=== PATIENT | female | born 1955 | race Caucasian/White ===

== ENCOUNTER 2018-06-19 10:23 | Outpatient (REF) | payer MEDICAID, SELFPAY ==
[2018-06-19 19:04] LABS: HCT 41.3 % (36.0-46.0); HGB 13.9 g/dL (12.0-15.5); Mean Corp. HGB Concentration 33.7 g/dL (32.0-36.0); Mean Corpuscular Hemoglobin 35.7 pg (27.0-33.0); Mean Corpuscular Volume 106.2 fL (80-95); Mean Platelet Volume 11.2 fL (8.0-11.0); Platelet Count 204 x1000/uL (130-400); RBC 3.89 m/cumm (4.00-5.20); RBC Distribution Width 14.6 % (11.7-14.6); White Blood Cell Count 10.27 k/cumm (4.4-10.8)
[2018-06-19 19:16] LABS: Anion Gap 8.3 mmol/L (3-11); BUN 26 mg/dL (7-18); CO2 29.7 mmol/L (21.0-32.0); CREATININE 0.78 mg/dL (0.55-1.02); Chloride 102 mmol/L (98-107); Glucose 92 mg/dL (70-100); Potassium 4.1 mmol/L (3.5-5.1); Sodium 140 mmol/L (136-145)
[2018-06-19 19:29] LABS: Calcium 11.4 mg/dL (8.5-10.1)
== END 2018-06-19 10:43 ==
LOC: NCHCN 10:23
PROVIDERS: PCP Physician Assistant Medical; Visit Provider Nurse Practitioner Family
DX: E87.1 Hypo-osmolality and hyponatremia (principal); D64.9 Anemia, unspecified
CPT/HCPCS: 80048; 85027

== ENCOUNTER 2019-02-12 11:50 | Outpatient (REF) | payer MEDICAID, SELFPAY ==
[2019-02-12 19:49] LABS: HCT 41.1 % (36.0-46.0); HGB 14.1 g/dL (12.0-15.5); Mean Corp. HGB Concentration 34.3 g/dL (32.0-36.0); Mean Corpuscular Hemoglobin 34.8 pg (27.0-33.0); Mean Corpuscular Volume 101.5 fL (80-95); Mean Platelet Volume 11.3 fL (8.0-11.0); Platelet Count 233 x1000/uL (130-400); RBC 4.05 m/cumm (4.00-5.20); RBC Distribution Width 14.9 % (11.7-14.6); White Blood Cell Count 12.25 k/cumm (4.4-10.8)
[2019-02-12 20:28] LABS: ALT 114 U/L (12-78); AST 124 U/L (15-37); Albumin 4.2 g/dL (3.4-5.0); Alkaline Phosphatase 104 U/L (46-116); Anion Gap 13.9 mmol/L (3-11); BUN 14 mg/dL (7-18); Bilirubin, Total 0.4 mg/dL (0.2-1.0); CO2 24.1 mmol/L (21.0-32.0); CREATININE 0.86 mg/dL (0.55-1.02); Calcium 10.2 mg/dL (8.5-10.1); Chloride 101 mmol/L (98-107); Folate 16.5 ng/mL (8.6-20.0); Glucose 166 mg/dL (70-100); Potassium 4.4 mmol/L (3.5-5.1); Sodium 139 mmol/L (136-145); Total Protein 7.7 g/dL (6.4-8.2); Vitamin B12 560 pg/mL (193-986)
== END 2019-02-12 12:10 ==
LOC: NCHCN 11:50
PROVIDERS: PCP Physician Assistant Medical; Visit Provider Nurse Practitioner Family
DX: F10.10 Alcohol abuse, uncomplicated (principal); E87.1 Hypo-osmolality and hyponatremia; D64.9 Anemia, unspecified; I21.4 Non-ST elevation (NSTEMI) myocardial infarction
CPT/HCPCS: 80053; 85027; 82607; 82746

== ENCOUNTER 2019-05-18 18:43 | Outpatient (REF) | payer MEDICAID, SELFPAY ==
[2019-05-18 20:17] LABS: Abs Immature Grans 0.02 k/cumm (0.0-0.09); Absolute Basophil Count 0.05 k/cumm (0.0-0.2); Absolute Eosinophil Count 0.01 k/cumm (0.0-0.7); Absolute Lymphocyte Count 2.47 k/cumm (1.2-3.4); Absolute Monocyte Count 0.84 k/cumm (0.11-0.7); Absolute Neutrophil Count 4.48 k/cumm (1.2-6.7); Basophils % 0.6; Eosinophils % 0.1; HCT 35.5 % (36.0-46.0); HGB 12.2 g/dL (12.0-15.5); Immature Grans % 0.3; Lymphocytes % 31.4; Mean Corp. HGB Concentration 34.4 g/dL (32.0-36.0); Mean Corpuscular Volume 101.7 fL (80-95); Mean Platelet Volume 10.5 fL (8.0-11.0); Monocytes % 10.7; Neutrophils % 56.9; Platelet Count 217 x1000/uL (130-400); RBC 3.49 m/cumm (4.00-5.20); RBC Distribution Width 13.7 % (11.7-14.6); White Blood Cell Count 7.87 k/cumm (4.4-10.8)
== END 2019-05-18 19:03 ==
LOC: NCHCN 18:43
PROVIDERS: PCP Internal Medicine; Visit Provider Internal Medicine
DX: K70.10 Alcoholic hepatitis without ascites (principal); Z87.19 Personal history of other diseases of the digestive system; D64.9 Anemia, unspecified
CPT/HCPCS: 85025

== ENCOUNTER 2019-05-21 13:45 | Outpatient (REF) | payer MEDICAID, SELFPAY ==
[2019-05-21 19:22] LABS: HGB 10.9 g/dL (12.0-15.5); Mean Corpuscular Hemoglobin 35.3 pg (27.0-33.0); Mean Corpuscular Volume 106.8 fL (80-95); Platelet Count 157 x1000/uL (130-400); RBC 3.09 m/cumm (4.00-5.20); RBC Distribution Width 13.7 % (11.7-14.6); White Blood Cell Count 7.34 k/cumm (4.4-10.8)
== END 2019-05-21 14:05 ==
LOC: NCHCN 13:45
PROVIDERS: PCP Internal Medicine; Visit Provider Nurse Practitioner Family
DX: K70.10 Alcoholic hepatitis without ascites (principal)
CPT/HCPCS: 85027

== ENCOUNTER 2021-12-10 17:44 | Outpatient (REF) | payer OTHER, MEDICAID, SELFPAY ==
[2021-12-10 18:46] LABS: HCT 31.3 % (36.0-46.0); HGB 10.8 g/dL (11.2-15.7); MCH 34.5 pg (27.0-33.0); MCHC 34.5 % (32.0-36.0); MCV 100 fL (80-95); MPV 9.9 fL (8.0-11.0); Platelet Count 401 10^3/uL (130-400); RBC 3.13 10^6/uL (3.93-5.22); RDW 13.2 % (11.7-14.6); RDW-SD 48.5 fL; WBC 9.38 10^3/uL (4.4-10.8)
[2021-12-10 18:55] LABS: Anion Gap 9.7 mmol/L (3-11); BUN 6 mg/dL (7-18); CO2 29.3 mmol/L (21.0-32.0); CREATININE 0.6 mg/dL (0.55-1.02); Calcium 9.5 mg/dL (8.5-10.1); Chloride 98 mmol/L (98-107); Glucose 96 mg/dL (74-106); Sodium 137 mmol/L (136-145)
[2021-12-10 19:26] LABS: Potassium 2.5 mmol/L (3.5-5.1)
== END 2021-12-10 17:45 | disposition home or self-care (01) ==
LOC: NCHCN 17:44
PROVIDERS: PCP Internal Medicine; Visit Provider Physician Assistant
DX: F10.10 Alcohol abuse, uncomplicated (principal)
CPT/HCPCS: 80048; 85027

== ENCOUNTER 2023-04-21 16:59 | Outpatient (REF) | payer OTHER, MEDICAID, SELFPAY ==
[2023-04-21 19:28] LABS: Abs Immature Grans 0.02 10^3/uL (0.0-0.06); Absolute Basophil Count 0.08 10^3/uL (0.0-0.2); Absolute Eosinophil Count 0.02 10^3/uL (0.0-0.7); Absolute Lymphocyte Count 2.55 10^3/uL (1.2-3.4); Absolute Monocyte Count 0.56 10^3/uL (0.1-0.8); Absolute Neutrophil Count 4.09 10^3/uL (1.2-6.7); Basophils % 1.1; Eosinophils % 0.3; HCT 39.7 % (36.0-46.0); HGB 13.2 g/dL (11.2-15.7); Immature Grans % 0.3; Lymphocytes % 34.8; MCH 33.8 pg (27.0-33.0); MCHC 33.2 % (32.0-36.0); MCV 102 fL (80-95); MPV 10.1 fL (8.0-11.0); Monocytes % 7.7; Neutrophils % 55.8; Platelet Count 236 10^3/uL (130-400); RBC 3.91 10^6/uL (3.93-5.22); RDW 14.3 % (11.7-14.6); RDW-SD 53.3 fL; WBC 7.32 10^3/uL (4.4-10.8)
[2023-04-21 19:50] LABS: ALT 22 U/L (14-59); AST 45 U/L (15-37); Alkaline Phosphatase 222 U/L (46-116); Anion Gap 11.6 mmol/L (3-11); BUN 3 mg/dL (7-18); Bilirubin, Total 0.3 mg/dL (0.2-1.0); CO2 23.4 mmol/L (21.0-32.0); CREATININE 0.7 mg/dL (0.55-1.02); Calcium 10.1 mg/dL (8.5-10.1); Calculated LDL 55 mg/dL (<100); Chloride 102 mmol/L (98-107); Cholesterol 192 mg/dL (<200); Estimated GFR 94.15 (mL/min/1.73m2); Glucose 82 mg/dL (74-106); HDL Cholesterol 125 mg/dL (40-60); Magnesium 1.9 mg/dL (1.8-2.4); Potassium 4.1 mmol/L (3.5-5.1); Sodium 137 mmol/L (136-145); Total Protein 7.2 g/dL (6.4-8.2); Triglyceride 62 mg/dL (<150)
== END 2023-04-21 17:00 | disposition home or self-care (01) ==
LOC: NCHCN 16:59
PROVIDERS: PCP Internal Medicine; Visit Provider Physician Assistant
DX: I42.6 Alcoholic cardiomyopathy (principal); K70.10 Alcoholic hepatitis without ascites; R63.6 Underweight; F10.10 Alcohol abuse, uncomplicated; I10 Essential (primary) hypertension
CPT/HCPCS: 80053; 80061; 83735; 84443; 85025

== ENCOUNTER 2023-05-11 13:33 | Emergency (ER) | payer OTHER, MEDICAID, SELFPAY ==
[2023-05-11 13:45] VITALS: BP 102/77; PULSE 110; RESP 18; TEMP 36.4; O2SAT 99
--- NOTE | 2023-05-11 13:55 | W.ED.GENAD ---
Discharge Plan Disposition Patient Disposition: Home Discharge Details Clinical Impression: Macrocytosis without anemia Primary Care Provider: Noam Sosa ED Provider: Atif Roche Home Meds and New Rx's Prescriptions: New cephalexin 250 mg capsule 250 mg PO QID 5 Days Qty: 20 0RF Continued atorvastatin 40 MG tablet 40 mg PO DAILY Hold Instructions: per pt disulfiram 250 MG tablet 250 mg PO DAILY Hold Instructions: per pt cyproheptadine 4 MG tablet 8 mg PO HS Hold Instructions: per pt lisinopril 5 MG tablet 5 mg PO DAILY Hold Instructions: per pt multivitamin 1 EACH capsule 1 ea PO Hold Instructions: Pt Stopped/Never Started tiotropium bromide [Spiriva with HandiHaler] 18 MCG capsule, w/inhalation device 18 mcg Inhalation DAILY Hold Instructions: per pt quetiapine [Seroquel] 300 MG tablet 600 mg PO DAILY Hold Instructions: per pt thiamine HCl (vitamin B1) 100 MG tablet 100 mg PO DAILY Hold Instructions: per pt aspirin [Lucia Low Dose Aspirin] 81 MG tablet,delayed release (DR/EC) 81 mg PO DAILY Hold Instructions: per pt paroxetine HCl [Paxil] 20 MG tablet 60 mg PO DAILY Hold Instructions: per pt omeprazole 20 MG capsule,delayed release(DR/EC) 20 mg PO DAILY fluticasone propionate 16 GM spray,suspension 50 mcg NS BID Hold Instructions: per pt naproxen [Naprosyn] 500 MG tablet 500 mg PO BID Hold Instructions: per pt] Ensure Original 237 ML liquid 237 ml PO TID Hold Instructions: per pt Combivent Respimat 4 GM mist 1 puff Inhalation QID Hold Instructions: per pt hydrocodone-acetaminophen [[place]] 1 EACH tablet 1 - 2 tab PO PRN PRN Hold Instructions: per pt Discharge Instructions Additional Instructions: You were seen in the emergency department first thoughts of self-harm. You met with [facility] human services and received a safety plan. You are awaiting a care bed. If you do not feel safe at home or if you have any other concerns please return to the emergency department. As we discussed please follow-up with your primary care provider later this week to touch base about restarting medicines. As we discussed please cut down on your drinking. Please do not stop drinking entirely but rather drink 1 less drinks per day and slowly stop drinking over the course of the week. If you feel concern for your safety please return to the emergency department. Please take these antibiotics as directed and please return to the emergency department if you develop fevers or if you pass out. Discharge Data Discharge Date/Time-TO BE ENTERED AT DEPARTURE: 05/11/23 22:21 HPI General Date/Time Provider Initiated Documentation: 05/11/23 13:40. HPI Narrative: MDM This is a chronically ill appearing tachycardic but afebrile 68-year-old demented female with vague thoughts of self-harm and prior psychiatric hospitalizations for which she will require crisis evaluation following medical evaluation. Given daily ethanol use will obtain a magnesium level to assess for hypomagnesemia, ethanol level acetaminophen level and salicylate level. No chest pain to suggest ACS. Will provide 500 cc of crystalloid given tachycardia. No pain out of proportion to suggest necrotizing soft tissue infection. No focal neurological deficits to suggest CVA so I do not feel that the patient would be a tPA candidate. Patient has no nuchal rigidity nor any fevers so my suspicion is low for meningitis I do not feel that she requires a lumbar puncture. No tonic-clonic activity to suggest seizure. No dysuria nor frequency however will obtain a urinalysis to assess for UTI. Given history of fall this morning will obtain a CT head. No ophthalmoplegia so doubt Warnicke's. Per Nexus criteria, cervical CT not obtained. The patient had no c-spine midline tenderness, no evidence of intoxication, was AAOx3, had no focal neurological deficits, and no painful distracting injuries. Given fall will obtain chest x-ray. Will place patient on a CIWA protocol. Patient is not markedly tremulous at the moment so we will defer empiric chlordiazepoxide. No signs of acute withdrawal at the moment so we will defer empiric phenobarbital. Patient's niece reports that mental status is at baseline. 2:40 PM CBC showing macrocytosis without anemia. No thrombocytopenia. No leukocytosis. 3:10 PM Acetaminophen negative. Basic metabolic panel showing no anion gap. Normal creatinine. Very mild hyponatremia. No JOSE. Normal reassuring magnesium. Mildly elevated salicylates. Will order repeat level in 4 hours at 6:30 PM ethanol level elevated at 129 mg/dL. We will have patient meet with crisis team in approximately 4 hours based on clearance of approximately 30 mg/dL/h. This will be at approximately 6:30 PM also. TSH normal. reassuring negative COVID. Patient reportedly has not been taking her home medications. We will hold her quetiapine for the moment. 3:55 PM Urine drug screen unremarkable. Urinalysis showing trace blood and large leuk esterase. Nitrite negative. Microscopy showing 20-50 WBCs per high-powered field. Despite no symptoms of dysuria nor frequency will treat based on new suicidal ideation in the patient's age using cephalexin. Negative CT head. 4:30 PM Chest x-ray read as negative. 4:50 PM Patient's tachycardia improving however her blood pressures become soft at 88/57. She does only weigh 40 kg however will provide another 500 cc crystalloid fluid bolus while encouraging p.o. 5:13 PM Results from [facility] on recent ED visit earlier this year shows patient does indeed have a history of mild cognitive disorder/dementia along with alcohol abuse. 7 PM Downtrending salicylate level. We will have crisis evaluate patient as she is medically cleared. 8:40 PM Patient had a CIWA score of 6. Her heart rate was 97. Her blood pressure improved to 117/76. She tolerated p.o. [facility] is currently screening the patient. 9:50 PM I spoke with Sonia from [facility] [employer] services who assessed the patient. She reported that the patient had had difficult times during inpatient placement in the past and as result she was referred the patient to a care bed. Patient will wait from home for the care bed. We will ensure that the patient and her niece feel comfortable this plan will discharge with course of cephalexin for acute UTI. I met with the patient and her niece. 10 PM Patient felt comfortable going home. She is staying with her partner today. She has no access to handguns. She has not taken her medicines in the past 2 to 3 weeks and as result will defer restarting these at this point time. I have asked health pulling unit floorhand Mary Ann to have the patient seen later this week by the [facility] where she receives her primary care to assess how best to resume her home medications. Will defer benzodiazepines at this point time given that the patient is going home. I wrote patient for a 5-day course of cephalexin and told her to return to the emergency department if she developed fevers nausea vomiting or if she passed out. We will proceed with empiric trial of expectant outpatient management Diagnosis: Macrocytosis without anemia Dementia History of falling Acute UTI Depression suicidal ideation Alcohol abuse complication Chronic conditions affecting the care of the patient: Dementia History obtained from an outside historian: Patient's niece External record review: No [facility] EMR records [Diagnostic interpretations performed by me:] [Per my independent interpretation chest x-ray shows:] No acute cardiopulmonary process Medications: NicoDerm Social determinants of health affecting disposition: Lives alone Management discussed with: [facility] human servicesSonia Treatment/interventions considered: Hospitalization but deferred Response to therapies provided: No signs of acute withdrawal patient vital signs in the emergency department. HPI This is a 68-year-old female arrived to the emergency department with her niece in the setting of suicidal thoughts. Patient has a history of dementia. Patient [facility]. She primarily receives her care at [facility] and has been seen in the past at [facility]. She lives with a male partner. She denies visual and auditory hallucinations. Her prior suicide attempt has been by taking pills. She denies any overdoses at the moment. She has no history of intubation nor hospitalization for withdrawal from alcohol but she does drink 4-5 drinks per day. She is a daily tobacco user but declines nicotine patch. She occasionally uses marijuana. She is ambulates with a walker at baseline and fell this morning while making her bed. She is not sure whether or not she hit her head. Exam General: Chronically ill-appearing in no acute distress speaking in complete sentences. Head: Normocephalic, atraumatic. Eye:[Pupils equal, round reactive to light.] Extraocular eye movements intact. No conjunctival injection. No scleral icterus. Ear, nose, mouth, throat: Grossly normal inspection. Normal voice, handling secretions normally. No tongue fasciculations. Neck: Trachea midline. No midline cervical spinal tenderness Cardiovascular: Well-perfused distal extremities. Rapid regular rate Respiratory: Nonlabored respiration. Clear lungs bilaterally. Chest wall: No chest wall tenderness Gastrointestinal: Nondistended abdomen. Soft nontender Musculoskeletal: No edema. Moving all 4 extremities spontaneously. No tenderness bilateral upper and lower extremities on palpation Skin: Normal for age and race, grossly normal temperature and turgor. No acute rash. Neurologic: Alert to person but not to place nor time. GCS 14: E4, V4, M6. 5 out of 5 bilateral upper and lower extremity strength. Cranial nerves II through XII intact grossly. Psychiatric: Limited affect congruent with mood. Slightly disheveled. Smells of tobacco. Related Data Home Medications Medication Instructions Recorded Confirmed Lucia Low Dose Aspirin 81 mg 81 mg PO DAILY 05/03/17 05/11/23 tablet,delayed release (aspirin) Combivent Respimat 20 mcg-100 1 puff inhalation QID 05/03/17 05/11/23 mcg/actuation solution for inhalation (ipratropium-albuterol) Ensure Original (food supplemt, 237 ml PO TID 05/03/17 05/11/23 lactose-reduced) Naprosyn 500 mg tablet (naproxen) 500 mg PO BID 05/03/17 05/11/23 Paxil 20 mg tablet (paroxetine HCl) 60 mg PO DAILY 05/03/17 05/11/23 Seroquel 300 mg tablet (quetiapine) 600 mg PO DAILY 05/03/17 05/11/23 Spiriva with HandiHaler 18 mcg and 18 mcg inhalation DAILY 05/03/17 05/11/23 inhalation capsules (tiotropium bromide) atorvastatin 40 mg tablet 40 mg PO DAILY 05/03/17 05/11/23 cyproheptadine 4 mg tablet 8 mg PO HS 05/03/17 05/11/23 disulfiram 250 mg tablet 250 mg PO DAILY 05/03/17 05/11/23 fluticasone propionate 50 50 mcg NS BID 05/03/17 05/11/23 mcg/actuation nasal spray,suspension lisinopril 5 mg tablet 5 mg PO DAILY 05/03/17 05/11/23 multivitamin 1 ea PO 05/03/17 omeprazole 20 mg capsule,delayed 20 mg PO DAILY 05/03/17 05/11/23 release thiamine HCl (vitamin B1) 100 mg 100 mg PO DAILY 05/03/17 05/11/23 tablet hydrocodone 5 mg-acetaminophen 325 1 - 2 tab PO PRN PRN 05/11/17 05/11/23 mg tablet ([place]) cephalexin 250 mg capsule 250 mg PO QID 5 days #20 caps 05/11/23 Previous Rx's Medication Instructions Recorded cephalexin 250 mg capsule 250 mg PO QID 5 days #20 caps 05/11/23 Allergies Allergy/AdvReac Type Severity Reaction Status Date / Time No Known Drug Allergies Allergy Unverified 05/11/23 14:35 General Stated Complaint: PsychEval JAZMIN: 2 PFSH All Active Problems (Updated 05/11/23 @ 16:01 by Atif Roche MD) Macrocytosis without anemia (Acute) Social History Smoking/Tobacco Use Status: Current every day Smoking risk assessment performed?: Yes Alcohol Intake: current Alcohol Intake frequency: 3 or more drinks per day Alcohol type: beer Drug use: Occasionally Substance use type: marijuana Housing: apartment Do you feel safe at home: Yes Do you feel safe in your relationship?: Yes Course Vital Signs Vital signs: Vital Signs Temperature 36.4 C L 05/11/23 13:45 Pulse 110 H 05/11/23 13:45 Respiratory Rate 18 05/11/23 13:45 Blood Pressure 102/77 05/11/23 13:45 Pulse Oximetry 99 05/11/23 13:45 Temperature 36.4 C L 05/11/23 13:45 Pulse 110 H 05/11/23 13:45 Respiratory Rate 18 05/11/23 13:45 Respiratory Effort Normal 05/11/23 13:48 Blood Pressure 102/77 05/11/23 13:45 Blood Pressure Position Sitting 05/11/23 13:45 Pulse Oximetry 99 05/11/23 13:45 Oxygen Delivery Method Room Air 05/11/23 13:45 Oxygen Flow Rate 0 05/11/23 13:45 PAWSS Have you Been Recently Intoxicated or Drunk Within the Last 30 days?: Yes Have you Ever Experienced Previous Episodes of Alcohol Withdrawal?: Yes Have you ever Experienced Withdrawal Seizures?: No Have you ever Experienced Delirium Tremens(DT)s?: Yes Have you ever undergone Alcohol Rehabilitation Treatment (i.e, inpt ot outpatient treatment programs)?: Yes Have you ever Experienced Blackouts?: No Have you ever Combined Alcohol with other Downers within the last 90 days?: Unable to Obtain Have you ever Combined Alcohol with any other Substance of Abuse during the last 90 days?: Yes Evidence of Increased Autonomic Activity (i.e. HR>120, tremor, sweating, agitation, nausea)?: No Result: 6
--- OUTSIDE RECORDS SUMMARY | 2023-05-11 13:55 | XMS_ITS | Continuity of Care Document ---
Author Name Unknown Organization [facility] Address [address] [place] [address] Care Team Providers Care Experimental Mechanic Name Role Phone [facility], Noam Estrella Primary Care Physician Encounter [facility] Date(s): 12/18/22 - 12/18/[address] [id number] Encounter Diagnosis Conjunctivitis(Discharge Diagnosis) - 12/18/22 Discharge Disposition: Home or Self Care Attending Physician: Sabrina Gonzalez MD Admitting Physician: Sabrina Gonzalez MD Allergies, Adverse Reactions, Alerts No Known Medication Allergies Assessment and Plan Extracted from: Title:Clinical Document Author:Rambo Rodriguez Date:12/18/22 Diagnosis: 1. Conjunctivitis Comment: Diagnosis: Eye drainage Comment: Functional Status 12/18/22 Other exposure to Infectious Disease Non e Immunizations Given and Recorded Vaccine Date Status Refusal Reason SARS-CoV-2 (COVID-19) [id number] vaccine 11/05/20 R ecorded Medications Augmentin 500 mg-125 mg oral tablet 1 tab, Oral, every 12 hr, X 7 days, # 14 tab, 0 Refill(s), 12/25/22 21:21:00 EDT, Pharmacy: [facility], 150, cm, 12/18/22 20:41:00 EDT, Height/Length Dosing, 36, kg, 12/18/22 20:41:00 EDT, Weight Dosing Start Date: 12/18/22 Stop Date: 12/25/22 Status: Ordered cephalexin 500 mg oral capsule 500 mg = 1 cap, Oral, every 8 hr, # 21 cap, 0 Refill(s), Pharmacy: [id number], 149, cm, 02/21/22 18:53:00 EDT, Height/Length Dosing, 36.4, kg, 02/21/22 18:53:00 EDT, Weight Dosing Start Date: 02/21/22 Stop Date: 02/28/22 Status: Ordered cyproheptadine 4 mg oral tablet 4 mg = 1 tab, Oral, every evening, 0 Refill(s) Start Date: 11/27/21 Status: Ordered erythromycin 0.5% ophthalmic ointment 0.5 inch, Eye-Left, BID, X 7 days, # 3.5 g, 0 Refill(s), 12/25/22 21:21:00 EDT, Pharmacy: [facility], 150, cm, 12/18/22 20:41:00 EDT, Height/Length Dosing, 36, kg, 12/18/22 20:41:00 EDT, WeightDosing Start Date: 12/18/22 Stop Date: 12/25/22 Status: Ordered midodrine 2.5 mg oral tablet 2.5 mg = 1 tab, Oral, TID, 1 Refill(s) Start Date: 12/01/21 Status: Ordered traZODone 50 mg oral tablet 50 mg = 1 tab, Oral, every evening, PRN sleep, 0 Refill(s) Start Date: 11/27/21 Status: Ordered Problem List Condition Confirmation Course Effective Dates Status H ealth Status Informant Depression Confirmed Active History of alcoholic cardiomyopathy Confirmed Active Results Laboratory List Name Date .Manual Differential ([facility]) 12/18/22 CBC w/ Diff 12/18/22 Comprehensive Metabolic Panel (CMP) 12/18 Most recent to oldest [Reference Range]: 1 WBC [5.0-10.0 x10^3/mcL] 8.0 x10^3/mcL (12/18/22 8:47 PM) RBC [4.1-5.3 x10^6/mcL] 3.5 x10^6/mcL *LOW* (12/18/22 8:47 PM) Segs Man [40-75 %] 36 % *LOW* (12/18/22 8:47 PM) Lymph Man [20-50 %] 55 % *HI* (12/18/22 8:47 PM) [place] Man [2-15 %] 8 % (12/18/22 8:47 PM) Eos Man [1-6 %] 1 % (12/18/22 8:47 PM) BUN [7-18 mg/dL] 3 mg/dL *LOW* (12/18/22 8:47 PM) Glucose Level [74-106 mg/dL] 81 mg/dL (12/18/22 8:47 PM) Potassium Level [3.5-5.1 mmol/L] 4.0 mmo l/L (12/18/22 8:47 PM) MCV [80.0-96.0 fL] 99.7 fL *HI* (12/18/22 8:47 PM) RBC Morph Normal (12/18/22 8:47 PM) AST [15-37 unit/L] 147 unit/L *HI* (12/18/22 8:47 PM) ALT [14-59 unit/L] 75 unit/L *HI* (12/18/22 8:47 PM) MCHC [31.0-35.0 g/dL] 34.7 g/dL (12/18/22 8:47 PM) Sodium Level [136-145 mmol/L] 128 mmol/L *LOW* (12/18/22 8:47 PM) Hct [37.0-47.0 %] 35.2 % *LOW* (12/18/22 8:47 PM) Calcium Level [8.5-10.1 mg/dL] 9.4 mg/dL (12/18/22 8:47 PM) Albumin Level [3.4-5.0 g/dL] 3.3 g/dL *LOW* (12/18/22 8:47 PM) Protein Total [6.4-8.2 g/dL] 7.1 g/dL (12/18/22 8:47 PM) MCH [26.0-32.0 pg] 34.6 pg *HI* (12/18/22 8:47 PM) Bilirubin Total [0.2-1.0 mg/dL] 0.4 mg/d L (12/18/22 8:47 PM) Hgb [12.0-16.0 g/dL] 12.2 g/dL (12/18/22 8:47 PM) Alk Phos [46-146 unit/L] 193 unit/L *HI* (12/18/22 8:47 PM) Band Man [0-5 %] 0 % (12/18/22 8:47 PM) Platelets [130-450 x10^3/mcL] 162 x10^3/ mcL (12/18/22 8:47 PM) CO2 [21-32 mmol/L] 22 mmol/L (12/18/22 8:47 PM) eGFR Non-AA [>=60] 98 (12/18/22 8:47 PM) eGFR AA [>=60] 98 (12/18/22 8:47 PM) Chloride Level [98-107 mmol/L] 97 mmol/L *LOW* (12/18/22 8:47 PM) RDW-CV [11.5-14.5 %] 13.0 % (12/18/22 8:47 PM) Slide Review Man Diff (12/18/22 8:47 PM) Abs Neut Man 2.9 x10^3/mcL *NA* (12/18/22 8:47 PM) Creatinine Level [0.55-1.02 mg/dL] 0.60 mg/dL (12/18/22 8:47 PM) Baso Man [0-1 %] 0 % (12/18/22 8:47 PM) Vital Signs Most recent to oldest [Reference Range]: 1 2 3 Temperature Temporal Artery [36-38 Deg C] 36 Deg C (12/18/22 8:24 PM) Peripheral Pulse Rate [60-100 bpm] 75 bpm (12/18/22 9:14 PM) 66 bpm (12/18/22 9:00 PM) 67 bpm (12/18/22 8:45 PM) Heart Rate Monitored [60-100 bpm] 78 bpm (12/18/22 9:14 PM) 72 bpm (12/18/22 9:00 PM) 79 bpm (12/18/22 8:45 PM) Respiratory Rate [12-24 br/min] 20 br/min (12/18/22 9:14 PM) 16 br/min (12/18/22 9:00 PM) 14 br/min (12/18/22 8:45 PM) Blood Pressure [90-140/60-90 mmHg] 142/81mmHg *HI* (12/18/22 9:14 PM) 143/97mmHg *HI* (12/18/22 9:00 PM) 143/97mmHg *HI* (12/18/22 8:45 PM) Blood Pressure Location Right arm (12/18/22 9:14 PM) Right arm (12/18/22 9:00 PM) Right arm (12/18/22 8:45 PM) Weight 36.00 kg (12/18/22 8:24 PM) Weight Dosing 36.00 kg (12/18/22 8:41 PM) Height 150.000 cm (12/18/22 8:24 PM) Height/Length Dosing 150.000 cm (12/18/22 8:41 PM) Body Mass Index 16.000 kg/m2 (12/18/22 8:24 PM) Social History Social History Type Response Tobacco Current everyday tob acco user Tobacco Use:. 1 ppd per day. Sex Female Hospital Discharge Instructions Patient Education 12/18/2022 20:20:37 Bacterial Conjunctivitis, Adult Bacterial Conjunctivitis, Adult Bacterial conjunctivitis is an infection of the clear membrane that covers the white part of the eye and the inner surface of the eyelid (conjunctiva). When the blood vessels in the conjunctiva become inflamed, the eye becomes red or pink. The eye often feels irritated or itchy. Bacterial conjunctivitis spreads easily from person to person (is contagious). It also spreads easily from one eye to the other eye. What are the causes? This condition is caused by bacteria. You may get the infection if you come into close contact with: ??? A person who is infected with the bacteria. ??? Items that are contaminated with the bacteria, such as a face towel, contact lens solution, or eye makeup. What increases the risk? You are more likely to develop this condition if: ??? You are exposed to other people who have the infection. ??? You wear contact lenses. ??? You have a sinus infection. ??? You have had a recent eye injury or surgery. ??? You have a weak body defense system (immune system). ??? You have a medical condition that causes dry eyes. What are the signs or symptoms? Symptoms of this condition include: ??? Thick, yellowish discharge from the eye. This may turn into a crust on the eyelid overnight andcause your eyelids to stick together. ??? Tearing or watery eyes. ??? Itchy eyes. ??? Burning feeling in your eyes. ??? Eye redness. ??? Swollen eyelids. ??? Blurred vision. How is this diagnosed? This condition is diagnosed based on your symptoms and medical history. Your health care provider may also take a sample of discharge from your eye to find the cause of your infection. How is this treated? This condition may be treated with: ??? Antibiotic eye drops or ointment to clear the infection more quickly and prevent the spread of infection to others. ??? Antibiotic medicines taken by mouth (orally) to treat infections that do not respond to drops or ointments or that last longer than 10 days. ??? Cool, wet cloths (cool compresses) placed on the eyes. ??? Artificial tears applied 2???6 times a day. Follow these instructions at home: Medicines ??? Take or apply your antibiotic medicine as told by your health care provider. Do not stop using the antibiotic, even if your condition improves, unless directed by your health care provider. ??? Take or apply cqsk-moz-oqvpmqu and prescription medicines only as told by your health care provider. ??? Be very careful to avoid touching the edge of your eyelid with the eye-drop bottle or the ointment tube when you apply medicines to the affected eye. This will keep you from spreading the infection to your other eye or to other people. Managing discomfort ??? Gently wipe away any drainage from your eye with a warm, wet washcloth or a cotton ball. ??? Apply a clean, cool compress to your eye for 10???20 minutes, 3???4 times a day. General instructions ??? Do not wear contact lenses until the inflammation is gone and your health care provider says itis safe to wear them again. Ask your health care provider how to sterilize or replace your contact lenses before you use them again. Wear glasses until you can resume wearing contact lenses. ??? Avoid wearing eye makeup until the inflammation is gone. Throw away any old eye cosmetics that may be contaminated. ??? Change or wash your pillowcase every day. ??? Do not share towels or washcloths. This may spread the infection. ??? Wash your hands often with soap and water for at least 20 seconds and especially before touching your face or eyes. Use paper towels to dry your hands. ??? Avoid touching or rubbing your eyes. ??? Do not drive or use heavy machinery if your vision is blurred. Contact a health care provider if: ??? You have a fever. ??? Your symptoms do not get better after 10 days. Get help right away if: ??? You have a fever and your symptoms suddenly get worse. ??? You have severe pain when you move your eye. ??? You have facial pain, redness, or swelling. ??? You have a sudden loss of vision. Summary ??? Bacterial conjunctivitis is an infection of the clear membrane that covers the white part of the eye and the inner surface of the eyelid (conjunctiva). ??? Bacterial conjunctivitis spreads easily from eye to eye and from person to person (is contagious). ??? Wash your hands often with soap and water for at least 20 seconds and especially before touching your face or eyes. Use paper towels to dry your hands. ??? Take or apply your antibiotic medicine as told by your health care provider. Do not stop using the antibiotic even if your condition improves. ??? Contact a health care provider if you have a fever or if your symptoms do not get better after 10 days. Get help right away if you have a sudden loss of vision. This information is not intended to replace advice given to you by your health care provider. Make sure you discuss any questions you have with your health care provider. Document Revised: 09/30/2021 Document Reviewed: 09/30/2021 [employer] Patient Education ?? 2021 [employer]. Follow Up Care 12/18/2022 20:24:10 With:Follow up with primary care provider Address: When:1 to 2 weeks Physician Emergency department Note * Sabrina Gonzalez MD: PERFORM Event Display: ED Note Physician Authored Date: [id number] MORENITA PENNINGTON :1955 Age:67 years Sex:Female Visit Date:12/18/2022 Primary Care Physician: Ian SMITH, Noam Estrella MD Basic Information Time Seen: Sabrina Gonzalez MD / 12/18/2022 20:43 Chief Complaint Patient c/o left eye pain, burning, and altered vision. ??Feels disorientated because of her eye. ??SO states she drinks ETOH daily and is her usual self, no weaker than usual. ??States he did not see her fall at all today. Patient states she has no injuries History Of Present Illness: Patient reports that her left eye has been bothering her today??she states it has been itchy and that she has been rubbing it.?? Patient drinks a lot of alcohol, she wanted to make sure that??the nurses and myself new.?? Patient significant other states that patient has some memory issues??she had said that she had fallen but he does not know of any falls today??and he has been with her.?? They have been together for over 20 years.?? Patient has had some drainage from her eye??today and??there has been redness around??she states it is uncomfortable.?? She states her vision is slightly blurry.?? Patient reports she did not like alcohol rehab she went twice she did not like the rules she wanted to be able to smoke when she wanted to??and she was restricted and being able to smoke Review of Systems: see hpi for ros Physical Exam Vitals & Measurements T:??36?C ??(Temporal Artery)?? HR:??75??(Peripheral)?? HR:??78??(Monitored)?? RR:??20?? BP:??142/81?? SpO2:??100%?? HT:??150.000??cm?? WT:??36.00??kg?? BMI:??16.000?? Pain Score:??10?? O2 Therapy:??Room air?? General: Alert and oriented, well nourished,?No??acute distress Eye: PER,?Normal??conjunctiva??inner eyelid on the left??is??injected??perhaps slight injection??of left??conjunctiva??around left eye??there is erythema??of her upper and lower eyelid and??just medial to the eye, No scleral icterus HENT: Normocephalic?Normal?? hearing?? Respiratory:??Respiration??no distress??no increased work of breathing Heart:??Capillary refill less than 2 seconds??no??edema Chest: wall excursion wnl no abnormal movements no obvious deformities Musculoskeletal:?Normal?? range of motion and strength,?No??tenderness,?No??swelling Skin: Skin is warm, dry and pink,?No??rashes,?No??lesions Neurologic: Awake, alert and oriented her baseline??per significant other Psychiatric: Cooperative, appropriate mood and affect Medical Decision Making: For MDM please see under assessment and plan Procedure No Qualifying Data Assessment/Plan 1.??Conjunctivitis??H10.9 Early conjunctivitis with erythema of skin??with worry of cellulitis patient will be placed on Augmentin 500 mg twice a day??for 7 days and erythromycin ointment??twice a day will be instilled in the??eye. ??Eye patch is applied so that patient will hopefully??not itch the area and give it a rest.?? Patient is aware that anytime she may come back.?? Patient had reported falling however this does not seem to be??the case when discussing with significant other??patient's labs are overall??reassuring however did discuss with patient??that the abnormalities are likely due to her alcoholism.?? Journey to recovery was offered multiple times??she and significant other do not seem??to be interestedshe has been twice to rehab and did not like the rules. Ordered: Augmentin 500 mg-125 mg oral tablet, 1 tab, Oral, every 12 hr, X 7 days, # 14 tab, 0 Refill(s), 12/25/22 21:21:00 EDT, Pharmacy: [facility], 150, cm, 12/18/22 20:41:00 EDT, Height/Length Dosing, 36, kg, 12/18/22 20:41:00 EDT, Weight Dosing erythromycin 0.5% ophthalmic ointment, 0.5 inch, Eye-Left, BID, X 7 days, # 3.5 g, 0 Refill(s), 12/25/22 21:21:00 EDT, Pharmacy: [facility], 150, cm, 12/18/22 20:41:00 EDT, Height/Length Dosing, 36, kg, 12/18/22 20:41:00 EDT, Weight Dosing ?? Orders: .Manual Differential ([facility]), Blood, Routine, Collected, 12/18/22 20:47:00 EDT, Once, Lab Collect, [id number] Discharge Patient, 12/18/22 21:07:00 EDT, Home Independently, Constant Indicator Patient Education Bacterial Conjunctivitis, Adult Follow Up With When Contact Information Follow up with primary care provider Within 1 to 2 weeks Additional Instructions: Medication Reconciliation New Prescription amoxicillin-clavulanate (Augmentin 500 mg-125 mg oral tablet)1 tab Oral (given by mouth) every 12 hours for 7 Days. Refills: 0. ?? erythromycin ophthalmic (erythromycin 0.5% ophthalmic ointment)0.5 Inch Left eye 2 times a day for 7 Days. Refills: 0. ?? Unchanged cephalexin (cephalexin 500 mg oral capsule)1 Capsules Oral (given by mouth) every 8 hours for 7 Days. Refills: 0. ?? cyproheptadine (cyproheptadine 4 mg oral tablet)1 tab Oral (given by mouth) every evening. ?? midodrine (midodrine 2.5 mg oral tablet)1 tab Oral (given by mouth) 3 times a day. ?? traZODone (traZODone 50 mg oral tablet)1 tab Oral (given by mouth) every evening as needed sleep. Problem List/Past Medical History Ongoing Depression History of alcoholic cardiomyopathy Historical No qualifying data Medication Administration Given Augmentin 500 mg-125 mg oral tablet, 1 tab, Oral Augmentin 500 mg-125 mg oral tablet, 1 tab, Oral erythromycin 0.5% ophthalmic ointment, 1 eduar, Eye-Left Allergies No Known Medication Allergies Social History Alcohol Current, Beer, Several times per day Electronic Cigarette/Vaping Electronic Cigarette Use: Never. Tobacco Current everyday tobacco user Tobacco Use:. 1 ppd per day. Lab Results CBC and Differential?? LATEST RESULTS?? HISTORICAL RESULTS?? WBC?? 12/18/22 20:47?? 8.0?? 02/21/22?? 12.3 ??High?? RBC?? 12/18/22 20:47?? 3.5 ??Low?? 02/21/22?? 4.5?? Hgb?? 12/18/22 20:47?? 12.2?? 02/21/22?? 15.8?? Hct?? 12/18/22 20:47?? 35.2 ??Low?? 02/21/22?? 45.0?? MCV?? 12/18/22 20:47?? 99.7 ??High?? 02/21/22?? 100.4?? MCH?? 12/18/22 20:47?? 34.6 ??High?? 02/21/22?? 35.3 ??High?? MCHC?? 12/18/22 20:47?? 34.7?? 02/21/22?? 35.1 ??High?? RDW-CV?? 12/18/22 20:47?? 13.0?? 02/21/22?? 13.4?? Platelets?? 12/18/22 20:47?? 162?? 02/21/22?? 252?? Slide Review?? 12/18/22 20:47?? Man Diff?? 02/21/22?? Not Indicated? Routine Chemistry?? LATEST RESULTS?? HISTORICAL RESULTS?? Sodium Level?? 12/18/22 20:47?? 128 ??Low?? 02/21/22?? 134 ??Low?? Potassium Level?? 12/18/22 20:47?? 4.0?? 02/21/22?? 4.1?? Chloride Level?? 12/18/22 20:47?? 97 ??Low?? 02/21/22?? 99?? CO2?? 12/18/22 20:47?? 22?? 02/21/22?? 22?? Alk Phos?? 12/18/22 20:47?? 193 ??High?? 02/21/22?? 171 ??High?? AST?? 12/18/22 20:47?? 147 ??High?? 02/21/22?? sent to [facility]?? ALT?? 12/18/22 20:47?? 75 ??High?? 02/21/22?? 18?? BUN?? 12/18/22 20:47?? 3 ??Low?? 02/21/22?? 5 ??Low?? Glucose Level?? 12/18/22 20:47?? 81?? 02/21/22?? 106?? Creatinine Level?? 12/18/22 20:47?? 0.60?? 02/21/22?? 0.59?? eGFR AA?? 12/18/22 20:47?? 98?? 02/21/22?? 99?? eGFR Non-AA?? 12/18/22 20:47?? 98?? 02/21/22?? 99?? Calcium Level?? 12/18/22 20:47?? 9.4?? 02/21/22?? 10.1?? Protein Total?? 12/18/22 20:47?? 7.1?? 02/21/22?? 7.5?? Albumin Level?? 12/18/22 20:47?? 3.3 ??Low?? 02/21/22?? 3.6?? Bilirubin Total?? 12/18/22 20:47?? 0.4?? 02/21/22?? 0.3? Electronically Signed on 12/18/22 09:29 PM Sabrina Gonzalez MD Emergency department Discharge instructions * Sabrina Gonzalez MD: PERFORM Event Display: ED Discharge Information Authored Date: [id number] MORENITA PENNINGTON :1955 Age:67 years Sex:Female Visit Date:12/18/2022 Primary Care Physician: Noam Canseco MD Discharge Instructions We would like to thank you for allowing us to assist you with your healthcare needs. The following includes patient education materials and information regarding your injury/illness. Diagnosis from Today's Visit Conjunctivitis Discharge Vitals Temperature??(Temporal Artery) 96.8 ??F (36 ??C) Heart Rate??(Peripheral) 75 Heart Rate??(Monitored) 78 Respiratory Rate?? 20 Blood Pressure?? 142/81?? Height?? 59.06 in (150.000 cm) Weight?? 79.38 lb (36.00 kg) BMI?? 16.000 Allergies No Known Medication Allergies What to Do Next Instructions from Your Care Team If your symptoms worsen please return to the emergency department. ??Use erythromycin twice a day??to the??left eye. ??Take Augmentin??amoxicillin/clavulanic 500 mg twice a day??for 7 days. You Need to Schedule the Following Appointments Follow Up with??Follow up with primary care provider When:??Within 1 to 2 weeks You were treated today on an emergency basis; it may be steel to contact your primary care provider to notify them of your visit today. You may have been referred to your regular doctor or a specialist, please follow up as instructed. If your condition worsens or you can't get in to see the doctor, contact the Emergency Department. Medications What How Much When Why Instructions Next Dose New amoxicillin-clavulanate (Augmentin 500 mg-125 mg oral tablet) 1 tab Oral (given by mouth) Every 12 hours Conjunctivitis Duration: 7 Days Pickup at [facility] New erythromycin ophthalmic (erythromycin 0.5% ophthalmic ointment) 0.5 Inch Left eye 2 times a day Conjunctivitis Duration: 7 Days Pickup at [facility] Unchanged cephalexin (cephalexin 500 mg oral capsule) 1 Capsules Oral (given by mouth) Every 8 hours Duration: 7 Days Unchanged cyproheptadine (cyproheptadine 4 mg oral tablet) 1 tab Oral (given by mouth) Every evening Unchanged midodrine (midodrine 2.5 mg oral tablet) 1 tab Oral (given by mouth) 3 times a day Unchanged traZODone (traZODone 50 mg oral tablet) 1 tab Oral (given by mouth) Every evening as needed for sleep Pharmacy Information [facility]: [address] [place] [address] [phone] Education Materials Bacterial Conjunctivitis, Adult Bacterial conjunctivitis is an infection of the clear membrane that covers the white part of the eye and the inner surface of the eyelid (conjunctiva). When the blood vessels in the conjunctiva become inflamed, the eye becomes red or pink. The eye often feels irritated or itchy. Bacterial conjunctivitis spreads easily from person to person (is contagious). It also spreads easily from one eye to the other eye. What are the causes? This condition is caused by bacteria. You may get the infection if you come into close contact with: ? A person who is infected with the bacteria. ? Items that are contaminated with the bacteria, such as a face towel, contact lens solution, or eye makeup. What increases the risk? You are more likely to develop this condition if: ? You are exposed to other people who have the infection. ? You wear contact lenses. ? You have a sinus infection. ? You have had a recent eye injury or surgery. ? You have a weak body defense system (immune system). ? You have a medical condition that causes dry eyes. What are the signs or symptoms? Symptoms of this condition include: ? Thick, yellowish discharge from the eye. This may turn into a crust on the eyelid overnight and cause your eyelids to stick together. ? Tearing or watery eyes. ? Itchy eyes. ? Burning feeling in your eyes. ? Eye redness. ? Swollen eyelids. ? Blurred vision. How is this diagnosed? This condition is diagnosed based on your symptoms and medical history. Your health care provider may also take a sample of discharge from your eye to find the cause of your infection. How is this treated? This condition may be treated with: ? Antibiotic eye drops or ointment to clear the infection more quickly and prevent the spread of infection to others. ? Antibiotic medicines taken by mouth (orally) to treat infections that do not respond to drops or ointments or that last longer than 10 days. ? Cool, wet cloths (cool compresses) placed on the eyes. ? Artificial tears applied 2???6 times a day. Follow these instructions at home: Medicines ? Take or apply your antibiotic medicine as told by your health care provider. Do not stop using the antibiotic, even if your condition improves, unless directed by your health care provider. ? Take or apply hocg-aet-ctbwnet and prescription medicines only as told by your health care provider. ? Be very careful to avoid touching the edge of your eyelid with the eye-drop bottle or the ointment tube when you apply medicines to the affected eye. This will keep you from spreading the infection to your other eye or to other people. Managing discomfort ? Gently wipe away any drainage from your eye with a warm, wet washcloth or a cotton ball. ? Apply a clean, cool compress to your eye for 10???20 minutes, 3???4 times a day. General instructions ? Do not wear contact lenses until the inflammation is gone and your health care provider says it is safe to wear them again. Ask your health care provider how to sterilize or replace your contact lenses before you use them again. Wear glasses until you can resume wearing contact lenses. ? Avoid wearing eye makeup until the inflammation is gone. Throw away any old eye cosmetics that may be contaminated. ? Change or wash your pillowcase every day. ? Do not share towels or washcloths. This may spread the infection. ? Wash your hands often with soap and water for at least 20 seconds and especially before touching your face or eyes. Use paper towels to dry your hands. ? Avoid touching or rubbing your eyes. ? Do not drive or use heavy machinery if your vision is blurred. Contact a health care provider if: ? You have a fever. ? Your symptoms do not get better after 10 days. Get help right away if: ? You have a fever and your symptoms suddenly get worse. ? You have severe pain when you move your eye. ? You have facial pain, redness, or swelling. ? You have a sudden loss of vision. Summary ? Bacterial conjunctivitis is an infection of the clear membrane that covers the white part of the eye and the inner surface of the eyelid (conjunctiva). ? Bacterial conjunctivitis spreads easily from eye to eye and from person to person (is contagious). ? Wash your hands often with soap and water for at least 20 seconds and especially before touching your face or eyes. Use paper towels to dry your hands. ? Take or apply your antibiotic medicine as told by your health care provider. Do not stop using the antibiotic even if your condition improves. ? Contact a health care provider if you have a fever or if your symptoms do not get better after 10 days. Get help right away if you have a sudden loss of vision. This information is not intended to replace advice given to you by your health care provider. Make sure you discuss any questions you have with your health care provider. Document Revised: 09/30/2021 Document Reviewed: 09/30/2021 [employer] Patient Education ?? 2021 [employer] Tests Performed Medications and Immunizations Administered Given Augmentin 500 mg-125 mg oral tablet, 1 tab, Oral Augmentin 500 mg-125 mg oral tablet, 1 tab, Oral erythromycin 0.5% ophthalmic ointment, 1 eduar, Eye-Left Lab Test Name Test Result Date/Time WBC 8.0 x10^3/mcL 12/18/2022 20:47 EDT RBC 3.5 x10^6/mcL 12/18/2022 20:47 EDT Hgb 12.2 g/dL 12/18/2022 20:47 EDT Hct 35.2 % 12/18/2022 20:47 EDT MCV 99.7 fL 12/18/2022 20:47 EDT MCH 34.6 pg 12/18/2022 20:47 EDT MCHC 34.7 g/dL 12/18/2022 20:47 EDT RDW-CV 13.0 % 12/18/2022 20:47 EDT Platelets 162 x10^3/mcL 12/18/2022 20:47 EDT Slide Review Man Diff 12/18/2022 20:47 EDT Sodium Level 128 mmol/L 12/18/2022 20:47 EDT Potassium Level 4.0 mmol/L 12/18/2022 20:47 EDT Chloride Level 97 mmol/L 12/18/2022 20:47 EDT CO2 22 mmol/L 12/18/2022 20:47 EDT Alk Phos 193 unit/L 12/18/2022 20:47 EDT AST 147 unit/L 12/18/2022 20:47 EDT ALT 75 unit/L 12/18/2022 20:47 EDT BUN 3 mg/dL 12/18/2022 20:47 EDT Glucose Level 81 mg/dL 12/18/2022 20:47 EDT Creatinine Level 0.60 mg/dL 12/18/2022 20:47 EDT eGFR AA 98 12/18/2022 20:47 EDT eGFR Non-AA 98 12/18/2022 20:47 EDT Calcium Level 9.4 mg/dL 12/18/2022 20:47 EDT Protein Total 7.1 g/dL 12/18/2022 20:47 EDT Albumin Level 3.3 g/dL 12/18/2022 20:47 EDT Bilirubin Total 0.4 mg/dL 12/18/2022 20:47 EDT 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 Conjunctivitis Comment: Diagnosis: Eye drainage Comment: Electronically Signed on 12/18/22 09:50 PM Rambo Rodriguez Patient Care team information Care Team Personnel Name: Yany Matta [employer] Position: Physician Member Role: Nurse Practitioner Name: Noam Canseco MD Position: No Access Member Role: Informed Provider Address: Address: [id number] [place] [address] Name: Angela Lora RN Position: Nurse Member Role: ED Nurse Name: Sabrina Gonzalez MD Position: Physician Member Role: Attending Physician Address: Address: [address] [place] [address] Care Team Related Persons Name: GREG DANGELO
--- OUTSIDE RECORDS SUMMARY | 2023-05-11 13:55 | XMS_ITS | Continuity of Care Document ---
Author Name Unknown Organization 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 Compression fr acture of L1 vertebra Comment: Diagnosis: 2. Rib fractures Comment: Diagnosis: Flank pain Comment: Diagnostic Tests Pending * Urine Culture 03/20/23 Functional Status 03/20/23 Recent Travel History No recent travel Other exposure to Infectious Disease Non e Immunizations Given and Recorded Vaccine Date Status Refusal Reason SARS-CoV-2 (COVID-19) mRNA-1273 vaccine 11/05/20 R ecorded Medications No Known Medications Problem List Condition Confirmation Course Effective Dates Status H ealth Status Informant Depression Confirmed Active History of alcoholic cardiomyopathy Confirmed Active Results Laboratory List Name Date Urinalysis Microscopic 03/20/23 Urinalysis with Micro if Indicated and C ulture if Indicated 03/20/23 Automated Diff 03/20/23 CBC w/ Diff 03/20/23 Comprehensive Metabolic Panel 03/20/23 Lipase Level 03/20/23 Most recent to oldest [Reference Range]: 1 WBC [5.0-10.0 x10^3/mcL] 9.0 x10^3/mcL (03/20/23 6:40 AM) RBC [4.1-5.3 x10^6/mcL] 3.8 x10^6/mcL *LOW* (03/20/23 6:40 AM) Neutro Auto [40.0-75.0 %] 49.1 % (03/20/23 6:40 AM) Lymph Auto [20.0-50.0 %] 43.5 % (03/20/23 6:40 AM) [place] Auto [2.0-15.0 %] 5.9 % (03/20/23 6:40 AM) Basophil Auto [0.0-1.0 %] 0.8 % (03/20/23 6:40 AM) BUN [7-18 mg/dL] 4 mg/dL *LOW* (03/20/23 6:40 AM) UA Color Yellow (03/20/23 8:09 AM) UA WBC [0-3] 10-25 *ABN* (03/20/23 8:09 AM) Glucose Level [74-106 mg/dL] 111 mg/dL *HI* (03/20/23 6:40 AM) Potassium Level [3.5-5.1 mmol/L] 4.3 mmo l/L (03/20/23 6:40 AM) MCV [80.0-96.0 fL] 101.3 fL *HI* (03/20/23 6:40 AM) UA Urobilinogen Normal (03/20/23 8:09 AM) UA Bili [Negative] Negative (03/20/23 8:09 AM) UA Ketones Negative (03/20/23 8:09 AM) AST [15-37 unit/L] 63 unit/L *HI* (03/20/23 6:40 AM) ALT [14-59 unit/L] 52 unit/L (03/20/23 6:40 AM) MCHC [31.0-35.0 g/dL] 33.8 g/dL (03/20/23 6:40 AM) Sodium Level [136-145 mmol/L] 130 mmol/L *LOW* (03/20/23 6:40 AM) UA RBC [0-2] 0-2 (03/20/23 8:09 AM) UA Leuk Est 3+ *ABN* (03/20/23 8:09 AM) UA Nitrite Negative (03/20/23 8:09 AM) UA Glucose [Negative] Negative (03/20/23 8:09 AM) Hct [37.0-47.0 %] 39.0 % (03/20/23 6:40 AM) UA Bacteria Rare /HPF (03/20/23 8:09 AM) Lipase Level [16-77 unit/L] 30 unit/L 1 (03/20/23 6:40 AM) Calcium Level [8.5-10.1 mg/dL] 9.6 mg/dL (03/20/23 6:40 AM) Albumin Level [3.4-5.0 g/dL] 3.1 g/dL *LOW* (03/20/23 6:40 AM) Protein Total [6.4-8.2 g/dL] 7.7 g/dL (03/20/23 6:40 AM) UA Protein Trace *ABN* (03/20/23 8:09 AM) MCH [26.0-32.0 pg] 34.3 pg *HI* (03/20/23 6:40 AM) Neutro Absolute 4.4 x10^3/mcL *NA* (03/20/23 6:40 AM) Bilirubin Total [0.2-1.0 mg/dL] 0.8 mg/d L (03/20/23 6:40 AM) Hgb [12.0-16.0 g/dL] 13.2 g/dL (03/20/23 6:40 AM) Alk Phos [46-146 unit/L] 260 unit/L *HI* (03/20/23 6:40 AM) UA Blood Negative (03/20/23 8:09 AM) UA Mucous None Seen /HPF (03/20/23 8:09 AM) UA Spec Grav 1.025 *NA* (03/20/23 8:09 AM) Platelets [130-450 x10^3/mcL] 232 x10^3/ mcL (03/20/23 6:40 AM) CO2 [21-32 mmol/L] 25 mmol/L (03/20/23 6:40 AM) UA Squam Epithelial [None Seen] Few *ABN* (03/20/23 8:09 AM) UA pH 6.0 *NA* (03/20/23 8:09 AM) eGFR Non-AA [>=60] 91 (03/20/23 6:40 AM) eGFR AA [>=60] 91 (03/20/23 6:40 AM) UA Appear Clear (03/20/23 8:09 AM) Chloride Level [98-107 mmol/L] 97 mmol/L *LOW* (03/20/23 6:40 AM) RDW-CV [11.5-14.5 %] 14.8 % *HI* (03/20/23 6:40 AM) Imm Gran Auto [0.0-0.9 %] 0.4 % (03/20/23 6:40 AM) UA Culture Ind?. Indicated (03/20/23 8:09 AM) Creatinine Level [0.55-1.02 mg/dL] 0.72 mg/dL (03/20/23 6:40 AM) Eos, Auto [1.0-6.0 %] 0.3 % *LOW* (03/20/23 6:40 AM) 1Interpretive Data: Effective 04/22/22, [facility] has switched to a revised Lipase test.Note new ReferenceRange. Vital Signs Most recent to oldest [Reference Range]: 1 2 3 Temperature Temporal Artery [36-38 Deg C] 37.1 Deg C (03/20/23 6:22 AM) Peripheral Pulse Rate [60-100 bpm] 109 bpm *HI* (03/20/23 8:09 AM) 142 bpm *HI* (03/20/23 6:22 AM) Respiratory Rate [12-24 br/min] 20 br/min (03/20/23 8:09 AM) 28 br/min *HI* (03/20/23 6:22 AM) Blood Pressure [90-140/60-90 mmHg] 146/85mmHg *HI* (03/20/23 9:33 AM) 154/92mmHg *HI* (03/20/23 8:09 AM) 127/102mmHg (03/20/23 6:22 AM) Blood Pressure Location Right arm (03/20/23 6:22 AM) Weight Dosing 36.00 kg (03/20/23 6:29 AM) Weight Estimated 36.00 kg (03/20/23 6:22 AM) Height/Length Dosing 149.000 cm (03/20/23 6:29 AM) Height/Length Estimated 149.000 cm (03/20/23 6:22 AM) Social History Social History Type Response Tobacco Current everyday tob acco user Tobacco Use:. 1 ppd per day. Sex Female Hospital Discharge Instructions Patient Education 03/20/2023 07:24:06 Rib Fracture Rib Fracture A rib fracture is a break or crack in one of the bones of the ribs. The ribs are long, curved bonesthat wrap around your chest and attach to your spine and your breastbone. The ribs protect your heart, lungs, and other organs in the chest. A broken or cracked rib is often painful but is not usually serious. Most rib fractures heal on their own over time. However, rib fractures can be more serious if multiple ribs are broken or if broken ribs move out of place and push against other structures or organs. What are the causes? This condition is caused by: ??? Repetitive movements with high force, such as pitching a baseball or having very bad coughing spells. ??? A direct hit the chest, such as a sports injury, a car crash, or a fall. ??? Cancer that has spread to the bones, which can weaken bones and cause them to break. What are the signs or symptoms? Symptoms of this condition include: ??? Pain when you breathe in or cough. ??? Pain when someone presses on the injured area. ??? Feeling short of breath. How is this diagnosed? This condition is diagnosed with a physical exam and medical history. You may also have imaging tests, such as: ??? Chest X-ray. ??? CT scan. ??? MRI. ??? Bone scan. ??? Chest ultrasound. How is this treated? Treatment for this condition depends on the severity of the fracture. Most rib fractures usually heal on their own in 1???3 months. Healing may take longer if you have a cough or if you do activitiesthat make the injury worse. While you heal, you may be given medicines to control the pain. You will also be taught deep breathing exercises. Severe injuries may require hospitalization or surgery. Follow these instructions at home: Managing pain, stiffness, and swelling ??? If directed, put ice on the injured area. To do this: ??? Put ice in a plastic bag. ??? Place a towel between your skin and the bag. ??? Leave the ice on for 20 minutes, 2???3 times a day. ??? Remove the ice if your skin turns bright red. This is very important. If you cannot feel pain, heat, or cold, you have a greater risk of damage to the area. ??? Take qkwh-laz-ejosstk and prescription medicines only as told by your health care provider. Activity ??? Avoid doing activities or movements that cause pain. Be careful during activities and avoid bumping the injured rib. ??? Slowly increase your activity as told by your health care provider. General instructions ??? Do deep breathing exercises as told by your health care provider. This helps prevent pneumonia,which is a common complication of a broken rib. Your health care provider may instruct you to: ??? Take deep breaths several times a day. ??? Try to cough several times a day, holding a pillow against the injured area. ??? Use a device called incentive spirometer to practice deep breathing several times a day. ??? Drink enough fluid to keep your urine pale yellow. ??? Do not wear a rib belt or binder. These restrict breathing, which can lead to pneumonia. ??? Keep all follow-up visits. This is important. Contact a health care provider if: ??? You have a fever. Get help right away if: ??? You have difficulty breathing or you are short of breath. ??? You develop a cough that does not stop, or you cough up thick or bloody sputum. ??? You have nausea, vomiting, or pain in your abdomen. ??? Your pain gets worse and medicine does not help. These symptoms may represent a serious problem that is an emergency. Do not wait to see if the symptoms will go away. Get medical help right away. Call your local emergency services (911 in the [place] Do not drive yourself to the hospital. Summary ??? A rib fracture is a break or crack in one of the bones of the ribs. ??? A broken or cracked rib is often painful but is not usually serious. ??? Most rib fractures heal on their own over time. ??? Treatment for this condition depends on the severity of the fracture. ??? Avoid doing any activities or movements that cause pain. This information is not intended to replace advice given to you by your health care provider. Make sure you discuss any questions you have with your health care provider. Document Revised: 10/10/2020 Document Reviewed: 10/10/2020 [employer] Patient Education ?? 2022 [place]. 03/20/2023 07:24:03 Lumbar Spine Fracture Lumbar Spine Fracture A lumbar spine fracture is a break in one of the bones of the lower back. Lumbar spine fractures can vary from mild to severe. The most severe types are those that: ??? Cause the broken bones to move out of place (unstable). ??? Injure or press on the spinal cord. During recovery, it is normal to have pain and stiffness in the lower back for weeks. What are the causes? This condition may be caused by: ??? A fall. ??? A car accident. ??? A gunshot wound. ??? A hard, direct hit to the back. What increases the risk? You are more likely to develop this condition if: ??? You are in a situation that could result in a fall or other violent injury. ??? You have a condition that causes weakness in the bones (osteoporosis). What are the signs or symptoms? The main symptom of this condition is severe pain in the lower back. If a fracture is complex or severe, there may also be: ??? A misshapen or swollen area on the lower back. ??? Limited ability to move an area of the lower back. ??? Inability to empty the bladder (urinary retention). ??? Loss of bowel or bladder control (incontinence). ??? Loss of strength or sensation in the legs, feet, and toes. ??? Inability to move (paralysis). How is this diagnosed? This condition is diagnosed based on: ??? A physical exam. ??? Symptoms and what happened just before they developed. ??? The results of imaging tests, such as an X-ray, CT scan, or MRI. If your nerves have been damaged, you may also have other tests to find out the extent of the damage. How is this treated? Treatment for this condition depends on how severe the injury is. Most fractures can be treated with: ??? A back brace. ??? Bed rest and activity restrictions. ??? Pain medicine. ??? Physical therapy. Fractures that are complex, involve multiple bones, or make the spine unstable may require surgery.Surgery is done: ??? To remove pressure from the nerves or spinal cord. ??? To stabilize the broken pieces of bone. Follow these instructions at home: Medicines ??? Take kzco-kla-zttjfbt and prescription medicines only as told by your health care provider. ??? Do not drive or use heavy machinery while taking prescription pain medicine. ??? If you are taking prescription pain medicine, take actions to prevent or treat constipation. Your health care provider may recommend that you: ??? Drink enough fluid to keep your urine pale yellow. ??? Eat foods that are high in fiber, such as fresh fruits and vegetables, whole grains, and beans. ??? Limit foods that are high in fat and processed sugars, such as fried or sweet foods. ??? Take an bawq-gwl-xewbrzj or prescription medicine for constipation. If you have a brace: ??? Wear the back brace as told by your health care provider. Remove it only as told by your healthcare provider. ??? Keep the brace clean. ??? If the brace is not waterproof: ??? Do not let it get wet. ??? Cover it with a watertight covering when you take a bath or a shower. Activity ??? Stay in bed (on bed rest) only as directed by your health care provider. ??? Do exercises to improve motion and strength in your back (physical therapy), if your health care provider tells you to do so. ??? Return to your normal activities as directed by your health care provider. Ask your health careprovider what activities are safe for you. Managing pain, stiffness, and swelling ??? If directed, put ice on the injured area: ??? If you have a removable brace, remove it as told by your health care provider. ??? Put ice in a plastic bag. ??? Place a towel between your skin and the bag. ??? Leave the ice on for 20 minutes, 2???3 times a day. General instructions ??? Do not use any products that contain nicotine or tobacco, such as cigarettes and e-cigarettes. These can delay healing after injury. If you need help quitting, ask your health care provider. ??? Do not drink alcohol. Alcohol can interfere with your treatment. ??? Keep all follow-up visits as directed by your health care provider. This is important. ??? Failing to follow up as recommended could result in permanent injury, disability, or long-lasting (chronic) pain. Contact a health care provider if: ??? You have a fever. ??? Your pain medicine is not helping. ??? Your pain does not get better over time. ??? You cannot return to your normal activities as planned or expected. Get help right away if: ??? You have difficulty breathing. ??? Your pain is very bad and it suddenly gets worse. ??? You have numbness, tingling, or weakness in any part of your body. ??? You are unable to empty your bladder. ??? You cannot control your bladder or bowels. ??? You are unable to move any body part (paralysis) that is below the level of your injury. ??? You vomit. ??? You have pain in your abdomen. Summary ??? A lumbar spine fracture is a break in one of the bones of the lower back. ??? The main symptom of this condition is severe pain in the lower back. If a fracture is complex, there may also be numbness, tingling, or paralysis in the legs. ??? Treatment depends on how severe the injury is. Most fractures can be treated with a back brace,bed rest and activity restrictions, pain medicine, and physical therapy. ??? Fractures that are complex, involve multiple bones, or make the spine unstable may require surgery. This information is not intended to replace advice given to you by your health care provider. Make sure you discuss any questions you have with your health care provider. Document Revised: 04/19/2022 Document Reviewed: 04/19/2022 [employer] Patient Education ?? 2022 [employer] Follow Up Care 03/20/2023 06:22:46 With:Primary Care Physician Address: When:1 to 2 weeks only if needed Physician Emergency department Note * Krystal Cummings MD: PERFORM Event Display: ED Note Physician Authored Date: [id number] MORENITA PENNINGTON DOB:1955 Age:68 years Sex:Female Visit Date:03/20/2023 Primary Care Physician: Ian ESTEBAN, Noam Estrella MD Basic Information Time Seen: Fernie Guy MD / 03/20/2023 06:23 Chief Complaint Left flank pain started last night, buring with urination. 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 UA with no evidence of UTI Discussed results with patient. She does not remember falling. We did talk about her alcohol dependence. She says she drinks a ton every day, could not even quantify. She has reached out to [facility] in the past but does not wish to do so now. I have provided her with some information. She was givenan incentive spirometer and shown how to use it. f/u pcp 1-2 weeks. Return precautions discussed, all questions answered. Physical Exam Vitals & Measurements T:??37.1?C ??(Temporal Artery)?? HR:??109??(Peripheral)?? RR:??20?? BP:??146/85?? SpO2:??98%?? HT:??149.000??cm?? WT:??36.00??kg??(Estimated)?? O2 Therapy:??Room air?? Procedure No Qualifying Data Assessment/Plan 1.??Compression fracture of L1 vertebra??S32.010A Ordered: Discharge Patient, 03/20/23 10:39:00 EDT, Constant Indicator ?? 2.??Rib fractures??S22.49XA Ordered: Discharge Patient, 03/20/23 10:39:00 EDT, Constant Indicator ?? Orders: Incentive Spirometry Respiratory, Routine, BID RT, Predisposing Condition for Atelectasis Patient Education Rib Fracture Lumbar Spine Fracture Follow Up With When Contact Information Primary Care Physician Within 1 to 2 weeks, only if needed Additional Instructions: Medication Reconciliation Discontinued cyproheptadine (cyproheptadine 4 mg oral tablet)1 tab Oral (given by mouth) every evening. ?? midodrine (midodrine 2.5 mg oral tablet)1 tab Oral (given by mouth) 3 times a day. ?? traZODone (traZODone 50 mg oral tablet)1 tab Oral (given by mouth) every evening as needed sleep. Problem List/Past Medical History Ongoing Depression History of alcoholic cardiomyopathy Historical No qualifying data Medication Administration Given NS bolus, 1000 mL, IV Piggyback Toradol, 15 mg, IV Push Allergies No Known Medication Allergies Social History Alcohol Current, Beer, Several times per day Electronic Cigarette/Vaping Electronic Cigarette Use: Never. Tobacco Current everyday tobacco user Tobacco Use:. 1 ppd per day. Lab Results CBC and Differential?? LATEST RESULTS?? HISTORICAL RESULTS?? WBC?? 03/20/23 06:40?? 9.0?? 12/18/22?? 8.0?? RBC?? 03/20/23 06:40?? 3.8 ??Low?? 12/18/22?? 3.5 ??Low?? Hgb?? 03/20/23 06:40?? 13.2?? 12/18/22?? 12.2?? Hct?? 03/20/23 06:40?? 39.0?? 12/18/22?? 35.2 ??Low?? MCV?? 03/20/23 06:40?? 101.3 ??High?? 12/18/22?? 99.7 ??High?? MCH?? 03/20/23 06:40?? 34.3 ??High?? 12/18/22?? 34.6 ??High?? MCHC?? 03/20/23 06:40?? 33.8?? 12/18/22?? 34.7?? RDW-CV?? 03/20/23 06:40?? 14.8 ??High?? 12/18/22?? 13.0?? Platelets?? 03/20/23 06:40?? 232?? 12/18/22?? 162?? Neutro Auto?? 03/20/23 06:40?? 49.1?? 02/21/22?? 54.7?? Lymph Auto?? 03/20/23 06:40?? 43.5?? 02/21/22?? 38.4?? [place] Auto?? 03/20/23 06:40?? 5.9?? 02/21/22?? 5.9?? Eos, Auto?? 03/20/23 06:40?? 0.3 ??Low?? 02/21/22?? 0.1 ??Low?? Basophil Auto?? 03/20/23 06:40?? 0.8?? 02/21/22?? 0.6?? Imm Gran Auto?? 03/20/23 06:40?? 0.4?? 02/21/22?? 0.3?? Neutro Absolute?? 03/20/23 06:40?? 4.4?? 02/21/22?? 6.7? Routine Chemistry?? LATEST RESULTS?? HISTORICAL RESULTS?? Sodium Level?? 03/20/23 06:40?? 130 ??Low?? 12/18/22?? 128 ??Low?? Potassium Level?? 03/20/23 06:40?? 4.3?? 12/18/22?? 4.0?? Chloride Level?? 03/20/23 06:40?? 97 ??Low?? 12/18/22?? 97 ??Low?? CO2?? 03/20/23 06:40?? 25?? 12/18/22?? 22?? Alk Phos?? 03/20/23 06:40?? 260 ??High?? 12/18/22?? 193 ??High?? AST?? 03/20/23 06:40?? 63 ??High?? 12/18/22?? 147 ??High?? ALT?? 03/20/23 06:40?? 52?? 12/18/22?? 75 ??High?? BUN?? 03/20/23 06:40?? 4 ??Low?? 12/18/22?? 3 ??Low?? Glucose Level?? 03/20/23 06:40?? 111 ??High?? 12/18/22?? 81?? Creatinine Level?? 03/20/23 06:40?? 0.72?? 12/18/22?? 0.60?? eGFR AA?? 03/20/23 06:40?? 91?? 12/18/22?? 98?? eGFR Non-AA?? 03/20/23 06:40?? 91?? 12/18/22?? 98?? Calcium Level?? 03/20/23 06:40?? 9.6?? 12/18/22?? 9.4?? Protein Total?? 03/20/23 06:40?? 7.7?? 12/18/22?? 7.1?? Albumin Level?? 03/20/23 06:40?? 3.1 ??Low?? 12/18/22?? 3.3 ??Low?? Bilirubin Total?? 03/20/23 06:40?? 0.8?? 12/18/22?? 0.4?? Lipase Level?? 03/20/23 06:40?? 30?? 02/21/22?? 99? UA Macroscopic?? LATEST RESULTS?? HISTORICAL RESULTS?? UA Color?? 03/20/23 08:09?? Yellow?? 02/21/22?? Pale Yellow?? UA Appear?? 03/20/23 08:09?? Clear?? 02/21/22?? Clear?? UA Glucose?? 03/20/23 08:09?? Negative?? 02/21/22?? Negative?? UA Bili?? 03/20/23 08:09?? Negative?? 02/21/22?? Negative?? UA Ketones?? 03/20/23 08:09?? Negative?? 02/21/22?? Negative?? UA Spec Grav?? 03/20/23 08:09?? 1.025?? 02/21/22?? <=1.005?? UA Blood?? 03/20/23 08:09?? Negative?? 02/21/22?? Negative?? UA pH?? 03/20/23 08:09?? 6.0?? 02/21/22?? 6.0?? UA Protein?? 03/20/23 08:09?? Trace Abnormal?? 02/21/22?? Negative?? UA Urobilinogen?? 03/20/23 08:09?? Normal?? 02/21/22?? Normal?? UA Nitrite?? 03/20/23 08:09?? Negative?? 02/21/22?? Negative?? UA Leuk Est?? 03/20/23 08:09?? 3+ Abnormal?? 02/21/22?? 1+ Abnormal?? UA Culture Ind?.?? 03/20/23 08:09?? Indicated?? 02/21/22?? Indicated? UA Microscopic?? LATEST RESULTS?? HISTORICAL RESULTS?? UA WBC?? 03/20/23 08:09?? 10-25 Abnormal?? 02/21/22?? 3-5 Abnormal?? UA RBC?? 03/20/23 08:09?? 0-2?? 02/21/22?? 0-2?? UA Squam Epithelial?? 03/20/23 08:09?? Few Abnormal?? 02/21/22?? Few Abnormal?? UA Mucous?? 03/20/23 08:09?? None Seen?? 02/21/22?? None Seen?? UA Bacteria?? 03/20/23 08:09?? Rare?? 02/21/22?? Rare? Electronically Signed on 03/20/23 10:56 AM Krystal Cummings MD * Fernie Guy MD: PERFORM Event Display: ED Note Physician Authored Date: [id number] MORENITA PENNINGTON :1955 Age:68 years Sex:Female Visit Date:03/20/2023 Primary Care Physician: Ian [facility], Noam Estrella MD Basic Information Time Seen: Fernie Guy MD / 03/20/2023 06:23 Chief Complaint Left flank pain started last night, buring with urination. 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 ??Medical history is documented??as significant for depression and history of alcoholic cardiomyopathy.?? She states that symptoms began roughly around 3 AM without clear inciting factor. ??Pain has been fairly localized to left lateral abdomen??and constant since then.?? No radiation, has had no significant nausea or vomiting. ??No chest pain or trouble breathing Review of Systems: Positive for abdominal/flank pain and otherwise as noted in the HPI Physical Exam Vitals & Measurements T:??37.1?C ??(Temporal Artery)?? HR:??142??(Peripheral)?? RR:??28?? BP:??127/102?? SpO2:??99%?? HT:??149.000??cm?? WT:??36.00??kg??(Estimated)?? O2 Therapy:??Room air?? Vital signs and nursing notes reviewed ?? CONSTITUTIONAL: _Appears uncomfortable but nontoxic SKIN: _Warm, dry, and intact without rash??in areas of concern EYES: _extraocular movements are grossly intact, clear conjunctiva HENT: _Normocephalic, atraumatic, moist mucus membranes NECK: _no obvious swelling, normal range of motion PULMONARY: _normal chest rise and fall,??lungs are clear bilaterally, no respiratory distress or stridor CARDIOVASCULAR: _regular rate,??regular rhythm, distal extremities are warm and well perfused GASTROINTESTINAL: _nondistended,??positive left CVAT, no significant reproducible tenderness left lateral abdomen GENITOURINARY: _deferred NEUROLOGIC: _normal speech, moves all extremities with equal strength and coordination MUSCULOSKELETAL: _no gross deformities, atraumatic PSYCHIATRIC: _normal mood and affect ? Medical Decision Making: On arrival, patient is noted to be tachycardic in triage however this is improved to around 100 or so on my exam, she is hemodynamically stable, afebrile, no evidence of tachycardia or tachypnea.?? Differential includes but is??not limited to nephrolithiasis, urinary pathology, diverticulitis, appen dicitis, obstructive process, other. ??Plan for??labs as ordered and CT. Procedure No Qualifying Data Reexamination/Reevaluation At shift change, patient endorsed to Dr Cummings with??results pending Assessment/Plan Ordered: Urinalysis with Micro if Indicated and Culture if Indicated, Urine, Stat Collect, 03/20/23 6:40:00 EDT, Once, Nurse collect, Print Label Medication Reconciliation Discontinued cyproheptadine (cyproheptadine 4 mg oral tablet)1 tab Oral (given by mouth) every evening. ?? midodrine (midodrine 2.5 mg oral tablet)1 tab Oral (given by mouth) 3 times a day. ?? traZODone (traZODone 50 mg oral tablet)1 tab Oral (given by mouth) every evening as needed sleep. Problem List/Past Medical History Ongoing Depression History of alcoholic cardiomyopathy Historical No qualifying data Medication Administration Given NS bolus, 1000 mL, IV Piggyback Toradol, 15 mg, IV Push Allergies No Known Medication Allergies Social History Alcohol Current, Beer, Several times per day Electronic Cigarette/Vaping Electronic Cigarette Use: Never. Tobacco Current everyday tobacco user Tobacco Use:. 1 ppd per day. Lab Results CBC and Differential?? LATEST RESULTS?? HISTORICAL RESULTS?? WBC?? 03/20/23 06:40?? 9.0?? 12/18/22?? 8.0?? RBC?? 03/20/23 06:40?? 3.8 ??Low?? 12/18/22?? 3.5 ??Low?? Hgb?? 03/20/23 06:40?? 13.2?? 12/18/22?? 12.2?? Hct?? 03/20/23 06:40?? 39.0?? 12/18/22?? 35.2 ??Low?? MCV?? 03/20/23 06:40?? 101.3 ??High?? 12/18/22?? 99.7 ??High?? MCH?? 03/20/23 06:40?? 34.3 ??High?? 12/18/22?? 34.6 ??High?? MCHC?? 03/20/23 06:40?? 33.8?? 12/18/22?? 34.7?? RDW-CV?? 03/20/23 06:40?? 14.8 ??High?? 12/18/22?? 13.0?? Platelets?? 03/20/23 06:40?? 232?? 12/18/22?? 162?? Neutro Auto?? 03/20/23 06:40?? 49.1?? 02/21/22?? 54.7?? Lymph Auto?? 03/20/23 06:40?? 43.5?? 02/21/22?? 38.4?? [place] Auto?? 03/20/23 06:40?? 5.9?? 02/21/22?? 5.9?? Eos, Auto?? 03/20/23 06:40?? 0.3 ??Low?? 02/21/22?? 0.1 ??Low?? Basophil Auto?? 03/20/23 06:40?? 0.8?? 02/21/22?? 0.6?? Imm Gran Auto?? 03/20/23 06:40?? 0.4?? 02/21/22?? 0.3?? Neutro Absolute?? 03/20/23 06:40?? 4.4?? 02/21/22?? 6.7? Routine Chemistry?? LATEST RESULTS?? HISTORICAL RESULTS?? Sodium Level?? 03/20/23 06:40?? 130 ??Low?? 12/18/22?? 128 ??Low?? Potassium Level?? 03/20/23 06:40?? 4.3?? 12/18/22?? 4.0?? Chloride Level?? 03/20/23 06:40?? 97 ??Low?? 12/18/22?? 97 ??Low?? CO2?? 03/20/23 06:40?? 25?? 12/18/22?? 22?? Alk Phos?? 03/20/23 06:40?? 260 ??High?? 12/18/22?? 193 ??High?? AST?? 03/20/23 06:40?? 63 ??High?? 12/18/22?? 147 ??High?? ALT?? 03/20/23 06:40?? 52?? 12/18/22?? 75 ??High?? BUN?? 03/20/23 06:40?? 4 ??Low?? 12/18/22?? 3 ??Low?? Glucose Level?? 03/20/23 06:40?? 111 ??High?? 12/18/22?? 81?? Creatinine Level?? 03/20/23 06:40?? 0.72?? 12/18/22?? 0.60?? eGFR AA?? 03/20/23 06:40?? 91?? 12/18/22?? 98?? eGFR Non-AA?? 03/20/23 06:40?? 91?? 12/18/22?? 98?? Calcium Level?? 03/20/23 06:40?? 9.6?? 12/18/22?? 9.4?? Protein Total?? 03/20/23 06:40?? 7.7?? 12/18/22?? 7.1?? Albumin Level?? 03/20/23 06:40?? 3.1 ??Low?? 12/18/22?? 3.3 ??Low?? Bilirubin Total?? 03/20/23 06:40?? 0.8?? 12/18/22?? 0.4?? Lipase Level?? 03/20/23 06:40?? 30?? 02/21/22?? 99? Electronically Signed on 03/20/23 07:57 AM Fernie Guy MD Emergency department Discharge instructions * Krystal Cummings MD: PERFORM Event Display: ED Discharge Information Authored Date: [id number] MORENITA PENNINGTON :1955 Age:68 years Sex:Female Visit Date:03/20/2023 Primary Care Physician: Ian SMITH, Noam Estrella MD Discharge Instructions We would like to thank you for allowing us to assist you with your healthcare needs. The following includes patient education materials and information regarding your injury/illness. Diagnosis from Today's Visit Compression fracture of L1 vertebra Rib fractures Discharge Vitals Temperature??(Temporal Artery) 98.8 ??F (37.1 ??C) Heart Rate??(Peripheral) 109 Respiratory Rate?? 20 Blood Pressure?? 146/85?? Height?? 58.66 in (149.000 cm) Weight??(Estimated) 79.38 lb (36.00 kg) Allergies No Known Medication Allergies What to Do Next Instructions from Your Care Team Please take Tylenol??for pain.??Use incentive spirometer as shown by our respiratory therapist today.?? You need to use it??every hour while awake??in the next 5 days.?? Please??avoid drinking alcohol??every day.?? If you wish to have some help??with that, please reach out to [facility] at8 [phone]. Follow up with your primary care provider for reevaluation in 1-2 weeks. Return to theED for any new or worsening symptoms. You Need to Schedule the Following Appointments Follow Up with??Primary Care Physician When:??Within 1 to 2 weeks, only if needed You were treated today on an emergency [...] Emergency Department. Medications What How Much When Comments Stop Taking cyproheptadine (cyproheptadine 4 mg oral tablet) 1 tab Oral (given by mouth) Every evening Stop Taking midodrine (midodrine 2.5 mg oral tablet) 1 tab Oral (given by mouth) 3 times a day Stop Taking traZODone (traZODone 50 mg oral tablet) 1 tab Oral (given by mouth) Every evening as needed for sleep Education Materials Rib Fracture A rib fracture is a break or crack in one of the bones of the ribs. The ribs are long, curved bonesthat wrap around your chest and attach to your spine and your breastbone. The ribs protect your heart, lungs, and other organs in the chest. A broken or cracked rib is often painful but is not usually serious. Most rib fractures heal on their own over time. However, rib fractures can be more serious if multiple ribs are broken or if broken ribs move out of place and push against other structures or organs. What are the causes? This condition is caused by: ? Repetitive movements with high force, such as pitching a baseball or having very bad coughing spells. ? A direct hit the chest, such as a sports injury, a car crash, or a fall. ? Cancer that has spread to the bones, which can weaken bones and cause them to break. What are the signs or symptoms? Symptoms of this condition include: ? Pain when you breathe in or cough. ? Pain when someone presses on the injured area. ? Feeling short of breath. How is this diagnosed? This condition is diagnosed with a physical exam and medical history. You may also have imaging tests, such as: ? Chest X-ray. ? CT scan. ? MRI. ? Bone scan. ? Chest ultrasound. How is this treated? Treatment for this condition depends on the severity of the fracture. Most rib fractures usually heal on their own in 1???3 months. Healing may take longer if you have a cough or if you do activitiesthat make the injury worse. While you heal, you may be given medicines to control the pain. You will also be taught deep breathing exercises. Severe injuries may require hospitalization or surgery. Follow these instructions at home: Managing pain, stiffness, and swelling ? If directed, put ice on the injured area. To do this: ? Put ice in a plastic bag. ? Place a towel between your skin and the bag. ? Leave the ice on for 20 minutes, 2???3 times a day. ? Remove the ice if your skin turns bright red. This is very important. If you cannot feel pain, heat, or cold, you have a greater risk of damage to the area. ? Take bqek-kte-ktrunwc and prescription medicines only as told by your health care provider. Activity ? Avoid doing activities or movements that cause pain. Be careful during activities and avoid bumpingthe injured rib. ? Slowly increase your activity as told by your health care provider. General instructions ? Do deep breathing exercises as told by your health care provider. This helps prevent pneumonia, which is a common complication of a broken rib. Your health care provider may instruct you to: ? Take deep breaths several times a day. ? Try to cough several times a day, holding a pillow against the injured area. ? Use a device called incentive spirometer to practice deep breathing several times a day. ? Drink enough fluid to keep your urine pale yellow. ? Do not wear a rib belt or binder. These restrict breathing, which can lead to pneumonia. ? Keep all follow-up visits. This is important. Contact a health care provider if: ? You have a fever. Get help right away if: ? You have difficulty breathing or you are short of breath. ? You develop a cough that does not stop, or you cough up thick or bloody sputum. ? You have nausea, vomiting, or pain in your abdomen. ? Your pain gets worse and medicine does not help. These symptoms may represent a serious problem that is an emergency. Do not wait to see if the symptoms will go away. Get medical help right away. Call your local emergency services (911 in the [place] Do not drive yourself to the hospital. Summary ? A rib fracture is a break or crack in one of the bones of the ribs. ? A broken or cracked rib is often painful but is not usually serious. ? Most rib fractures heal on their own over time. ? Treatment for this condition depends on the severity of the fracture. ? Avoid doing any activities or movements that cause pain. This information is not intended to replace advice given to you by your health care provider. Make sure you discuss any questions you have with your health care provider. Document Revised: 10/10/2020 Document Reviewed: 10/10/2020 Elsevier Patient Education ?? 2022 [employer] Lumbar Spine Fracture A lumbar spine fracture is a break in one of the bones of the lower back. Lumbar spine fractures can vary from mild to severe. The most severe types are those that: ? Cause the broken bones to move out of place (unstable). ? Injure or press on the spinal cord. During recovery, it is normal to have pain and stiffness in the lower back for weeks. What are the causes? This condition may be caused by: ? A fall. ? A car accident. ? A gunshot wound. ? A hard, direct hit to the back. What increases the risk? You are more likely to develop this condition if: ? You are in a situation that could result in a fall or other violent injury. ? You have a condition that causes weakness in the bones (osteoporosis). What are the signs or symptoms? The main symptom of this condition is severe pain in the lower back. If a fracture is complex or severe, there may also be: ? A misshapen or swollen area on the lower back. ? Limited ability to move an area of the lower back. ? Inability to empty the bladder (urinary retention). ? Loss of bowel or bladder control (incontinence). ? Loss of strength or sensation in the legs, feet, and toes. ? Inability to move (paralysis). How is this diagnosed? This condition is diagnosed based on: ? A physical exam. ? Symptoms and what happened just before they developed. ? The results of imaging tests, such as an X-ray, CT scan, or MRI. If your nerves have been damaged, you may also have other tests to find out the extent of the damage. How is this treated? Treatment for this condition depends on how severe the injury is. Most fractures can be treated with: ? A back brace. ? Bed rest and activity restrictions. ? Pain medicine. ? Physical therapy. Fractures that are complex, involve multiple bones, or make the spine unstable may require surgery.Surgery is done: ? To remove pressure from the nerves or spinal cord. ? To stabilize the broken pieces of bone. Follow these instructions at home: Medicines ? Take ydbi-cnj-mqqvhgo and prescription medicines only as told by your health care provider. ? Do not drive or use heavy machinery while taking prescription pain medicine. ? If you are taking prescription pain medicine, take actions to prevent or treat constipation. Your health care provider may recommend that you: ? Drink enough fluid to keep your urine pale yellow. ? Eat foods that are high in fiber, such as fresh fruits and vegetables, whole grains, and beans. ? Limit foods that are high in fat and processed sugars, such as fried or sweet foods. ? Take an bzoj-gsf-qrigcmj or prescription medicine for constipation. If you have a brace: ? Wear the back brace as told by your health care provider. Remove it only as told by your health care provider. ? Keep the brace clean. ? If the brace is not waterproof: ? Do not let it get wet. ? Cover it with a watertight covering when you take a bath or a shower. Activity ? Stay in bed (on bed rest) only as directed by your health care provider. ? Do exercises to improve motion and strength in your back (physical therapy), if your health care provider tells you to do so. ? Return to your normal activities as directed by your health care provider. Ask your health care provider what activities are safe for you. Managing pain, stiffness, and swelling ? If directed, put ice on the injured area: ? If you have a removable brace, remove it as told by your health care provider. ? Put ice in a plastic bag. ? Place a towel between your skin and the bag. ? Leave the ice on for 20 minutes, 2???3 times a day. General instructions ? Do not use any products that contain nicotine or tobacco, such as cigarettes and e-cigarettes. These can delay healing after injury. If you need help quitting, ask your health care provider. ? Do not drink alcohol. Alcohol can interfere with your treatment. ? Keep all follow-up visits as directed by your health care provider. This is important. ? Failing to follow up as recommended could result in permanent injury, disability, or long-lasting (chronic) pain. Contact a health care provider if: ? You have a fever. ? Your pain medicine is not helping. ? Your pain does not get better over time. ? You cannot return to your normal activities as planned or expected. Get help right away if: ? You have difficulty breathing. ? Your pain is very bad and it suddenly gets worse. ? You have numbness, tingling, or weakness in any part of your body. ? You are unable to empty your bladder. ? You cannot control your bladder or bowels. ? You are unable to move any body part (paralysis) that is below the level of your injury. ? You vomit. ? You have pain in your abdomen. Summary ? A lumbar spine fracture is a break in one of the bones of the lower back. ? The main symptom of this condition is severe pain in the lower back. If a fracture is complex, there may also be numbness, tingling, or paralysis in the legs. ? Treatment depends on how severe the injury is. Most fractures can be treated with a back brace, bedrest and activity restrictions, pain medicine, and physical therapy. ? Fractures that are complex, involve multiple bones, or make the spine unstable may require surgery. This information is not intended to replace advice given to you by your health care provider. Make sure you discuss any questions you have with your health care provider. Document Revised: 04/19/2022 Document Reviewed: 04/19/2022 [employer] Patient Education ?? 2022 [employer] Tests Performed Medications and Immunizations Administered Given NS bolus, 1000 mL, IV Piggyback Toradol, 15 mg, IV Push Lab Test Name Test Result Date/Time WBC 9.0 x10^3/mcL 03/20/2023 06:40 EDT RBC 3.8 x10^6/mcL 03/20/2023 06:40 EDT Hgb 13.2 g/dL 03/20/2023 06:40 EDT Hct 39.0 % 03/20/2023 06:40 EDT MCV 101.3 fL 03/20/2023 06:40 EDT MCH 34.3 pg 03/20/2023 06:40 EDT MCHC 33.8 g/dL 03/20/2023 06:40 EDT RDW-CV 14.8 % 03/20/2023 06:40 EDT Platelets 232 x10^3/mcL 03/20/2023 06:40 EDT Neutro Auto 49.1 % 03/20/2023 06:40 EDT Lymph Auto 43.5 % 03/20/2023 06:40 EDT [place] Auto 5.9 % 03/20/2023 06:40 EDT Eos, Auto 0.3 % 03/20/2023 06:40 EDT Basophil Auto 0.8 % 03/20/2023 06:40 EDT Imm Gran Auto 0.4 % 03/20/2023 06:40 EDT Neutro Absolute 4.4 x10^3/mcL 03/20/2023 06:40 EDT Sodium Level 130 mmol/L 03/20/2023 06:40 EDT Potassium Level 4.3 mmol/L 03/20/2023 06:40 EDT Chloride Level 97 mmol/L 03/20/2023 06:40 EDT CO2 25 mmol/L 03/20/2023 06:40 EDT Alk Phos 260 unit/L 03/20/2023 06:40 EDT AST 63 unit/L 03/20/2023 06:40 EDT ALT 52 unit/L 03/20/2023 06:40 EDT BUN 4 mg/dL 03/20/2023 06:40 EDT Glucose Level 111 mg/dL 03/20/2023 06:40 EDT Creatinine Level 0.72 mg/dL 03/20/2023 06:40 EDT eGFR AA 91 03/20/2023 06:40 EDT eGFR Non-AA 91 03/20/2023 06:40 EDT Calcium Level 9.6 mg/dL 03/20/2023 06:40 EDT Protein Total 7.7 g/dL 03/20/2023 06:40 EDT Albumin Level 3.1 g/dL 03/20/2023 06:40 EDT Bilirubin Total 0.8 mg/dL 03/20/2023 06:40 EDT Lipase Level 30 unit/L 03/20/2023 06:40 EDT UA Color YELLOW. 03/20/2023 08:09 EDT UA Appear CLEAR. 03/20/2023 08:09 EDT UA Glucose NEGATIVE 03/20/2023 08:09 EDT UA Bili NEGATIVE 03/20/2023 08:09 EDT UA Ketones NEGATIVE 03/20/2023 08:09 EDT UA Spec Grav 1.025 03/20/2023 08:09 EDT UA Blood NEGATIVE 03/20/2023 08:09 EDT UA pH 6.0 03/20/2023 08:09 EDT UA Protein TRACE. 03/20/2023 08:09 EDT UA Urobilinogen 0.2 Uro 03/20/2023 08:09 EDT UA Nitrite NEGATIVE 03/20/2023 08:09 EDT UA Leuk Est 3+ 03/20/2023 08:09 EDT UA Culture Ind?. Indicated 03/20/2023 08:09 EDT UA WBC 10-25 03/20/2023 08:09 EDT UA RBC 0-2 03/20/2023 08:09 EDT UA Squam Epithelial Few 03/20/2023 08:09 EDT UA Mucous None Seen 03/20/2023 08:09 EDT UA Bacteria Rare 03/20/2023 08:09 EDT Patient/Financial Institution Branch Manager Signature Patient Name:MORENITA PENNINGTON Michelle I have received this information and my questions have been answered. Patient/Financial Institution Branch Manager Name: Patient/Financial Institution Branch Manager Signature: Relationship to Patient: Witness Name/Signature: Date: Electronically Signed on: 03/20/2023 10:39 EDTSigned by:[facility] Discharge summary * Grace Mccormack: PERFORM Event Display: Discharge Note Authored Date: * Grace Mccormack: PERFORM Event Display: Discharge Note Authored Date: Diagnosis: 1. Compression fracture of L1 vertebra Comment: Diagnosis: 2. Rib fractures Comment: Diagnosis: Flank pain Comment: Electronically Signed on 03/20/23 12:46 PM Grace Mccormack Patient Care team information Care Team Personnel Name: Yany Matta NP Position: Physician Member Role: Nurse Practitioner Name: Noam Canseco MD Position: No Access Member Role: Informed Provider Address: Address: [address] [id number] Name: Nuris Leon Position: Nurse Member Role: ED Nurse Name: Fernie Guy MD Position: Physician Member Role: Attending Physician Address: Address: [address] [place] [address] [place] [address] [place] Care Team Related Persons Name: GREG DANGELO
--- OUTSIDE RECORDS SUMMARY | 2023-05-11 13:55 | XMS_ITS | Continuity of Care Document ---
Author Name Unknown Organization [facility] Address [address] [place] [address] Care Team Providers Care Cookie Breaker Name Role Phone [facility] Encounter [facility] Date(s): 03/21/23 - 03/21/[address] [address] Encounter Diagnosis Abdominal pain(Discharge Diagnosis) - 03/21/23 Alcohol use(Discharge Diagnosis) - 03/21/23 Arteriosclerosis(Discharge Diagnosis) - 03/21/23 Discharge Disposition: Home or Self Care Attending Physician: Fernie Guy MD Admitting Physician: Fernie Guy MD Allergies, Adverse Reactions, Alerts No Known Medication Allergies Functional Status 03/21/23 Recent Travel History No recent travel Other exposure to Infectious Disease Non e Immunizations Given and Recorded Vaccine Date Status Refusal Reason SARS-CoV-2 (COVID-19) mRNA-1273 vaccine 11/05/20 R ecorded Problem List Condition Confirmation Course Effective Dates Status H ealth Status Informant Depression Confirmed Active History of alcoholic cardiomyopathy Confirmed Active Results Laboratory List Name Date Lactic Acid 03/21/23 CBC w/ Diff 03/21/23 Comprehensive Metabolic Panel 03/21/23 Lipase Level 03/21/23 Troponin-I 03/21/23 Automated Diff 03/21/23 SARS-CoV-2 (COVID-19) RNA (ID Now) Most recent to oldest [Reference Range]: 1 WBC [5.0-10.0 x10^3/mcL] 7.8 x10^3/mcL (03/21/23 9:58 AM) RBC [4.1-5.3 x10^6/mcL] 3.3 x10^6/mcL *LOW* (03/21/23 9:58 AM) Neutro Auto [40.0-75.0 %] 65.2 % (03/21/23 9:58 AM) Lymph Auto [20.0-50.0 %] 27.2 % (03/21/23 9:58 AM) Hanson Auto [2.0-15.0 %] 6.0 % (03/21/23 9:58 AM) Basophil Auto [0.0-1.0 %] 0.9 % (03/21/23 9:58 AM) BUN [7-18 mg/dL] 3 mg/dL *LOW* (03/21/23 9:58 AM) Glucose Level [74-106 mg/dL] 100 mg/dL (03/21/23 9:58 AM) Potassium Level [3.5-5.1 mmol/L] 4.0 mmo l/L (03/21/23 9:58 AM) MCV [80.0-96.0 fL] 100.6 fL *HI* (03/21/23 9:58 AM) AST [15-37 unit/L] 54 unit/L *HI* (03/21/23 9:58 AM) ALT [14-59 unit/L] 49 unit/L (03/21/23 9:58 AM) MCHC [31.0-35.0 g/dL] 34.6 g/dL (03/21/23 9:58 AM) Troponin-I [0.0-51.4 pg/mL] 40.2 pg/mL (03/21/23 9:58 AM) Sodium Level [136-145 mmol/L] 131 mmol/L *LOW* (03/21/23 9:58 AM) Hct [37.0-47.0 %] 33.5 % *LOW* (03/21/23 9:58 AM) Lipase Level [16-77 unit/L] 23 unit/L 1 (03/21/23 9:58 AM) Calcium Level [8.5-10.1 mg/dL] 9.5 mg/dL (03/21/23 9:58 AM) Albumin Level [3.4-5.0 g/dL] 3.1 g/dL *LOW* (03/21/23 9:58 AM) Protein Total [6.4-8.2 g/dL] 7.3 g/dL (03/21/23 9:58 AM) MCH [26.0-32.0 pg] 34.8 pg *HI* (03/21/23 9:58 AM) Neutro Absolute 5.1 x10^3/mcL *NA* (03/21/23 9:58 AM) Bilirubin Total [0.2-1.0 mg/dL] 0.6 mg/d L (03/21/23 9:58 AM) Hgb [12.0-16.0 g/dL] 11.6 g/dL *LOW* (03/21/23 9:58 AM) Alk Phos [46-146 unit/L] 235 unit/L *HI* (03/21/23 9:58 AM) Platelets [130-450 x10^3/mcL] 193 x10^3/ mcL (03/21/23 9:58 AM) CO2 [21-32 mmol/L] 23 mmol/L (03/21/23 9:58 AM) Lactic Acid Lvl [0.7-2.0 mmol/L] 2.2 mmo l/L 2 *CRIT* (03/21/23 10:52 AM) eGFR Non-AA [>=60] 95 (03/21/23 9:58 AM) eGFR AA [>=60] 95 (03/21/23 9:58 AM) Chloride Level [98-107 mmol/L] 96 mmol/L *LOW* (03/21/23 9:58 AM) RDW-CV [11.5-14.5 %] 14.5 % (03/21/23 9:58 AM) Imm Gran Auto [0.0-0.9 %] 0.4 % (03/21/23 9:58 AM) Creatinine Level [0.55-1.02 mg/dL] 0.66 mg/dL (03/21/23 9:58 AM) SARS-CoV-2 (COVID-19) RNA (ID Now) [Not Detected] Not Detected (03/21/23 9:53 AM) Eos, Auto [1.0-6.0 %] 0.3 % *LOW* (03/21/23 9:58 AM) 1Interpretive Data: Effective 04/22/22, [facility] has switched to a revised Lipase test.Note new ReferenceRange. 2Result Comment: Called to and verbally verified by LIBRA Grande at _03/21/2023 11:10:23 EDT. Vital Signs Most recent to oldest [Reference Range]: 1 2 3 Temperature Temporal Artery [36-38 Deg C] 36.5 Deg C (03/21/23 9:37 AM) Peripheral Pulse Rate [60-100 bpm] 109 bpm *HI* (03/21/23 1:15 PM) 97 bpm (03/21/23 12:55 PM) 105 bpm *HI* (03/21/23 12:39 PM) Heart Rate Monitored [60-100 bpm] 94 bpm (03/21/23 12:55 PM) 109 bpm *HI* (03/21/23 12:39 PM) 137 bpm *HI* (03/21/23 12:32 PM) Respiratory Rate [12-24 br/min] 21 br/min (03/21/23 1:15 PM) 21 br/min (03/21/23 12:55 PM) 24 br/min (03/21/23 12:39 PM) Blood Pressure [90-140/60-90 mmHg] 117/83mmHg (03/21/23 1:15 PM) 124/77mmHg (03/21/23 12:55 PM) 101/72mmHg (03/21/23 11:37 AM) Weight Dosing 33.70 kg (03/21/23 9:53 AM) Weight Estimated 33.70 kg (03/21/23 9:37 AM) Height/Length Dosing 150.000 cm (03/21/23 9:53 AM) Height/Length Estimated 150.000 cm (03/21/23 9:37 AM) Social History Social History Type Response Tobacco Current everyday tob acco user Tobacco Use:. 1 ppd per day. Sex Female Hospital Discharge Instructions Patient Education 03/21/2023 12:03:30 Atherosclerosis Atherosclerosis Atherosclerosis is when plaque builds up in the arteries. This causes narrowing and hardening of the arteries. Arteries are blood vessels that carry blood from the heart to all parts of the body. This blood contains oxygen. Plaque occurs due to inflammation or from a buildup of fat, cholesterol, calcium, waste products of cells, and a clotting material in the blood (fibrin). Plaque decreases the amount of blood that can flow through the artery. Atherosclerosis can affect any artery in your body, including: ??? Heart arteries. Damage to these arteries may lead to coronary artery disease, which can cause aheart attack. ??? Brain arteries. Damage to these arteries may cause a stroke. ??? Leg, arm, and pelvis arteries. Peripheral artery disease (PAD) may result from damage to these arteries. ??? Kidney arteries. Kidney (renal) failure may result from damage to kidney arteries. Treatment may slow the disease and prevent further damage to your heart, brain, peripheral arteries, and kidneys. What are the causes? This condition develops slowly over many years. The inner layers of your arteries become damaged and allow the gradual buildup of plaque. The exact cause of atherosclerosis is not fully understood. Symptoms of atherosclerosis do not occur until an artery becomes narrow or blocked. What increases the risk? The following factors may make you more likely to develop this condition: ??? Being middle-aged or older. ??? Certain medical conditions, including: ??? High blood pressure. ??? High cholesterol. ??? High blood fats (triglycerides). ??? Diabetes. ??? Sleep apnea. ??? Obesity. ??? Certain lab levels, including: ??? Elevated C-reactive protein (CRP). This is a sign of increased inflammation in your body. ??? Elevated homocysteine levels. This is an amino acid that is associated with heart and blood vessel disease. ??? Using tobacco or nicotine products. ??? A family history of atherosclerosis. ??? Not exercising enough (sedentary lifestyle). ??? Being stressed. ??? Drinking too much alcohol or using drugs, such as cocaine or methamphetamine. What are the signs or symptoms? Symptoms of atherosclerosis do not occur until the plaque severely narrows or blocks the artery, which decreases blood flow. Sometimes, atherosclerosis does not cause symptoms. Symptoms of this condition include: ??? Coronary artery disease. This may cause chest pain and shortness of breath. ??? Decreased blood supply to your brain, which may cause a stroke. Signs of a stroke may include sudden: ??? Weakness or numbness in your face, arm, or leg, especially on one side of your body. ??? Trouble walking or difficulty moving your arms or legs. ??? Loss of balance or coordination. ??? Confusion. ??? Slurred speech. ??? Trouble speaking, or trouble understanding speech, or both (aphasia). ??? Vision changes in one or both eyes. This may be double vision, blurred vision, or loss of vision. ??? Severe headache with no known cause. The headache is often described as the worst headache everexperienced. ??? PAD, which may cause pain, numbness, or nonhealing wounds, often in your legs and hips. ??? Renal failure. This may cause tiredness, problems with urination, swelling, and itchy skin. How is this diagnosed? This condition is diagnosed based on your medical history and a physical exam. During the exam, your health care provider will: ??? Check your pulse in different places. ??? Listen for a whooshing sound over your arteries (bruit). You may also have tests, such as: ??? Blood tests to check your levels of cholesterol, triglycerides, blood sugar, and CRP. ??? Ankle-brachial index to compare blood pressure in your arms to blood pressure in your ankles tosee how your blood is flowing. ??? Heart (cardiac) tests. ??? Electrocardiogram (ECG) to check for heart damage. ??? Stress test to see how your heart reacts to exercise. ??? Ultrasound tests. ??? Ultrasound of your peripheral arteries to check blood flow. ??? Echocardiogram to get images of your heart's chambers and valves. ??? X-ray tests. ??? Chest X-ray to see if you have an enlarged heart, which is a sign of heart failure. ??? CT scan to check for damage to your heart, brain, or arteries. ??? Angiogram. This is a test where dye is injected and X-rays are used to see the blood flow in the arteries. How is this treated? This condition is treated with lifestyle changes as the first step. These may include: ??? Changing your diet. ??? Losing weight. ??? Reducing stress. ??? Exercising and being physically active more regularly. ??? Quitting smoking. You may also need medicine to: ??? Lower triglycerides and cholesterol. ??? Control blood pressure. ??? Prevent blood clots. ??? Lower inflammation in your body. ??? Control your blood sugar. Sometimes, surgery is needed to: ??? Remove plaque from an artery (endarterectomy). ??? Open or widen a narrowed heart artery or peripheral artery (angioplasty). ??? Create a new path for your blood with one of these procedures: ??? Heart (coronary) artery bypass graft surgery. ??? Peripheral artery bypass graft surgery. ??? Place a small mesh tube (stent) in an artery to open or widen a narrowed artery. Follow these instructions at home: Eating and drinking ??? Eat a heart-healthy diet. Talk with your health care provider or a dietitian if you need help. A heart-healthy diet involves: ??? Limiting unhealthy fats and increasing healthy fats. Some examples of healthy fats are avocadosand olive oil. ??? Eating plant-based foods, such as fruits, vegetables, nuts, whole grains, and legumes (such as peas and lentils). ??? If you drink alcohol: ??? Limit how much you have to: ??? 0???1 drink a day for women who are not . ??? 0???2 drinks a day for men. ??? Know how much alcohol is in a drink. In the [place] one drink equals one 12 oz bottle of beer (355 mL), one 5 oz glass of wine (148 mL), or one 1?? oz glass of hard liquor (44 mL). Lifestyle ??? Maintain a healthy weight. Lose weight if your health care provider says that you need to do that. ??? Follow an exercise program as told by your health care provider. ??? Do not use any products that contain nicotine or tobacco. These products include cigarettes, chewing tobacco, and vaping devices, such as e-cigarettes. If you need help quitting, ask your health care provider. ??? Do not use drugs. General instructions ??? Take [id number] and prescription medicines only as told by your health care provider. ??? Manage other health conditions as told. ??? Keep all follow-up visits. This is important. Contact a health care provider if you have: ??? An irregular heartbeat. ??? Unexplained tiredness (fatigue). ??? Trouble urinating, or you are producing less urine or foamy urine. ??? Swelling of your hands or feet, or itchy skin. ??? Unexplained pain or numbness in your legs or hips. ??? A wound that is slow to heal or is not healing. Get help right away if: ??? You have any symptoms of a heart attack. These may be: ??? Chest pain. This includes squeezing chest pain that may feel like indigestion (angina). ??? Shortness of breath. ??? Pain in your neck, jaw, arms, back, or stomach. ??? Cold sweat. ??? Nausea. ??? Light-headedness. ??? Sudden pain, numbness, or coldness in a limb. ??? You have any symptoms of a stroke. BE FAST is an easy way to remember the main warning signs of a stroke: ??? B - Balance. Signs are dizziness, sudden trouble walking, or loss of balance. ??? E - Eyes. Signs are trouble seeing or a sudden change in vision. ??? F - Face. Signs are sudden weakness or numbness of the face, or the face or eyelid drooping on one side. ??? A - Arms. Signs are weakness or numbness in an arm. This happens suddenly and usually on one side of the body. ??? S - Speech. Signs are sudden trouble speaking, slurred speech, or trouble understanding what people say. ??? T - Time. Time to call emergency services. Write down what time symptoms started. ??? You have other signs of a stroke, such as: ??? A sudden, severe headache with no known cause. ??? Nausea or vomiting. ??? Seizure. These symptoms may represent a serious problem that is an emergency. Do not wait to see if the symptoms will go away. Get medical help right away. Call your local emergency services (911 in the [place] Do not drive yourself to the hospital. Summary ??? Atherosclerosis is when plaque builds up in the arteries and causes narrowing and hardening of the arteries. ??? Plaque occurs due to inflammation or from a buildup of fat, cholesterol, calcium, cellular waste products, and fibrin. ??? This condition may not cause any symptoms. Symptoms of atherosclerosis do not occur until the plaque severely narrows or blocks the artery. ??? Treatment starts with lifestyle changes and may include medicines. In some cases, surgery is needed. ??? Get help right away if you have any symptoms of a heart attack or stroke. This information is not intended to replace advice given to you by your health care provider. Make sure you discuss any questions you have with your health care provider. Document Revised: 09/23/2021 Document Reviewed: 09/23/2021 [employer] Patient Education ?? 2022 [employer]. 03/21/2023 12:03:28 Abdominal Pain, Adult Abdominal Pain, Adult Pain in the abdomen (abdominal pain) can be caused by many things. Often, abdominal pain is not serious and it gets better with no treatment or by being treated at home. However, sometimes abdominal pain is serious. Your health care provider will ask questions about your medical history and do a physical exam to try to determine the cause of your abdominal pain. Follow these instructions at home: Medicines ??? Take ghrn-lwd-oymicdt and prescription medicines only as told by your health care provider. ??? Do not take a laxative unless told by your health care provider. General instructions ??? Watch your condition for any changes. ??? Drink enough fluid to keep your urine pale yellow. ??? Keep all follow-up visits as told by your health care provider. This is important. Contact a health care provider if: ??? Your abdominal pain changes or gets worse. ??? You are not hungry or you lose weight without trying. ??? You are constipated or have diarrhea for more than 2???3 days. ??? You have pain when you urinate or have a bowel movement. ??? Your abdominal pain wakes you up at night. ??? Your pain gets worse with meals, after eating, or with certain foods. ??? You are vomiting and cannot keep anything down. ??? You have a fever. ??? You have blood in your urine. Get help right away if: ??? Your pain does not go away as soon as your health care provider told you to expect. ??? You cannot stop vomiting. ??? Your pain is only in areas of the abdomen, such as the right side or the left lower portion of the abdomen. Pain on the right side could be caused by appendicitis. ??? You have bloody or black stools, or stools that look like tar. ??? You have severe pain, cramping, or bloating in your abdomen. ??? You have signs of dehydration, such as: ??? Dark urine, very little urine, or no urine. ??? Cracked lips. ??? Dry mouth. ??? Sunken eyes. ??? Sleepiness. ??? Weakness. ??? You have trouble breathing or chest pain. Summary ??? Often, abdominal pain is not serious and it gets better with no treatment or by being treated at home. However, sometimes abdominal pain is serious. ??? Watch your condition for any changes. ??? Take qpuy-whb-pfiufmy and prescription medicines only as told by your health care provider. ??? Contact a health care provider if your abdominal pain changes or gets worse. ??? Get help right away if you have severe pain, cramping, or bloating in your abdomen. This information is not intended to replace advice given to you by your health care provider. Make sure you discuss any questions you have with your health care provider. Document Revised: 08/08/2020 Document Reviewed: 10/29/2019 [employer] Patient Education ?? 2022 [employer]. Follow Up Care 03/21/2023 09:37:09 With:Noam Canseco MD Address: [address] [phone] When:1 month Physician Emergency department Note * Chino Couch MD: PERFORM Event Display: ED Note Physician Authored Date: [id number] MORENITA PENNINGTON :1955 Age:68 years Sex:Female Visit Date:03/21/2023 Primary Care Physician: Noam Canseco MD Basic Information Time Seen: Chino Couch MD / 03/21/2023 10:08 Chief Complaint Pt c/o abd pain Lt Lower quad started today. +ETOH 2 beers prior to arrival, Also states dizziness and weakness History Of Present Illness: 68-year-old female past medical history atherosclerosis, alcohol use,??mild cognitive disorder/dementia??presents with abdominal pain. ??Patient was in the ER yesterday for the same symptoms comes back in for the same left-sided abdominal pain. ??Patient??unable to provide any further characterization of the pain??on history. ?? is with the patient and he is unable to fully really describewhat happened.?? History is quite limited from the patient. Review of Systems: Abdominal pain Physical Exam Vitals & Measurements T:??36.5?C ??(Temporal Artery)?? HR:??97??(Peripheral)?? HR:??94??(Monitored)?? RR:??21?? BP:??124/77?? SpO2:??94%?? HT:??150.000??cm?? WT:??33.70??kg??(Estimated)?? Pain Score:??0?? O2 Therapy:??Room air?? General: Alert and oriented, well nourished,?No??acute distress Eye: PERRL, EOMI,?Normal?conjunctiva HENT: Normocephalic Lungs: Clear to auscultation and percussion,?Non-labored?? respiration Heart:?Normal? rate,?Regular??rhythm Abdomen: Reproducible left-sided abdominal pain soft nonperitoneal Psychiatric: Cooperative, appropriate mood and affect Medical Decision Makin-year-old female??presents with left-sided abdominal pain. ??Seen in the ER here yesterday had a CT renal that did not show obvious evidence of a kidney stone??at that time. ??She returns today with persistent pain. ??She is not able to provide any??details of her history other than that she has abdominal pain. ?? states possible dementia history, he does not provide any other details tothe history either. ??36.5, 120/78, 111, 18, 98%. ??Patient??states that she drank a couple beers this morning.?? She does drink every day.?? She has reproducible left-sided abdominal pain on exam soft nonperitoneal.?? No leukocytosis. ??Labs are comparable to yesterday. ??Lactic??2.2. ??Troponin is negative.?? EKG 89 sinus normal axis and intervals no ST segment elevations or depressions.?COVID is negative. ??CT abdomen pelvis was repeated today with contrast, did show some stenosis of the abdominal vasculature with severe atherosclerotic change, I spoke with the radiologist on the phone,discussed??if there was any??benefit of obtaining a CT abdomen??angio, at this time the vasculatureis able to be visualized??and there is no obvious??arterial acute occlusion??or dissection noted.??Patient on reexamination is asymptomatic she has no abdominal pain. ??She has a soft nonperitoneal abdomen without any reproducible abdominal pain at this time??after IV Tylenol and fluids. ??Unclear??exactly??why she had was having the pain earlier, there may be??some component of vasculature claudication given the severe stenosis of these??vessels noted on CT, however at this time there is no indication for any acute surgical??management of this.?? Thought about starting the patient on aspirin, however she??does drink daily and is a high fall risk at home??thus this was??not started. ??Discharged stable condition with return precautions to the ED and primary care follow-up. ??She declinedjourney to recovery here in the ER.?? Cyst was noted on??the left side however she does not have any lower abdominal pain it is all left upper quadrant. Procedure No Qualifying Data Assessment/Plan 1.??Abdominal pain??R10.9 Ordered: Discharge Patient, 03/21/23 13:03:00 EDT, Home Independently, Constant Indicator ?? 2.??Alcohol use??Z78.9 Ordered: Discharge Patient, 03/21/23 13:03:00 EDT, Home Independently, Constant Indicator ?? 3.??Arteriosclerosis??I70.90 Ordered: Discharge Patient, 03/21/23 13:03:00 EDT, Home Independently, Constant Indicator ?? Patient Education Atherosclerosis Abdominal Pain, Adult Follow Up With When Contact Information [facility], Noam Estrella MD Within [address] [phone] [phone] Additional Instructions: Problem List/Past Medical History Ongoing Depression History of alcoholic cardiomyopathy Historical No qualifying data Medication Administration Given NS bolus, 1000 mL, IV Piggyback Tylenol, 1000 mg, IV Piggyback Allergies No Known Medication Allergies Social History Alcohol Current, Beer, Several times per day Electronic Cigarette/Vaping Electronic Cigarette Use: Never. Tobacco Current everyday tobacco user Tobacco Use:. 1 ppd per day. Lab Results CBC and Differential?? LATEST RESULTS?? HISTORICAL RESULTS?? WBC?? 03/21/23 09:58?? 7.8?? 03/20/23?? 9.0?? RBC?? 03/21/23 09:58?? 3.3 ??Low?? 03/20/23?? 3.8 ??Low?? Hgb?? 03/21/23 09:58?? 11.6 ??Low?? 03/20/23?? 13.2?? Hct?? 03/21/23 09:58?? 33.5 ??Low?? 03/20/23?? 39.0?? MCV?? 03/21/23 09:58?? 100.6 ??High?? 03/20/23?? 101.3 ??High?? MCH?? 03/21/23 09:58?? 34.8 ??High?? 03/20/23?? 34.3 ??High?? MCHC?? 03/21/23 09:58?? 34.6?? 03/20/23?? 33.8?? RDW-CV?? 03/21/23 09:58?? 14.5?? 03/20/23?? 14.8 ??High?? Platelets?? 03/21/23 09:58?? 193?? 03/20/23?? 232?? Neutro Auto?? 03/21/23 09:58?? 65.2?? 03/20/23?? 49.1?? Lymph Auto?? 03/21/23 09:58?? 27.2?? 03/20/23?? 43.5?? Hanson Auto?? 03/21/23 09:58?? 6.0?? 03/20/23?? 5.9?? Eos, Auto?? 03/21/23 09:58?? 0.3 ??Low?? 03/20/23?? 0.3 ??Low?? Basophil Auto?? 03/21/23 09:58?? 0.9?? 03/20/23?? 0.8?? Imm Gran Auto?? 03/21/23 09:58?? 0.4?? 03/20/23?? 0.4?? Neutro Absolute?? 03/21/23 09:58?? 5.1?? 03/20/23?? 4.4? Routine Chemistry?? LATEST RESULTS?? HISTORICAL RESULTS?? Sodium Level?? 03/21/23 09:58?? 131 ??Low?? 03/20/23?? 130 ??Low?? Potassium Level?? 03/21/23 09:58?? 4.0?? 03/20/23?? 4.3?? Chloride Level?? 03/21/23 09:58?? 96 ??Low?? 03/20/23?? 97 ??Low?? CO2?? 03/21/23 09:58?? 23?? 03/20/23?? 25?? Alk Phos?? 03/21/23 09:58?? 235 ??High?? 03/20/23?? 260 ??High?? AST?? 03/21/23 09:58?? 54 ??High?? 03/20/23?? 63 ??High?? ALT?? 03/21/23 09:58?? 49?? 03/20/23?? 52?? BUN?? 03/21/23 09:58?? 3 ??Low?? 03/20/23?? 4 ??Low?? Glucose Level?? 03/21/23 09:58?? 100?? 03/20/23?? 111 ??High?? Creatinine Level?? 03/21/23 09:58?? 0.66?? 03/20/23?? 0.72?? eGFR AA?? 03/21/23 09:58?? 95?? 03/20/23?? 91?? eGFR Non-AA?? 03/21/23 09:58?? 95?? 03/20/23?? 91?? Calcium Level?? 03/21/23 09:58?? 9.5?? 03/20/23?? 9.6?? Protein Total?? 03/21/23 09:58?? 7.3?? 03/20/23?? 7.7?? Albumin Level?? 03/21/23 09:58?? 3.1 ??Low?? 03/20/23?? 3.1 ??Low?? Bilirubin Total?? 03/21/23 09:58?? 0.6?? 03/20/23?? 0.8?? Lactic Acid Lvl?? 03/21/23 10:52?? 2.2 ??Critical?? 11/26/21?? 0.8?? Lipase Level?? 03/21/23 09:58?? 23?? 03/20/23?? 30? Cardiac Isoenzymes?? LATEST RESULTS?? HISTORICAL RESULTS?? Troponin-I?? 03/21/23 09:58?? 40.2?? 02/21/22?? 8.5? Infectious Disease?? LATEST RESULTS?? SARS-CoV-2 (COVID-19) RNA (ID Now)?? 03/21/23 09:53?? Not Detected? Electronically Signed on 03/21/23 01:03 PM Chino Couch MD Emergency department Discharge instructions * Chino Couch MD: PERFORM Event Display: ED Discharge Information Authored Date: [id number] MORENITA PENNINGTON :1955 Age:68 years Sex:Female Visit Date:03/21/2023 Primary Care Physician: Noam Canseco MD Discharge Instructions We would like to thank you for allowing us to assist you with your healthcare needs. The following includes patient education materials and information regarding your injury/illness. Diagnosis from Today's Visit Abdominal pain Alcohol use Arteriosclerosis Discharge Vitals Temperature??(Temporal Artery) 97.7 ??F (36.5 ??C) Heart Rate??(Peripheral) 97 Heart Rate??(Monitored) 94 Respiratory Rate?? 21 Blood Pressure?? 124/77?? Height?? 59.06 in (150.000 cm) Weight??(Estimated) 74.31 lb (33.70 kg) Allergies No Known Medication Allergies What to Do Next You Need to Schedule the Following Appointments Follow Up with??[facility], Noam Estrella MD When:??Within 1 month Where: [address] [phone] [phone] You were treated today on an emergency basis; it may be steel to contact your primary care provider to notify them of your visit today. You may have been referred to your regular doctor or a specialist, please follow up as instructed. If your condition worsens or you can't get in to see the doctor, contact the Emergency Department. Education Materials Atherosclerosis Atherosclerosis is when plaque builds up in the arteries. This causes narrowing and hardening of the arteries. Arteries are blood vessels that carry blood from the heart to all parts of the body. This blood contains oxygen. Plaque occurs due to inflammation or from a buildup of fat, cholesterol, calcium, waste products of cells, and a clotting material in the blood (fibrin). Plaque decreases the amount of blood that can flow through the artery. Atherosclerosis can affect any artery in your body, including: ? Heart arteries. Damage to these arteries may lead to coronary artery disease, which can cause a heart attack. ? Brain arteries. Damage to these arteries may cause a stroke. ? Leg, arm, and pelvis arteries. Peripheral artery disease (PAD) may result from damage to these arteries. ? Kidney arteries. Kidney (renal) failure may result from damage to kidney arteries. Treatment may slow the disease and prevent further damage to your heart, brain, peripheral arteries, and kidneys. What are the causes? This condition develops slowly over many years. The inner layers of your arteries become damaged and allow the gradual buildup of plaque. The exact cause of atherosclerosis is not fully understood. Symptoms of atherosclerosis do not occur until an artery becomes narrow or blocked. What increases the risk? The following factors may make you more likely to develop this condition: ? Being middle-aged or older. ? Certain medical conditions, including: ? High blood pressure. ? High cholesterol. ? High blood fats (triglycerides). ? Diabetes. ? Sleep apnea. ? Obesity. ? Certain lab levels, including: ? Elevated C-reactive protein (CRP). This is a sign of increased inflammation in your body. ? Elevated homocysteine levels. This is an amino acid that is associated with heart and blood vessel disease. ? Using tobacco or nicotine products. ? A family history of atherosclerosis. ? Not exercising enough (sedentary lifestyle). ? Being stressed. ? Drinking too much alcohol or using drugs, such as cocaine or methamphetamine. What are the signs or symptoms? Symptoms of atherosclerosis do not occur until the plaque severely narrows or blocks the artery, which decreases blood flow. Sometimes, atherosclerosis does not cause symptoms. Symptoms of this condition include: ? Coronary artery disease. This may cause chest pain and shortness of breath. ? Decreased blood supply to your brain, which may cause a stroke. Signs of a stroke may include sudden: ? Weakness or numbness in your face, arm, or leg, especially on one side of your body. ? Trouble walking or difficulty moving your arms or legs. ? Loss of balance or coordination. ? Confusion. ? Slurred speech. ? Trouble speaking, or trouble understanding speech, or both (aphasia). ? Vision changes in one or both eyes. This may be double vision, blurred vision, or loss of vision. ? Severe headache with no known cause. The headache is often described as the worst headache ever experienced. ? PAD, which may cause pain, numbness, or nonhealing wounds, often in your legs and hips. ? Renal failure. This may cause tiredness, problems with urination, swelling, and itchy skin. How is this diagnosed? This condition is diagnosed based on your medical history and a physical exam. During the exam, your health care provider will: ? Check your pulse in different places. ? Listen for a whooshing sound over your arteries (bruit). You may also have tests, such as: ? Blood tests to check your levels of cholesterol, triglycerides, blood sugar, and CRP. ? Ankle-brachial index to compare blood pressure in your arms to blood pressure in your ankles to seehow your blood is flowing. ? Heart (cardiac) tests. ? Electrocardiogram (ECG) to check for heart damage. ? Stress test to see how your heart reacts to exercise. ? Ultrasound tests. ? Ultrasound of your peripheral arteries to check blood flow. ? Echocardiogram to get images of your heart's chambers and valves. ? X-ray tests. ? Chest X-ray to see if you have an enlarged heart, which is a sign of heart failure. ? CT scan to check for damage to your heart, brain, or arteries. ? Angiogram. This is a test where dye is injected and X-rays are used to see the blood flow in the arteries. How is this treated? This condition is treated with lifestyle changes as the first step. These may include: ? Changing your diet. ? Losing weight. ? Reducing stress. ? Exercising and being physically active more regularly. ? Quitting smoking. You may also need medicine to: ? Lower triglycerides and cholesterol. ? Control blood pressure. ? Prevent blood clots. ? Lower inflammation in your body. ? Control your blood sugar. Sometimes, surgery is needed to: ? Remove plaque from an artery (endarterectomy). ? Open or widen a narrowed heart artery or peripheral artery (angioplasty). ? Create a new path for your blood with one of these procedures: ? Heart (coronary) artery bypass graft surgery. ? Peripheral artery bypass graft surgery. ? Place a small mesh tube (stent) in an artery to open or widen a narrowed artery. Follow these instructions at home: Eating and drinking ? Eat a heart-healthy diet. Talk with your health care provider or a dietitian if you need help. A heart-healthy diet involves: ? Limiting unhealthy fats and increasing healthy fats. Some examples of healthy fats are avocados andolive oil. ? Eating plant-based foods, such as fruits, vegetables, nuts, whole grains, and legumes (such as peasand lentils). ? If you drink alcohol: ? Limit how much you have to: ? 0???1 drink a day for women who are not . ? 0???2 drinks a day for men. ? Know how much alcohol is in a drink. In the [place] one drink equals one 12 oz bottle of beer (355 mL), one 5 oz glass of wine (148 mL), or one 1?? oz glass of hard liquor (44 mL). Lifestyle ? Maintain a healthy weight. Lose weight if your health care provider says that you need to do that. ? Follow an exercise program as told by your health care provider. ? Do not use any products that contain nicotine or tobacco. These products include cigarettes, chewing tobacco, and vaping devices, such as e-cigarettes. If you need help quitting, ask your health careprovider. ? Do not use drugs. General instructions ? Take wsjr-[id number]-[id number] and prescription medicines only as told by your health care provider. ? Manage other health conditions as told. ? Keep all follow-up visits. This is important. Contact a health care provider if you have: ? An irregular heartbeat. ? Unexplained tiredness (fatigue). ? Trouble urinating, or you are producing less urine or foamy urine. ? Swelling of your hands or feet, or itchy skin. ? Unexplained pain or numbness in your legs or hips. ? A wound that is slow to heal or is not healing. Get help right away if: ? You have any symptoms of a heart attack. These may be: ? Chest pain. This includes squeezing chest pain that may feel like indigestion (angina). ? Shortness of breath. ? Pain in your neck, jaw, arms, back, or stomach. ? Cold sweat. ? Nausea. ? Light-headedness. ? Sudden pain, numbness, or coldness in a limb. ? You have any symptoms of a stroke. BE FAST is an easy way to remember the main warning signs of astroke: ? B - Balance. Signs are dizziness, sudden trouble walking, or loss of balance. ? E - Eyes. Signs are trouble seeing or a sudden change in vision. ? F - Face. Signs are sudden weakness or numbness of the face, or the face or eyelid drooping on one side. ? A - Arms. Signs are weakness or numbness in an arm. This happens suddenly and usually on one side of the body. ? S - Speech. Signs are sudden trouble speaking, slurred speech, or trouble understanding what peoplesay. ? T - Time. Time to call emergency services. Write down what time symptoms started. ? You have other signs of a stroke, such as: ? A sudden, severe headache with no known cause. ? Nausea or vomiting. ? Seizure. These symptoms may represent a serious problem that is an emergency. Do not wait to see if the symptoms will go away. Get medical help right away. Call your local emergency services (911 in the [place] Do not drive yourself to the hospital. Summary ? Atherosclerosis is when plaque builds up in the arteries and causes narrowing and hardening of the arteries. ? Plaque occurs due to inflammation or from a buildup of fat, cholesterol, calcium, cellular waste products, and fibrin. ? This condition may not cause any symptoms. Symptoms of atherosclerosis do not occur until the plaque severely narrows or blocks the artery. ? Treatment starts with lifestyle changes and may include medicines. In some cases, surgery is needed. ? Get help right away if you have any symptoms of a heart attack or stroke. This information is not intended to replace advice given to you by your health care provider. Make sure you discuss any questions you have with your health care provider. Document Revised: 09/23/2021 Document Reviewed: 09/23/2021 [employer] Patient Education ?? 2022 [employer] Abdominal Pain, Adult Pain in the abdomen (abdominal pain) can be caused by many things. Often, abdominal pain is not serious and it gets better with no treatment or by being treated at home. However, sometimes abdominal pain is serious. Your health care provider will ask questions about your medical history and do a physical exam to try to determine the cause of your abdominal pain. Follow these instructions at home: Medicines ? Take [id number] and prescription medicines only as told by your health care provider. ? Do not take a laxative unless told by your health care provider. General instructions ? Watch your condition for any changes. ? Drink enough fluid to keep your urine pale yellow. ? Keep all follow-up visits as told by your health care provider. This is important. Contact a health care provider if: ? Your abdominal pain changes or gets worse. ? You are not hungry or you lose weight without trying. ? You are constipated or have diarrhea for more than 2???3 days. ? You have pain when you urinate or have a bowel movement. ? Your abdominal pain wakes you up at night. ? Your pain gets worse with meals, after eating, or with certain foods. ? You are vomiting and cannot keep anything down. ? You have a fever. ? You have blood in your urine. Get help right away if: ? Your pain does not go away as soon as your health care provider told you to expect. ? You cannot stop vomiting. ? Your pain is only in areas of the abdomen, such as the right side or the left lower portion of the abdomen. Pain on the right side could be caused by appendicitis. ? You have bloody or black stools, or stools that look like tar. ? You have severe pain, cramping, or bloating in your abdomen. ? You have signs of dehydration, such as: ? Dark urine, very little urine, or no urine. ? Cracked lips. ? Dry mouth. ? Sunken eyes. ? Sleepiness. ? Weakness. ? You have trouble breathing or chest pain. Summary ? Often, abdominal pain is not serious and it gets better with no treatment or by being treated at home. However, sometimes abdominal pain is serious. ? Watch your condition for any changes. ? Take zlci-tzo-uhdwdbb and prescription medicines only as told by your health care provider. ? Contact a health care provider if your abdominal pain changes or gets worse. ? Get help right away if you have severe pain, cramping, or bloating in your abdomen. This information is not intended to replace advice given to you by your health care provider. Make sure you discuss any questions you have with your health care provider. Document Revised: 08/08/2020 Document Reviewed: 10/29/2019 [employer] Patient Education ?? 2022 [employer] Tests Performed Medications and Immunizations Administered Given NS bolus, 1000 mL, IV Piggyback Tylenol, 1000 mg, IV Piggyback Lab Test Name Test Result Date/Time WBC 7.8 x10^3/mcL 03/21/2023 09:58 EDT RBC 3.3 x10^6/mcL 03/21/2023 09:58 EDT Hgb 11.6 g/dL 03/21/2023 09:58 EDT Hct 33.5 % 03/21/2023 09:58 EDT MCV 100.6 fL 03/21/2023 09:58 EDT MCH 34.8 pg 03/21/2023 09:58 EDT MCHC 34.6 g/dL 03/21/2023 09:58 EDT RDW-CV 14.5 % 03/21/2023 09:58 EDT Platelets 193 x10^3/mcL 03/21/2023 09:58 EDT Neutro Auto 65.2 % 03/21/2023 09:58 EDT Lymph Auto 27.2 % 03/21/2023 09:58 EDT Hanson Auto 6.0 % 03/21/2023 09:58 EDT Eos, Auto 0.3 % 03/21/2023 09:58 EDT Basophil Auto 0.9 % 03/21/2023 09:58 EDT Imm Gran Auto 0.4 % 03/21/2023 09:58 EDT Neutro Absolute 5.1 x10^3/mcL 03/21/2023 09:58 EDT Sodium Level 131 mmol/L 03/21/2023 09:58 EDT Potassium Level 4.0 mmol/L 03/21/2023 09:58 EDT Chloride Level 96 mmol/L 03/21/2023 09:58 EDT CO2 23 mmol/L 03/21/2023 09:58 EDT Alk Phos 235 unit/L 03/21/2023 09:58 EDT AST 54 unit/L 03/21/2023 09:58 EDT ALT 49 unit/L 03/21/2023 09:58 EDT BUN 3 mg/dL 03/21/2023 09:58 EDT Glucose Level 100 mg/dL 03/21/2023 09:58 EDT Creatinine Level 0.66 mg/dL 03/21/2023 09:58 EDT eGFR AA 95 03/21/2023 09:58 EDT eGFR Non-AA 95 03/21/2023 09:58 EDT Calcium Level 9.5 mg/dL 03/21/2023 09:58 EDT Protein Total 7.3 g/dL 03/21/2023 09:58 EDT Albumin Level 3.1 g/dL 03/21/2023 09:58 EDT Bilirubin Total 0.6 mg/dL 03/21/2023 09:58 EDT Lactic Acid Lvl 2.2 mmol/L 03/21/2023 10:52 EDT Lipase Level 23 unit/L 03/21/2023 09:58 EDT Troponin-I 40.2 pg/mL 03/21/2023 09:58 EDT SARS-CoV-2 (COVID-19) RNA (ID Now) Not Detected 03/21/2023 09:53 EDT Patient/Geophysical Observer Signature Patient Name:MORENITA PENNINGTON I have received this information and my questions have been answered. Patient/Geophysical Observer Name: Patient/Geophysical Observer Signature: Relationship to Patient: Witness Name/Signature: Date: Electronically Signed on: 03/21/2023 13:03 EDTSigned by:REPLACED BY [facility] Emergency department Note * Tila Domingo J: PERFORM Event Display: ED Notes Authored Date: [id number] Patient Care team information Care Team Personnel Name: Yany Matta NP Position: Physician Member Role: Nurse Practitioner Name: Noam Canseco MD Position: No Access Member Role: Informed Provider Address: Address: [address] [address]- Name: Chino Couch MD Position: Physician Member Role: ED Physician Address: Address: [facility] [address] [place] [address]- Name: Marilee Brantley Position: Nurse Member Role: ED Nurse Care Team Related Persons Name: GREG DANGELO
--- NOTE | 2023-05-11 14:00 | DI.RAD_ITS ---
Exam(s) XR CHEST 2V PA LATERAL EXAM: XR CHEST 2V PA LATERAL CLINICAL HISTORY: History of fall. TECHNIQUE: 2D digital imaging was performed. COMPARISON: No exams were available for comparison FINDINGS: 2 views: Heart size is normal. The mediastinum is not widened. Hyperinflation noted but no confluent infiltrates nor pleural effusions. No pulmonary edema. No pne umothorax. No fractures. IMPRESSION: No acute pulmonary findings.Bilateral hyperinflation noted. DATA REPOSITORY: RADIATION DOSE DELIVERED:
--- NOTE | 2023-05-11 14:00 | DI.CT_ITS ---
Exam(s) CT HEAD WO EXAM: CT HEAD WO CLINICAL HISTORY: History of fall dementia. TECHNIQUE: Imaging Protocol: Axial computed tomography images with coronal and sagittal reformatted images were created and reviewed COMPARISON: No exams were available for comparison FINDINGS: Ventricles and Extra axial spaces: Normal in size and morphology for the patient's age. Hemorrhage: None. Cerebral parenchyma: Areas of decreased attenuation in the white matter consistent with small vessel ischemic disease. No acute midline shift or mass effect. Midline shift: None. Brainstem/Cerebellum: Normal. Calvarium: Normal. Visualized Paranasal sinuses/Mastoids: Clear. Soft Tissues: Unremarkable. IMPRESSION: 1. No acute intracranial process. 2. Findings were discussed with the emergency department at 4 p.m. on 05/11/2023. RADIATION DOSE DELIVERED: Total DLP DATA REPOSITORY: All CT scans at this facility are submitted to the National Radiology Data Registry (NRDR) Dose Index Registry (DIR) with the [employer] (A[employer]). RADIATION OPTIMIZATION: All CT scans at this facility use at least one of these dose optimization te chniques: automated exposure control; mA and/or kV adjustment per patient size (includes targeted exa ms where dose is matched to clinical indication); or iterative reconstruction.
[2023-05-11 14:34] LABS: Source Nasal/Nares
[2023-05-11 14:35] LABS: Abs Immature Grans 0.02 10^3/uL (0.0-0.06); Absolute Basophil Count 0.09 10^3/uL (0.0-0.2); Absolute Eosinophil Count 0.03 10^3/uL (0.0-0.7); Absolute Monocyte Count 0.41 10^3/uL (0.1-0.8); Basophils % 1.3; Eosinophils % 0.4; HCT 40.7 % (36.0-46.0); HGB 13.8 g/dL (11.2-15.7); Immature Grans % 0.3; Lymphocytes % 53.1; MCHC 33.9 % (32.0-36.0); MCV 100 fL (80-95); MPV 9.3 fL (8.0-11.0); Monocytes % 5.7; Neutrophils % 39.2; Platelet Count 181 10^3/uL (130-400); RBC 4.06 10^6/uL (3.93-5.22); RDW-SD 48.4 fL; WBC 7.15 10^3/uL (4.4-10.8)
[2023-05-11] MEDS: Normal Saline 500 ML IV ×2 (14:47→17:18)
--- NOTE | 2023-05-11 14:48 | NUR.NOTE ---
Nursing Note:pt appeared to have a fainting spell. RN assured that pt was safe, notified MD and did a finger stick. Pt niece states that this happens frequently at her home. Pt was offered sandwich and hang clover.
[2023-05-11 15:01] LABS: Anion Gap 7.6 mmol/L (3-11); BUN 3 mg/dL (7-18); CO2 25.4 mmol/L (21.0-32.0); CREATININE 0.7 mg/dL (0.55-1.02); Calcium 9.9 mg/dL (8.5-10.1); Chloride 100 mmol/L (98-107); ETHANOL BLOOD 129.1 mg/dL (<10); Estimated GFR 94.15 (mL/min/1.73m2); Glucose 87 mg/dL (74-106); Magnesium 1.9 mg/dL (1.8-2.4); Potassium 4.4 mmol/L (3.5-5.1); Salicylate 5.4 mg/dL (<2.8); Sodium 133 mmol/L (136-145); TSH (W/Ref FT4) 2.49 uIU/mL (0.36-3.74)
[2023-05-11 15:04] LABS: Acetaminophen < 2 ug/mL (10-30)
[2023-05-11 15:06] LABS: COVID-19 PCR Negative (Negative)
[2023-05-11 15:19] LABS: Bilirubin Negative (Negative); Blood Trace-intact (Negative); Clarity Sl Cloudy (Clear); Glucose Negative (Negative); Ketones Negative (Negative); Leukocyte Esterase Large (Negative); Nitrite Negative (Negative); Urobilinogen 0.2 mg/dL (Up to 0.2)
[2023-05-11 15:27] LABS: Bacteria Moderate HPF (Negative); C & S Indicated? No/Sq. Contamination; Casts Negative LPF (Negative); Crystals Negative HPF (Negative); Epithelial Cells Many HPF (Negative); Mucus Negative (Negative); RBC 0-2 HPF (0-2); WBC 20-50 HPF (0-5)
[2023-05-11 15:32] LABS: *AMPHETAMINES SCREEN URINE Negative (Negative); *BARBITURATES SCREEN URINE Negative (Negative); *BENZODIAZEPINES SCREEN URINE Negative (Negative); Cannabinoids THC Negative (Negative); Cocaine Screen,Urine Negative (Negative); METHADONE URINE SCREEN Negative (Negative); OPIATES URINE SCREEN Negative (Negative); Tricyclic Antidepressants Negative (Negative)
[2023-05-11 16:42] VITALS: BP 88/57; PULSE 100; RESP 18; O2SAT 99
[2023-05-11] MEDS: Cephalexin 250 MG CAP PO (17:08)
[2023-05-11] MEDS: Nicotine 14 MG/24 HR PATCH TD (17:22)
[2023-05-11 19:18] VITALS: BP 117/76; PULSE 97; RESP 16; TEMP 37.2; O2SAT 100
--- NOTE | 2023-05-11 22:08 | NUR.NOTE ---
Pt is being D/C Nursing Note:
--- NOTE | 2023-05-11 22:12 | NUR.NOTE ---
Referral to Care Management to referr to patient pcp at [facility], Dr Noam Sosa for med adjustment aby.Nursing Note:
== END 2023-05-11 22:21 | disposition home or self-care (01) ==
PROVIDERS: Emergency Provider Emergency Medicine; PCP Internal Medicine
DX: D75.89 Other specified diseases of blood and blood-forming organs (principal)
CPT/HCPCS: 80048; 80307; 82962; 87635; 96360; 96361; 99284; 70450; 71046; 80320; 80329; 81003; 81015; 83735; 84443; 85025

== ENCOUNTER 2023-05-17 18:21 | Outpatient (REF) | payer OTHER, MEDICAID, SELFPAY | END 2023-05-17 18:22 | disposition home or self-care (01) | LOC: NCHCN 18:21 | PROVIDERS: PCP Internal Medicine; Visit Provider Physician Assistant | DX: N39.0 Urinary tract infection, site not specified (principal) | CPT/HCPCS: 87077; 87086; 87186 ==

== ENCOUNTER → 2023-08-17 01:06 | Outpatient (CLI) | payer OTHER, MEDICAID, SELFPAY ==
--- NOTE | 2023-08-17 10:13 | DI.RAD_ITS ---
Exam(s) XR WRIST RT COMPLETE EXAM: XR WRIST RT COMPLETE CLINICAL HISTORY: ? overuse fx,rt wrist pain,m25.531. TECHNIQUE: 2D digital imaging was performed of the right wrist. Three views were obtained. PA, lat eral and oblique views were obtained. COMPARISON: No exams were available for comparison FINDINGS: BONES: No acute fracture is present. No bony destructive lesion is seen. There is a well corticated o sseous density at the tip of the ulnar styloid process likely reflecting an old nonunited fracture. JOINTS: The carpal bones are normally aligned. There is mild narrowing of the radiocarpal joint. The joint spaces are otherwise well maintained. SOFT TISSUE: There is chondrocalcinosis involving the TFCC. IMPRESSION: Right wrist arthrosis. DATA REPOSITORY: RADIATION DOSE DELIVERED:
== END ==
PROVIDERS: PCP Internal Medicine; Visit Provider Nurse Practitioner Adult Health
DX: M19.031 Primary osteoarthritis, right wrist (principal)
CPT/HCPCS: 73110

== ENCOUNTER 2023-09-15 12:11 | Outpatient (REF) | payer OTHER, MEDICAID, SELFPAY ==
[2023-09-15 12:49] LABS: Abs Immature Grans 0.03 10^3/uL (0.0-0.06); Absolute Basophil Count 0.08 10^3/uL (0.0-0.2); Absolute Eosinophil Count 0.21 10^3/uL (0.0-0.7); Absolute Lymphocyte Count 3.71 10^3/uL (1.2-3.4); Absolute Monocyte Count 0.64 10^3/uL (0.1-0.8); Absolute Neutrophil Count 3.19 10^3/uL (1.2-6.7); Eosinophils % 2.7; HCT 36.8 % (36.0-46.0); HGB 11.7 g/dL (11.2-15.7); Immature Grans % 0.4; Lymphocytes % 47.2; MCH 31.5 pg (27.0-33.0); MCHC 31.8 % (32.0-36.0); MCV 99 fL (80-95); MPV 10.3 fL (8.0-11.0); Monocytes % 8.1; Neutrophils % 40.6; Platelet Count 341 10^3/uL (130-400); RBC 3.71 10^6/uL (3.93-5.22); RDW 13.7 % (11.7-14.6); RDW-SD 50.3 fL; WBC 7.86 10^3/uL (4.4-10.8)
[2023-09-15 12:57] LABS: ALT 23 U/L (14-59); AST 20 U/L (15-37); Albumin 3.6 g/dL (3.4-5.0); Alkaline Phosphatase 243 U/L (46-116); Anion Gap 9.6 mmol/L (3-11); BUN 22 mg/dL (7-18); Bilirubin, Total 0.2 mg/dL (0.2-1.0); CO2 25.4 mmol/L (21.0-32.0); CREATININE 0.8 mg/dL (0.55-1.02); Chloride 108 mmol/L (98-107); Estimated GFR 80.21 (mL/min/1.73m2); Glucose 89 mg/dL (74-106); Potassium 5.3 mmol/L (3.5-5.1); Sodium 143 mmol/L (136-145); Total Protein 6.9 g/dL (6.4-8.2)
[2023-09-15 13:16] LABS: Bilirubin Negative (Negative); Blood Negative (Negative); Clarity Clear (Clear); Glucose Negative (Negative); Ketones Negative (Negative); Leukocyte Esterase Moderate (Negative); Nitrite Negative (Negative); Urobilinogen 0.2 mg/dL (Up to 0.2)
[2023-09-15 13:48] LABS: Bacteria Few HPF (Negative); C & S Indicated? C&S Done As Ordered; Casts Negative LPF (Negative); Crystals Negative HPF (Negative); Epithelial Cells Rare HPF (Negative); Mucus Negative (Negative); RBC 0-2 HPF (0-2)
== END 2023-09-15 12:12 | disposition home or self-care (01) ==
LOC: LBN 12:11
PROVIDERS: PCP Internal Medicine; Visit Provider Family Medicine
DX: Z13.1 Encounter for screening for diabetes mellitus (principal)
CPT/HCPCS: 80053; 87077; 81003; 81015; 85025; 87086

== ENCOUNTER 2023-11-10 03:41 | Outpatient (REF) | payer OTHER, MEDICAID, SELFPAY ==
[2023-11-10 04:26] LABS: ALT 16 U/L (14-59); AST 13 U/L (15-37); Albumin 3.8 g/dL (3.4-5.0); Alkaline Phosphatase 223 U/L (46-116); Anion Gap 8.8 mmol/L (3-11); BUN 10 mg/dL (7-18); Bilirubin, Total 0.2 mg/dL (0.2-1.0); CO2 25.2 mmol/L (21.0-32.0); CREATININE 0.8 mg/dL (0.55-1.02); Calcium 10.8 mg/dL (8.5-10.1); Chloride 97 mmol/L (98-107); Estimated GFR 80.21 (mL/min/1.73m2); Glucose 92 mg/dL (74-106); Potassium 4.8 mmol/L (3.5-5.1); Sodium 131 mmol/L (136-145)
== END 2023-11-10 03:42 | disposition home or self-care (01) ==
LOC: LBO 03:41
PROVIDERS: PCP Internal Medicine; Visit Provider Family Medicine
DX: D45 Polycythemia vera (principal)
CPT/HCPCS: 80053

== ENCOUNTER 2024-01-31 17:42 | Outpatient (REF) | payer OTHER, MEDICAID, SELFPAY ==
[2024-01-31 18:37] LABS: Abs Immature Grans 0.03 10^3/uL (0.0-0.06); Absolute Basophil Count 0.09 10^3/uL (0.0-0.2); Absolute Eosinophil Count 0.23 10^3/uL (0.0-0.7); Absolute Lymphocyte Count 5.03 10^3/uL (1.2-3.4); Absolute Monocyte Count 0.67 10^3/uL (0.1-0.8); Absolute Neutrophil Count 3.86 10^3/uL (1.2-6.7); Basophils % 0.9 %; Eosinophils % 2.3 %; HCT 35.8 % (36.0-46.0); HGB 11.6 g/dL (11.2-15.7); Immature Grans % 0.3 %; Lymphocytes % 50.8 %; MCH 30.5 pg (27.0-33.0); MCHC 32.4 % (32.0-36.0); MCV 94 fL (80-95); Monocytes % 6.8 %; Neutrophils % 38.9 %; Platelet Count 327 10^3/uL (130-400); RDW 13.2 % (11.7-14.6); RDW-SD 45.6 fL; WBC 9.91 10^3/uL (4.4-10.8)
[2024-01-31 19:22] LABS: ALT 20 U/L (14-59); AST 17 U/L (15-37); Albumin 3.9 g/dL (3.4-5.0); Alkaline Phosphatase 157 U/L (46-116); Anion Gap 11.1 mmol/L (3-11); BUN 14 mg/dL (7-18); Bilirubin, Total 0.17 mg/dL (0.2-1.0); CO2 22.9 mmol/L (21.0-32.0); CREATININE 0.8 mg/dL (0.55-1.02); Calcium 10.7 mg/dL (8.5-10.1); Chloride 101 mmol/L (98-107); Estimated GFR 80.21 (mL/min/1.73m2); Glucose 89 mg/dL (74-106); Potassium 4.7 mmol/L (3.5-5.1); Sodium 135 mmol/L (136-145); TSH 2.07 uIU/Ml (0.36-3.74); Total Protein 7.1 g/dL (6.4-8.2)
[2024-01-31 19:51] LABS: Diff Comment Agrees w/ Instrument; RBC Morphology Normal
== END 2024-01-31 17:43 | disposition home or self-care (01) ==
LOC: LBN 17:42
PROVIDERS: PCP Internal Medicine; Visit Provider Family Medicine
DX: R68.89 Other general symptoms and signs (principal)
CPT/HCPCS: 80053; 84443; 85025

== ENCOUNTER 2024-02-09 22:17 | Emergency (ER) | payer OTHER, MEDICAID, SELFPAY ==
[2024-02-09] VITALS (16 sets, daily range): BP systolic 109–170; BP diastolic 63–82; PULSE 78–97; RESP 16–27; TEMP 36.2; O2SAT 90–96
--- NOTE | 2024-02-09 22:21 | NUR.NOTE ---
Nursing Note: Got report from [facility], Miryam SMYTH. Reported pt began having brown emesis x5-6 occurrences at 1800 today, no coffee grounds noted. Pt received PO Zofran at 1999 without relief. C/o RUQ pain. Normal BM today.
--- NOTE | 2024-02-09 22:28 | ED.GENADUL_ITS ---
Discharge Plan Disposition Patient Disposition: Shelter Facility(SNF) Condition: Good Discharge Details Clinical Impression: Vomiting, Abdominal pain, Acute UTI Primary Care Provider: Noam Sosa ED Provider: Rosemary Reynolds Home Meds and New Rx's Prescriptions: New metoclopramide HCl 5 mg tablet 5 mg PO .q8h prin Qty: 10 0RF cefpodoxime 200 mg tablet 200 mg PO BID Qty: 19 0RF Rx Instructions: must administer with a meal/food cefpodoxime 200 mg tablet 200 mg PO BID Qty: 19 0RF Rx Instructions: must administer with a meal/food metoclopramide HCl 5 mg tablet 5 mg PO .q8hr prn Qty: 10 0RF Rx Instructions: administer 30 minutes before meals Continued atorvastatin 40 MG tablet 40 mg PO DAILY lisinopril 5 MG tablet 5 mg PO DAILY multivitamin 1 EACH capsule 1 ea PO tiotropium bromide [Spiriva with HandiHaler] 18 MCG capsule, w/inhalation device 18 mcg Inhalation DAILY thiamine HCl (vitamin B1) 100 MG tablet 100 mg PO DAILY naproxen [Naprosyn] 500 MG tablet 500 mg PO BID hydrocodone-acetaminophen [Imperial] 1 EACH tablet 1 - 2 tab PO PRN PRN acetaminophen 325 mg capsule 650 mg PO TID cholecalciferol (vitamin D3) 125 mcg (5,000 unit) capsule 5,000 unit PO ONCE docusate sodium 100 mg capsule 100 mg PO DAILY bisacodyl [Dulcolax (bisacodyl)] 10 mg suppository 10 mg NV DAILY PRN escitalopram oxalate 10 mg tablet 10 mg PO DAILY famotidine 40 mg tablet 40 mg PO DAILY Enema 19-7 gram/118 mL enema 118 ml NV DAILY PRN Incruse Ellipta 62.5 mcg/actuation blister with device 1 inh inhalation DAILY lidocaine 5 % adhesive patch,medicated 1 patch topical DAILY Rx Instructions: leave on most painful area for up to 12 hrs metoprolol succinate 25 mg tablet extended release 24 hr 12.5 mg PO DAILY magnesium hydroxide [Milk of Magnesia] 400 mg/5 mL suspension 30 ml PO DAILY PRN polyethylene glycol 3350 [Miralax] 17 gram/dose powder 17 g PO DAILY mirtazapine 15 mg tablet 15 mg PO HS nicotine (polacrilex) 2 mg lozenge 2 mg mucous membrane ONCE albuterol 90 mcg/actuation aerosol inhalation Discharge Instructions Instructions: Abdominal Pain, Adult ED Additional Instructions: Tylenol and ibuprofen or naproxen over the counter for pain; follow the directions on the bottle. Metoclopramide 5mg up to every 8 hours as needed for nausea and vomiting. Cefpodoxime twice a day for the next 10 days for possible UTI Follow up with primary care doctor in 24-72 hours for symptoms; also discuss blood pressure and incidental small liver lesion seen on CT scan Return to the emergency department for new or worsening symptoms including new/different/worse abdominal pain, inability to keep down fluids, fever, or if you have any other concerns. Referrals: Noam Sosa [Primary Care Provider] - Discharge Data Discharge Date/Time-TO BE ENTERED AT DEPARTURE: 02/10/24 03:05 HPI General Mode of arrival: EMS . Date/Time Provider Initiated Documentation: 02/09/24 22:21 . Limitations to Documentation: no limitations . Information obtained by: patient and EMS . HPI Narrative: 68yo F with hx asthma, COPD, GERD, [place], presenting via [facility] for vomiting and abdominal pain. [place] well this morning. Around 7pm began vomiting, non-bloody non-bilious emesis. Zofran at 8pm without improvement. Has not been able to keep anything down. Several hours after she began vomiting she developed severe diffuse abdominal pain. Worst in the epigastrium. No diarrhea, melena, or bloody stool. Last BM today, normal. No fevers or chills. She is otherwise in her usual state of health with no chest pain, shortness of breath, headache, numbness. weakness, dysuria, hematuria, or other concerns. Related Data Home Medications ?Medication ?Instructions ?Recorded ?Confirmed Naprosyn 500 mg tablet (naproxen) 500 mg PO BID 05/03/17 05/11/23 Spiriva with HandiHaler 18 mcg and 18 mcg inhalation DAILY 05/03/17 02/09/24 inhalation capsules (tiotropium bromide) atorvastatin 40 mg tablet 40 mg PO DAILY 05/03/17 02/09/24 lisinopril 5 mg tablet 5 mg PO DAILY 05/03/17 05/11/23 multivitamin 1 ea PO 05/03/17 thiamine HCl (vitamin B1) 100 mg 100 mg PO DAILY 05/03/17 02/09/24 tablet hydrocodone 5 mg-acetaminophen 325 1 - 2 tab PO PRN PRN 05/11/17 05/11/23 mg tablet (Imperial) acetaminophen 325 mg capsule 650 mg PO TID 02/09/24 02/09/24 albuterol 90 mcg/actuation aerosol mcg inhalation 02/09/24 inhaler bisacodyl 10 mg rectal suppository 10 mg NV DAILY PRN 02/09/24 02/09/24 (Dulcolax (bisacodyl)) cholecalciferol (vitamin D3) 125 5,000 unit PO ONCE 02/09/24 02/09/24 mcg (5,000 unit) capsule docusate sodium 100 mg capsule 100 mg PO DAILY 02/09/24 02/09/24 escitalopram oxalate 10 mg tablet 10 mg PO DAILY 02/09/24 02/09/24 famotidine 40 mg tablet 40 mg PO DAILY 02/09/24 02/09/24 lidocaine 5 % topical patch 1 patch topical DAILY 02/09/24 02/09/24 magnesium hydroxide 400 mg/5 mL 30 ml PO DAILY PRN 02/09/24 02/09/24 oral suspension (Milk of [email or web address]) metoprolol succinate 25 mg 12.5 mg PO DAILY 02/09/24 02/09/24 tablet,extended release 24 hr mirtazapine 15 mg tablet 15 mg PO HS 02/09/24 02/09/24 nicotine (polacrilex) 2 mg buccal 2 mg mucous membrane ONCE 02/09/24 02/09/24 lozenge polyethylene glycol 3350 17 17 g PO DAILY 02/09/24 02/09/24 gram/dose oral powder (Miralax) sodium phosphates 19 gram-7 118 ml NV DAILY PRN 02/09/24 02/09/24 gram/118 mL enema (Enema) umeclidinium 62.5 mcg/actuation 1 inh inhalation DAILY 02/09/24 02/09/24 blister powder for inhalation (Incruse Ellipta) cefpodoxime 200 mg tablet 200 mg PO BID #19 tabs 02/10/24 cefpodoxime 200 mg tablet 200 mg PO BID #19 tabs 02/10/24 metoclopramide HCl 5 mg tablet 5 mg PO .q8h prin #10 tabs 02/10/24 metoclopramide HCl 5 mg tablet 5 mg PO .q8hr prn #10 tabs 02/10/24 Previous Rx's ?Medication ?Instructions ?Recorded cefpodoxime 200 mg tablet 200 mg PO BID #19 tabs 02/10/24 cefpodoxime 200 mg tablet 200 mg PO BID #19 tabs 02/10/24 metoclopramide HCl 5 mg tablet 5 mg PO .q8h prin #10 tabs 02/10/24 metoclopramide HCl 5 mg tablet 5 mg PO .q8hr prn #10 tabs 02/10/24 Allergies Allergy/AdvReac Type Severity Reaction Status Date / Time No Known Drug Allergies Allergy Unverified 05/11/23 14:35 General Stated Complaint: Abd Prob JAZMIN: 3 Review of Systems Narrative: see HPI Exam Narrative Exam Narrative: General: Alert, well appearing, well nourished, in no acute distress. Head: Normocephalic, atraumatic Neck: Trachea midline, ?Neck supple. ENT: ?Slightly dry MM.? No oropharygeal lesions or exudate. Cardiac: ?RRR, no murmurs appreciated Resp: No respiratory distress. CTAB. Abd: ?Soft, non-distended, diffusely TTP moreso in the epigastrium with no rebound or guarding. Negative forrest's. : ?+ suprapubic tenderness. No CVA tenderness. Extremities: ?No deformities.? No peripheral edema. Neurologic: Alert, oriented to person and place. ? Moves all extremities freely against gravity Course Vital Signs Vital signs: Vital Signs Temperature 36.2 C L 02/09/24 22:17 Pulse 83 02/09/24 22:17 Respiratory Rate 18 02/09/24 22:17 Blood Pressure 170/82 H 02/09/24 22:17 Pulse Oximetry 96 02/09/24 22:17 Temperature 36.2 C L 02/09/24 22:17 Temperature Source Temporal Artery Scan 02/09/24 22:17 Pulse 83 02/09/24 22:17 Pulse 86 02/09/24 22:20 Respiratory Rate 20 02/09/24 22:20 Respiratory Effort Normal, Non-Labored 02/09/24 22:20 Blood Pressure 170/82 H 02/09/24 22:17 Blood Pressure Position Supine 02/09/24 22:17 Pulse Oximetry 96 02/09/24 22:20 Oxygen Delivery Method Room Air 02/09/24 22:17 Oxygen Flow Rate 0 02/09/24 22:17 Pain Level 6 02/09/24 22:17 Medical Decision Making 68yo F with hx asthma, COPD, GERD, [place], presenting via EMS from [facility] for vomiting and abdominal pain; vomiting onset around 7pm, abdominal pain several hours later. Not keeping down fluids. Pain is diffuse, worst in the epigastrium. No focal RUQ pain or lower abdominal/pelvic pain. Hypertensive on arrival, vital signs otherwise reassuring. Diffusely TTP worst in the epigastrium, no focal RUQ tenderness and negative forrest's. Does appear dry. Not overtly septic. No hx of CHF. Will give 1L IVFBF, try reglan for nausea, tylenol & toradol for pain. -Labs reviewed as below, CBC reassuring with no leukocytosis or anemia, CMP with no actionable abnormalities (does have elevated ALP 188, at baseline on [facility] record review), lipase normal, lactate 2.6 (nonspecific), troponin negative. UA equivocal for infection; no nitrate, some leuk esterace, 10-20 WBC. Will treat for possible UTI with 10 day course of cefpodoxime. -EKG NSR, appropriate intervals, no ST segment or T wave abnormalities to suggest occlusive [place]. -CTA abd pelvis independently reviewed, no obstruction or free fluid on my view, agree with radiology read below with no indication of mesenteric ischemia. Just after contrast administered in CT pt became mildly agitated, stating she needed to run away, states 'help me, help me'. Suspect response due to sensation of contrast dye. No wheezing or respiratory distress, no urticaria, no suggestion of allergic reaction. Given 1mg of ativan with good effect. -Repeat lactate after 2L IVFf normalized at 0.7. Delta troponin negative. On reassessment she remains non-toxic appearing. Vital signs reassuring (some borderline soft BPs while asleep after ativan given, resolved with waking). Tolerated PO fluids. Reports pain is much better, abdomen nontender on my exam. Suspect most likely gastroenteritis; not concerned for acute cholecystitis, pyelonephritits, cholangitis, etc. UTI also possible based on UA. Discharged home on cefpo, reglan; advised to followup closely with PCP. Discharge instructions and return precautions reviewed with patient and sent to facility. All questions were answered and she is in full agreement with the plan. Imaging Data Radiologic Study: Imaging: CT Scan Radiologist's impression: IMPRESSION: 1. No acute intra-abdominal process. 2. 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 Labs: Laboratory Tests Range/Units 02/09/24 22:18 WBC (4.4-10.8) 10^3/uL 9.94 RBC (3.93-5.22) 10^6/uL 3.94 Hgb (11.2-15.7) g/dL 12.2 Hct (36.0-46.0) % 36.6 MCV (80-95) fL 93 MCH (27.0-33.0) pg 31.0 MCHC (32.0-36.0) % 33.3 RDW (11.7-14.6) % 12.9 Plt Count (130-400) 10^3/uL 340 MPV (8.0-11.0) fL 9.2 Immature Gran % % 0.4 Neutrophils % % 49.5 Lymphocytes % % 42.1 Monocytes % % 5.6 Eosinophils % % 1.7 Basophils % % 0.7 Nucleated RBC % (0.0-0.3) % 0.0 Absolute Neutrophils (1.2-6.7) 10^3/uL 4.92 Absolute Lymphocytes (1.2-3.4) 10^3/uL 4.18 H Absolute Monocytes (0.1-0.8) 10^3/uL 0.56 Absolute Eosinophils (0.0-0.7) 10^3/uL 0.17 Absolute Basophils (0.0-0.2) 10^3/uL 0.07 VBG Lactate (0.6-1.4) mmol/L 2.6 H* Sodium (136-145) mmol/L 135 L Potassium (3.5-5.1) mmol/L 4.0 Chloride (98-107) mmol/L 99 Carbon Dioxide (21.0-32.0) mmol/L 24.0 Anion Gap (3-11) mmol/L 12.0 H BUN (7-18) mg/dL 17 Creatinine (0.55-1.02) mg/dL 1.1 H Est GFR (CKD-EPI 2020) (mL/min/1.73m2) 54.73 Glucose (74-106) mg/dL 147 H Calcium (8.5-10.1) mg/dL 10.6 H Magnesium (1.8-2.4) mg/dL 1.7 L Total Bilirubin (0.2-1.0) mg/dL 0.19 L AST (15-37) U/L 18 ALT (14-59) U/L 18 Alkaline Phosphatase (46-116) U/L 188 H Troponin I (< or =60) ng/L < 50 Total Protein (6.4-8.2) g/dL 7.6 Albumin (3.4-5.0) g/dL 4.1 Lipase (16-77) U/L 67 Quality:SDOH Health Related Social Needs: No Data to Display PFSH All Active Problems (Updated 02/10/24 @ 02:43 by Rosemary Reynolds MD) Acute UTI (Acute) Abdominal pain (Acute) Vomiting (Acute) Social History Smoking/Tobacco Use Status: Current every day Smoking risk assessment performed?: Yes Alcohol Intake: current Alcohol Intake frequency: 3 or more drinks per day Alcohol type: beer Drug use: Occasionally Substance use type: marijuana Housing: apartment Do you feel safe at home: Yes Do you feel safe in your relationship?: Yes
[2024-02-09 22:34] LABS: Abs Immature Grans 0.04 10^3/uL (0.0-0.06); Absolute Basophil Count 0.07 10^3/uL (0.0-0.2); Absolute Eosinophil Count 0.17 10^3/uL (0.0-0.7); Absolute Lymphocyte Count 4.18 10^3/uL (1.2-3.4); Absolute Monocyte Count 0.56 10^3/uL (0.1-0.8); Absolute Neutrophil Count 4.92 10^3/uL (1.2-6.7); Basophils % 0.7 %; Eosinophils % 1.7 %; HCT 36.6 % (36.0-46.0); HGB 12.2 g/dL (11.2-15.7); Immature Grans % 0.4 %; Lactate 2.6 mmol/L (0.6-1.4); Lymphocytes % 42.1 %; MCHC 33.3 % (32.0-36.0); MCV 93 fL (80-95); MPV 9.2 fL (8.0-11.0); Monocytes % 5.6 %; Neutrophils % 49.5 %; Platelet Count 340 10^3/uL (130-400); RBC 3.94 10^6/uL (3.93-5.22); RDW 12.9 % (11.7-14.6); RDW-SD 44.1 fL; WBC 9.94 10^3/uL (4.4-10.8)
--- NOTE | 2024-02-09 22:39 | NUR.NOTE ---
Nursing Note: Pt to DI and will start meds and fluids when she returns
--- NOTE | 2024-02-09 22:45 | RT.EKG_ITS ---
APPROVED REPORT Exam: Resting ECG Reason for Exam: vomiting Patient Location: E HR:84 bpm ECG Measurements Heart Rate 84 AXIS TX 165 P 81 QRSd 87 QRS 73 QT 375 T 62 QTc 444 Conclusion Sinus rhythm... V-rate 60- [address] segment or T wave abnormalities to suggest occlusive [place]
[2024-02-09 22:49] LABS: ALT 18 U/L (14-59); AST 18 U/L (15-37); Albumin 4.1 g/dL (3.4-5.0); Alkaline Phosphatase 188 U/L (46-116); BUN 17 mg/dL (7-18); Bilirubin, Total 0.19 mg/dL (0.2-1.0); CREATININE 1.1 mg/dL (0.55-1.02); Calcium 10.6 mg/dL (8.5-10.1); Chloride 99 mmol/L (98-107); Estimated GFR 54.73 (mL/min/1.73m2); Glucose 147 mg/dL (74-106); Lipase 67 U/L (16-77); Magnesium 1.7 mg/dL (1.8-2.4); Sodium 135 mmol/L (136-145); Total Protein 7.6 g/dL (6.4-8.2)
[2024-02-09 23:04] LABS: Troponin I < 50 ng/L (< or =60)
[2024-02-09] MEDS: Metoclopramide 10 MG/2 ML VIAL IVP (23:10)
[2024-02-09] MEDS: Normal Saline 50 ML 100 ML (23:10)
[2024-02-09] MEDS: Normal Saline - Diluent 50 ML VIAL IJ (23:10)
[2024-02-09] MEDS: Normal Saline 1,000 ML 1000 ML IV ×2 (23:10→23:23)
[2024-02-09] MEDS: LORazepam 2 MG/ML VIAL (23:10)
[2024-02-09] MEDS: Omnipaque 350 MG/ML 100 ML BTL 60 ML IJ (23:11)
--- NOTE | 2024-02-09 23:12 | DI.CT_ITS ---
Exam(s) CT ABDOMEN PELVIS CTA EXAM: CT ABDOMEN PELVIS CTA CLINICAL HISTORY: diffuse abd pain, vomiting. TECHNIQUE: Imaging Protocol: Axial computed tomography images with coronal and sagittal reformatted images were created and reviewed CONTRAST MATERIAL: Intravenous: Omnipaque 350 Contrast volume:100 ml Oral: None COMPARISON: No exams were available for comparison FINDINGS: ABDOMEN: VISUALIZED LUNG BASES: No significant findings. AORTA: The abdominal aorta is moderately atherosclerotic and peripherally calcified but without aneurysmal d ilatation. There is heavily calcified plaque at the aortic bifurcation with stenosis at this level a nd there is heavily calcified plaque throughout the iliac arteries bilaterally but no aneurysms. Ther e is no stenosis in the celiac artery. Some plaque is noted at the origin and distal to the origin i n the superior mesenteric artery. There is a moderate stenosis in the proximal 1 cm of the superior mesenteric artery. There is some eccentric plaque more distal to this. No evidence of intraluminal embolus.The inferior mesenteric artery is thin. There are no large meandering collateral mesenteric vessels evident. There are no ischemic appearing bowel loops. No ascites. No free air. No evidenc e of bowel obstruction. Right renal artery appears patent without significant stenosis. Left renal artery exhibits some plaq ue at its origin. Both kidneys exhibit normal size. LIVER: Small benign-appearing hypodensity measuring 5 mm in the superior aspect of the right hepatic lobe which is probably a cyst or hemangioma. GALLBLADDER/BILIARY: No obvious gallbladder pathology. CBD is not dilated. PANCREAS: No evidence of pancreatic mass nor dilatation of the pancreatic duct. SPLEEN: Spleen is not enlarged. There are no intrasplenic lesions. ADRENALS: There are no significant adrenal masses. KIDNEYS: No cysts evident. No calculi nor hydronephrosis. No solid renal masses. ABDOMINAL AORTA: The abdominal aorta is not enlarged. LYMPH NODES: There is no retroperitoneal nor para-aortic adenopathy. No obvious mesenteric masses. ABDOMINAL WALL: No evidence of significant anterior abdominal wall hernia. GI: There is no evidence of bowel obstruction, free air, nor abscess. PELVIS: LYMPH NODES: There is no intrapelvic nor inguinal adenopathy. GI: No evidence of appendicitis.No evidence of sigmoid diverticulitis. URINARY BLADDER: No calculi nor masses evident REPRODUCTIVE: Uterus unremarkable. There is a cyst in the left adnexa measuring 4 by 2.5 cm, most pr obably ovarian. Appears simple. No findings in the right adnexa. No free fluid in the pelvis. OSSEOUS: Multilevel chronic degenerative disc disease. Most advanced disc space narrowing is at L2-3 and L4-5 levels. There also multilevel Schmorl's node invagination and a mild compression fracture at superior endplate of L1 with Schmorl's node invagination also evident at this level. No listhesi s. No significant osseous lesions IMPRESSION: 1. Moderate stenosis at the origin and more distally in the superior mesenteric artery. Celiac arter y patent. Inferior mesenteric artery is thin but patent. 2. There are no prominent meandering collateral vessels in the mesentery and there are no ischemic ap pearing bowel loops. No ascites. 3. There is a 4 x 2.5 cm left ovarian cyst. No surrounding fluid in the adnexa nor in the cul-de-sac . RADIATION DOSE DELIVERED: Total DLP DATA REPOSITORY: All CT scans at this facility are submitted to the National Radiology Data Registry (NRDR) Dose Index Registry (DIR) with the [employer] (ACR). RADIATION OPTIMIZATION: All CT scans at this facility use at least one of these dose optimization te chniques: automated exposure control; mA and/or kV adjustment per patient size (includes targeted exa ms where dose is matched to clinical indication); or iterative reconstruction.
[2024-02-09] MEDS: ACETAMINOPHEN 1,000 MG/100 ML BTL 400 MG IVPB (23:25)
[2024-02-09] MEDS: Ketorolac 15 MG/ML VIAL IVP (23:25)
[2024-02-10] VITALS (33 sets, daily range): BP systolic 94–161; BP diastolic 42–78; PULSE 70–109; RESP 13–28; O2SAT 92–96
--- NOTE | 2024-02-10 00:14 | DI.VRAD_ITS ---
PROCEDURE INFORMATION: Exam: CTA Abdomen and Pelvis With Contrast Exam date and time: 02/09/2024 10:41 PM Age: 68 years old Clinical indication: Other: Diffuse abd pain, vomiting TECHNIQUE: Imaging protocol: Computed tomographic angiography of the abdomen and pelvis with contrast. Exam focused on the arteries. 3D rendering (Not supervised by radiologist): MIP and/or 3D reconstructed images were created by the technologist. Contrast material: OMNIPAQUE 350; Contrast volume: 60 ml; Contrast route: INTRAVENOUS (IV); COMPARISON: CR XR CHEST 2V PA LATERAL 05/11/2023 3:32 PM FINDINGS: Lungs: Calcified granulomas in the left lower lobe. Bilateral lower lobe atelectatic changes. Diaphragm: Small hiatal hernia. Aorta: Calcified atheromas of the aorta. Celiac trunk and mesenteric arteries: Calcified atheromas at the origin of the superior mesenteric artery with moderate stenosis. Renal arteries: Calcified atheromas at the origin of the left renal artery with mild stenosis. Right iliac arteries: Calcified atheromas of right common iliac arteries with moderate stenosis. Calcified atheromas of the right external iliac arteries and common femoral arteries with moderate stenosis. Left iliac arteries: Calcified atheromas of left common iliac arteries with moderate stenosis. Calcified atheromas of the left external iliac arteries and common femoral arteries with moderate stenosis. Veins: Pelvic phleboliths. Liver: Hypodense lesion in segment 8 of the liver, measuring 6 mm, too small to characterize. Gallbladder and biliary ducts: Unremarkable. No calcified stones. No ductal dilation. Pancreas: Unremarkable. No mass. No ductal dilation. Spleen: Unremarkable. No splenomegaly. Adrenal glands: Unremarkable. No mass. Kidneys and ureters: Unremarkable. No solid mass. No hydronephrosis. Stomach and bowel: Unremarkable. No obstruction. No mucosal thickening. Appendix: No evidence of appendicitis. Intraperitoneal space: Unremarkable. No free air. No significant fluid collection. Lymph nodes: Unremarkable. No enlarged lymph nodes. Urinary bladder: Unremarkable. No mass. Reproductive: Unremarkable as visualized. Bones/joints: Mild curvature of the lumbar spine convex to the left chronic mild compression deformity of the L1 vertebral body. Mild retrolisthesis of L2 over L3 and L3 over L4. Multilevel moderate degenerative of the lumbar spine with posterior osteophyte disc complexes causing mild bony canal stenosis. Severe degenerative disease of the hip joints. Chondrocalcinosis of the symphysis pubis. Soft tissues: Unremarkable. IMPRESSION: 1. No acute intra-abdominal process. 2. 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 Dictated and Authenticated by: Apolinar Covarrubias MD. Ordering:KEELY Riley MD
[2024-02-10 01:21] LABS: Lactate 0.7 mmol/L (0.6-1.4)
[2024-02-10 01:38] LABS: Bilirubin Negative (Negative); Blood Negative (Negative); Clarity Clear (Clear); Glucose Negative (Negative); Ketones Negative (Negative); Leukocyte Esterase Small (Negative); Nitrite Negative (Negative); Urobilinogen 0.2 mg/dL (Up to 0.2); pH 6.5 (5-8)
[2024-02-10 01:40] LABS: Bacteria Rare HPF (Negative); C & S Indicated? Yes; Casts Negative LPF (Negative); Crystals Negative HPF (Negative); Epithelial Cells Rare HPF (Negative); Mucus Negative (Negative); RBC Negative HPF (0-2)
[2024-02-10 01:41] LABS: Troponin I < 50 ng/L (< or =60)
[2024-02-10] MEDS: Cefpodoxime 200 MG TAB PO (02:41)
== END 2024-02-10 03:05 | disposition skilled nursing facility (03) ==
PROVIDERS: Emergency Provider Student in an Organized Health Care Education/Training Program; PCP Internal Medicine
DX: R11.2 Nausea with vomiting, unspecified (principal); R10.12 Left upper quadrant pain; N39.0 Urinary tract infection, site not specified; K21.9 Gastro-esophageal reflux disease without esophagitis; J44.9 Chronic obstructive pulmonary disease, unspecified; I25.2 Old myocardial infarction; F17.200 Nicotine dependence, unspecified, uncomplicated
CPT/HCPCS: 36415; 80053; 83690; 87077; 93005; 96361; 96365; 96375; 99285; 74174; 81003; 81015; 83605; 83735; 84484; 85025; 87086; 93010; 99284; J0131; J1885; J2060; J2765; J3490

== ENCOUNTER 2024-02-12 08:55 | Emergency (ER) | payer OTHER, MEDICAID, SELFPAY ==
[2024-02-12] VITALS (44 sets, daily range): BP systolic 100–136; BP diastolic 50–82; PULSE 82–147; RESP 3–29; TEMP 37.1–38.3; O2SAT 90–100
--- NOTE | 2024-02-12 08:30 | RT.EKG_ITS ---
APPROVED REPORT Exam: Resting ECG Reason for Exam: SOB Patient Location: E HR:116 bpm ECG Measurements Heart Rate 116 AXIS MD 131 P 86 QRSd 83 QRS 85 QT 295 T 74 QTc 411 Conclusion Sinus tachycardia 116 no stemi
[2024-02-12 09:33] LABS: Abs Immature Grans 0.04 10^3/uL (0.0-0.06); Absolute Basophil Count 0.08 10^3/uL (0.0-0.2); Absolute Eosinophil Count 0.03 10^3/uL (0.0-0.7); Absolute Lymphocyte Count 3.07 10^3/uL (1.2-3.4); Absolute Monocyte Count 0.91 10^3/uL (0.1-0.8); Basophils % 0.7 %; Eosinophils % 0.3 %; HCT 35.1 % (36.0-46.0); HGB 11.8 g/dL (11.2-15.7); Immature Grans % 0.3 %; Lymphocytes % 26.4 %; MCH 31.1 pg (27.0-33.0); MCHC 33.6 % (32.0-36.0); MCV 93 fL (80-95); MPV 9.4 fL (8.0-11.0); Monocytes % 7.8 %; Neutrophils % 64.5 %; Platelet Count 302 10^3/uL (130-400); RBC 3.79 10^6/uL (3.93-5.22); RDW 13.2 % (11.7-14.6); RDW-SD 45.1 fL; WBC 11.63 10^3/uL (4.4-10.8)
[2024-02-12] MEDS: methylPREDNISolone SUCC 125 MG VIAL 80 MG IVP (09:36)
[2024-02-12] MEDS: Normal Saline 1,000 ML 1000 ML IV ×2 (09:36→11:23)
[2024-02-12] MEDS: Prochlorperazine 10 MG/2 ML VIAL 5 MG IVP (09:38)
[2024-02-12] MEDS: Albuterol/Ipratropium 3 ML UPD VIAL UPD (09:38)
[2024-02-12 09:48] LABS: ALT 18 U/L (14-59); AST 17 U/L (15-37); Albumin 3.8 g/dL (3.4-5.0); Alkaline Phosphatase 145 U/L (46-116); Anion Gap 10.6 mmol/L (3-11); BUN 7 mg/dL (7-18); Bilirubin, Total 0.31 mg/dL (0.2-1.0); CO2 23.4 mmol/L (21.0-32.0); CREATININE 0.9 mg/dL (0.55-1.02); Calcium 10.5 mg/dL (8.5-10.1); Chloride 99 mmol/L (98-107); Estimated GFR 69.64 (mL/min/1.73m2); Glucose 103 mg/dL (74-106); Magnesium 1.5 mg/dL (1.8-2.4); Potassium 4.3 mmol/L (3.5-5.1); Sodium 133 mmol/L (136-145); Total Protein 7.4 g/dL (6.4-8.2)
[2024-02-12 10:08] LABS: Procalcitonin < 0.1 ng/mL
[2024-02-12 10:11] LABS: Bilirubin Negative (Negative); Blood Negative (Negative); Clarity Clear (Clear); Glucose Negative (Negative); Ketones Negative (Negative); Leukocyte Esterase Moderate (Negative); Nitrite Negative (Negative); Specific Gravity 1.015 (1.005-1.025); Urobilinogen 0.2 mg/dL (Up to 0.2)
[2024-02-12 10:15] LABS: Influenza A PCR Negative (Negative); Influenza B PCR Negative (Negative); RSV PCR Negative (Negative)
--- NOTE | 2024-02-12 10:16 | DI.RAD_ITS ---
Exam(s) XR CHEST 2V PA LATERAL EXAM: XR CHEST 2V PA LATERAL CLINICAL HISTORY: fever, shortness of breath. TECHNIQUE: 2D digital imaging was performed. COMPARISON: CR XR CHEST 2V PA LATERAL from 05/11/2023 FINDINGS: 2 views: Heart size is normal. The mediastinum is not widened. Left lung is clear. Subtle suggestion of a 4 millimeter noncalcified nodular density in the right up per lobe region projected over the posterior aspect of the right 5th rib, not previously evident. Po ssibly significant. No other right lung findings. No pleural effusions. No pulmonary edema. IMPRESSION: No confluent infiltrates nor pleural effusions but there is a suggestion of a subtle 4 millimeter nod ular density in the right lung upper lobe. Appropriate imaging follow-up recommended. DATA REPOSITORY: RADIATION DOSE DELIVERED:
[2024-02-12 10:22] LABS: Source Nasopharynx
[2024-02-12 10:23] LABS: Bacteria Negative HPF (Negative); C & S Indicated? No/Sq. Contamination; Casts Negative LPF (Negative); Crystals Negative HPF (Negative); Epithelial Cells Many HPF (Negative); Mucus Negative (Negative); Other Cells Few Transitional (Negative); RBC 0-2 HPF (0-2)
[2024-02-12 10:23] LABS: COVID-19 PCR Positive (Negative)
--- NOTE | 2024-02-12 11:22 | DI.VRAD_ITS ---
PROCEDURE INFORMATION: Exam: XR Chest Exam date and time: 02/12/2024 10:13 AM Age: 68 years old Clinical indication: Other: Fever, shortness of breath TECHNIQUE: Imaging protocol: Radiologic exam of the chest. Views: 2 views. COMPARISON: CR XR CHEST 2V PA LATERAL 05/11/2023 3:32 PM FINDINGS: Lungs: Hyperexpanded lung ortiz consistent with COPD . No focal consolidation Pleural spaces: Unremarkable. No pleural effusion. No pneumothorax. Heart/Mediastinum: Unremarkable. No cardiomegaly. Bones/joints: Internal fixation device in the proximal left humerus IMPRESSION: No focal consolidation. Dictated and Authenticated by: Medardo Simpson MD. Ordering:JOMAR Bernal MD
[2024-02-12] MEDS: MAGNESIUM SULFATE 1 GM/100 ML BAG IVINF (11:24)
--- NOTE | 2024-02-12 12:09 | W.ED.GENAD ---
Discharge Plan Disposition Patient Disposition: Home Condition: Serious Discharge Details Clinical Impression: COVID-19 Primary Care Provider: Noam Sosa ED Provider: Dolores Ratliff Home Meds and New Rx's Prescriptions: New prednisone 20 mg tablet 40 mg PO DAILY Qty: 8 0RF Continued atorvastatin 40 MG tablet 40 mg PO DAILY lisinopril 5 MG tablet 5 mg PO DAILY tiotropium bromide [Spiriva with HandiHaler] 18 MCG capsule, w/inhalation device 18 mcg Inhalation DAILY thiamine HCl (vitamin B1) 100 MG tablet 100 mg PO DAILY naproxen [Naprosyn] 500 MG tablet 500 mg PO BID hydrocodone-acetaminophen [Emmons] 1 EACH tablet 1 - 2 tab PO PRN PRN acetaminophen 325 mg capsule 650 mg PO TID cholecalciferol (vitamin D3) 125 mcg (5,000 unit) capsule 5,000 unit PO ONCE docusate sodium 100 mg capsule 100 mg PO DAILY bisacodyl [Dulcolax (bisacodyl)] 10 mg suppository 10 mg WA DAILY PRN escitalopram oxalate 10 mg tablet 10 mg PO DAILY famotidine 40 mg tablet 40 mg PO DAILY Enema 19-7 gram/118 mL enema 118 ml WA DAILY PRN Incruse Ellipta 62.5 mcg/actuation blister with device 1 inh inhalation DAILY lidocaine 5 % adhesive patch,medicated 1 patch topical DAILY Rx Instructions: leave on most painful area for up to 12 hrs metoprolol succinate 25 mg tablet extended release 24 hr 12.5 mg PO DAILY magnesium hydroxide [Milk of Magnesia] 400 mg/5 mL suspension 30 ml PO DAILY PRN polyethylene glycol 3350 [Miralax] 17 gram/dose powder 17 g PO DAILY mirtazapine 15 mg tablet 15 mg PO HS nicotine (polacrilex) 2 mg lozenge 2 mg mucous membrane ONCE albuterol 90 mcg/actuation aerosol 90 mcg inhalation Q6H PRN PRN metoclopramide HCl 5 mg tablet 5 mg PO .q8h prin Qty: 10 0RF cefpodoxime 200 mg tablet 200 mg PO BID Qty: 19 0RF Rx Instructions: must administer with a meal/food cefpodoxime 200 mg tablet 200 mg PO BID Qty: 19 0RF Rx Instructions: must administer with a meal/food Discontinued metoclopramide HCl 5 mg tablet 5 mg PO .q8hr prn Qty: 10 0RF Rx Instructions: administer 30 minutes before meals Discharge Instructions Instructions: COVID-19 ED Additional Instructions: prednisone daily starting tomorrow 40 mg use inhalers exactly as prescribed tylenol 650 mg every 6 hours be sure pt is consuming at least 48 oz of fluids, she was very dehydrated take compazine as needed for nausea and vomiting the headache is secondary to fever, please check and control fever with medications please refer to covid measures for your facility return with persistent hypoxia or should any new concerns arise recheck magnesium level this week Referrals: Noam Sosa [Primary Care Provider] - Discharge Data Discharge Date/Time-TO BE ENTERED AT DEPARTURE: 02/12/24 13:35 HPI General Date/Time Provider Initiated Documentation: 02/12/24 08:58. HPI Narrative: 68-year-old female presents from [facility]hab past medical history consistent with hypertension, alcoholism, COPD with report of headache, chills and some intermittent nausea. History of headaches per patient. Diagnosed with UTI 2 days ago. States she has been taking antibiotics as prescribed. Denies stiff neck unsure regarding fever. States numerous sick contacts with COVID at the facility where she resides. Related Data Home Medications ?Medication ?Instructions ?Recorded ?Confirmed Naprosyn 500 mg tablet (naproxen) 500 mg PO BID 05/03/17 02/12/24 Spiriva with HandiHaler 18 mcg and 18 mcg inhalation DAILY 05/03/17 02/12/24 inhalation capsules (tiotropium bromide) atorvastatin 40 mg tablet 40 mg PO DAILY 05/03/17 02/12/24 lisinopril 5 mg tablet 5 mg PO DAILY 05/03/17 02/12/24 thiamine HCl (vitamin B1) 100 mg 100 mg PO DAILY 05/03/17 02/12/24 tablet hydrocodone 5 mg-acetaminophen 325 1 - 2 tab PO PRN PRN 05/11/17 02/12/24 mg tablet (Emmons) acetaminophen 325 mg capsule 650 mg PO TID 02/09/24 02/12/24 albuterol 90 mcg/actuation aerosol 90 mcg inhalation Q6H PRN PRN 02/09/24 02/12/24 inhaler bisacodyl 10 mg rectal suppository 10 mg WA DAILY PRN 02/09/24 02/12/24 (Dulcolax (bisacodyl)) cholecalciferol (vitamin D3) 125 5,000 unit PO ONCE 02/09/24 02/12/24 mcg (5,000 unit) capsule docusate sodium 100 mg capsule 100 mg PO DAILY 02/09/24 02/12/24 escitalopram oxalate 10 mg tablet 10 mg PO DAILY 02/09/24 02/12/24 famotidine 40 mg tablet 40 mg PO DAILY 02/09/24 02/12/24 lidocaine 5 % topical patch 1 patch topical DAILY 02/09/24 02/12/24 magnesium hydroxide 400 mg/5 mL 30 ml PO DAILY PRN 02/09/24 02/12/24 oral suspension (Milk of Magnesia) metoprolol succinate 25 mg 12.5 mg PO DAILY 02/09/24 02/12/24 tablet,extended release 24 hr mirtazapine 15 mg tablet 15 mg PO HS 02/09/24 02/12/24 nicotine (polacrilex) 2 mg buccal 2 mg mucous membrane ONCE 02/09/24 02/12/24 lozenge polyethylene glycol 3350 17 17 g PO DAILY 02/09/24 02/12/24 gram/dose oral powder (Miralax) sodium phosphates 19 gram-7 118 ml WA DAILY PRN 02/09/24 02/12/24 gram/118 mL enema (Enema) umeclidinium 62.5 mcg/actuation 1 inh inhalation DAILY 02/09/24 02/12/24 blister powder for inhalation (Incruse Ellipta) cefpodoxime 200 mg tablet 200 mg PO BID #19 tabs 02/10/24 02/12/24 cefpodoxime 200 mg tablet 200 mg PO BID #19 tabs 02/10/24 02/12/24 metoclopramide HCl 5 mg tablet 5 mg PO .q8h prin #10 tabs 02/10/24 02/12/24 prednisone 20 mg tablet 40 mg (2 x 20 mg) PO DAILY #8 tabs 02/12/24 Previous Rx's ?Medication ?Instructions ?Recorded cefpodoxime 200 mg tablet 200 mg PO BID #19 tabs 02/10/24 cefpodoxime 200 mg tablet 200 mg PO BID #19 tabs 02/10/24 metoclopramide HCl 5 mg tablet 5 mg PO .q8h prin #10 tabs 02/10/24 prednisone 20 mg tablet 40 mg (2 x 20 mg) PO DAILY #8 tabs 02/12/24 Allergies Allergy/AdvReac Type Severity Reaction Status Date / Time No Known Drug Allergies Allergy Unverified 05/11/23 14:35 General Stated Complaint: Headache JAZMIN: 3 Exam Narrative Exam Narrative: Alert and oriented 68-year-old female, chronically ill in appearance, moist Dukas membranes, no meningismus, pupils equal round reactive to light and accommodation, sinus tachycardia, crackles at bases of lungs, mildly diminished, no abdominal tenderness and oriented x 4, no peripheral edema, neurovascularly intact Course Vital Signs Vital signs: Vital Signs Temperature 37.1 C 02/12/24 08:47 Pulse 105 H 02/12/24 08:47 Respiratory Rate 16 02/12/24 08:47 Blood Pressure 110/77 02/12/24 08:47 Pulse Oximetry 96 02/12/24 08:47 Temperature 37.6 C H 02/12/24 11:20 Temperature Source Temporal Artery Scan 02/12/24 09:02 Pulse 118 H 02/12/24 11:15 Pulse 122 H 02/12/24 11:20 Respiratory Rate 25 H 02/12/24 11:20 Respiratory Effort Short of Breath 02/12/24 09:02 Respiratory Depth Normal 02/12/24 09:02 Respiratory Pattern Normal 02/12/24 09:02 Blood Pressure 109/57 L 02/12/24 11:15 Blood Pressure Mean 74 02/12/24 11:15 Blood Pressure Position Supine 02/12/24 09:02 Pulse Oximetry 91 L 02/12/24 11:20 Oxygen Delivery Method Room Air 02/12/24 09:38 Oxygen Flow Rate 0 02/12/24 09:38 Pain Level 8 02/12/24 10:33 Comment headache and lower abd pain/cramping, hx of recent UTI infection with abx 02/12/24 09:02 Comment sleeping 02/12/24 11:20 Lab/Test Results Lab/Test Results: 02/12/24 09:55 Blood Blood Culture - Pending 02/12/24 09:20 Blood Blood Culture - Pending Laboratory Tests Range/Units 02/12/24 02/12/24 02/12/24 09:15 09:20 10:05 WBC (4.4-10.8) 10^3/uL 11.63 H RBC (3.93-5.22) 10^6/uL 3.79 L Hgb (11.2-15.7) g/dL 11.8 Hct (36.0-46.0) % 35.1 L MCV (80-95) fL 93 MCH (27.0-33.0) pg 31.1 MCHC (32.0-36.0) % 33.6 RDW (11.7-14.6) % 13.2 Plt Count (130-400) 10^3/uL 302 MPV (8.0-11.0) fL 9.4 Immature Gran % % 0.3 Neutrophils % % 64.5 Lymphocytes % % 26.4 Monocytes % % 7.8 Eosinophils % % 0.3 Basophils % % 0.7 Nucleated RBC % (0.0-0.3) % 0.0 Absolute Neutrophils (1.2-6.7) 10^3/uL 7.50 H Absolute Lymphocytes (1.2-3.4) 10^3/uL 3.07 Absolute Monocytes (0.1-0.8) 10^3/uL 0.91 H Absolute Eosinophils (0.0-0.7) 10^3/uL 0.03 Absolute Basophils (0.0-0.2) 10^3/uL 0.08 VBG Lactate (0.6-1.4) mmol/L 1.0 Sodium (136-145) mmol/L 133 L Potassium (3.5-5.1) mmol/L 4.3 Chloride (98-107) mmol/L 99 Carbon Dioxide (21.0-32.0) mmol/L 23.4 Anion Gap (3-11) mmol/L 10.6 BUN (7-18) mg/dL 7 Creatinine (0.55-1.02) mg/dL 0.9 Est GFR (CKD-EPI 2020) (mL/min/1.73m2) 69.64 Glucose (74-106) mg/dL 103 Calcium (8.5-10.1) mg/dL 10.5 H Magnesium (1.8-2.4) mg/dL 1.5 L Total Bilirubin (0.2-1.0) mg/dL 0.31 AST (15-37) U/L 17 ALT (14-59) U/L 18 Alkaline Phosphatase (46-116) U/L 145 H Total Protein (6.4-8.2) g/dL 7.4 Albumin (3.4-5.0) g/dL 3.8 Procalcitonin ng/mL < 0.1 Urine Color (Yellow) Yellow Urine Clarity (Clear) Clear Urine pH (5-8) 7.0 Ur Specific [place] (1.005-1.025) 1.015 Urine Protein (Neg-Trace) mg/dL Negative Urine Ketones (Negative) mg/dL Negative Urine Blood (Negative) Negative Urine Nitrite (Negative) Negative Urine Bilirubin (Negative) Negative Urine Urobilinogen (Up to 0.2) mg/dL 0.2 Ur Leukocyte Esterase (Negative) Moderate H Urine RBC (0-2) HPF 0-2 Urine WBC (0-5) HPF 10-20 H Ur Epithelial Cells (Negative) HPF Many Urine Crystals (Negative) HPF Negative Urine Bacteria (Negative) HPF Negative Urine Casts (Negative) LPF Negative Urine Mucus (Negative) Negative Urine Other (Negative) Few Transitional Ur Culture Indicated? No/Sq. Contamination Urine Glucose (Negative) mg/dL Negative COVID-19 Source Nasopharynx SARS-CoV-2 (PCR) (Negative) Positive A Influenza Type A (PCR) (Negative) Negative Influenza Type B (PCR) (Negative) Negative RSV (PCR) (Negative) Negative Medical Decision Making 68-year-old female presenting with fever and chills tachycardia. Is currently taking medication for UTI, cefpodoxime. Was evaluated 2 days ago in this emergency department. Feeling worse which is why she presents. COVID-positive on assessment today. ++ Patient notably tachycardic, will give IV fluids. Hypomagnesemia 1.4, will give IV magnesium 1 g. No leukocytosis lactate negative procalcitonin negative, labs otherwise unremarkable. Will administer Tylenol and Compazine for nausea and headache. Patient does have COPD and initially was slightly wheezy but she is not hypoxic here. She is given a neb treatment, steroids and antibiotics to treat COPD exacerbation which she had some wheezing initially. She was encouraged to hydrate herself, on reassessment tachycardia has improved from 140s to 90s and patient is eating and drinking and significantly improved. She does reside at skilled rehab and I think she stable for discharge home at this time. She is not a candidate for Paxlovid as she has had 5 days of symptoms. Return precautions reviewed and patient expressed understanding. Quality:SDOH Health Related Social Needs: No Data to Display PFSH All Active Problems (Updated 02/12/24 @ 13:30 by VAISHNAVI Chan) COVID-19 (Acute) Acute UTI (Acute) Abdominal pain (Acute) Vomiting (Acute) Social History Smoking/Tobacco Use Status: Current every day Smoking risk assessment performed?: Yes Alcohol Intake: current Alcohol Intake frequency: 3 or more drinks per day Alcohol type: beer Drug use: Occasionally Substance use type: marijuana Housing: apartment Do you feel safe at home: Yes Do you feel safe in your relationship?: Yes Additional Social history: H+R
[2024-02-12] MEDS: Prochlorperazine 10 MG/2 ML VIAL 2.5 MG IVP (13:47)
[2024-02-12] MEDS: Acetaminophen 325 MG TAB 650 MG PO (13:48)
== END 2024-02-12 13:35 | disposition home or self-care (01) ==
PROVIDERS: Emergency Provider Physician Assistant; PCP Internal Medicine
DX: U07.1 COVID-19 (principal); R00.0 Tachycardia, unspecified; I10 Essential (primary) hypertension; J44.9 Chronic obstructive pulmonary disease, unspecified; F17.200 Nicotine dependence, unspecified, uncomplicated
CPT/HCPCS: 36415; 80053; 84145; 87040; 87637; 93005; 94640; 96361; 96365; 96366; 96367; 99285; 71046; 81003; 81015; 83605; 83735; 85025; 93010; J0131; J0780; J2919; J3475; J7620

== ENCOUNTER 2024-02-21 17:17 | Outpatient (REF) | payer OTHER, MEDICAID, SELFPAY ==
[2024-02-21 20:05] LABS: Anion Gap 10.3 mmol/L (3-11); BUN 18 mg/dL (7-18); CO2 22.7 mmol/L (21.0-32.0); Calcium 9.7 mg/dL (8.5-10.1); Chloride 95 mmol/L (98-107); Estimated GFR 61.36 (mL/min/1.73m2); Glucose 166 mg/dL (74-106); Potassium 4.9 mmol/L (3.5-5.1); Sodium 128 mmol/L (136-145); Vitamin D 25 Total 11.5 ng/mL (30-100)
== END 2024-02-21 17:18 | disposition home or self-care (01) ==
LOC: LBN 17:17
PROVIDERS: PCP Internal Medicine; Visit Provider Family Medicine
DX: R68.89 Other general symptoms and signs (principal)
CPT/HCPCS: 80048; 82306

== ENCOUNTER 2024-02-28 18:25 | Outpatient (REF) | payer OTHER, MEDICAID, SELFPAY ==
[2024-02-28 19:05] LABS: Anion Gap 11.4 mmol/L (3-11); BUN 16 mg/dL (7-18); CO2 22.6 mmol/L (21.0-32.0); CREATININE 0.9 mg/dL (0.55-1.02); Calcium 10.2 mg/dL (8.5-10.1); Chloride 97 mmol/L (98-107); Estimated GFR 69.64 (mL/min/1.73m2); Glucose 103 mg/dL (74-106); Potassium 4.8 mmol/L (3.5-5.1); Sodium 131 mmol/L (136-145)
[2024-03-01 15:49] LABS: Parathyroid Hormone,Intact 161 pg/mL (19-88)
== END 2024-02-28 18:26 | disposition home or self-care (01) ==
LOC: LBN 18:25
PROVIDERS: PCP Internal Medicine; Visit Provider Family Medicine
DX: R68.89 Other general symptoms and signs (principal)
CPT/HCPCS: 80048; 83970

== ENCOUNTER 2024-04-03 14:41 | Outpatient (REF) | payer OTHER, MEDICAID, SELFPAY ==
[2024-04-03 15:27] LABS: Anion Gap 6.2 mmol/L (3-11); BUN 11 mg/dL (7-18); CO2 24.8 mmol/L (21.0-32.0); CREATININE 0.9 mg/dL (0.55-1.02); Chloride 101 mmol/L (98-107); Glucose 112 mg/dL (74-106); Magnesium 1.7 mg/dL (1.8-2.4); PHOSPHORUS 4.2 mg/dL (2.6-4.7); Potassium 4.8 mmol/L (3.5-5.1); Sodium 132 mmol/L (136-145)
== END 2024-04-03 14:42 | disposition home or self-care (01) ==
LOC: LBN 14:41
PROVIDERS: PCP Internal Medicine; Visit Provider Family Medicine
DX: R68.89 Other general symptoms and signs (principal)
CPT/HCPCS: 80048; 83735; 84100

== ENCOUNTER 2024-04-05 04:07 | Outpatient (REF) | payer OTHER, MEDICAID, SELFPAY ==
[2024-04-05 04:38] LABS: PROTEIN 8.2 mg/dL (0.0-11.9)
[2024-04-05 04:43] LABS: Total Volume 3000 ml
== END 2024-04-05 04:08 | disposition home or self-care (01) ==
LOC: LBN 04:07
PROVIDERS: PCP Internal Medicine; Visit Provider Family Medicine
DX: R82.994 Hypercalciuria (principal); Z87.442 Personal history of urinary calculi
CPT/HCPCS: 81050; 84155

== ENCOUNTER 2024-04-26 14:58 | Outpatient (REF) | payer OTHER, MEDICAID, SELFPAY ==
[2024-04-26 16:18] LABS: Anion Gap 10.9 mmol/L (3-11); BUN 9 mg/dL (7-18); CO2 21.1 mmol/L (21.0-32.0); Calcium 11.3 mg/dL (8.5-10.1); Chloride 100 mmol/L (98-107); Estimated GFR 60.98 (mL/min/1.73m2); Glucose 84 mg/dL (74-106); Potassium 5.2 mmol/L (3.5-5.1); Sodium 132 mmol/L (136-145); Vitamin D 25 Total 13.7 ng/mL (30-100)
[2024-04-26 22:56] LABS: Parathyroid Hormone,Intact 209 pg/mL (19-88)
== END 2024-04-26 14:59 | disposition home or self-care (01) ==
LOC: LBN 14:58
PROVIDERS: PCP Internal Medicine; Visit Provider Family Medicine
DX: E87.1 Hypo-osmolality and hyponatremia (principal)
CPT/HCPCS: 80048; 82306; 83970

== ENCOUNTER 2024-05-24 15:27 | Observation (INO) | payer OTHER, MEDICAID, SELFPAY ==
[2024-05-24] VITALS (50 sets, daily range): BP systolic 100–215; BP diastolic 57–110; PULSE 69–120; RESP 11–26; TEMP 36.6–37; O2SAT 90–99
--- NOTE | 2024-05-24 15:15 | DI.CT_ITS ---
Exam(s) CT BRAIN NECK CTA EXAM: CT BRAIN NECK CTA CLINICAL HISTORY: asphasia, facial droop. TECHNIQUE: Imaging Protocol: Axial CT angiography was performed with multi-slice acquisition and mu lti-planar and MIP reconstructions. CONTRAST MATERIAL: Intravenous: Omnipaque 350 Contrast volume:70 ml COMPARISON: No exams were available for comparison FINDINGS: CT Head W/O and W contrast: Ventricles and Extra axial spaces: Normal in size and morphology for the patient's age. Hemorrhage: None. Cerebral parenchyma: No evidence of acute infarct or mass. Patchy areas low attenuation in the white matter consistent with sequela of microvascular disease. Midline shift: None. Brainstem/Cerebellum: No acute findings.. Calvarium: Normal. Visualized Paranasal sinuses/Mastoids: Clear. Soft Tissues: Unremarkable. Enhancement: Normal. CTA Brain W: Internal Carotid Arteries: Petrous: Normal. Cavernous: Mural calcification but no significant stenosis. Cerebral: Normal. Middle Cerebral Arteries: Right: No aneurysm, occlusion or significant stenosis. Left: No aneurysm, occlusion or significant stenosis. Anterior Cerebral Arteries: Right: No aneurysm, occlusion or significant stenosis. Left: No aneurysm, occlusion or significant stenosis. Posterior cerebral Arteries: Right: No aneurysm, occlusion or significant stenosis. Left: No aneurysm, occlusion or significant stenosis. Vertebral Arteries: Right: No aneurysm, occlusion or significant stenosis. Left: No aneurysm, occlusion or significant stenosis. Basilar Artery: No aneurysm, occlusion or significant stenosis. CTA Neck W: Exam limited by mild motion and streak artifact at the level of the aortic arch. Aortic arch: Calcified but normal in diameter. Left subclavian: Heavy calcification causing severe stenosis at the origin. There is motion artifact at this level. Calcification causing moderate stenosis of the proximal left subclavian artery. Right subclavian: Mild stenosis secondary to calcification proximally. Common Carotid: Right: Calcification at the origin causing mild stenosis. No dissection, occlusion or significant st enosis. Calcification Left: No dissection, occlusion or significant stenosis. External Carotid: Right: Calcification proximally. No dissection, occlusion or significant stenosis. Left: No dissection, occlusion or significant stenosis. Internal Carotid: Right: Calcific plaque proximally . No dissection, occlusion or significant stenosis. Left: Calcification proximally as well as distally. No dissection, occlusion or significant stenosis . Vertebral Artery: Right: Tortuous. No dissection, occlusion or significant stenosis. Left: Tortuous. No dissection, occlusion or significant stenosis. Lung Apices: Emphysematous changes. Bones: Severe degenerative changes in the cervical spine. Soft Tissues: Normal. IMPRESSION: 1. CTA brain: No evidence of vascular occlusion or significant stenosis. No evidence of aneurysm. 2. Head CT: No acute abnormality. Mild white matter changes of microvascular disease. 3. CTA neck: Mild calcific plaque but no significant internal carotid artery stenosis or dissection. The vertebral arteries appear normal except for tortuosity. Severe stenosis at the origin of the le ft subclavian artery secondary to heavy calcific plaque. RADIATION DOSE DELIVERED: Total DLP DATA REPOSITORY: All CT scans at this facility are submitted to the National Radiology Data Registry (NRDR) Dose Index Registry (DIR) with the [employer] ([employer]). RADIATION OPTIMIZATION: All CT scans at this facility use at least one of these dose optimization te chniques: automated exposure control; mA and/or kV adjustment per patient size (includes targeted exa ms where dose is matched to clinical indication); or iterative reconstruction.
--- NOTE | 2024-05-24 15:15 | RT.EKG_ITS ---
APPROVED REPORT Exam: Resting ECG Reason for Exam: Stroke Patient Location: E HR:89 bpm ECG Measurements Heart Rate 89 AXIS NH 156 P 66 QRSd 87 QRS 63 QT 369 T 57 QTc 449 Conclusion Sinus rhythm...normal P axis, V-rate 60- 99 Probable left atrial enlargement...P >50mS, <-0.10mV V1
[2024-05-24 15:38] LABS: Abs Immature Grans 0.04 10^3/uL (0.0-0.06); Absolute Lymphocyte Count 4.98 10^3/uL (1.2-3.4); Absolute Neutrophil Count 4.02 10^3/uL (1.2-6.7); HGB 12.2 g/dL (11.2-15.7); Immature Grans % 0.4 %; Lymphocytes % 50.6 %; MCH 31.3 pg (27.0-33.0); MCHC 33.9 % (32.0-36.0); MCV 92 fL (80-95); Monocytes % 6.1 %; Neutrophils % 40.9 %; Platelet Count 360 10^3/uL (130-400); RDW 12.4 % (11.7-14.6); RDW-SD 42.2 fL; WBC 9.84 10^3/uL (4.4-10.8)
[2024-05-24 15:57] LABS: INR 0.9 (0.9-1.1); PTT Activated 28.1 sec (23.6-32.8); Prothrombin Time 9.4 sec (9.1-11.1)
[2024-05-24 16:04] LABS: ALT 15 U/L (14-59); AST 18 U/L (15-37); Albumin 4.3 g/dL (3.4-5.0); Alkaline Phosphatase 144 U/L (46-116); Anion Gap 10.1 mmol/L (3-11); BUN 11 mg/dL (7-18); Bilirubin, Total 0.33 mg/dL (0.2-1.0); CO2 21.9 mmol/L (21.0-32.0); CREATININE 0.9 mg/dL (0.55-1.02); Calcium 10.6 mg/dL (8.5-10.1); Chloride 94 mmol/L (98-107); Estimated GFR 73.64 (mL/min/1.73m2); Glucose 95 mg/dL (74-106); Magnesium 1.5 mg/dL (1.8-2.4); Potassium 4.3 mmol/L (3.5-5.1); Sodium 126 mmol/L (136-145); Total Protein 7.8 g/dL (6.4-8.2); Troponin I 5 ng/L (<or=51)
[2024-05-24 16:51] LABS: Bilirubin Negative (Negative); Blood Negative (Negative); Clarity Clear (Clear); Glucose Negative (Negative); Ketones Negative (Negative); Leukocyte Esterase Moderate (Negative); Nitrite Negative (Negative); Urobilinogen 0.2 mg/dL (Up to 0.2)
[2024-05-24 17:03] LABS: Bacteria Negative HPF (Negative); C & S Indicated? No; Crystals Negative HPF (Negative); Epithelial Cells Few HPF (Negative); Mucus Negative (Negative); RBC 0-2 HPF (0-2)
[2024-05-24 17:41] LABS: Troponin I 7 ng/L (<or=51)
[2024-05-24 19:44] LABS: Troponin I 11 ng/L (<or=51)
[2024-05-24] MEDS: Metoprolol 25 MG TAB (20:05)
[2024-05-24] MEDS: Aspirin 81 MG CHEW 324 MG CH (20:05)
--- NOTE | 2024-05-24 20:09 | HPE_ITS ---
Date of service: 05/24/24 Time of Service: 20:10 Assessment and Plan Assessment and plan (1) TIA (transient ischemic attack): Start date: 05/24/24 Status: Acute Assessment and plan: This is a 69-year-old lady who [facility] chronically debilitated who presents with acute onset of neurological changes including aphasia, left facial droop and left hand weakness. CT of the head and neck were negative and patient did not have indication for tPA with improvement of symptoms as she was being evaluated in the ED. Teleneurology did not recommend thrombolytics but did advise full dose aspirin with daily aspirin to be continued. After arriving on the floor the patient did have some slight nausea and dropped her blood pressure with tachycardia. She responded to IV fluid bolus and repeat CT of the head did not reveal any acute bleed. Final reading is pending. Patient is back to baseline neurologically and will continue on aspirin with observation with further evaluation including MRI of the brain as well as echocardiogram with bubble study. Will continue cardiac monitoring with troponin that was normal but to be repeated in the morning and EKG to be updated. She is not having chest pain. He does have a left subclavian still by CTA of the head and neck and has no previous history of CAD. She does have COPD with her smoking history. She also has hyperlipidemia with her atorvastatin to be maximized to 80 mg. She was to have metoprolol for hypertension which was present in the ED but this will be held with low blood pressure presently. Because of her hypotensive episode, we will continue gentle IV hydration as long as blood pressure systolics do not go above 160. She does have hyponatremia which may be improved with gentle IV hydration. Her other problems including acute UTI with no symptoms and hypomagnesemia which has been repleted. Because of her TIA, we will continue permissive hypertension with nifedipine infusion for hypertension in the ED where her systolic blood pressure was above 200 and was started metoprolol being weaned off nifedipine. Metoprolol will be held if her blood pressure systolic is below 140. If her blood pressure remains labile, metoprolol should be discontinued until stable with low-dose lisinopril continuing. Patient is expected to be returned to the rehab facility at discharge. She is a full code. (2) HTN (hypertension): Status: Chronic Assessment and plan: Patient is on lisinopril and low-dose metoprolol daily as an outpatient with hypertensive episode upon presentation to the ED and then had episode of hypotension with tachycardia once arriving to [facility] floor which responded to 500 cc bolus of normal saline. She was having nausea at the time but was not bradycardic as stated. This may have been a vagal effect with headache at the time. EKG and troponin will be repeated. Presently she is asymptomatic with metoprolol ordered every 6 hours but be held for systolic blood pressure below 140. We will have permissive hypertension with her TIA until further evaluation with MRI and echocardiogram. Qualifiers: Hypertension type: primary hypertension Qualified Code(s): I10 - Essential (primary) hypertension (3) Hypomagnesemia: Start date: 05/24/24 Status: Acute Assessment and plan: Replete with IV and follow-up lab in the morning. (4) UTI (urinary tract infection): Start date: 05/24/24 Status: Acute Assessment and plan: Patient did have pyuria and urine culture was performed with Rocephin 1 g IV every 24 hours be given until urine culture resulted. She is not having symptoms with this UTI. Qualifiers: Hematuria presence: without hematuria Urinary tract infection type: a cute cystitis Qualified Code(s): N30.00 - Acute cystitis without hematuria (5) Hyponatremia: Start date: 05/24/24 Status: Acute Assessment and plan: Patient is previous alcohol user but usually does not have persistent hyponatremia though this has occurred in the late summer. Monitor as patient had gentle IV hydration for hypotension. (6) Hyperlipidemia: Status: Chronic Assessment and plan: With TIA, maximize atorvastatin 80 mg daily. Qualifiers: Hyperlipidemia type: other hyperlipidemia Qualified Code(s): E78.49 - Other hyperlipidemia (7) COPD (chronic obstructive pulmonary disease): Status: Chronic Assessment and plan: Continue outpatient medical therapy. Qualifiers: COPD type: chronic bronchitis Chronic bronchitis type: simple Q ualified Code(s): J41.0 - Simple chronic bronchitis (8) Depression: Status: Chronic Assessment and plan: Continue outpatient medical therapy. Qualifiers: Depression Type: persistent depressive disorder Qualified Code(s): F 34.1 - Dysthymic disorder History of Present Illness History of Present Illness Chief Complaint: Acute onset difficulty speaking with weakness and left facial droop. Narrative: This is a 69-year-old female patient who resides at a local rehab facility who presented with an acute onset of weakness with left facial droop and aphasia. She was normal around the ED on the day of presentation. She presented to the ED within 1 hour of the onset of her symptoms. CT of the head and neck did not reveal any acute process but the patient was improving with her facial droop and left-sided weakness with weaker and grasp improving. Neurology was consulted and initially was considering thrombolytics but with her improved symptoms with improved speech and questionable of her findings were effort dependent, she was loaded with aspirin and thrombolytics were not given. He was not close to her baseline in the ED answering questions clearly moving all of her extremities without facial droop. She was hypertensive in the ED and was on nifedipine drip for short period and then weaned off his initiating metoprolol 25 mg orally. She was to continue on metoprolol 25 mg every 6 hours holding if systolic blood pressure below 140 with permissive hypertension as part of the treatment plan with her TIA. The only finding on the CTA of the head and neck was a stenotic left subclavian. With the patient was transferred to the floor she had a period of hypotension with systolic blood pressure dropping below 80 while she was off the nifedipine drip and had only 1 dose of metoprolol as above. Her blood pressure was being checked for her every 6 hours dosing of metoprolol. She was tachycardic with a heart rate over 100 at the time and she did have a headache 7-8 out of 10 which was over the front of her forehead and not focal. She also had recurrent left facial droop and left hand weakness according to the nurse with the patient appearing drowsy and not speaking well. I ordered 500 cc of normal saline bolus and she improved with her blood pressure systolic above 100 and her neurological symptoms resolved by the time I arrived to reexamine the patient within 20 minutes. With the patient having minimal headache and resolved neurological symptoms as well as having no chest pain or shortness of breath or diaphoresis with the episode, she was sent to the radiology department for repeat CT of the head. Preliminary read on the CT of the head was that there is no acute bleed. Patient will continue on gentle IV hydration watching blood pressure closely and EKG and troponin will be repeated in the morning. Her initial troponins were negative. The patient did have hypomagnesia and did receive repletion in the ED and on the floor. She will continue cardiac monitoring. Per neurology recommendations the patient will have MRI of the brain and echocardiogram with bubble study in the morning and remain on aspirin daily after loading dose. She will also be evaluated by PT and ST. She is a full code. Review of Systems Narrative: 13 point review of systems otherwise unrevealing or stable. PFSH All Active Problems (Updated 05/25/24 @ 03:43 by Jose Angel Peter) Hyperlipidemia (Chronic) UTI (urinary tract infection) (Acute) Depression (Chronic) Hyponatremia (Acute) Hypomagnesemia (Acute) COPD (chronic obstructive pulmonary disease) (Chronic) HTN (hypertension) (Chronic) TIA (transient ischemic attack) (Acute) COVID-19 (Acute) Social History Smoking/Tobacco Use Status: Former Tobacco Use Smoking risk assessment performed?: Yes Alcohol Intake: former Drug use: Never Substance use type: marijuana Housing: penitentiary Do you feel safe at home: Yes Do you feel safe in your relationship?: Yes Additional Social history: H+R Meds Allergies and Home Medications Allergies Allergy/AdvReac Type Severity Reaction Status Date / Time No Known Drug Allergies Allergy Unverified 05/24/24 16:41 Home Medications ?Medication ?Instructions ?Recorded ?Confirmed ?Type Naprosyn 500 mg tablet (naproxen) 500 mg PO BID 05/03/17 02/12/24 History Spiriva with HandiHaler 18 mcg and 18 mcg inhalation DAILY 05/03/17 02/12/24 History inhalation capsules (tiotropium bromide) atorvastatin 40 mg tablet 40 mg PO DAILY 05/03/17 02/12/24 History lisinopril 5 mg tablet 5 mg PO DAILY 05/03/17 02/12/24 History thiamine HCl (vitamin B1) 100 mg 100 mg PO DAILY 05/03/17 02/12/24 History tablet hydrocodone 5 mg-acetaminophen 325 1 - 2 tab PO PRN PRN 05/11/17 02/12/24 History mg tablet ([place]) acetaminophen 325 mg capsule 650 mg PO TID 02/09/24 02/12/24 History albuterol 90 mcg/actuation aerosol 90 mcg inhalation Q6H PRN PRN 02/09/24 02/12/24 History inhaler bisacodyl 10 mg rectal suppository 10 mg PA DAILY PRN 02/09/24 02/12/24 History (Dulcolax (bisacodyl)) cholecalciferol (vitamin D3) 125 5,000 unit PO ONCE 02/09/24 02/12/24 History mcg (5,000 unit) capsule docusate sodium 100 mg capsule 100 mg PO DAILY 02/09/24 02/12/24 History escitalopram oxalate 10 mg tablet 10 mg PO DAILY 02/09/24 02/12/24 History famotidine 40 mg tablet 40 mg PO DAILY 02/09/24 02/12/24 History lidocaine 5 % topical patch 1 patch topical DAILY 02/09/24 02/12/24 History magnesium hydroxide 400 mg/5 mL 30 ml PO DAILY PRN 02/09/24 02/12/24 History oral suspension (Milk of Magnesia) metoprolol succinate 25 mg 12.5 mg PO DAILY 02/09/24 02/12/24 History tablet,extended release 24 hr mirtazapine 15 mg tablet 15 mg PO HS 02/09/24 02/12/24 History nicotine (polacrilex) 2 mg buccal 2 mg mucous membrane ONCE 02/09/24 02/12/24 History lozenge polyethylene glycol 3350 17 17 g PO DAILY 02/09/24 02/12/24 History gram/dose oral powder (Miralax) sodium phosphates 19 gram-7 118 ml PA DAILY PRN 02/09/24 02/12/24 History gram/118 mL enema (Enema) umeclidinium 62.5 mcg/actuation 1 inh inhalation DAILY 02/09/24 02/12/24 History blister powder for inhalation (Incruse Ellipta) cefpodoxime 200 mg tablet 200 mg PO BID #19 tabs 02/10/24 02/12/24 Rx cefpodoxime 200 mg tablet 200 mg PO BID #19 tabs 02/10/24 02/12/24 Rx metoclopramide HCl 5 mg tablet 5 mg PO .q8h prin #10 tabs 02/10/24 02/12/24 Rx prednisone 20 mg tablet 40 mg (2 x 20 mg) PO DAILY #8 tabs 02/12/24 Rx acetaminophen 325 mg tablet (Pain 650 mg PO TID PRN 05/24/24 05/24/24 History Relief (acetaminophen)) albuterol sulfate 90 mcg/actuation 1 inh inhalation Q6H 05/24/24 05/24/24 History aerosol inhaler atorvastatin 10 mg tablet 10 mg PO QHS 05/24/24 05/24/24 History cholecalciferol (vitamin D3) 1,250 50,000 unit PO QWEEK 05/24/24 05/24/24 History mcg (50,000 unit) capsule (Decara) escitalopram oxalate 10 mg tablet 10 mg PO DAILY 05/24/24 05/24/24 History famotidine 20 mg tablet (Acid 20 mg PO QHS 05/24/24 05/24/24 History Controller) lidocaine 5 % topical patch 1 patch topical DAILY 05/24/24 05/24/24 History (Lidoderm) metoprolol succinate 25 mg 25 mg PO DAILY 05/24/24 05/24/24 History tablet,extended release 24 hr (Toprol XL) mirtazapine 15 mg tablet 15 mg PO QHS 05/24/24 05/24/24 History umeclidinium 62.5 mcg/actuation 1 inh inhalation DAILY 05/24/24 05/24/24 History blister powder for inhalation (Incruse Ellipta) Exam Narrative Exam Narrative: General: Patient appears older than stated age, lying in bed with her legs curled up but being able to extend her legs upon command. He is alert and oriented at least to person and place. She is in no acute distress and speaks softly but answers questions appropriately. HEENT: Normocephalic, eyes with pupils equal and reactive to light symmetrically, extraocular movement intact and sclera anicteric. Oropharynx with moist mucosa. Neck: Supple without JVD or auscultated bruit. Back: Kyphotic without CVA tenderness. Lungs: Fair aeration clear to auscultation percussion with no focalizing rales or rhonchi. No expiratory wheeze. Vesicular breath sounds diffusely. Breast: Exam deferred. Heart: Regular rate and rhythm with no murmur or gallop appreciated. Abdomen: Scaphoid contour, soft and nontender to palpation with no palpable hepatosplenomegaly. No guarding or rebound. Bowel sounds positive all quadrants. Genitalia/rectal: Exam deferred. Patient does have [place] catheter draining clear urine. Extremities: Without clubbing, cyanosis or pitting edema. Muscle wasting over extremities the patient appearing generally deconditioned. Fair cap refill. Skin: Normal color, warm and dry. Neuro: Cranial nerves II through XII appear to be grossly intact. At the time of my exam there was no focal neurological deficit but equal hand grasp and symmetrical smile with tongue protruded in the midline. Question Babinski on the right which is not reproducible. DTRs are physiologic and symmetrical. No tremor. (Neurological exam by nurse with hypotensive episode did reveal drooping of the left face and decreased ability to talk as well as possible decreased grasp on the left). Psych: Normal affect and mood. No abnormal thought processes with the patient is awake and lucid. Remote memory grossly intact with recent memory having some deficits but the patient is minimal conversation. Results Imaging Imaging Studies: EXAM: CT BRAIN NECK CTA CLINICAL HISTORY: asphasia, facial droop. TECHNIQUE: Imaging Protocol: Axial CT angiography was performed with multi- slice acquisition and multi-planar and MIP reconstructions. CONTRAST MATERIAL: Intravenous: Omnipaque 350 Contrast volume:70 ml COMPARISON: No exams were available for comparison FINDINGS: CT Head W/O and W contrast: Ventricles and Extra axial spaces: Normal in size and morphology for the patient's age. Hemorrhage: None. Cerebral parenchyma: No evidence of acute infarct or mass. Patchy areas low attenuation in the white matter consistent with sequela of microvascular disease. Midline shift: None. Brainstem/Cerebellum: No acute findings.. Calvarium: Normal. Visualized Paranasal sinuses/Mastoids: Clear. Soft Tissues: Unremarkable. Enhancement: Normal. CTA Brain W: Internal Carotid Arteries: Petrous: Normal. Cavernous: Mural calcification but no significant stenosis. Cerebral: Normal. Middle Cerebral Arteries: Right: No aneurysm, occlusion or significant stenosis. Left: No aneurysm, occlusion or significant stenosis. Anterior Cerebral Arteries: Right: No aneurysm, occlusion or significant stenosis. Left: No aneurysm, occlusion or significant stenosis. Posterior cerebral Arteries: Right: No aneurysm, occlusion or significant stenosis. Left: No aneurysm, occlusion or significant stenosis. Vertebral Arteries: Right: No aneurysm, occlusion or significant stenosis. Left: No aneurysm, occlusion or significant stenosis. Basilar Artery: No aneurysm, occlusion or significant stenosis. CTA Neck W: Exam limited by mild motion and streak artifact at the level of the aortic arch. Aortic arch: Calcified but normal in diameter. Left subclavian: Heavy calcification causing severe stenosis at the origin. There is motion artifact at this level. Calcification causing moderate stenosis of the proximal left subclavian artery. Right subclavian: Mild stenosis secondary to calcification proximally. Common Carotid: Right: Calcification at the origin causing mild stenosis. No dissection, occlusion or significant stenosis. Calcification Left: No dissection, occlusion or significant stenosis. External Carotid: Right: Calcification proximally. No dissection, occlusion or significant stenosis. Left: No dissection, occlusion or significant stenosis. Internal Carotid: Right: Calcific plaque proximally . No dissection, occlusion or significant stenosis. Left: Calcification proximally as well as distally. No dissection, occlusion or significant stenosis. Vertebral Artery: Right: Tortuous. No dissection, occlusion or significant stenosis. Left: Tortuous. No dissection, occlusion or significant stenosis. Lung Apices: Emphysematous changes. Bones: Severe degenerative changes in the cervical spine. Soft Tissues: Normal. IMPRESSION: 1. CTA brain: No evidence of vascular occlusion or significant stenosis. No evidence of aneurysm. 2. Head CT: No acute abnormality. Mild white matter changes of microvascular disease. 3. CTA neck: Mild calcific plaque but no significant internal carotid artery stenosis or dissection. The vertebral arteries appear normal except for tortuosity. Severe stenosis at the origin of the left subclavian artery secondary to heavy calcific plaque. Labs 05/24/24 15:29 05/24/24 15:29 Labs: Laboratory Results - last 24 hr 05/24/24 05/24/24 05/24/24 15:29 16:35 17:19 WBC 9.84 RBC 3.90 L Hgb 12.2 Hct 36.0 MCV 92 MCH 31.3 MCHC 33.9 RDW 12.4 Plt Count 360 MPV 9.0 Immature Gran % 0.4 Neutrophils % 40.9 Lymphocytes % 50.6 Monocytes % 6.1 Eosinophils % 1.0 Basophils % 1.0 Nucleated RBC % 0.0 Absolute Neutrophils 4.02 Absolute Lymphocytes 4.98 H Absolute Monocytes 0.60 Absolute Eosinophils 0.10 Absolute Basophils 0.10 PT 9.4 INR 0.9 APTT 28.1 Sodium 126 L Potassium 4.3 Chloride 94 L Carbon Dioxide 21.9 Anion Gap 10.1 BUN 11 Creatinine 0.9 Est GFR (CKD-EPI 2020) 73.64 Glucose 95 Calcium 10.6 H Magnesium 1.5 L Total Bilirubin 0.33 AST 18 ALT 15 Alkaline Phosphatase 144 H Troponin I 5 7 Total Protein 7.8 Albumin 4.3 Urine Color Yellow Urine Clarity Clear Urine pH 7.0 Ur Specific [place] 1.010 Urine Protein Negative Urine Ketones Negative Urine Blood Negative Urine Nitrite Negative Urine Bilirubin Negative Urine Urobilinogen 0.2 Ur Leukocyte Esterase Moderate H Urine RBC 0-2 Urine WBC 10-20 H Ur Epithelial Cells Few Urine Crystals Negative Urine Bacteria Negative Urine Mucus Negative Ur Culture Indicated? No Urine Glucose Negative 05/24/24 19:15 WBC RBC Hgb Hct MCV MCH MCHC RDW Plt Count MPV Immature Gran % Neutrophils % Lymphocytes % Monocytes % Eosinophils % Basophils % Nucleated RBC % Absolute Neutrophils Absolute Lymphocytes Absolute Monocytes Absolute Eosinophils Absolute Basophils PT INR APTT Sodium Potassium Chloride Carbon Dioxide Anion Gap BUN Creatinine Est GFR (CKD-EPI 2020) Glucose Calcium Magnesium Total Bilirubin AST ALT Alkaline Phosphatase Troponin I 11 Total Protein Albumin Urine Color Urine Clarity Urine pH Ur Specific [place] Urine Protein Urine Ketones Urine Blood Urine Nitrite Urine Bilirubin Urine Urobilinogen Ur Leukocyte Esterase Urine RBC Urine WBC Ur Epithelial Cells Urine Crystals Urine Bacteria Urine Mucus Ur Culture Indicated? Urine Glucose Last Vital Signs Temp 37.0 C 05/24/24 19:44 Pulse 76 05/24/24 19:44 Resp 20 05/24/24 19:49 BP 176/96 H 05/24/24 19:44 Pulse Ox 96 05/24/24 19:44 Time Spent Time spent with Patient: >75 minutes Time was spent: preparing to see the patient(eg.review tests), obtaining and/or reviewing separately otained hiistory, ordering medications,tests, procedures, referring, communicating with other health managed care liaison, indepentently interpreting results, care coordination and other (Response to acute change in status.)
[2024-05-24 20:35] LABS: Source Nasal/Nares
[2024-05-24 21:07] LABS: COVID-19 PCR Negative (Negative)
--- NOTE | 2024-05-24 21:32 | W.PC.ACHO ---
Registration Status: Primary Language: Preferred Language: ED Information & Data Chief Complaint CVA/TIA 05/24/24 19:49 Chief Complaint CVA/TIA 05/24/24 19:44 Triage Note PT has acute onset L sided 05/24/24 19:44 weakness while eating dinner . Denies any recent head trauma, falls or other injury. Last Known Normal 1455 LKN 1455 Most Recent Vital Signs Temperature 37.0 C 05/24/24 19:44 Pulse 107 H 05/24/24 20:00 Pulse 76 05/24/24 21:20 Respiratory Rate 21 05/24/24 21:20 Respiratory Effort Normal 05/24/24 19:49 Respiratory Depth Normal 05/24/24 19:49 Respiratory Pattern Normal 05/24/24 19:49 Blood Pressure 153/74 H 05/24/24 20:00 Blood Pressure Mean 122 05/24/24 16:46 Blood Pressure Position Sitting 05/24/24 19:44 Pulse Oximetry 90 L 05/24/24 21:20 Oxygen Delivery Method Room Air 05/24/24 20:00 Oxygen Flow Rate 0 05/24/24 20:00 Allergies No Known Drug Allergies Allergy (Unverified 05/24/24 16:41) IV IV Catheter Type [Right Saline Lock Antecubital] IV Catheter Gauge [Right 20 Antecubital] Diagnostics 05/24/24 05/24/24 05/24/24 Range/Units 20:31 19:15 17:19 WBC (4.4-10.8) 10^3/uL RBC (3.93-5.22) 10^6/uL Hgb (11.2-15.7) g/dL Hct (36.0-46.0) % MCV (80-95) fL MCH (27.0-33.0) pg MCHC (32.0-36.0) % RDW (11.7-14.6) % Plt Count (130-400) 10^3/uL MPV (8.0-11.0) fL Immature Gran % % Neutrophils % % Lymphocytes % % Monocytes % % Eosinophils % % Basophils % % Nucleated RBC % (0.0-0.3) % Absolute Neutrophils (1.2-6.7) 10^3/uL Absolute Lymphocytes (1.2-3.4) 10^3/uL Absolute Monocytes (0.1-0.8) 10^3/uL Absolute Eosinophils (0.0-0.7) 10^3/uL Absolute Basophils (0.0-0.2) 10^3/uL PT (9.1-11.1) sec INR (0.9-1.1) APTT (23.6-32.8) sec Sodium (136-145) mmol/L Potassium (3.5-5.1) mmol/L Chloride (98-107) mmol/L Carbon Dioxide (21.0-32.0) mmol/L Anion Gap (3-11) mmol/L BUN (7-18) mg/dL Creatinine (0.55-1.02) mg/dL Est GFR (CKD-EPI 2020) (mL/min/1.73m2) Glucose (74-106) mg/dL Calcium (8.5-10.1) mg/dL Magnesium (1.8-2.4) mg/dL Total Bilirubin (0.2-1.0) mg/dL AST (15-37) U/L ALT (14-59) U/L Alkaline Phosphatase (46-116) U/L Troponin I 11 7 (<or=51) ng/L Total Protein (6.4-8.2) g/dL Albumin (3.4-5.0) g/dL Urine Color (Yellow) Urine Clarity (Clear) Urine pH (5-8) Ur Specific Whitwell (1.005-1.025) Urine Protein (Neg-Trace) mg/dL Urine Ketones (Negative) mg/dL Urine Blood (Negative) Urine Nitrite (Negative) Urine Bilirubin (Negative) Urine Urobilinogen (Up to 0.2) mg/dL Ur Leukocyte Esterase (Negative) Urine RBC (0-2) HPF Urine WBC (0-5) HPF Ur Epithelial Cells (Negative) HPF Urine Crystals (Negative) HPF Urine Bacteria (Negative) HPF Urine Mucus (Negative) Ur Culture Indicated? Urine Glucose (Negative) mg/dL COVID-19 Source Nasal/Nares SARS-CoV-2 (PCR) Negative (Negative) 05/24/24 05/24/24 Range/Units 16:35 15:29 WBC 9.84 (4.4-10.8) 10^3/uL RBC 3.90 L (3.93-5.22) 10^6/uL Hgb 12.2 (11.2-15.7) g/dL Hct 36.0 (36.0-46.0) % MCV 92 (80-95) fL MCH 31.3 (27.0-33.0) pg MCHC 33.9 (32.0-36.0) % RDW 12.4 (11.7-14.6) % Plt Count 360 (130-400) 10^3/uL MPV 9.0 (8.0-11.0) fL Immature Gran % 0.4 % Neutrophils % 40.9 % Lymphocytes % 50.6 % Monocytes % 6.1 % Eosinophils % 1.0 % Basophils % 1.0 % Nucleated RBC % 0.0 (0.0-0.3) % Absolute Neutrophils 4.02 (1.2-6.7) 10^3/uL Absolute Lymphocytes 4.98 H (1.2-3.4) 10^3/uL Absolute Monocytes 0.60 (0.1-0.8) 10^3/uL Absolute Eosinophils 0.10 (0.0-0.7) 10^3/uL Absolute Basophils 0.10 (0.0-0.2) 10^3/uL PT 9.4 (9.1-11.1) sec INR 0.9 (0.9-1.1) APTT 28.1 (23.6-32.8) sec Sodium 126 L (136-145) mmol/L Potassium 4.3 (3.5-5.1) mmol/L Chloride 94 L (98-107) mmol/L Carbon Dioxide 21.9 (21.0-32.0) mmol/L Anion Gap 10.1 (3-11) mmol/L BUN 11 (7-18) mg/dL Creatinine 0.9 (0.55-1.02) mg/dL Est GFR (CKD-EPI 2020) 73.64 (mL/min/1.73m2) Glucose 95 (74-106) mg/dL Calcium 10.6 H (8.5-10.1) mg/dL Magnesium 1.5 L (1.8-2.4) mg/dL Total Bilirubin 0.33 (0.2-1.0) mg/dL AST 18 (15-37) U/L ALT 15 (14-59) U/L Alkaline Phosphatase 144 H (46-116) U/L Troponin I 5 (<or=51) ng/L Total Protein 7.8 (6.4-8.2) g/dL Albumin 4.3 (3.4-5.0) g/dL Urine Color Yellow (Yellow) Urine Clarity Clear (Clear) Urine pH 7.0 (5-8) Ur Specific Whitwell 1.010 (1.005-1.025) Urine Protein Negative (Neg-Trace) mg/dL Urine Ketones Negative (Negative) mg/dL Urine Blood Negative (Negative) Urine Nitrite Negative (Negative) Urine Bilirubin Negative (Negative) Urine Urobilinogen 0.2 (Up to 0.2) mg/dL Ur Leukocyte Esterase Moderate H (Negative) Urine RBC 0-2 (0-2) HPF Urine WBC 10-20 H (0-5) HPF Ur Epithelial Cells Few (Negative) HPF Urine Crystals Negative (Negative) HPF Urine Bacteria Negative (Negative) HPF Urine Mucus Negative (Negative) Ur Culture Indicated? No Urine Glucose Negative (Negative) mg/dL COVID-19 Source SARS-CoV-2 (PCR) (Negative) 05/24/24 21:24 Urine Culture - Pending Urine - Cath Oreilly Indwelling Intake and Output - 24 Hour Total 05/24/24 15:27 thru 05/24/24 19:44 Output Total 1900 Balance -1900 Weight 74 kg Output: Urine 1900 Falls Risk Assessment History of Falls Previous History 05/24/24 19:49 Contributing Factors Confusion,Impairments 05/24/24 19:49 Ambulatory Aids Uses ambulatory device 05/24/24 19:49 Gait Evaluation W/no contributing factors 05/24/24 19:49 Cognition Cognitive impairment 05/24/24 19:49 Fall Total Score 61 05/24/24 19:49 Level of Risk High Risk 05/24/24 19:49 Problems (Last Reviewed 05/24/24 @ 20:11 by Jose Angel Peter) UTI (urinary tract infection) (Acute) Depression (Chronic) Hyponatremia (Acute) Hypomagnesemia (Acute) COPD (chronic obstructive pulmonary disease) (Chronic) HTN (hypertension) (Chronic) TIA (transient ischemic attack) (Acute) v v v v v v v v v Sending and/or Receiving Nurses: Please use comment section below to note any information pertinent to the patient hand-off not included above. Information / Comments: Pt was admitted to ED for left sided weakness, facial droop and aphasia. BP was initially in 200's systolic. Left sided symptoms have reduced, O2 sats 90-92 on RA. Nicardipine drip was held because BP has decreased to 150's systolic. pt has oreilly in. Ceftriaxone not initiated in ED, will need to be initiated on med-surg. Pt has 20g Right AC. pt is A+Ox3, denies recent fall prior to symptoms. Report received from: Lisa Gupta
[2024-05-24] MEDS: cefTRIAXone 1 GM/50 ML BAG IVPB (22:30)
[2024-05-24] MEDS: MAGNESIUM SULFATE 2 GM/50 ML BAG IV_INF (23:38)
[2024-05-24] MEDS: Mirtazapine 15 MG TAB PO (23:39)
[2024-05-24] MEDS: Heparin 5,000 UNITS/ML VIAL 5000 UNITS SC (23:39)
[2024-05-24] MEDS: Normal Saline Flush 10 ML SYR IVP (23:43)
[2024-05-24] MEDS: Acetaminophen 325 MG TAB PO (23:50)
[2024-05-25] VITALS (25 sets, daily range): BP systolic 66–168; BP diastolic 42–100; PULSE 72–100; RESP 13–32; TEMP 36.6–37.4; O2SAT 90–97
[2024-05-25] MEDS: Normal Saline 500 ML 1000 ML IV (01:50)
--- NOTE | 2024-05-25 02:00 | DI.CT_ITS ---
Exam(s) CT HEAD WO EXAM: CT HEAD WO CLINICAL HISTORY: facial droop left, low B/P. TECHNIQUE: Imaging Protocol: Axial computed tomography images with coronal and sagittal reformatted images were created and reviewed COMPARISON: CT CT BRAIN NECK CTA from 05/24/2024 FINDINGS: There are no skull fractures. There is no fluid in the visualized paranasal sinuses. There is no evidence of intracranial hemorrhage, mass effect, or shift of midline structures. There are no extra-axial fluid collections. The ventricles are not enlarged or shifted and there is no blo od within the ventricular system nor within the basal cisterns. Small benign calcification noted in the right insula. Mild bilateral periventricular hypodensity con sistent small vessel disease. No acute infarct evident. IMPRESSION: As above but no acute intracranial findings on this noninfused CT scan of the brain. RADIATION DOSE DELIVERED: 796.54mGy.cm Total DLP DATA REPOSITORY: All CT scans at this facility are submitted to the National Radiology Data Registry (NRDR) Dose Index Registry (DIR) with the [employer] (ACR). RADIATION OPTIMIZATION: All CT scans at this facility use at least one of these dose optimization te chniques: automated exposure control; mA and/or kV adjustment per patient size (includes targeted exa ms where dose is matched to clinical indication); or iterative reconstruction.
--- NOTE | 2024-05-25 03:08 | DI.VRAD_ITS ---
PROCEDURE INFORMATION: Exam: CT Head Without Contrast Exam date and time: 05/25/2024 2:46 AM Age: 69 years old Clinical indication: Other: Facial droop left, low b/p TECHNIQUE: Imaging protocol: Computed tomography of the head without contrast. COMPARISON: CT HEAD WO 05/11/2023 3:28 PM FINDINGS: Brain: Calcified granulomas in the right insula and medial aspect of the left parietal. Age related diffuse parenchymal volume loss. There are bilateral periventricular white matter and centrum semiovale hypodensities, consistent with chronic ischemic small vessel disease. No recent infarct, intracranial bleed or mass effect. Cerebral ventricles: Ex vacuo dilatation of the ventricles. Pituitary gland and sella: Partially empty sella Paranasal sinuses: Visualized sinuses are unremarkable. No fluid levels. Mastoid air cells: Visualized mastoid air cells are well aerated. Bones: Unremarkable. No acute fracture. Soft tissues: Unremarkable. IMPRESSION: No large territorial infarct or intracranial bleed. Dictated and Authenticated by: Apolinar Covarrubias MD. Ordering:BULMARO Walter MD
--- NOTE | 2024-05-25 03:36 | NUR.NOTE ---
At 0145 this financial writer went in to pt room to administer metoprolol and albuterol inhaler. checked pt vitals prior to admission of medication and BP was reading low with SBP in the 60's via automatic cuff. rechecked BP with manual cuff and BP was 66/42. Called Dr. Peter with update of unstable vitals, increase in s/s of TIA/stroke. pt presented with DURÁN, left sided weakness, return of left sided facial droop, difficulty articulating with her tongue, delayed response of pupils, right worse than left, and nausea. provider ordered STAT bolus of 500cc NS and CT of head. with infusion of NS BP improved and s/s resolved. CT negative for acute changes.
[2024-05-25] MEDS: Albuterol HFA 8 GM 60 PUFF INH IH ×2 (03:47→05:39)
[2024-05-25] MEDS: Acetaminophen 325 MG TAB PO ×2 (03:47→20:02)
[2024-05-25] MEDS: Normal Saline 1,000 ML 100 ML IV (05:56)
[2024-05-25 06:21] LABS: HCT 33.8 % (36.0-46.0); HGB 11.3 g/dL (11.2-15.7); MCHC 33.4 % (32.0-36.0); MCV 93 fL (80-95); MPV 9.3 fL (8.0-11.0); Platelet Count 365 10^3/uL (130-400); RBC 3.64 10^6/uL (3.93-5.22); RDW 12.5 % (11.7-14.6); RDW-SD 42.7 fL
[2024-05-25 06:29] LABS: Prothrombin Time 9.6 sec (9.1-11.1)
[2024-05-25 06:40] LABS: Troponin I 7 ng/L (<or=51)
[2024-05-25 06:45] LABS: ALT 14 U/L (14-59); AST 15 U/L (15-37); Albumin 3.8 g/dL (3.4-5.0); Alkaline Phosphatase 130 U/L (46-116); Anion Gap 9.6 mmol/L (3-11); BUN 11 mg/dL (7-18); Bilirubin, Total 0.26 mg/dL (0.2-1.0); CO2 22.4 mmol/L (21.0-32.0); Calcium 10.5 mg/dL (8.5-10.1); Chloride 100 mmol/L (98-107); Estimated GFR 60.98 (mL/min/1.73m2); Glucose 113 mg/dL (74-106); Magnesium 2.6 mg/dL (1.8-2.4); Potassium 4.6 mmol/L (3.5-5.1); Sodium 132 mmol/L (136-145); TSH (W/Ref FT4) 2.27 uIU/mL (0.36-3.74); Total Protein 6.9 g/dL (6.4-8.2)
--- NOTE | 2024-05-25 08:00 | DI.US_ITS ---
APPROVED REPORT EXAM: Comprehensive 2D, Doppler, and color-flow Echocardiogram Patient Location: In-Patient Room/Bed: 225 Budget Analyst: Vanna Pace RDCS (AE) Indications: TIA Echo Enhancing Agent Indication: Rule out Shunt Agent(s) / Amount(s) Used: Agitated Saline 30.0 cc Comments: Contrast study was performed with 3 IV injections of 10ccs of agitated normal saline, at re st, with cough and post valsalva maneuver. Negative contrast study for shunt flow. Other Information Study Quality: Adequate Conclusion Normal left ventricular wall thickness and chamber size. Ejection fraction biplane is 57%. Visually EF appears 65%. Wall motion is normal Normal right ventricular size and function Both atria are normal in size No intracardiac shunting is identified with injection of agitated saline There are no structural or hemodynamically significant valvular abnormalities Estimated right ventricular systolic pressure is 28 mmHg Wall motion Left Ventricle The left ventricle is normal size. The left ventricular systolic function is normal. The left ventric ular ejection fraction is within the normal range. There is normal left ventricular wall thickness. T here is normal LV segmental wall motion. There is no ventricular septal defect visualized. LVEF is 57 %. Right Ventricle The right ventricle is normal size. The right ventricular systolic function is normal. Atria The left atrium size is normal. The right atrium size is normal. The interatrial septum is intact wit h no evidence for an atrial septal defect. Saline bubble contrast intravenous injection does not demo nstrate PFO. Aortic Valve The aortic valve is normal in structure. Aortic valve is trileaflet. There is no aortic valvular sten osis. No aortic regurgitation is present. Mitral Valve The mitral valve is normal in structure. No evidence of mitral valve stenosis. Trace mitral regurgita tion. Tricuspid Valve The tricuspid valve is normal in structure. There is no tricuspid valve stenosis. Trace tricuspid reg urgitation. The RVSP is 28.3_ mmHg. Pulmonic Valve The pulmonary valve is normal in structure. There is no pulmonic valvular stenosis. There is no pulmo vivian valvular regurgitation. Great Vessels The aortic root is normal in size. The ascending aorta is normal in size. Aortic arch is not well vis ualized. IVC is normal in size and collapses >50% with inspiration. Pericardium There is no pericardial effusion. 2D Dimensions IVSD d PLAX 0.81 cm F: 0.6-1.0 Ao Root d 2.55 cm F: 2.7 - 3.3 LVPW d PLAX 0.80 cm F: 0.6 - 1.0 Ao Asc Diam d 2.77 cm F: 2.3 - 3.1 LVID d PLAX 3.80 cm F: 3.8 - 5.2 LVDs 2.61 cm F: 2.2 - 3.5 LV EF Teichholz 59.7 % FS 31.17 % LV EDV (Teich) 61.8 mL LV ESV (Teich) 24.9 mL M-Mode TAPSE 2.07 cm (M/F) >1.7 Auto EF LV EDV A4C 69.3 mL LV EDV A2C 70.8 mL LV EDV BP 69.2 mL LV ESV A4C 29.8 mL LV ESV A2C 30.3 mL LV ESV BP 30.3 mL LVEF(%) A4C 57.0 % LVEF(%) A2C 57.2 % LVEF(%) BP 56.1 % LV SV A4C 39.5 ml LV SV A2C 40.5 ml LV SV BP 38.8 ml LV CO A4C 3.2 L/min LV CO A2C 3.2 L/min LV CO BP 3.2 L/min HR A4C 79.82 BPM HR A2C 78.09 BPM LV EDV Index (BP) LA Volume LA Length A4C 3.7 cm LA Length A2C 4.3 cm LA Area A4C s 11.27 cm2 LA Area A2C s 11.54 cm2 LA Vol A4C A-L 29.32 mL LA Vol A2C A-L 26.31 mL LA Vol Biplane A-L 30.0 mL LA Vol/BSA A4C A-L LA Vol/BSA A2C A-L LA Vol/BSA BP A-L 22.1 mL/m2 LA Vol A4C MOD 26.3 mL LA Vol A2C MOD 24.6 mL LA Vol BP MOD 27.4 mL RA Volume RA Area A4C 8.9 cm2 RA ESV A4C (A-L) 17.3mL RA Vol/BSA A4C A-L RA Length A4C 3.9 cm RA ESV A4C (MOD) 15.8mL LV Diastology MV E' medial 0.075 (>0.07 m/s) MV E Vmax 0.91 (0.4-1.3 m/s) MV E/E' MED 12.00 (<14) MV A Vmax 0.95 (0.4-1.3 m/s) E/A Ratio 1.0 Aortic Valve AoV Vmax 1.15 m/s LVOT Vmax 0.86 m/s AoV Peak Grad 5.3 mmHg LVOT Peak Grad 3.0 mmHg AoV Area (Vmax) 2.05 cm2 LVOT VTI 0.170 m AoV VTI 0.256 m LVOT Mean Grad 1.3 mmHg AoV Mean Geronimo. 0.81 m/s LVOT SV 46.64 mL AoV Mean Grad 2.9 mmHg LVOT Diam s 1.85 cm AoV Area (VTI) 1.82 cm2 AV Regurg Peak Gr. 5.31 mmHg Velocity Ratio 0.75 Mitral Valve MV DT 187 (160-240 msec) MV Vmax TIPS 1.00 m/s MV Mean Grad 2.1 (<2mmHg) MV VTI 0.261 m Pulmonary Valve PV Vmax 0.88 (0.5-1.5 m/s) RVOT Vmax 0.82 m/s PV Peak Grad 3.1 mmHg RVOT Peak Gr. 2.7 mmHg PV Mean Geronimo 0.67 m/s RVOT VTI 0.158 m PV Mean Grad 2.0 mmHg RVOT Mean Gr. 1.7 mmHg Tricuspid Valve RA Pressure 3.00 mmHg TR Vmax 2.51 m/s TV S' 0.18 m/s TR Peak Grad 25.2 mmHg RVSP (TR) 28.3 mmHg
--- NOTE | 2024-05-25 08:00 | DI.MRI_ITS ---
Exam(s) MR BRAIN WO EXAM: MR BRAIN WO CLINICAL HISTORY: TIA TECHNIQUE: Multiplanar multisequence MRI of the brain was performed. COMPARISON: CT scan earlier same date reviewed. FINDINGS: CEREBRAL PARENCHYMA: There is no evidence of intracranial hemorrhage, mass effect, or shift of midline structures. There are no extra-axial fluid collections. Ventricles are not enlarged or shifted. There is no significant focal signal abnormality in the cerebellar hemispheres. However, there is ab undant signal abnormality both sides of the cindy, not associated with hemorrhage, surrounding edema n or restricted diffusion on DWI. There are no significant focal signal abnormalities evident in the thalami but there are multiple foc i of FLAIR bright signal abnormality in the periventricular white matter, probably consistent with ch ronic small-vessel white matter disease. No associated hemorrhage nor restricted diffusion. SWI: No intra-axial microhemorrhages evident. PITUITARY GLAND: No mass nor parasellar abnormality. No obvious abnormality in the cavernous sinuses. FLOW VOIDS: The expected flow void are noted. No evidence of obvious aneurysm nor obvious vascular ma lformation. PARANASAL SINUSES: The visualized paranasal sinuses appear unremarkable. No obvious finding ORBITS: No obvious findings. IMPRESSION: Chronic small-vessel white matter ischemic changes in bilateral periventricular white matter as well as throughout the cindy. There is no evidence of restricted diffusion to suggest acute ischemic event . No evidence of intracranial hemorrhage. DATA REPOSITORY:
[2024-05-25] MEDS: Thiamine 100 MG TAB PO (08:21)
[2024-05-25] MEDS: Famotidine 20 MG TAB PO (08:21)
[2024-05-25] MEDS: Escitalopram 10 MG TAB PO (08:22)
[2024-05-25] MEDS: Lisinopril 5 MG TAB PO (08:22)
[2024-05-25] MEDS: Aspirin 81 MG CHEW PO (08:22)
[2024-05-25] MEDS: Lidocaine 5% Patch 1 PATCH TP ×2 (08:22→15:11)
[2024-05-25] MEDS: Docusate Sodium 100 MG CAP PO ×2 (08:22→19:59)
[2024-05-25] MEDS: Normal Saline Flush 10 ML SYR IVP ×3 (08:22→20:00)
[2024-05-25] MEDS: Umeclidinium 7 CAP INHALER 1 CAP IH (08:44)
[2024-05-25] MEDS: Polyethylene Glycol 3350 17 GM PACKET PO ×2 (12:53→19:59)
--- NOTE | 2024-05-25 13:43 | CHAPLAIN ---
Karla was curled up in bed when I visited. She said she was planning on napping. I explained my role and offered support. When I asked if her family or friends are in touch with her, she said she came from a retirement so she doesn't know if her family was notified.
--- NOTE | 2024-05-25 14:20 | PT.INNT ---
PT Notes Visit Reasons: TIA, HTN, COPD PT came in for PT initial evaluation with referral from Dr. Jose Angel Peter on 05/24/2024. Patient was alert and oriented at the start and was answering questions. She complained of a headache which she stated started half an hour ago. She was able to slowly sit up but after a minute or two suddenly had an unresponsive episode. Nurses Lilly and Le were outside the patient's door and were immediately called in to help. A rapid response was called to provide urgent needed intervention. Will follow up with patient late today or tomorrow morning, as ordered. .
[2024-05-25] MEDS: Normal Saline 1,000 ML 1000 ML IV (14:31)
--- NOTE | 2024-05-25 15:30 | PDOC.CMIN ---
Date of service: 05/25/24 Time of Service: 15:30 Care Management Initial Assmt Initial Assessment Reason for Hospitalization: TIA, HTN, COPD Functional Status/Living Situation Patient Presentation: Karla was lying in bed when CM met with her. She stated that she moved into [facility] earlier this year, and is happy there. She has a partner, Jose, who lives in [place], and visits her frequently. She also has a sister in [place]. CM reviewed her plan of care; per report, she had a work up today including an echo, MRI, PT and speech evaluations. During her PT evaluation, she had an unresponsive episode, and a rapid response was called. Per MD, she is not medically cleared today, therefore she will likely remain over the weekend, and return to [facility] on Tuesday, if medically cleared. CM will continue to follow. Town of Residence: [facility] Resides with: Other (SNF) Significant Other/Family: Local Caregiver/Guardian: Karla resides at [facility], where she receives support Natural Supports: Male vice president sales and marketing, Jose Employment Status: Unemployed Instrumental Activities of Daily Living (ADLs): Requires support Medications Medication Management: No Issues/Barriers identified Advance Directives Advance Directives: Do you have an Advance Directive: N 12/18/15 09:07 AD On File at [facility]: N 05/24/24 16:24 Date Asked 05/24/24 05/24/24 16:24 AD Date Reviewed COLST On File at [facility] COLST Date Scanned Code Status Resuscitation Status Full Code Insurance Coverage/Financial Issues Insurance: [facility] Care Team Visit Care Team Role Provider Type Noam Sosa Primary Care Provider NON-[facility] STAFF PHYSICIAN Samantha Price, SASH FINISHER Other Providers SPEECH LANGUAGE PATHOLOGIST Phil Mcmahon, SASH FINISHER Other Providers SPEECH LANGUAGE PATHOLOGIST Krystyna Pritchard Other Providers SPEECH LANGUAGE PATHOLOGIST Raeann Buchanan, SASH FINISHER Other Providers SPEECH LANGUAGE PATHOLOGIST Chio Dumont, SASH FINISHER Other Providers SPEECH LANGUAGE PATHOLOGIST Fransisca Good Other Providers OTHER Yanick Alvarez MD Emergency Provider [facility] STAFF PHYSICIAN Jose Angel Peter Admit Provider NON-[facility] STAFF PHYSICIAN Attending Provider Discharge Potential Discharge Needs: PT Evaluation and Other (coordinated return to [facility]) Anticipated Barriers to Discharge: None Identified Patient/Family Education Needs: Review discharge instructions, discuss Ask Me Three Transportation: Facility Transport Plan: Anticipate Karla will return to [facility] once medically cleared. She will likely transport via facility w/c van vs RCT. She will follow up with her PCP and discharge plan of care. CM will continue to follow. PFSH All Active Problems (Updated 05/25/24 @ 03:43 by Jose Angel Peter) Hyperlipidemia (Chronic) UTI (urinary tract infection) (Acute) Depression (Chronic) Hyponatremia (Acute) Hypomagnesemia (Acute) COPD (chronic obstructive pulmonary disease) (Chronic) HTN (hypertension) (Chronic) TIA (transient ischemic attack) (Acute) COVID-19 (Acute) Social History Smoking/Tobacco Use Status: Former Tobacco Use Smoking risk assessment performed?: Yes Alcohol Intake: former Drug use: Never Substance use type: marijuana Housing: shelter Do you feel safe at home: Yes Do you feel safe in your relationship?: Yes Additional Social history: H+R SDOH(Care Management) Screening Will the Patient Participate in the Screening?: Yes Do you worry about having a steady place to live?: no In the past 12 months, have you had to go without electric, gas, oil or water in your home?: no Have you or anyone in your house had to go without enough food to eat?: no Has lack of transportation kept you from medical appointments or from doing things needed for daily living?: no Has anyone in your support network made you feel unsafe for any reason?: no Social Determinants of Health Comments(SDOH Details): pt lives in terminal press operator care facility
--- NOTE | 2024-05-25 16:30 | SP_ITS ---
Date of service: 05/25/24 Time of Service: 16:30 Subjective Clinical (Bedside) Swallow Evaluation & Cognitive-Communication Screen Speech Language Pathology - Inpatient Referred by: Dr. Rome MD Start time: 1430 End time: 1700 Total patient contact: 30 min Referral Type: Routine Consult Precautions: Standard, Fall, Full Code Reason for Referral/HPI: Patient is a 69 y/o F with a history of COPD, HLD, HTN, depressions, resides at [facility], who was brought to the ER for acute onset aphasia, L facial droop and L hand weakness. CT and MRI were unremarkable for any acute CVA. She was also found with asymptomatic UTI, hypomagnesium and hyponatremia. Hospital course has been complicated by labile blood pressure and earlier this date she had a rapid response called due to an episode of low blood pressure. Per nursing, at the time of evaluation, patient is tired but has reportedly returned to baseline with neurologic symptoms. HOT TAR ROOFER HELPER IMPRESSIONS & RECOMMENDATIONS: Exam somewhat limited due to time constraints and interruptions from other priority care providers. Patient presents with largely normal verbal expression and comprehension, is oriented and with good recall, and appears at low risk for aspiration/complications on swallow screen. While she is edentulous without dentures, she prefers to remain on a regular diet and to order her preferred foods, which is reasonable given her level of insight and she tends to order/choose foods she knows are easier to eat. No further HOT TAR ROOFER HELPER services are i ndicated at this time. Please re-consult if there is another decline in function. FURTHER INPATIENT HOT TAR ROOFER HELPER SERVICES: No further HOT TAR ROOFER HELPER services indicated DISCHARGE RECOMMENDATIONS: No further HOT TAR ROOFER HELPER services indicated/Please re-refer as needed Diet modification is not indicated. Diet Recommendations: ? SOLIDS: 7-Regular Solids LIQUIDS: 0-Thin Liquids MEDICATIONS: As tolerated RISK MANAGEMENT: Level of Assistance/Supervision: Independent Positioning and environment: PO intake only when awake/alert? As upright as tolerated, use HOB controls/bed tilt to achieve upright positioning Oral hygiene BID/2x per day Using friction with toothbrush on all oral structures as tolerated Education/Results Provided to: Nursing Patient SUBJECTIVE: Patient received: alert/awake. Agreeable to evaluation. Care management was present initially completing initial visit and RN's present at session end to take vitals, etc. Pain Reported 3-4 (Neck) Baseline Swallow Function: Patient denies swallowing difficulty prior to admission and eats a regular diet at baseline. Patient endorses inability to talk on admit but feels she has returned to baseline at this time. She eats a regular diet at home, and although she is edentulous she knows her limits and orders foods that she knows she will not have difficulty chewing. She denies repeat of frequent pneumonias. She denies ever needing heimlich maneuver. 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 Speech: WFL without evidence of dysarthria. Normal edentulous speech. Conversation: Sentences are grammatical and fluent without significant pausing or delays. Responses are relevant and pragmatics are normal. Patient provides adequate detail with open-ended responses without going off topic. No word- finding errors or overt difficulties are noted. Naming: +8/ Y/N questions: +3/4 (answered Y for Do you eat a banana before you peel it? Complex multi-step instructions: +5/5 Oral Mechanism Examination: Dentition: Edentulous without dentures Oral mucosa: WFL ? Cranial Nerve Assessment: CN V ? Trigeminal Facial Sensation WNL Jaw Strength/ROM WNL ?WNL CN VII- Facial WNL labial ROM, strength, coordination. WNL lingual sensation WNL CN IX ? Glossopharyngeal WNL palatal elevation with phonation. No evidence of nasal emissions WNL CN X ? Vagus WNL Vocal quality and volume. Strong/sharp volitional cough WNL CX XII ? Hypoglossal WNL lingual ROM, strength, coordination WNL PO Intake: Trials Assessed: IDDSI 0 Thin Liquids Oral Phase Findings: WFL Pharyngeal Phase Findings: WFL ? [place] Swallow Protocol Results: PASS Complete/uninterrupted without s/sx aspiration PLAN: No further HOT TAR ROOFER HELPER services indicated at this time. Please re-refer as needed.
--- NOTE | 2024-05-25 16:45 | RT.EKG_ITS ---
APPROVED REPORT Exam: Resting ECG Reason for Exam: chest pain Patient Location: I HR:87 bpm ECG Measurements Heart Rate 87 AXIS AK 161 P 63 QRSd 83 QRS 58 QT 354 T 42 QTc 426 Conclusion Sinus rhythm...normal P axis, V-rate 50- 99 Probable left atrial enlargement...P >50mS, <-0.10mV V1 Low voltage, extremity leads...all extremity leads <0.5mV I have reviewed and I agree with the emergency room physician's ECG interpretation.
[2024-05-25] MEDS: MORPHine 2 MG/ML SYR 1 MG IVP (17:10)
[2024-05-25 17:43] LABS: Troponin I 16 ng/L (<or=51)
[2024-05-25] MEDS: Mirtazapine 15 MG TAB PO (19:59)
[2024-05-25] MEDS: Atorvastatin 40 MG TAB 80 MG PO (19:59)
[2024-05-25] MEDS: LIDOCAINE Patch Removal 1 EACH TP (20:18)
[2024-05-25] MEDS: cefTRIAXone 1 GM/50 ML BAG IVPB (22:54)
[2024-05-26] VITALS (26 sets, daily range): BP systolic 87–180; BP diastolic 46–96; PULSE 64–168; RESP 12–18; TEMP 36–37.1; O2SAT 91–97
--- NOTE | 2024-05-26 | DI.CT_ITS ---
Exam(s) CT HEAD WO EXAM: CT HEAD WO CLINICAL HISTORY: left sided weakness. TECHNIQUE: Imaging Protocol: Axial computed tomography images with coronal and sagittal reformatted images were created and reviewed COMPARISON: CT CT HEAD WO from 05/25/2024 FINDINGS: There are no skull fractures. There is no fluid in the visualized paranasal sinuses. There is no evidence of intracranial hemorrhage, mass effect, or shift of midline structures. There are no extra-axial fluid collections. The ventricles are not enlarged or shifted and there is no blo od within the ventricular system nor within the basal cisterns. There is some bilateral periventricular hypodensity consistent with chronic small vessel disease. Th is is most prominent in the right frontal parietal region but is unchanged from CT scan of 05/25/2024 .. IMPRESSION: As above. No acute intracranial findings and no significant change compared to CT scan of 1 day prio r. RADIATION DOSE DELIVERED: 818.76mGy.cm Total DLP DATA REPOSITORY: All CT scans at this facility are submitted to the National Radiology Data Registry (NRDR) Dose Index Registry (DIR) with the [employer] (A[employer]). RADIATION OPTIMIZATION: All CT scans at this facility use at least one of these dose optimization te chniques: automated exposure control; mA and/or kV adjustment per patient size (includes targeted exa ms where dose is matched to clinical indication); or iterative reconstruction.
--- NOTE | 2024-05-26 01:14 | NUR.NOTE ---
Nursing Note: It was noted at 0045 that current 24HR urine collection was not on ice. consulted with laboratory personnel and clarified directions for collection for this specific test. Urine container needs to have boric acid added to container prior to any collection and kept on ice. It was also noted that because patient has a oreilly in place, the urine needs to be collected every hour to prevent contamination and the urine becoming too warm for a long period of time. obtained new specimen container from lab, boric acid added, and collection restarted. There is no additional boric acid for another container, please be cautious when accessing this container. once full please return to lab DAVEY
[2024-05-26 06:32] LABS: HCT 30.9 % (36.0-46.0); HGB 10.9 g/dL (11.2-15.7); MCH 33.4 pg (27.0-33.0); MCHC 35.3 % (32.0-36.0); MCV 95 fL (80-95); MPV 9.4 fL (8.0-11.0); Platelet Count 343 10^3/uL (130-400); RBC 3.26 10^6/uL (3.93-5.22); RDW 13.2 % (11.7-14.6); RDW-SD 45.8 fL; WBC 7.06 10^3/uL (4.4-10.8)
[2024-05-26 07:21] LABS: ALT 15 U/L (14-59); AST 11 U/L (15-37); Albumin 3.1 g/dL (3.4-5.0); Alkaline Phosphatase 119 U/L (46-116); Anion Gap 8.6 mmol/L (3-11); BUN 16 mg/dL (7-18); CO2 22.4 mmol/L (21.0-32.0); CREATININE 0.8 mg/dL (0.55-1.02); Calcium 9.7 mg/dL (8.5-10.1); Chloride 105 mmol/L (98-107); Estimated GFR 79.71 (mL/min/1.73m2); Glucose 93 mg/dL (74-106); Magnesium 1.7 mg/dL (1.8-2.4); Potassium 4.6 mmol/L (3.5-5.1); Sodium 136 mmol/L (136-145)
[2024-05-26] MEDS: Aspirin 81 MG CHEW PO (08:23)
[2024-05-26] MEDS: Docusate Sodium 100 MG CAP PO ×2 (08:23→22:09)
[2024-05-26] MEDS: Thiamine 100 MG TAB PO (08:24)
[2024-05-26] MEDS: Escitalopram 10 MG TAB PO (08:24)
[2024-05-26] MEDS: Famotidine 20 MG TAB PO (08:24)
[2024-05-26] MEDS: Polyethylene Glycol 3350 17 GM PACKET PO ×2 (08:25→22:09)
[2024-05-26] MEDS: Umeclidinium 7 CAP INHALER 1 CAP IH (08:31)
[2024-05-26] MEDS: Normal Saline Flush 10 ML SYR IVP ×3 (08:37→22:10)
[2024-05-26] MEDS: Lidocaine 5% Patch 1 PATCH TP (08:37)
--- NOTE | 2024-05-26 10:27 | IN_ITS ---
PT Notes Visit Reasons: TIA, HTN, COPD Physical Therapy Inpatient Initial Evaluation Date: 05/26/2024 Referring Doctor: Jose Angel Peter MD PT Orders: PT CONSULT: D/C Non-PT Dependent Precautions: Fall. Standard. Activity as tolerated. Patient Profile/Admitting Diagnosis: She is a 69-year-old female who presented to the ED on 05/24/2024 due to difficulty speaking, generalized weakness, and facial droop. Patient is admitted for management of symptoms of TIA, hypertension, hypomagnesemia, urinary tract infection, hyponatremia, hyperlipidemia, COPD, and depression. IMPRESSION from Brain MRI on 05/25/2024: Chronic small-vessel white matter ischemic changes in bilateral periventricular white matter as well as throughout the cindy. There is no evidence of restricted diffusion to suggest acute ischemic event. No evidence of intracranial hemorrhage. PMHX: All Active Problems (Updated 05/25/24 @ 03:43 by Jose Angel Peter) Hyperlipidemia (Chronic) UTI (urinary tract infection) (Acute) Depression (Chronic) Hyponatremia (Acute) Hypomagnesemia (Acute) COPD (chronic obstructive pulmonary disease) (Chronic) HTN (hypertension) (Chronic) TIA (transient ischemic attack) (Acute) COVID-19 (Acute) Social History/Home Situation: Patient stated that she lives at the [facility] and that she used a walker there. Equipment Owned/DME: FWW at the SNF Subjective: I still have the headache from yesterday. Reported being dizzy right before she had the fainting episode. Complained of her L leg going into spasm when she was asked to bring both arms up. Objective: General Observation: Seated on bedside recliner with CEO AND FOUNDER Damaris just finishing off with morning care for patient. Mental Status: Alert and oriented only to self. Thinks it is the year 1999 and that [facility] at [facility]. Aware that he has 2 sons in [place] and 1 in [place]. Pain: Minimal pain in l LE Vital Signs: Closely monitored by nursing staff. BP before this morning's epsiode was 133/70s mmHg and post episode as measured by Nurse Olivia 165/80s mmHg. SaO2 WNL. ROM: Right Upper Extremity: Shoulder Flexion allows up to about 90 degrees only with pain at end of range. Shoulder abduction allows up to about 90 degrees only with pain at end of range. Elbow flexion WFL. Wrist flexion WFL. Functional opening and closing of hand WFL. Left Upper Extremity: Shoulder Flexion allows up to about 90 degrees only with pain at end of range. Shoulder abduction allows up to about 90 degrees only with pain at end of range. Elbow flexion WFL. Wrist flexion WFL. Functional opening and closing of hand WFL. Right Lower Extremity: Hip flexion WFL. Hip abduction WFL. Knee flexion WFL. Ankle dorsiflexion WFL. Ankle plantarflexion WFL. Left Lower Extremity: Hip flexion WFL. Hip abduction WFL. Knee flexion WFL. Ankle dorsiflexion WFL. Ankle plantarflexion WFL. Strength: Right Upper Extremity: Shoulder flexors 3-/5. Shoulder abductors 3-/5. Elbow flexors 4-/5. Elbow extensors 4-/5. Channel Layer weak but functional. Left Upper Extremity: Shoulder flexors 3-/5. Shoulder abductors 3-/5. Elbow flexors 4-/5. Elbow extensors 4-/5. Channel Layer weak but functional. Right Lower Extremity: Hip flexors 4-/5. Hip abductors 4-/5. Knee flexors 4-/5. Knee extensors 4-/5. Ankle dorsiflexors 4-/5. Ankle plantarflexors 4-/5. Left Lower Extremity: Hip flexors 3+/5. Hip abductors 3+/5. Knee flexors 3+/5. Knee extensors 3+/5. Ankle dorsiflexors 3+/5. Ankle plantarflexors 4-/5. Bed Mobility/Transfers: Moderate cueing provided for use of B hands as needed for support, movement sequence, AD management, and posture to reduce fall risk and minimize pain rep ort Sit to stand minimal assist using FWW Stand to sit maximal assist as patient had a fainting episode and was slowly assisted back to chair Gait: Unable to test due to fainting episode. Patient was able to transfer with CEO AND FOUNDER Sarika from bedside to chair with assist of another CEO AND FOUNDER before PT came in. Balance: Static Sitting: Fair Dynamic Sitting: Fair Static Standing: Poor Dynamic Standing: Unable Special Tests: Mobility Limitations Standardized Measure [facility] AM-PAC 6 clicks Basic Mobility Inpatient Short Form: Raw Score: 13 CMS Score: 65% deficit Informed Consent/Education: Patient was instructed in purpose of PT consult and plan of care. Agreeable to proceed with established PT POC to achieve personal goals. Assessment: B UE strength symmetric. L LE weaker than the R which patient said has been going on for quite a while now. She also complained of spasms in the L LE early on in the session. Patient now with 2 episodes of fainting without loss of consciousness while with PT- -one yesterday afternoon during an attempt at evaluation, the second one late this this morning. Blood pressure were increased after each episodes as t aken by nursing staff during both events. Further mobility assessment was deferred yesterday and today. Will reassess patient again tomorrow during SHEET METAL FABRICATOR Mikayla's treatment. Advised nursing to provided 2 assist at all times for transfers. Nurse Abiola retook the blood pressures and found patient to be with orthostatic hypotension. Patient presents with clinical signs and symptoms consistent with current/admitting diagnoses that have resulted to mobility limitations, gait instability, generalized weakness, and overall ADL decline as demonstrated by the following impairment level findings: 1. Decreased strength to B UE/LE major muscle groups 2. Impaired sitting/standing balance 3. Impaired activity tolerance 4. Limitation of joint range of motion in b shoulders (chronic) 5. Fainting spells Impairments are contributing to the following functional limitations: 1. Decline in bed mobility skills 2. Decline in transfer skills 3. Difficulty with ambulation without assistive device and physical assistance 4. Increased completion time for mobility ADL performance 5. Increased risk for falls 6. Difficulty with managing steps alone safely Patient is assessed as a 52606 moderate complexity based on the following: History: 69-year-old female with past medical history as indicated above Examination: Demonstrable impairment in strength, balance, and mobility level with underlying impairments and functional limitations as exhibited above as well as deficit score of 65% utilizing the [facility] Mobility Inpatient Short Form Presentation: Evolving Decision Makin moderate complexity Goals: Goals X1 week 1. Supine-Sit independent 2. Sit-Supine independent 3. Sit-Stand independent 4. Stand-Sit independent with FWW 5. Bed-Chair independent with FWW 6. Chair-Bed independent with FWW 7. Independent gait on level surface with use of FWW for at least 150 feet without report of pain nor dyspnea 8. Good static and dynamic standing balance/tolerance Plan of Care/Treatment Plan: 1-2x/day, 7 days/week x 1 week. Plan of care has been reviewed with the SHEET METAL FABRICATOR providing the service under Physical Therapy direction. Initiate Physical Therapy intervention for pain management as needed, strengthening, bed mobility, transfers, gait, stairs, balance training, and use of assistive device. DISCHARGE RECOMMENDATIONS: [] Home with no services [] [] Home with services [specify] [] Home with outpatient PT [] [] SNF for continued rehabilitation [] [] Bucket Operator Care [] [] SNF versus LTC based on ability to participate and progress [] [X] Return to SNF with subacute rehab for continued mobility progression and fall reduction strategies TREATMENT CODE/TIME: 22293 x 20 minutes for 1 unit, 17034 x 24 minutes for 2 units (10:27-11:11). Thank you for the opportunity to participate in the care of this patient. Bindu Bran PT, DPT, CLT [facility] [place], [place]
--- NOTE | 2024-05-26 10:55 | W.PM.PROGNOT ---
Date of Service Date of service: 05/25/24 Time of Service: 17:00 Assessment and Plan Assessment and plan (1) Hypertensive emergency: Status: Acute Assessment and plan: - Patient initially presented with signs and symptoms concerning for CVA with an initial NIH score of 18 in the emergency department -However, this was associated with significantly elevated blood pressures above 200 systolic, and neurologic symptoms rapidly improved after the initiation of nicardipine drip and improvement in patient's blood pressures -This is further confirmed that this was not a TIA or stroke as echocardiogram and MRI were both negative -However, patient has had low blood pressures and during the day today actually required IV fluids and had vasovagal episode -Blood pressures responded with IV fluid resuscitation -Holding home antihypertensives at this time and will reinitiate as needed (2) Hypomagnesemia: Start date: 05/24/24 Status: Acute Assessment and plan: - Resolved (3) UTI (urinary tract infection): Start date: 05/24/24 Status: Acute Assessment and plan: Patient did have pyuria and urine culture was performed with Rocephin 1 g IV every 24 hours be given until urine culture resulted. She is not having symptoms with this UTI. Qualifiers: Urinary tract infection type: acute cystitis Hematuria presence: without hematuria Qualified Code(s): N30.00 - Acute cystitis without hematuria (4) Hyponatremia: Start date: 05/24/24 Status: Acute Assessment and plan: Patient is previous alcohol user but usually does not have persistent hyponatremia though this has occurred in the late summer. Monitor as patient had gentle IV hydration for hypotension. (5) Hyperlipidemia: Status: Chronic Assessment and plan: With TIA, maximize atorvastatin 80 mg daily. Qualifiers: Hyperlipidemia type: other hyperlipidemia Qualified Code(s): E78.49 - Other hyperlipidemia (6) COPD (chronic obstructive pulmonary disease): Status: Chronic Assessment and plan: Continue outpatient medical therapy. Qualifiers: COPD type: chronic bronchitis Chronic bronchitis type: simple Qualified Code(s): J41.0 - Simple chronic bronchitis (7) Depression: Status: Chronic Assessment and plan: Continue outpatient medical therapy. Qualifiers: Depression Type: persistent depressive disorder Qualified Code(s): F34.1 - Dysthymic disorder Subjective Subjective Interval history since last seen: Patient states that she is fatigued and complaining of some right-sided neck pain but otherwise has no other complaints concerns at this time. Exam Narrative Exam Narrative: Well-appearing older female sitting up in the chair no acute distress, ANO x 4, heart regular rhythm, lungs clear auscultation bilaterally, abdomen soft, nontender, nondistended Objective Last Vital Signs Temp 97.9 F 05/26/24 07:13 Pulse 72 05/26/24 07:13 Resp 16 05/26/24 07:13 BP 117/57 L 05/26/24 07:13 Pulse Ox 94 05/26/24 07:13 Laboratory Results - last 24 hr 05/25/24 05/26/24 17:18 06:00 WBC 7.06 RBC 3.26 L Hgb 10.9 L Hct 30.9 L MCV 95 MCH 33.4 H MCHC 35.3 RDW 13.2 Plt Count 343 MPV 9.4 Sodium 136 Potassium 4.6 Chloride 105 Carbon Dioxide 22.4 Anion Gap 8.6 BUN 16 Creatinine 0.8 Est GFR (CKD-EPI 2020) 79.71 Glucose 93 Calcium 9.7 Magnesium 1.7 L Total Bilirubin 0.20 AST 11 L ALT 15 Alkaline Phosphatase 119 H Troponin I 16 Total Protein 6.0 L Albumin 3.1 L Time Spent with Patient Time Spent with Patient: >50 minutes Time was spent: preparing to see the patient(eg.review tests), obtaining and/or reviewing separately otained hiistory, ordering medications,tests, procedures, referring, communicating with other health career development coordinator/teacher, indepentently interpreting results, counseling the patient and care coordination
[2024-05-26] MEDS: Acetaminophen 325 MG TAB PO (11:08)
--- NOTE | 2024-05-26 11:27 | PGE_ITS ---
Date of Service Date of service: 05/26/24 Time of Service: 11: Assessment and Plan Assessment and plan (1) Hypertensive emergency: Status: Acute Assessment and plan: - Patient initially presented with signs and symptoms concerning for CVA with an initial NIH score of 18 in the emergency department -However, this was associated with significantly elevated blood pressures above 200 systolic, and neurologic symptoms rapidly improved after the initiation of nicardipine drip and improvement in patient's blood pressures -This is further confirmed that this was not a TIA or stroke as echocardiogram and MRI were both negative -However, patient has had low blood pressures and during the day 04/24 actually required IV fluids and had vasovagal episode -Blood pressures responded with IV fluid resuscitation -patient had simialar episode AM 05/26 when getting up with PT; will check orthostatics and give additional fluids if needed -Holding home antihypertensives at this time and will reinitiate as needed (2) Hypomagnesemia: Start date: 05/24/24 Status: Acute Assessment and plan: - Resolved (3) UTI (urinary tract infection): Start date: 05/24/24 Status: Acute Assessment and plan: Patient did have pyuria and urine culture was performed with Rocephin 1 g IV every 24 hours be given until urine culture resulted. She is not having symptoms with this UTI. Qualifiers: Urinary tract infection type: acute cystitis Hematuria presence: without hematuria Qualified Code(s): N30.00 - Acute cystitis without hematuria (4) Hyponatremia: Start date: 05/24/24 Status: Acute Assessment and plan: Patient is previous alcohol user but usually does not have persistent hyponatremia though this has occurred in the late summer. Monitor as patient had gentle IV hydration for hypotension. (5) Hyperlipidemia: Status: Chronic Assessment and plan: With TIA, maximize atorvastatin 80 mg daily. Qualifiers: Hyperlipidemia type: other hyperlipidemia Qualified Code(s): E78.49 - Other hyperlipidemia (6) COPD (chronic obstructive pulmonary disease): Status: Chronic Assessment and plan: Continue outpatient medical therapy. Qualifiers: COPD type: chronic bronchitis Chronic bronchitis type: simple Qualified Code(s): J41.0 - Simple chronic bronchitis (7) Depression: Status: Chronic Assessment and plan: Continue outpatient medical therapy. Qualifiers: Depression Type: persistent depressive disorder Qualified Code(s): F34.1 - Dysthymic disorder Subjective Subjective Interval history since last seen: Patient states that she is feeling much better and has no complaints or concerns at this time. Exam Narrative Exam Narrative: Well-appearing older female sitting up in the chair no acute distress, ANO x 4, heart regular rhythm, lungs clear auscultation bilaterally, abdomen soft, nontender, nondistended Objective Last Vital Signs Temp 96.8 F L 05/26/24 11:11 Pulse 88 05/26/24 11:11 Resp 18 05/26/24 11:11 BP 135/69 05/26/24 11:11 Pulse Ox 96 05/26/24 11:11 Laboratory Results - last 24 hr 05/25/24 05/26/24 17:18 06:00 WBC 7.06 RBC 3.26 L Hgb 10.9 L Hct 30.9 L MCV 95 MCH 33.4 H MCHC 35.3 RDW 13.2 Plt Count 343 MPV 9.4 Sodium 136 Potassium 4.6 Chloride 105 Carbon Dioxide 22.4 Anion Gap 8.6 BUN 16 Creatinine 0.8 Est GFR (CKD-EPI 2020) 79.71 Glucose 93 Calcium 9.7 Magnesium 1.7 L Total Bilirubin 0.20 AST 11 L ALT 15 Alkaline Phosphatase 119 H Troponin I 16 Total Protein 6.0 L Albumin 3.1 L Time Spent with Patient Time Spent with Patient: >50 minutes Time was spent: preparing to see the patient(eg.review tests), obtaining and/or reviewing separately otained hiistory, ordering medications,tests, procedures, referring, communicating with other health direct support professional caregiver, indepentently interpreting results, counseling the patient and care coordination
--- NOTE | 2024-05-26 11:27 | PHA.REVIEW2 ---
Pharmacy Admission Review Admission Clinical Review Admission Pharmacy Review: Hypertensive emergency (Acute) UTI (urinary tract infection) (Acute) Hyponatremia (Acute) Hypomagnesemia (Acute) TIA (transient ischemic attack) (Acute) No Known Drug Allergies Allergy (Unverified 05/24/24 16:41) Resuscitation Status Full Code Height 4 ft 11 in Weight 46.1 kg Pharmacy Admission Review Renal Dosing Renal Dosing: BUN 16 mg/dL (7-18) 05/26/24 06:00 Creatinine 0.8 mg/dL (0.55-1.02) 05/26/24 06:00 Medications needing adjustments: Reviewed (CrCl 38.59 mL/min) List of meds needing interventions: Current medications are okay Anticoagulation Anticoagulation: Hgb 10.9 g/dL (11.2-15.7) L 05/26/24 06:00 Hct 30.9 % (36.0-46.0) L 05/26/24 06:00 Plt Count 343 10^3/uL (130-400) 05/26/24 06:00 INR 1.0 (0.9-1.1) 05/25/24 06:00 Creatinine 0.8 mg/dL (0.55-1.02) 05/26/24 06:00 DVT Prophylaxis: Reviewed (SCDs, Hgb decreased from 11.3) Relevant Labs Relevant Labs: Sodium 136 mmol/L (136-145) 05/26/24 06:00 Potassium 4.6 mmol/L (3.5-5.1) 05/26/24 06:00 Chloride 105 mmol/L (98-107) 05/26/24 06:00 Magnesium 1.7 mg/dL (1.8-2.4) L 05/26/24 06:00 Electrolytes, C-Reactive P, ESR: Reviewed (Mg 1.7) Cardiac Review Cardiac Review: Troponin I 16 ng/L (<or=51) 05/25/24 17:18 Blood Pressure 135/69 1111 Blood Pressure 117/57 0713 Blood Pressure 102/56 0400 Blood Pressure 96/52 0338 Blood Pressure 92/46 0329 Blood Pressure 88/58 0314 Blood Pressure 87/50 0303 BP, HR, EF%: Reviewed (HR WNL) QTc Review QTc: Reviewed (449 from 05/24/24) IV to PO Switch IV Medications: Intervened (ceftriaxone, ondansetron - asked provider if this could be switched to PO and provider was okay with that) Home Meds Home Med List reviewed: Reviewed Relevent Home Meds Not ordered & why?: bisacodyl (PRN), vitamin D3 (weekly), hydrocodone (PRN), lisinopril (on hold), loperamide (PRN), melatonin (PRN), metoclopramide (PRN), metoprolol (on hold), naproxen (PRN), prednisone, fleet enema (PRN) and Spiriva Current Meds Current Medication Order Review: Reviewed Pharmacy Antibiotic Review Relevant Labs: WBC 7.06 10^3/uL (4.4-10.8) 05/26/24 06:00 Temperature 36.0 C Temperature 36.6 C Temperature 36.6 C Pharmacy Antibiotic Activity: C/S review and Reviewed, no change Comments: Patient is on ceftriaxone, day 2, for possible UTI. Urine culture showing no growth at 24 hours.
--- NOTE | 2024-05-26 21:08 | DI.VRAD_ITS ---
PROCEDURE INFORMATION: Exam: CT Head Without Contrast Exam date and time: 05/26/2024 8:07 PM Age: 69 years old Clinical indication: Other: Lt side weakness TECHNIQUE: Imaging protocol: Computed tomography of the head without contrast. COMPARISON: MR BRAIN WO 05/25/2024 12:06 PM FINDINGS: Brain: No intracranial hemorrhage. There is global parenchymal volume loss. Periventricular white matter hypoattenuation is nonspecific but most likely due to small vessel disease. No evidence of acute territorial infarct or cerebral edema. No mass effect or midline shift. Cerebral ventricles: Prominent ventricles likely secondary to volume loss. Paranasal sinuses: Visualized sinuses are unremarkable. No fluid levels. Mastoid air cells: Visualized mastoid air cells are well aerated. Bones: Unremarkable. No acute fracture. Soft tissues: Unremarkable. IMPRESSION: No acute intracranial findings. Dictated and Authenticated by: Racquel Agee MD. Ordering:THOMAS Chacko MD
--- NOTE | 2024-05-26 21:44 | NUR.NOTE ---
from critical change event at 1940 pt was seen by [facility] gabrielle. his recommendations were to give plavix 300mg now, then starting tomorrow give dual antiplatelet therapy with 75mg plavix and already scheduled aspirin for 3 weeks, then stop plavix. he would like tighter control on her BP, keeping the systolic at 140-160 or lower.
[2024-05-26] MEDS: cefTRIAXone 1 GM/50 ML BAG IVPB (22:07)
[2024-05-26] MEDS: Mirtazapine 15 MG TAB PO (22:09)
[2024-05-26] MEDS: Clopidogrel 300 MG TAB PO (22:09)
[2024-05-26] MEDS: Atorvastatin 40 MG TAB 80 MG PO (22:09)
--- NOTE | 2024-05-26 22:30 | RT.EKG_ITS ---
APPROVED REPORT Exam: Resting ECG Reason for Exam: chest pain with radiation to shoulder Patient Location: I HR:81 bpm ECG Measurements Heart Rate 81 AXIS DE 157 P 81 QRSd 83 QRS 68 QT 348 T 54 QTc 404 Conclusion Sinus rhythm...normal P axis, V-rate 50- 99 I have reviewed and I agree with the emergency room physician's ECG interpretation.
[2024-05-26 23:27] LABS: Troponin I 9 ng/L (<or=51)
[2024-05-27] VITALS (119 sets, daily range): BP systolic 105–174; BP diastolic 52–93; PULSE 59–136; RESP 15–31; TEMP 36.2–37.6; O2SAT 87–98
--- NOTE | 2024-05-27 | DI.CT_ITS ---
Exam(s) CT HEAD WO EXAM: CT HEAD WO CLINICAL HISTORY: new DURÁN after staring plavix. TECHNIQUE: Imaging Protocol: Axial computed tomography images with coronal and sagittal reformatted images were created and reviewed COMPARISON: CT CT HEAD WO from 05/26/2024 FINDINGS: There are no skull fractures. There is no fluid in the visualized paranasal sinuses. There is no evidence of intracranial hemorrhage, mass effect, or shift of midline structures. There are no extra-axial fluid collections. The ventricles are not enlarged or shifted and there is no blo od within the ventricular system nor within the basal cisterns. Some periventricular hypodensity consistent with chronic small vessel disease again noted and is agai n noted be most prominent in the right frontoparietal region, unchanged. IMPRESSION: No acute intracranial findings on this noninfused CT scan of the brain. No significant change compar ed to CT scan from yesterday. See MRI report of 05/25/2024 which revealed chronic small-vessel white matter ischemic changes in the periventricular region as well as throughout the cindy. RADIATION DOSE DELIVERED: 893.21mGy.cm Total DLP DATA REPOSITORY: All CT scans at this facility are submitted to the National Radiology Data Registry (NRDR) Dose Index Registry (DIR) with the [employer] ([employer]). RADIATION OPTIMIZATION: All CT scans at this facility use at least one of these dose optimization te chniques: automated exposure control; mA and/or kV adjustment per patient size (includes targeted exa ms where dose is matched to clinical indication); or iterative reconstruction.
[2024-05-27] MEDS: LIDOCAINE Patch Removal 1 EACH TP ×2 (00:23→20:18)
[2024-05-27] MEDS: LORazepam 2 MG/ML VIAL 1 MG IVP (00:35)
[2024-05-27 06:12] LABS: HCT 34.8 % (36.0-46.0); HGB 11.4 g/dL (11.2-15.7); MCH 31.2 pg (27.0-33.0); MCHC 32.8 % (32.0-36.0); MCV 95 fL (80-95); MPV 9.3 fL (8.0-11.0); Platelet Count 344 10^3/uL (130-400); RBC 3.65 10^6/uL (3.93-5.22); RDW 13.1 % (11.7-14.6); RDW-SD 46.2 fL; WBC 7.23 10^3/uL (4.4-10.8)
[2024-05-27 06:23] LABS: ALT 14 U/L (14-59); AST 11 U/L (15-37); Albumin 3.4 g/dL (3.4-5.0); Alkaline Phosphatase 132 U/L (46-116); Anion Gap 8.2 mmol/L (3-11); BUN 13 mg/dL (7-18); Bilirubin, Total 0.16 mg/dL (0.2-1.0); CO2 24.8 mmol/L (21.0-32.0); CREATININE 0.8 mg/dL (0.55-1.02); Calcium 10.2 mg/dL (8.5-10.1); Chloride 106 mmol/L (98-107); Estimated GFR 79.71 (mL/min/1.73m2); Glucose 105 mg/dL (74-106); Magnesium 1.6 mg/dL (1.8-2.4); Potassium 4.3 mmol/L (3.5-5.1); Sodium 139 mmol/L (136-145); Total Protein 6.6 g/dL (6.4-8.2)
[2024-05-27] MEDS: Docusate Sodium 100 MG CAP PO ×2 (07:58→19:28)
[2024-05-27] MEDS: Famotidine 20 MG TAB PO (07:59)
[2024-05-27] MEDS: Aspirin E.C. 81 MG TABEC PO (07:59)
[2024-05-27] MEDS: Thiamine 100 MG TAB PO (07:59)
[2024-05-27] MEDS: Normal Saline Flush 10 ML SYR IVP ×2 (07:59→20:26)
[2024-05-27] MEDS: Losartan 25 MG TAB PO (07:59)
[2024-05-27] MEDS: Clopidogrel 75 MG TAB PO (07:59)
[2024-05-27] MEDS: Lidocaine 5% Patch 1 PATCH TP (07:59)
[2024-05-27] MEDS: Polyethylene Glycol 3350 17 GM PACKET PO (07:59)
[2024-05-27] MEDS: Escitalopram 10 MG TAB PO (07:59)
[2024-05-27] MEDS: Umeclidinium 7 CAP INHALER 1 CAP IH (08:26)
--- NOTE | 2024-05-27 09:00 | RT.EKG_ITS ---
APPROVED REPORT Exam: Resting ECG Reason for Exam: chest pain Patient Location: I HR:100 bpm ECG Measurements Heart Rate 100 AXIS DE 154 P 74 QRSd 86 QRS 77 QT 327 T 58 QTc 422 Conclusion Sinus tachycardia...rate> 99 Borderline low voltage, extremity leads...all extremity leads <0.6mV I have reviewed and I agree with the emergency room physician's ECG interpretation.
--- NOTE | 2024-05-27 09:41 | W.PM.PROGNOT ---
Date of Service Date of service: 05/27/24 Time of Service: 09:42 Assessment and Plan Assessment and plan (1) TIA (transient ischemic attack): Status: Acute Assessment and plan: Another episode of acute neurologic deficits this morning. Initially this was felt to be hypertensive emergency, but episodes in the past 2 days not a/w spikes in BP. Because this was associated with DURÁN (new?) since starting clopidogrel, will repeat CT w/o to make sure no hemorrhage As long as the CT is negative, continue ASA/clopidogrel and statin to treat TIA With recurrent episodes a/w residual sedation, seizures in DDX, consider EEG in when available. Transfer to ICU given fluctuating neurologic status. (2) Hypertensive emergency: Status: Acute Assessment and plan: -Patient initially presented with signs and symptoms concerning for CVA with an initial NIH score of 18 in the emergency department -However, this was associated with significantly elevated blood pressures above 200 systolic, and neurologic symptoms rapidly improved after the initiation of nicardipine drip and improvement in patient's blood pressures -MRI negative 05/25, not c/w CVA -However, patient has had low blood pressures and during the day 04/24 actually required IV fluids and had vasovagal episode, responded with IV fluid resuscitation -patient had simialar episode AM 05/26 when getting up with PT; -Continue monitoring vitals, holding home antihypertensives at this time and will reinitiate as needed (3) Hypomagnesemia: Start date: 05/24/24 Status: Acute Assessment and plan: - Resolved (4) UTI (urinary tract infection): Start date: 05/24/24 Status: Acute Assessment and plan: Patient did have pyuria and urine culture was performed with Rocephin 1 g IV every 24 hours was given. She is not having symptoms and negative culture so no further treatment indicated. Qualifiers: Urinary tract infection type: acute cystitis Hematuria presence: without hematuria Qualified Code(s): N30.00 - Acute cystitis without hematuria (5) Hyponatremia: Start date: 05/24/24 Status: Acute Assessment and plan: Patient is previous alcohol user but usually does not have persistent hyponatremia though this has occurred in the late summer in the past. Has resolved, she may have been hypovolemic. (6) Hyperlipidemia: Status: Chronic Assessment and plan: With TIA, maximized atorvastatin 80 mg daily. Qualifiers: Hyperlipidemia type: other hyperlipidemia Qualified Code(s): E78.49 - Other hyperlipidemia (7) COPD (chronic obstructive pulmonary disease): Status: Chronic Assessment and plan: Continue outpatient medical therapy. Qualifiers: COPD type: chronic bronchitis Chronic bronchitis type: simple Qualified Code(s): J41.0 - Simple chronic bronchitis (8) Depression: Status: Chronic Assessment and plan: Continue outpatient medical therapy. Qualifiers: Depression Type: persistent depressive disorder Qualified Code(s): F34.1 - Dysthymic disorder (9) DVT prophylaxis: Status: Acute Assessment and plan: She has been less mobile in the past few days, start prophylactic LMWH if CT negative. Subjective Subjective Patient reports: denies shortness of breath or fever Interval history since last seen: Events: Called to room, patient complained of headache and chest pain, numbness in left hand. Corresponded to SVT on telemetry. Chest pain lasted for a few minutes, then resolved. BP was normal during this episode. She states she feels a little loopy. DURÁN is across frontal region. She tells me she has had this since she got here, but told RN this morning it was new. Still feels a little numb left hand, but can move it. No N/V. Per RN she is more sleepy, was up and alert and took her medication and eating prior to this episode. Exam Narrative Exam Narrative: Lying in bed, sleepy but arousable. Oriented to self, hospital, but not town. Responds slowly to questions. NC/AT, neck supple with 2+ carotid pulses sally. Heart regular rhythm, no murmur/gallop. Lungs clear auscultation bilaterally, nl effort. abdomen soft, nondistended, mild epigastric tenderness. Ext non tender, no edema. Neuro: CN 2-12 intact. Strength symmetric sally UE/LE. DTRs 1+ sally ankles/knees, no clonus. Sensation intact in 4 ext to light touch. Speech is slowed. No tremor. Objective Last Vital Signs Temp 36.5 C 05/27/24 08:50 Pulse 102 H 05/27/24 08:50 Resp 18 05/27/24 07:47 BP 149/86 H 05/27/24 08:50 Pulse Ox 96 05/27/24 08:50 Laboratory Results - last 24 hr 05/26/24 05/27/24 23:00 05:46 WBC 7.23 RBC 3.65 L Hgb 11.4 Hct 34.8 L MCV 95 MCH 31.2 MCHC 32.8 D RDW 13.1 Plt Count 344 MPV 9.3 Sodium 139 Potassium 4.3 Chloride 106 Carbon Dioxide 24.8 Anion Gap 8.2 BUN 13 Creatinine 0.8 Est GFR (CKD-EPI 2020) 79.71 Glucose 105 Calcium 10.2 H Magnesium 1.6 L Total Bilirubin 0.16 L AST 11 L ALT 14 Alkaline Phosphatase 132 H Troponin I 9 Total Protein 6.6 Albumin 3.4 Time Spent with Patient Time Spent with Patient: >50 minutes Time was spent: preparing to see the patient(eg.review tests), obtaining and/or reviewing separately otained hiistory, ordering medications,tests, procedures, referring, communicating with other health career development facilitator, indepentently interpreting results, counseling the patient and care coordination
[2024-05-27 09:47] LABS: Troponin I 8 ng/L (<or=51)
--- NOTE | 2024-05-27 10:15 | DI.VRAD_ITS ---
PROCEDURE INFORMATION: Exam: CT Head Without Contrast Exam date and time: 05/27/2024 9:19 AM Age: 69 years old Clinical indication: Other: New DURÁN after staring plavix TECHNIQUE: Imaging protocol: Computed tomography of the head without contrast. COMPARISON: CT HEAD WO 05/26/2024 8:07 PM FINDINGS: Brain: Hypodensities bilaterally, nonspecific, but compatible with changes of small vessel disease. No new intracranial mass, midline shift, acute intracranial hemorrhage, nor abnormal extra-axial fluid collection seen. Donovan-white matter differentiation appears maintained. Cerebral ventricles: Prominence of ventricles, sulci similar to prior study. Paranasal sinuses: Slight partial opacification right side of sphenoid sinus. Otherwise, visualized portions paranasal sinuses included appear clear bilaterally. Mastoid air cells: Visualized portions of mastoid air cells, middle ear cavities included appear clear bilaterally. Bones: No displaced, depressed skull fracture seen. Soft tissues: Unremarkable. Vasculature: Arterial calcification. IMPRESSION: No acute intracranial abnormality seen. Dictated and Authenticated by: Jose Angel Ruth MD. Ordering:SMITA Srivastava MD
--- NOTE | 2024-05-27 10:27 | NUR.NOTE ---
Access chart to reconcile EKG orders for ED with EKG's in [facility]. Nursing Note:
--- NOTE | 2024-05-27 10:32 | NUR.NOTE ---
Addendum entered by Tess Dobson RN 05/27/24 10:51: 0850: Dr. Morrow also ordered a STAT EKG on the patient at this time along with CT order. Was done by respiratory therapy. Original Note: Nursing Note: 05/27/2024 0720: This RN, night RN Mikayla, and RN Krystyna rounded on patient for morning rounds. Patient was lethargic but oriented with no complaints. 0746: This RN went into patient's room for morning assessment and vitals. Vitals were BP 129/68, HR 78, SpO2 98% on RA, 18 RR, and a temperature of 36.2 degrees Celsius. Patient alert and oriented with baseline left-sided clinical interviewer weakness and some bilateral arm pain. Pinpoint pupils and numbness and tingling in extremities that patient reported as her normal baseline. No complaints of chest pain, dizziness, or headache. 0803: director financial services brought in food for patient. This RN assisted patient to a seated position in bed to eat. RN kept patient in bed for safety because of history of losing consciousness while standing, dangling, and ambulating. Patient swallowed all medications appropriately and carried on conversation with this RN for a long period of time with no issues. 0826: This RN was summoned to assess patient. ICU called medical surgical floor to notify of patient heart rate in the 150s. On arrival, patient stated she thought she choked and was now very lethargic and hard to arouse. 0830: Krystyna RN, Charge Nurse Martha SMYTH, and LEGAL ASSOCIATE Colette present for episode. Patient complaining of LUE numbness and headache above her eyes. Patient complaining of chest pain. Patient tachycardic with a heart rate between 112 and 120. BP 131/84 with a MAP of 88, SpO2 95% on RA, and temperature 36.6 degrees Celsius. 0836: Dr. Morrow present in patient room with the same RNs present. Provider did neuro assessment and patient reported some trouble breathing and staying awake. Talk of repeat head CT. 0850: Dr. Morrow orders are as follows: Transfer to ICU following repeat CT. Possible EEG and MRI on Tuesday. Patient repeat vitals BP 149/86 with a MAP of 105, HR 102, SpO2 96% on RA, and temperature 36.5 degrees Celsius.
--- NOTE | 2024-05-27 10:48 | NUR.NOTE ---
Nursing Note: This RN gave report on this patient around 0900 to LIBRA Alvarenga in ICU. Patient was put on portable heart monitor and tranferrred to CT by this RN and LIBRA Alvarenga on stratcher with no issues. Patient transferred back to ICU bed in room 220. No other complaints or issues.
[2024-05-27] MEDS: MAGNESIUM SULFATE 2 GM/50 ML BAG IV_INF (15:37)
[2024-05-27] MEDS: Normal Saline 250 ML 500 ML IV (17:58)
[2024-05-27] MEDS: Mylanta Suspension 30 ML CUP PO (19:27)
[2024-05-27] MEDS: Acetaminophen 325 MG TAB PO (19:27)
[2024-05-27] MEDS: Mirtazapine 15 MG TAB PO (19:28)
[2024-05-27] MEDS: Atorvastatin 40 MG TAB 80 MG PO (19:28)
[2024-05-28] VITALS (51 sets, daily range): BP systolic 100–162; BP diastolic 58–90; PULSE 70–112; RESP 11–27; TEMP 36.7–37; O2SAT 89–97
[2024-05-28 06:43] LABS: Magnesium 2.1 mg/dL (1.8-2.4)
--- NOTE | 2024-05-28 07:00 | DI.MRI_ITS ---
Exam(s) MR BRAIN WO/W EXAM: MR BRAIN WO/W CLINICAL HISTORY: recurrent episodes left sided weakness TECHNIQUE: Multiplanar multisequence MRI of the brain was performed. CONTRAST MATERIAL: IV Contrast: 9 mL of Dotarem contrast administered. COMPARISON: MR MR BRAIN WO from 05/25/[address] HEAD WO from 05/27/2024 FINDINGS: VENTRICLES AND EXTRA AXIAL SPACES: Normal in size and morphology for the patient's age. HEMORRHAGE: None. CEREBRAL PARENCHYMA: No focus of restricted diffusion to suggest acute infarct. No space-occupying le jong identified. There are multiple areas of hyperintense signal seen in the white matter on the FLAI R and T2 weighted images most suggestive of chronic microvascular ischemic disease. MIDLINE SHIFT: None. BRAINSTEM/CEREBELLUM: Normal. CALVARIUM: Normal. ENHANCEMENT: No suspicious enhancement identified. VISUALIZED PARANASAL SINUSES/MASTOIDS: Clear. PO[place]: Normal flow void. PITUITARY GLAND: Unremarkable. OTHER FINDINGS: IMPRESSION: 1. Findings consistent with age-appropriate chronic microvascular ischemic disease. 2. No evidence of an acute infarct, intracranial mass or enhancing lesion. DATA REPOSITORY:
[2024-05-28] MEDS: Polyethylene Glycol 3350 17 GM PACKET PO (08:16)
[2024-05-28] MEDS: Lidocaine 5% Patch 1 PATCH TP (08:19)
[2024-05-28] MEDS: Losartan 25 MG TAB PO (08:20)
[2024-05-28] MEDS: Clopidogrel 75 MG TAB PO (08:20)
[2024-05-28] MEDS: Famotidine 20 MG TAB PO (08:20)
[2024-05-28] MEDS: Escitalopram 10 MG TAB PO (08:20)
[2024-05-28] MEDS: Aspirin E.C. 81 MG TABEC PO (08:20)
[2024-05-28] MEDS: Docusate Sodium 100 MG CAP PO (08:20)
[2024-05-28] MEDS: Thiamine 100 MG TAB PO (08:20)
--- NOTE | 2024-05-28 08:45 | W.PM.PROGNOT ---
Date of Service Date of service: 05/28/24 Time of Service: 08:45 Assessment and Plan Assessment and plan (1) TIA (transient ischemic attack): Status: Acute Assessment and plan: Recurrent episodes of acute left sided neurologic deficits Initially this was felt to be hypertensive emergency, but episodes in the past 3 days not a/w spikes in BP. Has had 3 CTs, will not repeat after this episode Per neurology recommendations, MRI w/wo today, initial MRI w/o did not show acute infarct With recurrent episodes a/w residual sedation, seizures in DDX, EEG today when available Continue DAPT, high intensity statin Continue to monitor in ICU given fluctuating neurologic status. (2) Hypertensive emergency: Status: Acute Assessment and plan: -Patient initially presented with signs and symptoms concerning for CVA with an initial NIH score of 18 in the emergency department, but in setting of SBP >200. -neurologic symptoms rapidly improved after the initiation of nicardipine drip and improvement in patient's blood pressures, MRI negative, so felt this was hypertensive emergency. -Since then, patient has had low blood pressures and during the day 04/24 actually required IV fluids and had vasovagal episode, responded with IV fluid resuscitation -patient had similar episode AM 05/26 when getting up with PT, recieved another bolus of saline 05/27 -Started on low dose oral losartan, but with BP soft and ongoing symptoms I am stopping this. With ongoing symptoms goal SBP mildly elevated per neurology (3) Hyponatremia: Start date: 05/24/24 Status: Acute Assessment and plan: Patient is previous alcohol user but usually does not have persistent hyponatremia though this has occurred in the late summer in the past. Has resolved, she may have been hypovolemic on presentation (4) Hyperlipidemia: Status: Chronic Assessment and plan: With TIA, maximized atorvastatin 80 mg daily. Qualifiers: Hyperlipidemia type: other hyperlipidemia Qualified Code(s): E78.49 - Other hyperlipidemia (5) COPD (chronic obstructive pulmonary disease): Status: Chronic Assessment and plan: Continue outpatient medical therapy. Qualifiers: COPD type: chronic bronchitis Chronic bronchitis type: simple Qualified Code(s): J41.0 - Simple chronic bronchitis (6) DVT prophylaxis: Status: Acute Assessment and plan: She has been less mobile in the past few days, start prophylactic LMWH. Subjective Subjective Patient reports: denies diarrhea, nausea, vomiting or fever Interval history since last seen: 24 hr: transferred to ICU after episode on floor of headache, tachycardia with breif chest pain, left sided weakness, somnolence. Repeat CT after that event negative, EKG reassuring Another episode in afternoon and again this morning with DURÁN, left sided weakness, and somnolence, no tachycardia or chest pain. Had heartburn in evening improved with mylanta O2 sat 87% while sleeping, given 1 liter, off this morning. I saw her before this morning's episode, at that point she felt general fatigue despite sleeping well all night. no left sided numbness/weakness. No chest pain or dyspnea or cough. Episodes of spells do seem to happen after eating. Not dizzy when sitting up with exam. Exam Narrative Exam Narrative: Lying in bed, initially sleepy but becomes alert. Responds appropriately to questions. Heart regular rhythm, no murmur/gallop. Lungs clear auscultation bilaterally, nl effort. abdomen soft, nondistended, no tenderness. Ext warm, non tender, no edema. Neuro: CN 2-12 intact. Strength symmetric sally UE/LE. Sensation intact in 4 ext to light touch. Speech is normal. No tremor. Objective Last Vital Signs Temp 36.8 C 05/28/24 07:30 Pulse 105 H 05/28/24 07:56 Resp 22 05/28/24 07:56 BP 101/74 05/28/24 07:56 Pulse Ox 97 05/28/24 07:56 Laboratory Results - last 24 hr 05/27/24 05/28/24 09:10 05:34 Magnesium 2.1 Troponin I 8 Time Spent with Patient Time Spent with Patient: >50 minutes Time was spent: preparing to see the patient(eg.review tests), obtaining and/or reviewing separately otained hiistory, ordering medications,tests, procedures, referring, communicating with other health patient centered care specialist, indepentently interpreting results, counseling the patient and care coordination
[2024-05-28] MEDS: Mylanta Suspension 30 ML CUP PO (09:10)
--- NOTE | 2024-05-28 09:11 | PDOC.CMPRO ---
Date of service: 05/28/24 Time of Service: 11:07 Care Management Progress Note Progress Note Text Progress Note Text: Karla was sitting up in bed eating her lunch when CM met with her. She stated that she has had a couple more episodes this weekend, and that she is having weakness on her left side. Per report, she will have an MRI and an EEG today; MD may re consult Neuro for recommendations going forward. CM discussed her discharge plan, which will be for her to return to [facility], for which she expressed understanding. CM will continue to follow. Discharge Potential Discharge Needs: Consult Consult Services Needed: Other (Neuro), Imaging/labs, PT Evaluation, PCP F/U Appt and Other (EEG) Anticipated Barriers to Discharge: None Identified Patient/Family Education Needs: Review discharge instructions, discuss Ask Me Three Transportation: Facility Transport Plan: Anticipate Karla will return to [facility] once medically cleared. She will likely transport via facility wheelchair van, coordinated by CM. She will follow up with facility providers and her discharge plan of care. CM will continue to follow. SDOH(Care Management) Screening Will the Patient Participate in the Screening?: Yes Do you worry about having a steady place to live?: no In the past 12 months, have you had to go without electric, gas, oil or water in your home?: no Have you or anyone in your house had to go without enough food to eat?: no Has lack of transportation kept you from medical appointments or from doing things needed for daily living?: no Has anyone in your support network made you feel unsafe for any reason?: no Social Determinants of Health Comments(SDOH Details): pt lives in shelter care facility
[2024-05-28] MEDS: Enoxaparin 40 MG/0.4 ML SYR SC (09:36)
[2024-05-28] MEDS: Acetaminophen 325 MG TAB PO (09:37)
[2024-05-28] MEDS: Normal Saline Flush 10 ML SYR IVP ×2 (09:46→21:09)
[2024-05-28] MEDS: Gadoterate meglumine 20 ML VIAL 9 ML IVP (12:13)
--- NOTE | 2024-05-28 12:17 | NUR.NOTE ---
Reconciling EKG orders with EKG's in [facility]. There is no EKG associated with this order. Order cancelled. Nursing Note:
--- NOTE | 2024-05-28 13:45 | IN_ITS ---
PT Notes Visit Reasons: TIA, HTN, COPD Physical Therapy Inpatient Initial Evaluation Date: 05/28/2024 Referring Doctor: Atif Morrow MD PT Orders: PT CONSULT: Fall Safety Assessment. Eval for Assistive Device. TIA, intermittent left weakness Precautions: Fall. Standard. Activity as tolerated. Patient Profile/Admitting Diagnosis: Karla is a 69-year-old female who presented to the ED on 05/24/2024 due to difficulty speaking, generalized weakness, and facial droop. Patient is admitted for management of symptoms of TIA, hypertension, hypomagnesemia, urinary tract infection, hyponatremia, hyperlipidemia, COPD, and depression. Patient needed to be sent to the ICU on 05/26/2024 for close monitoring of fluctuating neurologic symptoms and variable level of alertness/responsiveness IMPRESSION from Brain MRI on 05/25/2024: Chronic small-vessel white matter ischemic changes in bilateral periventricular white matter as well as throughout the cindy. There is no evidence of restricted diffusion to suggest acute ischemic event. No evidence of intracranial hemorrhage. IMPRESSION from Brain MRI on 05/28/2024: 1. Findings consistent with age-appropriate chronic microvascular ischemic disease. 2. No evidence of an acute infarct, intracranial mass or enhancing lesion. PMHX: All Active Problems (Updated 05/25/24 @ 03:43 by Jose Angel Peter) Hyperlipidemia (Chronic) UTI (urinary tract infection) (Acute) Depression (Chronic) Hyponatremia (Acute) Hypomagnesemia (Acute) COPD (chronic obstructive pulmonary disease) (Chronic) HTN (hypertension) (Chronic) TIA (transient ischemic attack) (Acute) COVID-19 (Acute) Social History/Home Situation: Patient stated that she lives at the [facility] and that she used a walker there. Equipment Owned/DME: FWW at the SNF Subjective: Patient reported continued headache as well as numbness and weakness on the L upper extremity and the L lower extremity. Not dizzy at rest. Objective: General Observation: Resting in bed. HOB 45 degrees elevated. Mental Status: Alert and oriented only to self. Pain: Headache Vital Signs: Closely monitored by nursing staff ROM: Right Upper Extremity: Shoulder Flexion allows up to about 90 degrees only with pain at end of range. Shoulder abduction allows up to about 90 degrees only with pain at end of range. Elbow flexion WFL. Wrist flexion WFL. Functional opening and closing of hand WFL. Left Upper Extremity: Shoulder Flexion allows up to about 60 degrees only with pain at end of range. Shoulder abduction allows up to about 40 degrees only with pain at end of range. Elbow flexion WFL. Wrist flexion WFL. Functional opening and closing of hand weak. Right Lower Extremity: Hip flexion WFL. Hip abduction WFL. Knee flexion WFL. Ankle dorsiflexion WFL. Ankle plantarflexion WFL. Left Lower Extremity: Hip flexion lacks the last 25% of AROM. Hip abduction WFL. Knee flexion 30 degrees to 80 degrees. Knee extension -30 degrees. Ankle dorsiflexion to neutral only. Ankle plantarflexion WFL. Strength: Right Upper Extremity: Shoulder flexors 3-/5. Shoulder abductors 3-/5. Elbow flexors 4-/5. Elbow extensors 4-/5. Clay Temperer weak but functional. Left Upper Extremity: Shoulder flexors 2-/5. Shoulder abductors 2-/5. Elbow flexors 4-/5. Elbow extensors 4-/5. Clay Temperer weaker but functional. Right Lower Extremity: Hip flexors 4-/5. Hip abductors 4-/5. Knee flexors 4-/5. Knee extensors 4-/5. Ankle dorsiflexors 4-/5. Ankle plantarflexors 4-/5. Left Lower Extremity: Hip flexors 3-/5. Hip abductors 3-/5. Knee flexors 3-/5. Knee extensors 3-/5. Ankle dorsiflexors 3-/5. Ankle plantarflexors 4-/5. Bed Mobility/Transfers: Deferred due to odered EEG testing. Gait: Deferred due to odered EEG testing. Balance: Deferred due to odered EEG testing. Special Tests: Mobility Limitations Standardized Measure [facility] 6 clicks Basic Mobility Inpatient Short Form: Raw Score: 13 CMS Score: 65% deficit Informed Consent/Education: Patient was instructed in purpose of PT consult and plan of care. Agreeable to proceed with established PT POC to achieve personal goals. Assessment: Patient remains at risk for falls due to recurrent change in mentation and general muscular tone with exertion and mobility performance. L UE and L LE weaker than the R. Patient now with 2 episodes of fainting without loss of consciousness while with PT- -one on 05/26/2024 and the other one on05/27/2024. Another same incident happened with ICU nurse morning of . Further mobility assessment was deferred per recommendation of hospitalist until patient's diagnosis is definitive. Advised nursing to provided 2 assist at all times for transfers. Patient presents with clinical signs and symptoms consistent with current/admitting diagnoses that have resulted to mobility limitations, gait instability, generalized weakness, and overall ADL decline as demonstrated by the following impairment level findings: 1. Decreased strength to B UE/LE major muscle groups 2. Impaired sitting/standing balance 3. Impaired activity tolerance 4. Limitation of joint range of motion in b shoulders (chronic) 5. Fainting spells Impairments are contributing to the following functional limitations: 1. Decline in bed mobility skills 2. Decline in transfer skills 3. Difficulty with ambulation without assistive device and physical assistance 4. Increased completion time for mobility ADL performance 5. Increased risk for falls 6. Difficulty with managing steps alone safely Patient is assessed as a 52156 moderate complexity based on the following: History: 69-year-old female with past medical history as indicated above Examination: Demonstrable impairment in strength, balance, and mobility level with underlying impairments and functional limitations as exhibited above as well as deficit score of 65% utilizing the [facility] Mobility Inpatient Short Form Presentation: Evolving Decision Makin moderate complexity Goals: Goals X1 week 1. Supine-Sit independent 2. Sit-Supine independent 3. Sit-Stand independent 4. Stand-Sit independent with FWW 5. Bed-Chair independent with FWW 6. Chair-Bed independent with FWW 7. Independent gait on level surface with use of FWW for at least 150 feet without report of pain nor dyspnea 8. Good static and dynamic standing balance/tolerance Plan of Care/Treatment Plan: 1-2x/day, 7 days/week x 1 week. Plan of care has been reviewed with the [facility] providing the service under Physical Therapy direction. Initiate Physical Therapy intervention for pain management as needed, strengthening, bed mobility, transfers, gait, stairs, balance training, and use of assistive device. DISCHARGE RECOMMENDATIONS: [] Home with no services [] [] Home with services [specify] [] Home with outpatient PT [] [] SNF for continued rehabilitation [] [] [facility] [] [] SNF versus LTC based on ability to participate and progress [] [X] Return to SNF with subacute rehab for continued mobility progression and fall reduction strategies TREATMENT CODE/TIME: 54343 x 25 minutes for 1 unit (11:02-11:27). Thank you for the opportunity to participate in the care of this patient. Bindu Bran PT, DPT, CLT [facility] [place], [place]
[2024-05-28 17:45] LABS: Parathyroid Hormone,Intact 114.1 pg/mL (19.0-88.0)
--- NOTE | 2024-05-28 18:43 | PDOC.EEG_ITS ---
Neurology EEG EEG: [facility] Department of Neurology INPATIENT EEG REPORT Date of Recordin05/28/24 Interpreting Physician: Dr. Faviola Cruz Reason for study: Karla West is currently admitted with recurrent episodes of left-sided neurological deficits. Current Medications: Current Medications Acetaminophen (Acetaminophen 325 Mg Tab) 325 - 650 mg PO Q4H PRN PRN Last Admin: 05/28/24 09:37 Dose: 650 mg Al Hydrox/Mg Hydrox/Simethicone (Mylanta Suspension 30 Ml Cup) 30 ml PO Q2H PRN PRN Last Admin: 05/28/24 09:10 Dose: 30 ml Albuterol Sulfate (Albuterol Hfa 8 Gm 60 Puff Inh) 0 puff IH Q6H PRN PRN Aspirin (Aspirin E.C. 81 Mg Tabec) 81 mg PO DAILY [facility] Last Admin: 05/28/24 08:20 Dose: 81 mg Atorvastatin Calcium (Atorvastatin 40 Mg Tab) 80 mg PO QPM [facility] Last Admin: 05/27/24 19:28 Dose: 80 mg Clopidogrel Bisulfate (Clopidogrel 75 Mg Tab) 75 mg PO DAILY [facility] Last Admin: 05/28/24 08:20 Dose: 75 mg Device (Inhaler, Assist Device) 1 each MC DIRECTED [facility] Docusate Sodium (Docusate Sodium 100 Mg Cap) 100 mg PO BID [facility] Last Admin: 05/28/24 08:20 Dose: 100 mg Enoxaparin Sodium (Enoxaparin 40 Mg/0.4 Ml Syr) 40 mg SC Q24H [facility] Last Admin: 05/28/24 09:36 Dose: 40 mg Escitalopram Oxalate (Escitalopram 10 Mg Tab) 10 mg PO DAILY [facility] Last Admin: 05/28/24 08:20 Dose: 10 mg Famotidine (Famotidine 20 Mg Tab) 20 mg PO DAILY [facility] Last Admin: 05/28/24 08:20 Dose: 20 mg Gadoterate Meglumine (Gadoterate Meglumine 20 Ml Vial) 9 ml IVP DIRECTED [facility] Stop: 06/27/24 23:59 Last Admin: 05/28/24 12:13 Dose: 9 ml IV Miscellaneous Supplies (Iv Access) 1 each IV DIRECTED [facility] Lidocaine (Lidocaine 5% Patch) 1 patch TP DAILY [facility] Last Admin: 05/28/24 08:19 Dose: 1 patch Magnesium Hydroxide (Milk Of Magnesia 30 Ml Cup) 30 ml PO DAILY PRN PRN Mirtazapine (Mirtazapine 15 Mg Tab) 15 mg PO HS [facility] Last Admin: 05/27/24 19:28 Dose: 15 mg Miscellaneous (Lidocaine Patch Removal) 1 each TP HS [facility] Last Admin: 05/27/24 20:18 Dose: 1 each Ondansetron HCl (Ondansetron O.D.T. 4 Mg Tabef) 4 mg PO Q8H PRN PRN Pt's Own Cholecalciferol ( Vitamin D3) 1,250 Mcg (50,000 Unit) Cap 1 each PO Tu@0830 DREW Polyethylene Glycol (Polyethylene Glycol 3350 17 Gm Packet) 17 gm PO BID DREW Last Admin: 05/28/24 08:16 Dose: 17 gm Sodium Chloride (Normal Saline Flush 10 Ml Syr) 0 ml IVP PRN PRN Last Admin: 05/26/24 22:10 Dose: 10 ml Sodium Chloride (Normal Saline Flush 10 Ml Syr) 0 ml IVP BID [facility] Last Admin: 05/28/24 09:46 Dose: 40 ml Sodium Chloride (Normal Saline 10 Ml Vial) 0 ml IJ DIRECTED PRN Thiamine HCl (Thiamine 100 Mg Tab) 100 mg PO DAILY [facility] Last Admin: 05/28/24 08:20 Dose: 100 mg Umeclidinium [place] (Umeclidinium 7 Cap Inhaler) 1 cap IH DAILY [facility] Last Admin: 05/28/24 16:15 Dose: Not Given METHODS: A 21 channel digitized electroencephalogram was performed in the [facility] Med/Surg Floor or ICU. The 10/20 international system of electrode placement was used and bipolar and referential electrode montages were recorded. In addition to EEG the patient was monitored for EKG and lateral/vertical eye movements. Activation procedures of photic stimulation and hyperventilation were performed if applicable. Video was used during activation procedures and during events where applicable. The duration of the recording was 30 minutes. DESCRIPTION OF EEG: The patient was noted to be awake, drowsy, and asleep during the recording. During maximal wakefulness a 7-Hz posterior background rhythm was present which was well-modulated, symmetrical, reactive to eye opening, and of moderate voltage. With eye opening the background activity changed to a low voltage mixture of alpha, beta, and occasional theta range frequencies. Faster freq uencies were present in the bilateral anterior head regions. There was a normal anterior-posterior voltage gradient. During drowsiness, there was attenuation of the posterior dominant background rhythm and vertex waves. Stage II sleep was present with symmetrical sleep spindles, K-complexes, and vertex waves. There was continuous, non-rhythmic, generalized, moderate amplitude theta slowing throughout. Activating Procedures: Photic stimulation was performed which produced a symmetrical posterior driving response at various flash frequencies. Hyperventilation was not performed. EKG: EKG revealed normal sinus rhythm. INTERPRETATION: This EEG is abnormal due to mild generalized slowing and slowing of the PDR. PRIOR EEG: none CLINICAL CORRELATION: The background slowing is suggestive of a mild diffuse cerebral encephalopathy of broad differential including toxic-metabolic etiology. No focal regions of cerebral dysfunction or epileptiform activity was present. Clinical correlation is advised. Faviola Cruz MD Date of service: 05/28/24
[2024-05-28] MEDS: Atorvastatin 40 MG TAB 80 MG PO (21:09)
[2024-05-28] MEDS: Mirtazapine 15 MG TAB PO (21:09)
[2024-05-29] VITALS (30 sets, daily range): BP systolic 86–150; BP diastolic 49–82; PULSE 68–118; RESP 12–32; TEMP 37; O2SAT 88–100
--- NOTE | 2024-05-29 | DI.US_ITS ---
Exam(s) US CAROTID EXAM: US CAROTID CLINICAL HISTORY: recurrent left arm weakness with dizziness. TECHNIQUE: Ultrasound carotids performed using grayscale, color-flow, and spectral Doppler imaging. COMPARISON: No exams were available for comparison FINDINGS: RIGHT CAROTID ARTERY: Plaque: Marked calcific plaque is seen in the carotid bulb and at the bifurcation with plaque seen in both the proximal ECA and ICA. Velocity elevation: None. LEFT CAROTID ARTERY: Plaque: Moderate calcific plaque is seen in the mid and distal common carotid artery with calcific pl aque seen in the carotid bulb and the proximal ICA. Velocity elevation: None. VERTEBRAL ARTERIES: The vertebral arteries are antegrade. Measurements: R Bulb: 81.5cm/s PS / 21.7cm/s ED R CCA: 75.3cm/s PS / 20.7cm/s ED R ECA: 79.4cm/s PS / 16.2cm/s ED R ICA Prox: 94cm/s PS / 25.4cm/s ED R ICA Mid: 70.4cm/s PS / 20cm/s ED R ICA Distal: 75.2cm/s PS /23.5cm/s ED R Vert: 160.9cm/s PS / 36.2cm/s ED R SVR: 1.2 R DVR: 1.2 L Bulb: 105.7cm/s PS / 22.8cm/s ED L CCA: 102.2cm/s PS / 27.1cm/s ED L ECA: 199.4cm/s PS / 25.3cm/s ED L ICA Prox: 87cm/s PS / 17cm/s ED L ICA Mid: 90.4cm/s PS / 28.2cm/s ED L ICA Distal: 93.4cm/s PS / 28.2cm/s ED L Vert: 84.8cm/s PS / 17.1cm/s ED L SVR: 1 L DVR: 0.8 IMPRESSION: 1. No evidence for hemodynamically significant internal carotid artery stenosis. 2. Moderate to severe calcific plaque bilateral is seen as described above. 3. Elevated velocity seen in the left ECA suggesting at least 50 percent stenosis. Criteria for Carotid Stenosis: Normal: ICA PSV <125 cm/s no plaque or intimal thickening is visible. <50% stenosis: ICA PSV <125 cm/s and plaque or intimal thickening is visible. 50-69% stenosis: ICA PSV is 125-250 cm/s and plaque is visible. >70% stenosis to near occlusion: ICA PSV >250 cm/s with visible plaque and luminal narrowing. DATA REPOSITORY:
[2024-05-29] MEDS: Acetaminophen 325 MG TAB PO (03:22)
[2024-05-29] MEDS: Umeclidinium 7 CAP INHALER 1 CAP IH (08:18)
[2024-05-29] MEDS: Thiamine 100 MG TAB PO (08:39)
[2024-05-29] MEDS: Lidocaine 5% Patch 1 PATCH TP (08:39)
[2024-05-29] MEDS: Aspirin E.C. 81 MG TABEC PO (08:39)
[2024-05-29] MEDS: Escitalopram 10 MG TAB PO (08:39)
[2024-05-29] MEDS: Famotidine 20 MG TAB PO (08:39)
[2024-05-29] MEDS: Clopidogrel 75 MG TAB PO (08:39)
[2024-05-29] MEDS: Enoxaparin 40 MG/0.4 ML SYR SC (08:39)
[2024-05-29] MEDS: Normal Saline Flush 10 ML SYR IVP (08:40)
--- NOTE | 2024-05-29 11:05 | CMPROGNOTE_ITS ---
Date of service: 05/29/24 Time of Service: 11:06 Care Management Progress Note Progress Note Text Progress Note Text: Karla was sitting up in bed when CM met with her. She was waiting for her tele neurology appointment to start. She stated that she is doing ok, and expressed understanding of her discharge plan, although per MD, she is not medically cleared for discharge. The hospitalist is waiting for input from neurology to determine the next steps in her care which, per report, will likely be transfer to [facility] vs return to [facility] with outpatient follow up. CM reached out to admissions at [facility] regarding her potential return to their facility tom[facility] w, if she becomes medically cleared. CM will continue to follow. Discharge Potential Discharge Needs: PCP F/U Appt Anticipated Barriers to Discharge: None Identified Patient/Family Education Needs: Review discharge instructions, discuss Ask Me Three Transportation: Facility Transport Plan: Anticipate Karla will return to [facility] once medically cleared vs transfer to [facility]. She will likely transport via facility wheelchair van, coordinated by CM. She will follow up with facility providers and her discharge plan of care. CM will continue to follow. SDOH(Care Management) Screening Will the Patient Participate in the Screening?: Yes Do you worry about having a steady place to live?: no In the past 12 months, have you had to go without electric, gas, oil or water in your home?: no Have you or anyone in your house had to go without enough food to eat?: no Has lack of transportation kept you from medical appointments or from doing things needed for daily living?: no Has anyone in your support network made you feel unsafe for any reason?: no Social Determinants of Health Comments(SDOH Details): pt lives in [facility] facility
--- NOTE | 2024-05-29 17:44 | DSE_ITS ---
Date of service: 05/29/24 Time of Service: 17:44 DS: Diagnosis Discharge Diagnosis (1) TIA (transient ischemic attack): Status: Acute (2) Hypertensive emergency: Status: Acute (3) Hyponatremia: Status: Acute (4) Hyperlipidemia: Status: Chronic (5) COPD (chronic obstructive pulmonary disease): Status: Chronic (6) DVT prophylaxis: Status: Acute Discharge Plan Disposition Patient Disposition: Transfer-Acute Inpatient Care Specific Acute Inpt Facility: [facility] Condition: Fair Discharge Details Reason For Visit: TIA, HTN, COPD Admit Date/Time: 05/27/24 09:01 Admit Provider: Jose Angel Peter Attending Provider: Atif Morrow [facility] Hospital Course: 69 yo M with history of COPD, alcohol use disorder in remission, and chronic physical debilitation residing in [facility] since left humerus fracture treated at [facility] in September 2023 who was sent from the longterm on 05/24/24 with report of acute onset aphasia, left facial droop, and left hand weakness. She was initially hypertensive with SBP >200, and symptoms resolved with treatment of HTN with nicardipine drip, so the initial assessment by teleneurology was hypertensive encephalopathy and tPA not indicated. Aspirin recommended. MRI brain without contrast did not show acute stroke. CTA of head and neck was normal with exception of severe stenosis of left subclavian artery. The patient continued to have episodes of intermittent acute mental status depression associated with general weakness, dizziness, and left sided arm and hand numbness and weakness. Facial droop or left weakness were not observed. She did not loose conciousness during these episodes. They were not associated with highly elevated blood pressure. These episodes seemed to be triggered by activity such as eating or workign with physical therapy. She needed assistance to avoid falling when working with PT and episodes occurred. Some of the episodes were associated with chest pain and headache but no EKG changes. CTs were repeated twice to assess for hemorrahge and were negative both times. Orthostatic hypotension was noted at least once associate with an episode. After an episode on her second day of admission that was not associated with hypertension, teleneurology was reconsulted and the patient was loaded on clopidogrel. Repeat MRI with/without recommended and this was done 05/28 and again was normal. EEG on 05/28 showed diffuse slowing but no clear seizures. She continued to have at least 2-3 episodes per day, possible more that were not noted. Further history revealed she had had similar spells since late teen years though less frequent. She was a heavy drinker and her friends attributed her spells to blacking out from drinking. She resides in a longterm and denies recent alcohol use. On 05/29 her differential blood pressures were documented given the concern that her symptoms may be attributed to subclavian steal. Her blood pressure was 115/73 on right and 86/64 on left. During the blood pressure inflation on the left she had an episode in front of the provider. She stared blankly, was slow to respond, and then stated she was dizzy like she could pass out, though she was awake during the episode and had no abnormal movement. Her left hand was weak, but cranial nerves were intact and LE strength was symmetric. Vascular surgery consulted, but they were not sure the symptoms could be attributed to the subclavian stenosis. Vascular ultrasound of neck on 05/29 showed anterograde flow in vertebral arteries, moderate plaque in the carotids bilaterally with >50% stenosis. Teleneurology was reconsulted and agreed that it was not clear. They recommended continuous EEG as the next step. Case was reviewed with Dr. Marin from neurology who accepted the patient as a transfer. Home Meds and New Rx's Prescriptions: No Action atorvastatin 40 MG tablet 40 mg PO DAILY lisinopril 5 MG tablet 5 mg PO DAILY tiotropium bromide [Spiriva with HandiHaler] 18 MCG capsule, w/inhalation device 18 mcg Inhalation DAILY thiamine HCl (vitamin B1) 100 MG tablet 100 mg PO DAILY naproxen [Naprosyn] 500 MG tablet 500 mg PO BID hydrocodone-acetaminophen [[place]] 1 EACH tablet 1 - 2 tab PO PRN PRN prednisone 20 mg tablet 40 mg PO DAILY Qty: 8 0RF acetaminophen [Pain Relief (acetaminophen)] 325 mg tablet 650 mg PO TID PRN atorvastatin 10 mg tablet 10 mg PO QHS cholecalciferol (vitamin D3) [Decara] 1,250 mcg (50,000 unit) capsule 50,000 unit PO QWEEK Patient Comments: takes every Tuesday famotidine [Acid Controller] 20 mg tablet 20 mg PO QHS metoprolol succinate [Toprol XL] 25 mg tablet extended release 24 hr 25 mg PO DAILY albuterol sulfate 90 mcg/actuation HFA aerosol inhaler 1 inh inhalation Q6H loperamide 2 mg 2 mg PO .Q24 PRN melatonin 3 mg 3 mg PO .Q24 HS PRN (Reason: Do not give after 2 am) magnesium hydroxide 400 mg 400 mg PO QHS PRN (Reason: Constipation give at bedtime if no BM in 3 days) proventil hfa 108 mcg 1 puff inhalation Q6H metoclopramide HCl 5 mg tablet 5 mg PO Q8H PRN (Reason: for nausea 30 minutes prior to meals) docusate sodium 100 mg capsule 100 mg PO DAILY bisacodyl [Dulcolax (bisacodyl)] 10 mg suppository 10 mg WA DAILY PRN Patient Comments: for constipation if no result from MOM and/or by next shift escitalopram oxalate 10 mg tablet 10 mg PO DAILY Enema 19-7 gram/118 mL enema 118 ml WA DAILY PRN Patient Comments: for constipation if no result from Dulcolax within 2 hours. If no results from fleet enema, call MD/advanced practice provider ([facility]) for further orders Incruse Ellipta 62.5 mcg/actuation blister with device 1 inh inhalation DAILY lidocaine 5 % adhesive patch,medicated 1 patch topical DAILY Rx Instructions: leave on most painful area for up to 12 hrs metoprolol succinate 25 mg tablet extended release 24 hr 12.5 mg PO DAILY Patient Comments: Hold for SBP 110 or less polyethylene glycol 3350 [Miralax] 17 gram/dose powder 17 g PO DAILY mirtazapine 15 mg tablet 15 mg PO HS Discharge Instructions Activity:: Activity as Tolerated Equipment/Supplies:: No Equipment Needed Diet:: As Tolerated DS: Summary Time Spent with Patient providing and/or coordinating discharge services: Greater than 30 minutes Status at Discharge Functional status at discharge: bed bound Overall status at discharge: patient is not back to baseline Mental Status: mental status grossly normal Speech and Movement: speech and movement normal Mood: congruent mood Affect: normal affect Quality:SDOH Health Related Social Needs: No Data to Display Exam Narrative Exam Narrative: Lying in bed, alert and oriented (see discharge summary about acute episode). Responds appropriately to questions. Heart regular rhythm, no murmur/gallop. Lungs clear auscultation bilaterally, nl effort. abdomen soft, nondistended, no tenderness. Ext warm, non tender, no edema. Neuro: CN 2-12 intact. Strength symmetric sally UE/LE after episode, 4/5 left hand during episode. Sensation intact in 4 ext to light touch. Speech is normal. No tremor. Psych Mental Status: mental status grossly normal Speech and Movement: speech and movement normal Mood: congruent mood Affect: normal affect DS: Data Vitals/I&O Vitals and I&O: Vital Signs Temperature 37.0 C 05/29/24 08:21 Temperature Source Tympanic 05/29/24 03:25 Pulse 85 05/29/24 08:23 Pulse Rhythm Regular 05/24/24 21:44 Pulse 83 05/29/24 08:23 Respiratory Rate 13 05/29/24 08:23 Respiratory Effort Normal, Non-Labored 05/27/24 10:00 Respiratory Depth Normal 05/27/24 10:00 Respiratory Pattern Normal 05/27/24 10:00 Blood Pressure 86/64 L 05/29/24 08:23 Blood Pressure Mean 71 05/29/24 08:23 Blood Pressure Position Supine 05/27/24 10:00 Pulse Oximetry 100 05/29/24 08:23 Oxygen Delivery Method Room Air 05/29/24 08:20 Oxygen Flow Rate 0 05/29/24 08:20 Pain Level 5 05/29/24 03:25 Comment done at 0325 05/29/24 06:25 Comment Left Arm Automatic 05/28/24 11:05 Intake & Output 05/28/24 05/29/24 05/29/24 23:59 11:59 23:59 Intake Total 1130 / 1890 720 / 720 Output Total 1100 / 2270 1025 / 1025 Balance 30 / -380 -305 / -305 Weight 46.8 kg Intake: IV Oral 1120 / 1880 720 / 720 Output: Urine 1100 / 2270 1025 / 1025 Other: Urine Color Yellow Yellow Urine Appearance Clear Clear Stool Size Small Stool Characteristics Soft Formed Liquid Brown Data Completed and Pending Labs on day of discharge: Labs from last 24 hours 05/28/24 05:34 PTH Intact 114.1 H PFSH All Active Problems (Updated 05/29/24 @ 17:43 by Atif Morrow) DVT prophylaxis (Acute) Hypertensive emergency (Acute) Hyperlipidemia (Chronic) UTI (urinary tract infection) (Acute) Depression (Chronic) Hyponatremia (Acute) Hypomagnesemia (Acute) COPD (chronic obstructive pulmonary disease) (Chronic) HTN (hypertension) (Chronic) TIA (transient ischemic attack) (Acute) COVID-19 (Acute) Social History Smoking/Tobacco Use Status: Former Tobacco Use Smoking risk assessment performed?: Yes Alcohol Intake: former Drug use: Never Substance use type: marijuana Housing: longterm Do you feel safe at home: Yes Do you feel safe in your relationship?: Yes Additional Social history: H+R Time Spent with Patient Time Spent with Patient: 70-84 minutes4 Time was spent: preparing to see the patient(eg.review tests), obtaining and/or reviewing separately otained hiistory, ordering medications,tests, procedures, referring, communicating with other health healthcare associate, indepentently interpreting results, counseling the patient, care coordination and other (phone consults with [facility], facilitating transfer)
[2024-05-30 18:35] LABS: Metanephrines, U 151 mcg/24 h; Normetanephrine, U 240 mcg/24 h; Total Metanephrines, U 391 mcg/24 h; Urine Volume 3425 mL
--- NOTE | 2024-06-13 14:56 | NUR.NOTE ---
Access chart to review medications ordered. Initially patient was put on the tracker with another account number. Due to incorrrect registration information; patient then registered with the correct information. There is documentation on the first account. The two charts were to be merged. Wrong account number is [id number]. Correct account number is [id number]. Nursing Note:
== END 2024-05-29 18:55 | disposition short-term general hospital (02) | DRG 69 ==
LOC: ER 16:48 → MS 22:55 → ICU 05-27 12:40 → MS 06-14 10:34 → ICU 06-14 10:35
PROVIDERS: Family Medicine; Admitting Provider Family Medicine; Emergency Provider Emergency Medicine; PCP Internal Medicine; Visit Provider Family Medicine
DX: G45.8 Other transient cerebral ischemic attacks and related syndromes (principal); E87.1 Hypo-osmolality and hyponatremia; I67.4 Hypertensive encephalopathy; R47.01 Aphasia; G81.94 Hemiplegia, unspecified affecting left nondominant side; F34.1 Dysthymic disorder; I16.1 Hypertensive emergency; N30.00 Acute cystitis without hematuria; I10 Essential (primary) hypertension; E83.42 Hypomagnesemia; E78.49 Other hyperlipidemia; R53.81 Other malaise; R29.810 Facial weakness; J41.0 Simple chronic bronchitis; I70.8 Atherosclerosis of other arteries; R29.718 NIHSS score 18; R51.9 Headache, unspecified
CPT/HCPCS: 00123; 36415; 70496; 70498; 70553; 80053; 85027; 87635; 92610; 93005; 93306; 94640; 95819; 96361; 96365; 96366; 96367; 96372; 96375; 97162; 97163; 97530; 99291; J1650; 70450; 70551; 81003; 81015; 81050; 83735; 83835; 83970; 84443; 84484; 85025; 85610; 85730; 87086; 92523; 93010; 93880; 94664; 94760; 99223; 99233; 99239; J0696; J1644; J2060; J2270; J2405; J3475; J3490

== ENCOUNTER → 2024-05-28 07:30 | Outpatient (BNVA) | payer OTHER, MEDICAID, SELFPAY | PROVIDERS: PCP Internal Medicine; Referring Provider Internal Medicine; Visit Provider Psychiatry & Neurology Neurology ==

== ENCOUNTER 2024-06-04 15:47 | Outpatient (REF) | payer OTHER, MEDICAID, SELFPAY ==
[2024-06-04 12:25] LABS: Anion Gap 7.6 mmol/L (3-11); BUN 13 mg/dL (7-18); CO2 25.4 mmol/L (21.0-32.0); CREATININE 0.9 mg/dL (0.55-1.02); Calcium 10.8 mg/dL (8.5-10.1); Chloride 99 mmol/L (98-107); Glucose 111 mg/dL (74-106); Potassium 5.3 mmol/L (3.5-5.1); Sodium 132 mmol/L (136-145); Vitamin D 25 Total 31.1 ng/mL (30-100)
== END 2024-06-04 15:48 | disposition home or self-care (01) ==
LOC: LBN 15:47
PROVIDERS: PCP Internal Medicine; Visit Provider Family Medicine
DX: E78.5 Hyperlipidemia, unspecified (principal)
CPT/HCPCS: 80048; 82306; 84443

== ENCOUNTER 2024-06-18 18:37 | Outpatient (REF) | payer OTHER, MEDICAID, SELFPAY ==
[2024-06-18 18:00] LABS: Anion Gap 7.2 mmol/L (3-11); BUN 12 mg/dL (7-18); CO2 23.8 mmol/L (21.0-32.0); CREATININE 0.9 mg/dL (0.55-1.02); Calcium 9.9 mg/dL (8.5-10.1); Chloride 100 mmol/L (98-107); Glucose 93 mg/dL (74-106); Potassium 5.3 mmol/L (3.5-5.1); Sodium 131 mmol/L (136-145); TSH 1.37 uIU/mL (0.36-3.74); Vitamin D 25 Total 30.6 ng/mL (30-100)
[2024-06-19 18:37] LABS: Parathyroid Hormone,Intact 154.7 pg/mL (19.0-88.0)
== END 2024-06-18 18:38 | disposition home or self-care (01) ==
LOC: LBN 18:37
PROVIDERS: Visit Provider Family Medicine
DX: M62.81 Muscle weakness (generalized) (principal)
CPT/HCPCS: 80048; 82306; 83970; 84443

== ENCOUNTER 2024-06-21 10:08 | Inpatient (IN) | payer OTHER, MEDICAID, SELFPAY ==
[2024-06-21] VITALS (47 sets, daily range): BP systolic 91–180; BP diastolic 53–88; PULSE 65–103; RESP 11–33; TEMP 36.6–37; O2SAT 92–100
--- NOTE | 2024-06-21 10:15 | RT.EKG_ITS ---
APPROVED REPORT Exam: Resting ECG Reason for Exam: [facility] Patient Location: E HR:74 bpm ECG Measurements Heart Rate [address] 147 P 80 QRSd 81 QRS 88 QT 367 T 89 QTc 406 Conclusion Sinus rhythm...normal P axis, V-rate 60- 99
--- NOTE | 2024-06-21 10:19 | W.ED.GENAD ---
Discharge Plan Disposition Patient Disposition: Admit to [facility] Condition: Serious Discharge Details Clinical Impression: Syncope and collapse, Acute UTI, Anemia Admit Date/Time: 06/21/24 13:05 Admit Provider: Noam Motley Attending Provider: Noam Motley Primary Care Provider: Unknown,Unknown ED Provider: Yung Peraza Discharge Data Discharge Date/Time-TO BE ENTERED AT DEPARTURE: 06/21/24 14:15 HPI General Mode of arrival: ambulatory. Date/Time Provider Initiated Documentation: 06/21/24 10:08. Limitations to Documentation: no limitations. Information obtained by: patient. HPI Narrative: 69-year-old female with multiple medical problems including history of COPD, hypertension, TIA, hypertensive emergency, transferred from [facility] with concern for seizure. Patient apparently had an unresponsive episode that was sudden onset and lasted approximately 7 minutes where she had twitching of her body. She was helped to the ground by staff and did not sustain traumatic injury. Patient was noted to regain consciousness with some confusion. She has no pain at this time. History and review of systems limited secondary to confusion. Related Data Home Medications ?Medication ?Instructions ?Recorded ?Confirmed atorvastatin 40 mg tablet 40 mg PO QPM 05/03/17 06/21/24 bisacodyl 10 mg rectal suppository 10 mg NH DAILY PRN 02/09/24 06/21/24 (Dulcolax (bisacodyl)) docusate sodium 100 mg capsule 100 mg PO DAILY 02/09/24 06/21/24 escitalopram oxalate 10 mg tablet 10 mg PO DAILY 02/09/24 06/21/24 lidocaine 5 % topical patch 1 patch topical DAILY 02/09/24 06/21/24 metoprolol succinate 25 mg 12.5 mg PO DAILY 02/09/24 06/21/24 tablet,extended release 24 hr mirtazapine 15 mg tablet 15 mg PO HS 02/09/24 06/21/24 polyethylene glycol 3350 17 17 g PO DAILY 02/09/24 06/21/24 gram/dose oral powder (Miralax) sodium phosphates 19 gram-7 118 ml NH DAILY PRN 02/09/24 06/21/24 gram/118 mL enema (Enema) umeclidinium 62.5 mcg/actuation 1 inh inhalation DAILY 02/09/24 06/21/24 blister powder for inhalation (Incruse Ellipta) acetaminophen 325 mg tablet (Pain 650 mg PO TID PRN 05/24/24 06/21/24 Relief (acetaminophen)) albuterol sulfate 90 mcg/actuation 1 inh inhalation Q6H 05/24/24 06/21/24 aerosol inhaler cholecalciferol (vitamin D3) 1,250 50,000 unit PO QWEEK 05/24/24 06/21/24 mcg (50,000 unit) capsule (Decara) famotidine 20 mg tablet (Acid 20 mg PO QHS 05/24/24 06/21/24 Controller) loperamide 4 mg PO .Q24 PRN 05/25/24 06/21/24 melatonin 3 mg PO .Q24 HS PRN Do not give 05/25/24 06/21/24 after 2 am proventil hfa 1 puff inhalation Q8H 90 base- for 05/25/24 06/21/24 SOB, COPD. Notify provider of adverse aspirin 81 mg tablet,delayed 81 mg PO DAILY 06/21/24 06/21/24 release (Enteric Coated Aspirin) clopidogrel 75 mg tablet 75 mg PO DAILY 06/21/24 06/21/24 Allergies Allergy/AdvReac Type Severity Reaction Status Date / Time No Known Drug Allergies Allergy Unknown Verified 06/21/24 10:42 General JAZMIN: 2 Review of Systems Unobtainable due to mental status Cardiovascular Cardiovascular: Denies chest pain and Denies dyspnea Respiratory Respiratory: Denies dyspnea Gastrointestinal Gastrointestinal: Denies abdominal pain Exam Const General: cooperative and no acute distress [facility] Head: normocephalic and atraumatic Mouth: moist mucous membranes Eyes Conjunctivae: normal conjunctivae Sclera: normal sclerae EOM: EOM intact bilaterally Neck Neck: trachea midline Resp Auscultation: clear to auscultation bilaterally, no rales, no rhonchi and no wheezes Cardio Jugular venous pressure: no JVD Rate: regular rate and not tachycardic Rhythm: regular rhythm GI Palpation: soft, not firm, no guarding, no masses, not rigid and nontender Skin General skin exam: no rashes or lesions noted Neuro General: patient alert, patient awake, oriented Patient Orientation: Person, Place and Confused (2011) and tone normal Extrem General: no edema Medical Decision Making 1027 --69-year-old female with history of prior alcohol use disorder, currently sober, hypertension, COPD, hypertensive emergency, recently hospitalized with concern for potential seizure, here after unresponsive episode with twitching movements. Patient is now responsive and confused. Patient has generalized weakness with 2 out of 5 strength bilateral lower extremities. She is hemodynamically stable. Saturating well in no respiratory distress. She does have mild abdominal tenderness. Patient was recently admitted here for acute onset left-sided weakness and inability to speak, stroke workup was completed and there was no CVA noted on MRI. During hospitalization she continued to have spells of left arm weakness and staring ahead with no response. She was transferred to [facility] for further diagnostic workup and treatment. CV EEG was notable for lack of epileptiform discharges, seizures and clinical events. Echocardiogram was unremarkable with 65% EF. There was concern for possible syncopal events and patient was discharged with a Zio patch back to SNF. Given recent negative extensive neurologic workup, seizure is lower on differential. I am concerned about cardiogenic etiology. EKG was reviewed and interpreted by me: Please report, sinus rhythm 74 bpm, normal axis, no STEMI. Nondiagnostic. Patient was placed on rn clinical research. Diagnostic labs pending. -- Nursing attempted to ambulate patient to commode at bedside and patient was too weak to stand. Patient has near syncope with attempted ambulation. Labs reviewed: Patient does have anemia hemoglobin 10.9. Mild hypomagnesemia at 1.7. Urinalysis is concerning for trace leukocyte esterase and 10-20 WBCs. Consider urinary tract infection. I will initiate treatment with antibiotic. Culture pending. 1235 --I spoke with Dr. Motley, on-call hospitalist, discussed ED presentation course, plan to hospitalize for continued observation on cardiac monitoring, PT evaluation, treatment of urinary tract infection. Medical Records Medical records narrative: MRI 05/28/2024:1. Findings consistent with age-appropriate chronic microvascular ischemic disease. 2. No evidence of an acute infarct, intracranial mass or enhancing lesion. [facility] [place] [place] record noting EEG on 1126 08/14/2026: Interpretation, the 6-hour and 25-minute recording of continuous video EEG was notable for the presence of mild generalized slowing and wakefulness, but otherwise normal during the awake, drowsy and asleep states. There were no epileptiform discharges, seizures or clinical events. The overall pattern of the EEG suggest a mild global cerebral dysfunction of nonspecific etiology. Lab Data Lab results reviewed: Yes I reviewed the patient's lab results. Labs: 06/21/24 10:49 Urine - Reflex from Ua Urine Culture - Pending Laboratory Tests Range/Units 06/21/24 06/21/24 10:49 11:49 WBC (4.4-10.8) 10^3/uL 7.40 RBC (3.93-5.22) 10^6/uL 3.26 L Hgb (11.2-15.7) g/dL 10.9 L Hct (36.0-46.0) % 30.7 L MCV (80-95) fL 94 MCH (27.0-33.0) pg 33.4 H MCHC (32.0-36.0) % 35.5 RDW (11.7-14.6) % 13.1 Plt Count (130-400) 10^3/uL 376 MPV (8.0-11.0) fL 9.1 Immature Gran % % 0.5 Neutrophils % % 41.4 Lymphocytes % % 45.0 Monocytes % % 9.3 Eosinophils % % 3.0 Basophils % % 0.8 Nucleated RBC % (0.0-0.3) % 0.0 Absolute Neutrophils (1.2-6.7) 10^3/uL 3.06 Absolute Lymphocytes (1.2-3.4) 10^3/uL 3.33 Absolute Monocytes (0.1-0.8) 10^3/uL 0.69 Absolute Eosinophils (0.0-0.7) 10^3/uL 0.22 Absolute Basophils (0.0-0.2) 10^3/uL 0.06 Sodium (136-145) mmol/L 133 L Potassium (3.5-5.1) mmol/L 4.7 Chloride (98-107) mmol/L 101 Carbon Dioxide (21.0-32.0) mmol/L 24.7 Anion Gap (3-11) mmol/L 7.3 BUN (7-18) mg/dL 11 Creatinine (0.55-1.02) mg/dL 0.9 Est GFR (CKD-EPI 2020) (mL/min/1.73m2) 69.20 Glucose (74-106) mg/dL 96 Calcium (8.5-10.1) mg/dL 9.9 Magnesium (1.8-2.4) mg/dL 1.7 L Total Bilirubin (0.2-1.0) mg/dL 0.19 L AST (15-37) U/L 13 L ALT (14-59) U/L 15 Alkaline Phosphatase (46-116) U/L 167 H Troponin I (<or=51) ng/L 6 4 Total Protein (6.4-8.2) g/dL 6.9 Albumin (3.4-5.0) g/dL 3.7 Lipase (<78) U/L 52 Urine Color (Yellow) Yellow Urine Clarity (Clear) Clear Urine pH (5-8) 6.5 Ur Specific [place] (1.005-1.025) 1.015 Urine Protein (Neg-Trace) mg/dL Negative Urine Ketones (Negative) mg/dL Negative Urine Blood (Negative) Negative Urine Nitrite (Negative) Negative Urine Bilirubin (Negative) Negative Urine Urobilinogen (Up to 0.2) mg/dL 0.2 Ur Leukocyte Esterase (Negative) Trace H Urine RBC (0-2) HPF 0-2 Urine WBC (0-5) HPF 10-20 H Ur Epithelial Cells (Negative) HPF Few Urine Crystals (Negative) HPF Negative Urine Bacteria (Negative) HPF Rare Urine Casts (Negative) LPF Negative Urine Mucus (Negative) Negative Ur Culture Indicated? Yes Urine Glucose (Negative) mg/dL Negative Urine Opiates Screen (Negative) Negative Urine Methadone Screen (Negative) Negative Ur Barbiturates Screen (Negative) Negative Ur Tricyclics Screen (Negative) Negative Ur Amphetamines Screen (Negative) Negative U Benzodiazepines Scrn (Negative) Negative Urine Cocaine Screen (Negative) Negative Ur THC Screen (Negative) Negative Ethyl Alcohol (<10) mg/dL < 3.0 Quality:SDOH Health Related Social Needs: No Data to Display PFSH All Active Problems (Updated 06/21/24 @ 19:00 by Suki Billingsley APRN) Right-sided lacunar infarction (Acute) Seizures (Acute) Discharge planning issues (Acute) On deep vein thrombosis (DVT) prophylaxis (Acute) Anemia (Chronic) Acute UTI (Acute) Syncope and collapse (Acute) Hyperlipidemia (Chronic) Depression (Chronic) COPD (chronic obstructive pulmonary disease) (Chronic) HTN (hypertension) (Chronic) TIA (transient ischemic attack) (Acute) COVID-19 (Acute) Social History Smoking/Tobacco Use Status: Former Tobacco Use Smoking risk assessment performed?: Yes Alcohol Intake: former Drug use: Never Substance use type: marijuana Housing: senior care Do you feel safe at home: Yes Do you feel safe in your relationship?: Yes Additional Social history: H+R
[2024-06-21 11:03] LABS: HCT 30.7 % (36.0-46.0); HGB 10.9 g/dL (11.2-15.7); MCH 33.4 pg (27.0-33.0); MCHC 35.5 % (32.0-36.0); MCV 94 fL (80-95); MPV 9.1 fL (8.0-11.0); Monocytes % 9.3 %; Neutrophils % 41.4 %; Platelet Count 376 10^3/uL (130-400); RBC 3.26 10^6/uL (3.93-5.22); RDW 13.1 % (11.7-14.6); RDW-SD 45.6 fL
[2024-06-21 11:04] LABS: Abs Immature Grans 0.04 10^3/uL (0.0-0.06); Absolute Basophil Count 0.06 10^3/uL (0.0-0.2); Absolute Eosinophil Count 0.22 10^3/uL (0.0-0.7); Absolute Lymphocyte Count 3.33 10^3/uL (1.2-3.4); Absolute Monocyte Count 0.69 10^3/uL (0.1-0.8); Absolute Neutrophil Count 3.06 10^3/uL (1.2-6.7); Basophils % 0.8 %; Immature Grans % 0.5 %
[2024-06-21 11:07] LABS: Bilirubin Negative (Negative); Blood Negative (Negative); Clarity Clear (Clear); Glucose Negative (Negative); Ketones Negative (Negative); Leukocyte Esterase Trace (Negative); Nitrite Negative (Negative); Specific Gravity 1.015 (1.005-1.025); Urobilinogen 0.2 mg/dL (Up to 0.2); pH 6.5 (5-8)
[2024-06-21 11:15] LABS: Bacteria Rare HPF (Negative); C & S Indicated? Yes; Casts Negative LPF (Negative); Crystals Negative HPF (Negative); Epithelial Cells Few HPF (Negative); Mucus Negative (Negative); RBC 0-2 HPF (0-2)
[2024-06-21 11:23] LABS: *AMPHETAMINES SCREEN URINE Negative (Negative); *BARBITURATES SCREEN URINE Negative (Negative); *BENZODIAZEPINES SCREEN URINE Negative (Negative); Cannabinoids THC Negative (Negative); Cocaine Screen,Urine Negative (Negative); METHADONE URINE SCREEN Negative (Negative); OPIATES URINE SCREEN Negative (Negative)
[2024-06-21 11:24] LABS: ALT 15 U/L (14-59); AST 13 U/L (15-37); Albumin 3.7 g/dL (3.4-5.0); Alkaline Phosphatase 167 U/L (46-116); Anion Gap 7.3 mmol/L (3-11); BUN 11 mg/dL (7-18); Bilirubin, Total 0.19 mg/dL (0.2-1.0); CO2 24.7 mmol/L (21.0-32.0); CREATININE 0.9 mg/dL (0.55-1.02); Calcium 9.9 mg/dL (8.5-10.1); Chloride 101 mmol/L (98-107); Glucose 96 mg/dL (74-106); Magnesium 1.7 mg/dL (1.8-2.4); Potassium 4.7 mmol/L (3.5-5.1); Sodium 133 mmol/L (136-145); Total Protein 6.9 g/dL (6.4-8.2); Tricyclic Antidepressants Negative (Negative); Troponin I 6 ng/L (<or=51)
[2024-06-21 11:25] LABS: Lipase 52 U/L (<78)
[2024-06-21 11:27] LABS: ETHANOL BLOOD < 3.0 mg/dL (<10)
--- NOTE | 2024-06-21 11:42 | NUR.NOTE ---
Nursing Note: Report and transfer of care given to Ling Cruz RN by Tree Walton RN at this time.
[2024-06-21 12:18] LABS: Troponin I 4 ng/L (<or=51)
[2024-06-21] MEDS: cefTRIAXone 1 GM/50 ML BAG IVPB (12:18)
--- NOTE | 2024-06-21 12:52 | W.PM.HP.N ---
Date of service: 06/21/24 Time of Service: 12:52 Assessment and Plan Assessment and plan (1) Acute UTI: Status: Acute Assessment and plan: UA positive On ceftriaxone Cx pending (2) Syncope and collapse: Status: Acute Assessment and plan: No visceral chest pain, cough or SOB EKG SR HR 73, ST segment minimally elevated in I,AVL & V6 as well as II, III, AVF but asymptomatic- this is different from EKG done on 05/2024 Will ask for a cardiology consult:completed by Dr. Talbot and as per discussion: -EKG:within normal limits; different axis on previous EKG- this is non-specific already on ASA 81 and high intensity statin with lipitor 40 mg - will continue On home dose Plavix Troponin negative X2 Echocardiogram completed in 05/2024 w LVEF 575 to 65%, w/o PFO or no structural or hemodynamically significant valvular abnormalities (3) Seizures: Status: Acute Assessment and plan: Reported twitching opt None witness in the ED, but persisting confusion Head CT showed: possible new small subtle lacunar infarct in the right supra ventricular white matter Neuro check Q4 Consider neuro consult if reoccurrence (4) Right-sided lacunar infarction: Status: Acute Assessment and plan: Head CT showed: possible new small subtle lacunar infarct in the right supra ventricular white matter NIHS reassuring Tele neuro consult Already on ASA 81 mg, clopidogrel and high intensity statin outpatient MRI w/o ordered in AM but consider neuro input prior to completing ( last done in 05/2024- negative ) A1C and lipid panel And as above (5) Hyponatremia: Status: Resolved Assessment and plan: H2O restriction 1000ml/24 hours BMP in AM (6) Hypomagnesemia: Status: Resolved Assessment and plan: Mg 2 gm IV Mg in AM (7) Anemia: Status: Chronic Assessment and plan: Mild w H&H 10& 30 with normal MCV w/o thrombocytopenia will continue to monitor CBC in AM (8) On deep vein thrombosis (DVT) prophylaxis: Status: Acute Assessment and plan: LMWH SC (9) Discharge planning issues: Status: Acute Assessment and plan: Discharge to SNF when medically cleared Discussed with Dr. Motley History of Present Illness History of Present Illness Chief Complaint: Unresponsiveness, seizure Narrative: This 69 years old female being admitted to [facility] facility and with past medical history of COPD, hypertension, TIA,NM, depression, hypertensive emergency presented via EMS for evaluation of unresponsive episode lasting 7 minutes, with witnessed twitching of her body. No traumatic injury reported; was assisted to the ground by the staff.When the patient regained consciousness, confusion was observed and was still persisting on arrival to the ED.The patient was afebrile and hemodynamically stable in the ED. Workup in the ED showed an H&H of 10.9 and 30.7,Na of 133 and mag of 1.7. Troponin #1 was negative and second one pending. UA was positive for leukocyte esterase. The ED provider discussed the case with Dr. Motley d/t his suspicion of a cardiofgenic event and the patient was admitted to the medical floor with telemetry for evaluation and management of unresponsiveness, syncopal episode, seizure,hyponatremia, hypomagnesemia, and UTI. Head CT also ordered. The patient is a full code as per COLST form from 08/2023. When seen in room, the patient mention feeling dizzy with blurred vision and then seeing black dots prior to fainting. When she regained consciousness she was on the ground. Denied previous history of seizures but reports ongoing headache. Patient denies nausea, vomiting, diarrhea but reports constipation. Currently reporting chest pain exacerbated with palpation. Denies recent exposure to upper respiratory infections. Patient asking if she had any intent to injure or hurt herself, mention having had twice daily in the past without plan or means thus no sign of suicidal ideation. Review of Systems All systems reviewed & are unremarkable except as noted in HPI and below PFSH All Active Problems (Updated 06/21/24 @ 19:00 by Suki Billingsley APRN) Right-sided lacunar infarction (Acute) Seizures (Acute) Discharge planning issues (Acute) On deep vein thrombosis (DVT) prophylaxis (Acute) Anemia (Chronic) Acute UTI (Acute) Syncope and collapse (Acute) Hyperlipidemia (Chronic) Depression (Chronic) COPD (chronic obstructive pulmonary disease) (Chronic) HTN (hypertension) (Chronic) TIA (transient ischemic attack) (Acute) COVID-19 (Acute) Social History Smoking/Tobacco Use Status: Former Tobacco Use Smoking risk assessment performed?: Yes Alcohol Intake: former Drug use: Never Substance use type: marijuana Housing: care home Do you feel safe at home: Yes Do you feel safe in your relationship?: Yes Additional Social history: H+R Meds Allergies and Home Medications Allergies Allergy/AdvReac Type Severity Reaction Status Date / Time No Known Drug Allergies Allergy Unknown Verified 06/21/24 10:42 Home Medications ?Medication ?Instructions ?Recorded ?Confirmed ?Type Naprosyn 500 mg tablet (naproxen) 500 mg PO BID 05/03/17 06/21/24 History Spiriva with HandiHaler 18 mcg and 18 mcg inhalation DAILY 05/03/17 06/21/24 History inhalation capsules (tiotropium bromide) atorvastatin 40 mg tablet 40 mg PO QPM 05/03/17 06/21/24 History lisinopril 5 mg tablet 5 mg PO DAILY 05/03/17 06/21/24 History thiamine HCl (vitamin B1) 100 mg 100 mg PO DAILY 05/03/17 06/21/24 History tablet hydrocodone 5 mg-acetaminophen 325 1 - 2 tab PO PRN PRN 05/11/17 06/21/24 History mg tablet ([place]) bisacodyl 10 mg rectal suppository 10 mg SC DAILY PRN 02/09/24 06/21/24 History (Dulcolax (bisacodyl)) docusate sodium 100 mg capsule 100 mg PO DAILY 02/09/24 06/21/24 History escitalopram oxalate 10 mg tablet 10 mg PO DAILY 02/09/24 06/21/24 History lidocaine 5 % topical patch 1 patch topical DAILY 02/09/24 06/21/24 History metoprolol succinate 25 mg 12.5 mg PO DAILY 02/09/24 06/21/24 History tablet,extended release 24 hr mirtazapine 15 mg tablet 15 mg PO HS 02/09/24 06/21/24 History polyethylene glycol 3350 17 17 g PO DAILY 02/09/24 06/21/24 History gram/dose oral powder (Miralax) sodium phosphates 19 gram-7 118 ml SC DAILY PRN 02/09/24 06/21/24 History gram/118 mL enema (Enema) umeclidinium 62.5 mcg/actuation 1 inh inhalation DAILY 02/09/24 06/21/24 History blister powder for inhalation (Incruse Ellipta) acetaminophen 325 mg tablet (Pain 650 mg PO TID PRN 05/24/24 06/21/24 History Relief (acetaminophen)) albuterol sulfate 90 mcg/actuation 1 inh inhalation Q6H 05/24/24 06/21/24 History aerosol inhaler cholecalciferol (vitamin D3) 1,250 50,000 unit PO QWEEK 05/24/24 06/21/24 History mcg (50,000 unit) capsule (Decara) famotidine 20 mg tablet (Acid 20 mg PO QHS 05/24/24 06/21/24 History Controller) loperamide 4 mg PO .Q24 PRN 05/25/24 06/21/24 History magnesium hydroxide 400 mg PO QHS PRN Constipation 05/25/24 06/21/24 History give at bedtime if no BM in 3 days melatonin 3 mg PO .Q24 HS PRN Do not give 05/25/24 06/21/24 History after 2 am metoclopramide HCl 5 mg tablet 5 mg PO Q8H PRN for nausea 30 05/25/24 06/21/24 History minutes prior to meals proventil hfa 1 puff inhalation Q8H 90 base- for 05/25/24 06/21/24 History SOB, COPD. Notify provider of adverse aspirin 81 mg tablet,delayed 81 mg PO DAILY 06/21/24 06/21/24 History release (Enteric Coated Aspirin) clopidogrel 75 mg tablet 75 mg PO DAILY 06/21/24 06/21/24 History Exam Narrative Exam Narrative: Constitutional The patient is lying in bed without acute distress HENMT: Head is atraumatic, normocephalic, no lymphadenopathy. Facial structures with normal appearance Eyes: Well aligned, intact ROM, patient staring in space but once s/p corneal reaction checked-resolved Neck: Normal ROM, no meningeal signs Neuro:alert and oriented to self, person, place and situation. No neurological focal deficit, PERRLA on ambient light, cranial nerve II to XII intact. Chest:Chest is symmetrical and normal appearance Resp: Unlabored breathing, clear lung bilaterally Cardio: Tele SR HR 81 regular rhythm, S1, S2, no murmur, positive pulses to all 4 extremities GI: Abdomen is not distended, soft and non tender, bowel sounds are present : Negative Costovertebral angle tenderness Back/spine/Pelvis: No back tenderness, normal alignment Integumentary: No skin lesions or rash Extremities: strength 5/5 upper extremities; 4/5 to lower extremities Psych: RASS 0, congruent to depressed mood and normal to sad versus flat affect. Results Labs 06/21/24 10:49 06/21/24 10:49 Labs: Laboratory Results - last 24 hr 06/21/24 06/21/24 10:49 11:49 WBC 7.40 RBC 3.26 L Hgb 10.9 L Hct 30.7 L MCV 94 MCH 33.4 H MCHC 35.5 RDW 13.1 Plt Count 376 MPV 9.1 Immature Gran % 0.5 Neutrophils % 41.4 Lymphocytes % 45.0 Monocytes % 9.3 Eosinophils % 3.0 Basophils % 0.8 Nucleated RBC % 0.0 Absolute Neutrophils 3.06 Absolute Lymphocytes 3.33 Absolute Monocytes 0.69 Absolute Eosinophils 0.22 Absolute Basophils 0.06 Sodium 133 L Potassium 4.7 Chloride 101 Carbon Dioxide 24.7 Anion Gap 7.3 BUN 11 Creatinine 0.9 Est GFR (CKD-EPI 2020) 69.20 Glucose 96 Calcium 9.9 Magnesium 1.7 L Total Bilirubin 0.19 L AST 13 L ALT 15 Alkaline Phosphatase 167 H Troponin I 6 4 Total Protein 6.9 Albumin 3.7 Lipase 52 Urine Color Yellow Urine Clarity Clear Urine pH 6.5 Ur Specific [place] 1.015 Urine Protein Negative Urine Ketones Negative Urine Blood Negative Urine Nitrite Negative Urine Bilirubin Negative Urine Urobilinogen 0.2 Ur Leukocyte Esterase Trace H Urine RBC 0-2 Urine WBC 10-20 H Ur Epithelial Cells Few Urine Crystals Negative Urine Bacteria Rare Urine Casts Negative Urine Mucus Negative Ur Culture Indicated? Yes Urine Glucose Negative Urine Opiates Screen Negative Urine Methadone Screen Negative Ur Barbiturates Screen Negative Ur Tricyclics Screen Negative Ur Amphetamines Screen Negative U Benzodiazepines Scrn Negative Urine Cocaine Screen Negative Ur THC Screen Negative Ethyl Alcohol < 3.0 Last Vital Signs Temp 36.6 C 06/21/24 10:16 Pulse 75 06/21/24 11:35 Resp 22 06/21/24 11:40 BP 125/66 06/21/24 11:35 Pulse Ox 98 06/21/24 11:40 Time Spent Time spent with Patient: >75 minutes Time was spent: preparing to see the patient(eg.review tests), obtaining and/or reviewing separately otained hiistory, ordering medications,tests, procedures, referring, communicating with other health resident care provider, indepentently interpreting results, counseling the patient and care coordination
--- NOTE | 2024-06-21 13:00 | DI.CT_ITS ---
Exam(s) CT HEAD WO EXAM: CT HEAD WO CLINICAL HISTORY: seizure, unresponsiveness. TECHNIQUE: Imaging Protocol: Axial computed tomography images with coronal and sagittal reformatted images were created and reviewed COMPARISON: CT CT HEAD WO from 05/27/2024 FINDINGS: There are no skull fractures. There is no fluid in the visualized paranasal sinuses. There is no evidence of intracranial hemorrhage, mass effect, or shift of midline structures. There are no extra-axial fluid collections. The ventricles are not enlarged or shifted and there is no blo od within the ventricular system nor within the basal cisterns. Again noted is asymmetric white matter hypodensity in the right frontal parietal region, unchanged. There is an additional very subtle hypodensity in the immediate right supra ventricular white matter which appears more evident than on the previous CT. This may represent an additional nonhemorrhagic lacunar infarct more evident than previous. IMPRESSION: Stable white matter findings in the right frontoparietal region but possible new small subtle lacunar infarct in the right supra ventricular white matter. If clinically indicated follow-up MRI with dif fusion imaging can be performed. RADIATION DOSE DELIVERED: 872.28mGy.cm Total DLP DATA REPOSITORY: All CT scans at this facility are submitted to the National Radiology Data Registry (NRDR) Dose Index Registry (DIR) with the [employer] (ACR). RADIATION OPTIMIZATION: All CT scans at this facility use at least one of these dose optimization te chniques: automated exposure control; mA and/or kV adjustment per patient size (includes targeted exa ms where dose is matched to clinical indication); or iterative reconstruction.
--- NOTE | 2024-06-21 14:01 | W.PC.ACHO ---
Registration Status: Primary Language: Preferred Language: ED Information & Data Chief Complaint Seizure 06/21/24 10:25 Chief Complaint Seizure 06/21/24 10:16 Triage Note BIBA from [facility], reported 8 06/21/24 10:16 min long seizure. EMS arrived and found pt with twitching/tremors. EMS states they did not witness Tonic/Clinic activity. Pt was let down to floor by health and rehab staff and did not fall, and no apparent injury. EMS stated when pt came to, she did not experience a postictal phase. VSS, BGL 124. Pt states she has not been eating or drinking due to being depressed. Endorses suicidality. 7/10 pain in front of head reported, feels like pressure. Most Recent Vital Signs Temperature 36.6 C 06/21/24 10:16 Temperature Source Tympanic 06/21/24 10:16 Pulse 75 06/21/24 13:16 Pulse 72 06/21/24 13:16 Respiratory Rate 19 06/21/24 13:16 Respiratory Effort Normal 06/21/24 11:22 Respiratory Depth Normal 06/21/24 11:22 Respiratory Pattern Normal 06/21/24 11:22 Blood Pressure 132/77 06/21/24 13:16 Blood Pressure Mean 93 06/21/24 13:16 Blood Pressure Position Supine 06/21/24 10:16 Pulse Oximetry 97 06/21/24 13:16 Oxygen Delivery Method Room Air 06/21/24 10:16 Oxygen Flow Rate 0 06/21/24 10:16 Pain Level 0 06/21/24 11:24 Comment Left arm 06/21/24 11:35 Allergies No Known Drug Allergies Allergy (Verified 06/21/24 10:42) Unknown IV IV Catheter Type [Left Saline Lock Antecubital] IV Catheter Gauge [Left 20 Antecubital] Diagnostics 06/21/24 06/21/24 06/21/24 Range/Units 13:18 11:49 10:49 WBC 7.40 (4.4-10.8) 10^3/uL RBC 3.26 L (3.93-5.22) 10^6/uL Hgb 10.9 L (11.2-15.7) g/dL Hct 30.7 L (36.0-46.0) % MCV 94 (80-95) fL MCH 33.4 H (27.0-33.0) pg MCHC 35.5 (32.0-36.0) % RDW 13.1 (11.7-14.6) % Plt Count 376 (130-400) 10^3/uL MPV 9.1 (8.0-11.0) fL Immature Gran % 0.5 % Neutrophils % 41.4 % Lymphocytes % 45.0 % Monocytes % 9.3 % Eosinophils % 3.0 % Basophils % 0.8 % Nucleated RBC % 0.0 (0.0-0.3) % Absolute Neutrophils 3.06 (1.2-6.7) 10^3/uL Absolute Lymphocytes 3.33 (1.2-3.4) 10^3/uL Absolute Monocytes 0.69 (0.1-0.8) 10^3/uL Absolute Eosinophils 0.22 (0.0-0.7) 10^3/uL Absolute Basophils 0.06 (0.0-0.2) 10^3/uL Sodium 133 L (136-145) mmol/L Potassium 4.7 (3.5-5.1) mmol/L Chloride 101 (98-107) mmol/L Carbon Dioxide 24.7 (21.0-32.0) mmol/L Anion Gap 7.3 (3-11) mmol/L BUN 11 (7-18) mg/dL Creatinine 0.9 (0.55-1.02) mg/dL Est GFR (CKD-EPI 2020) 69.20 (mL/min/1.73m2) Glucose 96 (74-106) mg/dL Calcium 9.9 (8.5-10.1) mg/dL Magnesium 1.7 L (1.8-2.4) mg/dL Total Bilirubin 0.19 L (0.2-1.0) mg/dL AST 13 L (15-37) U/L ALT 15 (14-59) U/L Alkaline Phosphatase 167 H (46-116) U/L Troponin I Pending 4 6 (<or=51) ng/L Total Protein 6.9 (6.4-8.2) g/dL Albumin 3.7 (3.4-5.0) g/dL Lipase 52 (<78) U/L Urine Color Yellow (Yellow) Urine Clarity Clear (Clear) Urine pH 6.5 (5-8) Ur Specific [place] 1.015 (1.005-1.025) Urine Protein Negative (Neg-Trace) mg/dL Urine Ketones Negative (Negative) mg/dL Urine Blood Negative (Negative) Urine Nitrite Negative (Negative) Urine Bilirubin Negative (Negative) Urine Urobilinogen 0.2 (Up to 0.2) mg/dL Ur Leukocyte Esterase Trace H (Negative) Urine RBC 0-2 (0-2) HPF Urine WBC 10-20 H (0-5) HPF Ur Epithelial Cells Few (Negative) HPF Urine Crystals Negative (Negative) HPF Urine Bacteria Rare (Negative) HPF Urine Casts Negative (Negative) LPF Urine Mucus Negative (Negative) Ur Culture Indicated? Yes Urine Glucose Negative (Negative) mg/dL Urine Opiates Screen Negative (Negative) Urine Methadone Screen Negative (Negative) Ur Barbiturates Screen Negative (Negative) Ur Tricyclics Screen Negative (Negative) Ur Amphetamines Screen Negative (Negative) U Benzodiazepines Scrn Negative (Negative) Urine Cocaine Screen Negative (Negative) Ur THC Screen Negative (Negative) Ethyl Alcohol < 3.0 (<10) mg/dL 06/21/24 10:49 Urine Culture - Pending Urine - Reflex from Ua [id number] Documentation Fingerstick Glucose Start: 06/21/24 10:14 Freq: Status: Active Protocol: Activity Type Activity Date Activity User E-sign Co-sign Detail Recorded Client Recorded Date Recorded By Document 06/21/24 10:16 [facility] [id number] 06/21/24 10:25 [facility] Intake and Output - 24 Hour Total 06/21/24 10:06 thru 06/21/24 12:53 Intake Total 50 Balance 50 Weight 52.5 kg Intake: IV 50 Falls Risk Assessment History of Falls Previous History 06/21/24 10:26 Contributing Factors Confusion,Unstable, 06/21/24 10:26 Impairments,Incontinence Ambulatory Aids Independent 06/21/24 10:26 Tubes/Lines With any additional score 06/21/24 10:26 Gait Evaluation W/any additional score 06/21/24 10:26 Cognition Cognitive impairment 06/21/24 10:26 Fall Total Score 82 06/21/24 10:26 Level of Risk Maximum Risk 06/21/24 10:26 Problems (Last Reviewed 06/21/24 @ 10:22 by Yung Peraza MD) Seizures (Acute) Discharge planning issues (Acute) On deep vein thrombosis (DVT) prophylaxis (Acute) Anemia (Chronic) Acute UTI (Acute) Syncope and collapse (Acute) Notes 06/21/24 11:42 Nursing Notes by Jackelin Cruz Nursing Note: Report and transfer of care given to Ling Cruz RN by Tree Walton RN at this time. Initialized on 06/21/24 11:42 - END OF NOTE v v v v v v v v v Sending and/or Receiving Nurses: Please use comment section below to note any information pertinent to the patient hand-off not included above. Information / Comments: From [facility] - no seizure HX. None witnessed by EMS. Tremors and syncope witnessed. #20 LAC Saline lock Chronic UTIs, positive UA in ER Got 500 cc NS in ER and Ceftriaxone afebrile vitals stable voided x 1 unmeasured hx of suicidal attempts, not eating or drinking at rehab due to depression Weak 1 assist to stand. Uses cane per patient. Head CT w/out contrast ordered not done No belly complaints no info on last BM Report received from: Jackelin Cruz RN
[2024-06-21 15:12] LABS: Troponin I 5 ng/L (<or=51)
--- NOTE | 2024-06-21 15:32 | NUR.NOTE ---
After receiving report from DISTRICT RESOURCE OFFICER, this RN reviewed ED Triage Suicide Risk documentation, which revealed that patient had answere Yes to all suicide risk assessment questions, indicating that she has had thoughts of self harm in the past week, and has a history of suicide attempts. This RN asked patient directly if she felt suicidal at this time. She replied Not at this moment, but I had thoughts [of self harm] this morning. I asked this patient if she would be able to report to RN if she felt feelings of wanting to hurt herself returning. Patient said she was not sure she would be able to report this. As patient arrived at change of shift, this info was passed on to recieving RN to relay to Provider, to make determination if Behavior Health intervention and patient observer are needed.
[2024-06-21] MEDS: Enoxaparin 30 MG/0.3 ML SYR SC (17:08)
[2024-06-21] MEDS: MAGNESIUM SULFATE 2 GM/50 ML BAG IV_INF (19:30)
[2024-06-21] MEDS: Atorvastatin 40 MG TAB PO (19:30)
[2024-06-21] MEDS: Loperamide 2 MG CAP 4 MG PO (19:30)
[2024-06-21] MEDS: Acetaminophen 325 MG TAB 650 MG PO (19:30)
[2024-06-21] MEDS: Famotidine 20 MG TAB PO (19:31)
[2024-06-21] MEDS: Melatonin 3 MG TAB PO (19:31)
[2024-06-21] MEDS: Normal Saline Flush 10 ML SYR IVP (19:31)
[2024-06-21] MEDS: Mirtazapine 15 MG TAB PO (19:31)
[2024-06-22] VITALS (21 sets, daily range): BP systolic 84–132; BP diastolic 54–92; PULSE 67–86; RESP 12–24; TEMP 36.7–37.3; O2SAT 93–98
[2024-06-22 05:38] LABS: Abs Immature Grans 0.05 10^3/uL (0.0-0.06); Absolute Basophil Count 0.07 10^3/uL (0.0-0.2); Absolute Eosinophil Count 0.33 10^3/uL (0.0-0.7); Absolute Monocyte Count 0.64 10^3/uL (0.1-0.8); Absolute Neutrophil Count 3.12 10^3/uL (1.2-6.7); Eosinophils % 4.6 %; HCT 28.5 % (36.0-46.0); HGB 9.3 g/dL (11.2-15.7); Immature Grans % 0.7 %; Lymphocytes % 41.6 %; MCH 31.5 pg (27.0-33.0); MCHC 32.6 % (32.0-36.0); MCV 97 fL (80-95); Monocytes % 8.9 %; Neutrophils % 43.2 %; Platelet Count 338 10^3/uL (130-400); RBC 2.95 10^6/uL (3.93-5.22); RDW 13.4 % (11.7-14.6); RDW-SD 47.6 fL; WBC 7.21 10^3/uL (4.4-10.8)
[2024-06-22 06:01] LABS: Anion Gap 6.9 mmol/L (3-11); BUN 15 mg/dL (7-18); CO2 24.1 mmol/L (21.0-32.0); CREATININE 0.8 mg/dL (0.55-1.02); Calcium 9.8 mg/dL (8.5-10.1); Calculated LDL 38 mg/dL (<100); Chloride 109 mmol/L (98-107); Cholesterol 123 mg/dL (<200); Estimated GFR 79.71 (mL/min/1.73m2); Glucose 93 mg/dL (74-106); HDL Cholesterol 69 mg/dL (40-60); Magnesium 2.4 mg/dL (1.8-2.4); Potassium 4.9 mmol/L (3.5-5.1); Sodium 140 mmol/L (136-145); Triglyceride 84 mg/dL (<150)
[2024-06-22 06:02] LABS: Hemoglobin A1C 5.2 % (<5.7)
[2024-06-22] MEDS: Polyethylene Glycol 3350 17 GM PACKET PO (07:51)
[2024-06-22] MEDS: Clopidogrel 75 MG TAB PO (07:52)
[2024-06-22] MEDS: Metoprolol CR 25 MG TABCR 12.5 MG PO (07:52)
[2024-06-22] MEDS: Docusate Sodium 100 MG CAP PO (07:52)
[2024-06-22] MEDS: Escitalopram 10 MG TAB PO (07:52)
[2024-06-22] MEDS: Aspirin E.C. 81 MG TABEC PO (07:52)
[2024-06-22] MEDS: Normal Saline Flush 10 ML SYR IVP ×2 (07:53→20:21)
[2024-06-22] MEDS: Lidocaine 5% Patch 1 PATCH TP (07:56)
[2024-06-22] MEDS: Umeclidinium 7 CAP INHALER 1 CAP IH (08:06)
--- NOTE | 2024-06-22 09:05 | PT.INIE ---
PT Notes Visit Reasons: Unresponsiveness, seizure Physical Therapy Inpatient Initial Evaluation Date: 06/22/2024 Referring Doctor: Suki Billingsley NP PT Orders: PT CONSULT: Safety Consult for D/C Precautions: High fall risk. Standard. Activity as tolerated. Patient Profile/Admitting Diagnosis: Karla is a 69-year-old female who presented to the ED on 06/21/2024 due to concern for seizure with report of unresponsiveness and twitching of her body while being moved by nursing staff after which she was lowered slowly to the floor with no trauma experienced. Patient was sent to the ED due to persistent confusion after the episode. Patient was also seen and evaluated back on 05/28/2024 for similar symptoms where she would have brief epsiodes of unresponsiveness and sudden weakness with attempts at mobility assessment. She is admitted for further assessment/management of UTI, presumed syncopal episode/seizure, hyponatremia, hypomagnesemia, and anemia. Head CT MRI Impression on 06/21/2024: Stable white matter findings in the right frontoparietal region but possible new small subtle lacunar infarct in the right supra ventricular white matter. If clinically indicated follow-up MRI with diffusion imaging can be performed. IMPRESSION from Brain MRI on 05/28/2024: 1. Findings consistent with age-appropriate chronic microvascular ischemic disease. 2. No evidence of an acute infarct, intracranial mass or enhancing lesion. IMPRESSION from Brain MRI on 05/25/2024: Chronic small-vessel white matter ischemic changes in bilateral periventricular white matter as well as throughout the cindy. There is no evidence of restricted diffusion to suggest acute ischemic event. No evidence of intracranial hemorrhage. PMHX: All Active Problems (Updated 06/21/24 @ 19:00 by Suki Billingsley APRN) Right-sided lacunar infarction (Acute) Seizures (Acute) Discharge planning issues (Acute) On deep vein thrombosis (DVT) prophylaxis (Acute) Anemia (Chronic) Acute UTI (Acute) Syncope and collapse (Acute) Hyperlipidemia (Chronic) Depression (Chronic) COPD (chronic obstructive pulmonary disease) (Chronic) HTN (hypertension) (Chronic) TIA (transient ischemic attack) (Acute) COVID-19 (Acute) Social History/Home Situation: Patient stated that she lives at the [facility] and that she used a walker there. Equipment Owned/DME: FWW at the SNF Subjective: Feels great and ready to work with PT, joked that she could do a marathon this morning. Agreeable to trying out walking with walker for this session. Objective: General Observation: Resting in bed. HOB 45 degrees elevated. Mental Status: Alert and oriented only to self, poor historian Pain: Headache Vital Signs: Oxygen saturation decreased to as low as 75% on RA right before syncopal episode happended but Nurse Allisons said that there was poor pletysmographic reading during that time on tele ROM: Right Upper Extremity: Shoulder Flexion allows up to about 90 degrees only with pain at end of range. Shoulder abduction allows up to about 90 degrees only with pain at end of range. Elbow flexion WFL. Wrist flexion WFL. Functional opening and closing of hand WFL. Left Upper Extremity: Shoulder Flexion allows up to about 60 degrees only with pain at end of range. Shoulder abduction allows up to about 40 degrees only with pain at end of range. Elbow flexion WFL. Wrist flexion WFL. Functional opening and closing of hand weak. Right Lower Extremity: Hip flexion WFL. Hip abduction WFL. Knee flexion WFL. Ankle dorsiflexion WFL. Ankle plantarflexion WFL. Left Lower Extremity: Hip flexion lacks the last 25% of AROM. Hip abduction WFL. Knee flexion 30 degrees to 80 degrees. Knee extension -30 degrees. Ankle dorsiflexion to neutral only. Ankle plantarflexion WFL. Strength: Right Upper Extremity: Shoulder flexors 3-/5. Shoulder abductors 3-/5. Elbow flexors 4-/5. Elbow extensors 4-/5. Wired Sweatband Cutter weak but functional. Left Upper Extremity: Shoulder flexors 2-/5. Shoulder abductors 2-/5. Elbow flexors 4-/5. Elbow extensors 4-/5. Wired Sweatband Cutter weaker but functional. Right Lower Extremity: Hip flexors 4-/5. Hip abductors 4-/5. Knee flexors 4-/5. Knee extensors 4-/5. Ankle dorsiflexors 4-/5. Ankle plantarflexors 4-/5. Left Lower Extremity: Hip flexors 3-/5. Hip abductors 3-/5. Knee flexors 3-/5. Knee extensors 3-/5. Ankle dorsiflexors 3-/5. Ankle plantarflexors 4-/5. Bed Mobility/Transfers: Rolling stand by assist Supine to sit stand by assist Sit to supine stad by assist with HOB at 30 degrees Sit to stand contact guard assist of 2 with FWW Stand to sit contact guard assist of 2 with FWW Bed to chair contact guard assist of 2 with FWW Chair to bed contact guard assist of 2 with FWW Gait: 75 feet sing FWW with wheelchair follow by Nurse Queen before patient had a syncopal episode where she was lowered slowly onto the wheelchair to safety to let the epsiode pass. Patient was unresponsive for about 22 seconds before she came back and was able to lift B legs up so edgar cold be wheeled back to the room. She had another unresponsive episode right after she transferred from wheelchair to edge of bed, a shorter one. No twitching, no shaking observed during both occurrences--patient just went limp for less than a minute. Balance: Static sitting: Fair Dynamic sitting: Fair Static Standing: Fair Dynamic Standing: Fair Special Tests: Mobility Limitations Standardized Measure [facility] AM-PAC 6 clicks Basic Mobility Inpatient Short Form: Raw Score: 18 CMS Score: 47% deficit Informed Consent/Education: Patient was instructed in purpose of PT consult and plan of care. Agreeable to proceed with established PT POC to achieve personal goals. Assessment: Patient continues to be at risk for falls due to recurrent change in mentation and general muscular tone with exertion and mobility performance. L UE and L LE weaker than the R. Patient had 2 episodes of fainting without loss of consciousness while with PTfor this session. Patient presents with clinical signs and symptoms consistent with current/admitting diagnoses that have resulted to mobility limitations, gait instability, generalized weakness, and overall ADL decline as demonstrated by the following impairment level findings: 1. Decreased strength to B UE/LE major muscle groups 2. Impaired sitting/standing balance 3. Impaired activity tolerance 4. Limitation of joint range of motion in b shoulders (chronic) 5. Fainting spells Impairments are contributing to the following functional limitations: 1. Decline in bed mobility skills 2. Decline in transfer skills 3. Difficulty with ambulation without assistive device and physical assistance 4. Increased completion time for mobility ADL performance 5. Increased risk for falls 6. Difficulty with managing steps alone safely Patient is assessed as a 04962 moderate complexity based on the following: History: 69-year-old female with past medical history as indicated above Examination: Demonstrable impairment in strength, balance, and mobility level with underlying impairments and functional limitations as exhibited above as well as deficit score of 65% utilizing the [facility] Mobility Inpatient Short Form Presentation: Evolving Decision Makin moderate complexity Goals: Goals X1 week 1. Supine-Sit independent 2. Sit-Supine independent 3. Sit-Stand stand by assist 4. Stand-Sit stand by assist with FWW 5. Bed-Chair stand by assist with FWW 6. Chair-Bed stand by assist with FWW 7. Contact guard assist gait on level surface with use of FWW for at least 150 feet without report of pain nor dyspnea 8. Good static and dynamic standing balance/tolerance Plan of Care/Treatment Plan: 1-2x/day, 7 days/week x 1 week. Plan of care has been reviewed with the FLAT SORTING MACHINE CLERK providing the service under Physical Therapy direction. Initiate Physical Therapy intervention for pain management as needed, strengthening, bed mobility, transfers, gait, stairs, balance training, and use of assistive device. DISCHARGE RECOMMENDATIONS: [] Home with no services [] [] Home with services [specify] [] Home with outpatient PT [] [] SNF for continued rehabilitation [] [] Group Home Care [] [] SNF versus LTC based on ability to participate and progress [] [X] Return to SNF with subacute rehab for continued mobility progression and fall reduction strategies TREATMENT CODE/TIME: 33055 x 20 minutes for 1 unit, 74823 x 10 minutes for 1 unit (09:05-09:35). Thank you for the opportunity to participate in the care of this patient. Bindu Bran PT, DPT, CLT [facility] [place], [place]
--- NOTE | 2024-06-22 09:33 | PDOC.CMIN ---
Date of service: 06/22/24 Time of Service: 09:33 Care Management Initial Assmt Initial Assessment Reason for Hospitalization: seizure/unresponsiveness/UTI Functional Status/Living Situation Patient Presentation: Karla resides at [facility]. EMS was called yesterday for evaluation of unresponsive episode lasting 7 minutes, with witnessed twitching of her body. When she regained consciousness, she was very confused and the confusion was persistent. Karla was sitting up in the bed when CM met with her. She has just walked with PT, and stated that she got dizzy while walking and almost fell. She stated that she often pushes herself too hard. Karla was very pleasant. She stated she lives at [facility]. She likes it there and gets along very well with her roommate. Karla has 3 sons, 2 of whom grew up in the foster system. She does not have a relationship with one of those sons, he lives in [place]. Karla has had a very tough life, from childhood. Karla has a niece who visited her today, and a friend, Jose, whom she has been dating for more than 15years. Town of Residence: [facility] Resides with: Other ([facility]) Significant Other/Family: Out of area (partner Jose and a sister live in [place]. 2 sons live in [place]. 9 grandchildren. Niece, Elizabeth, lives local and visits often.) Caregiver/Guardian: [facility] Employment Status: Disabled Instrumental Activities of Daily Living (ADLs): Requires support Activities/Hobbies/SocialSupport: prefers to stay in her room with her roommate as opposed to joining the group activities Medications Medication Management: No Issues/Barriers identified Physical Functioning/Mobility Assistive Device: FWW Advance Directives Advance Directives: Do you have an Advance Directive: N 12/18/15 09:07 AD On File at [facility]: N 05/24/24 16:24 Date Asked 06/21/24 06/21/24 10:12 AD Date Reviewed COLST On File at [facility] COLST Date Scanned Code Status Resuscitation Status Full Code Insurance Coverage/Financial Issues Insurance: [facility] Medicaid Care Team Visit Care Team Role Provider Type Unknown Unknown Primary Care Provider STAFF PHYSICIAN InPatient [facility] Other Providers OTHER Yung Peraza MD Emergency Provider [facility] STAFF PHYSICIAN Noam Motley MD Admit Provider [facility] STAFF PHYSICIAN Attending Provider Discharge Potential Discharge Needs: Other (facility provider) Anticipated Barriers to Discharge: None Identified Patient/Family Education Needs: Review discharge instructions, discuss Ask Me Three Transportation: [facility] Plan: Anticipate that [facility] is medically cleared. She will f/u with the facility provider, and neurology . She will transport via [facility]. PFSH All Active Problems (Updated 06/21/24 @ 19:00 by Suki Billingsley APRN) Right-sided lacunar infarction (Acute) Seizures (Acute) Discharge planning issues (Acute) On deep vein thrombosis (DVT) prophylaxis (Acute) Anemia (Chronic) Acute UTI (Acute) Syncope and collapse (Acute) Hyperlipidemia (Chronic) Depression (Chronic) COPD (chronic obstructive pulmonary disease) (Chronic) HTN (hypertension) (Chronic) TIA (transient ischemic attack) (Acute) COVID-19 (Acute) Social History Smoking/Tobacco Use Status: Former Tobacco Use Smoking risk assessment performed?: Yes Alcohol Intake: former Drug use: Never Substance use type: marijuana Housing: skilled nursing Do you feel safe at home: Yes Do you feel safe in your relationship?: Yes Additional Social history: H+R Readmission Within the Past 30 Days Yes or No: Yes Date of First Admission Date of 1st Admission: 05/24/24 Date of this Admission Date of Admission: 06/21/24 This admission was: Through ED Office Visit Since 1st Admission Have you seen your PCP in the office since discharge?: Yes ED visits How many ED visits in the past 12 months: 4 SDOH(Care Management) Screening Will the Patient Participate in the Screening?: Unable to obtain Social Determinants of Health Comments(SDOH Details): Patient resident a [place]
--- NOTE | 2024-06-22 11:40 | PGE_ITS ---
Date of Service Date of service: 06/22/24 Time of Service: 11:40 Assessment and Plan Assessment and plan (1) Acute UTI: Status: Acute Assessment and plan: UA positive On ceftriaxone Cx pending 06/22/24 urine culture neg at 24 hours looked at at 1146 Will stop abx (2) Syncope and collapse: Status: Acute Assessment and plan: No visceral chest pain, cough or SOB EKG SR HR 73, ST segment minimally elevated in I,AVL & V6 as well as II, III, AVF but asymptomatic- this is different from EKG done on 05/2024 Will ask for a cardiology consult:completed by Dr. Talbot and as per discussion: -EKG:within normal limits; different axis on previous EKG- this is non- specific already on ASA 81 and high intensity statin with lipitor 40 mg - will continue On home dose Plavix Troponin negative X2 Echocardiogram completed in 05/2024 w LVEF 575 to 65%, w/o PFO or no structural or hemodynamically significant valvular abnormalities 06/22/24 In reviewing the chart, I'm not completely convinced about the etiology of her symptoms being cardiogenic or due to the length of her symptoms due to seizures. I do have concerns about secondary gain in her behavior. Cardiology consult order has been placed. (3) Seizures: Status: Acute Assessment and plan: Reported twitching opt None witness in the ED, but persisting confusion Head CT showed: possible new small subtle lacunar infarct in the right supra ventricular white matter Neuro check Q4 Consider neuro consult if reoccurrence 06/22/24 Once again not convinced that the pt has a true seizure. Would have expected bowel/bladder incontinence and this isn't mentioned. (4) Right-sided lacunar infarction: Status: Acute Assessment and plan: Head CT showed: possible new small subtle lacunar infarct in the right supra ventricular white matter NIHS reassuring Tele neuro consult Already on ASA 81 mg, clopidogrel and high intensity statin outpatient MRI w/o ordered in AM but consider neuro input prior to completing ( last done in 05/2024- negative ) A1C and lipid panel And as above 06/22/24 Cancelled repeat mri as pt is already on what appears to be appropriate therapy (5) Hyponatremia: Status: Resolved Assessment and plan: H2O restriction 1000ml/24 hours BMP in AM 06/22/24 resolved (6) Hypomagnesemia: Status: Resolved Assessment and plan: Mg 2 gm IV Mg in AM (7) Anemia: Status: Chronic Assessment and plan: Mild w H&H 10& 30 with normal MCV w/o thrombocytopenia will continue to monitor CBC in AM 06/22/24 Pt with an MCV of 97 today. Would consider a b12/folate/fe/tibc but can defer to her PCP (8) On deep vein thrombosis (DVT) prophylaxis: Status: Acute Assessment and plan: LMWH SC (9) Discharge planning issues: Status: Acute Assessment and plan: Discharge to SNF when medically cleared Discussed with Dr. Motley 06/22/24 Will order cbc and cmp for am plan for dc in am Subjective Subjective Interval history since last seen: Pt seen and examined in the am. POC d/w pt as well as with bedside nurse during ICU huddle. Exam Narrative Exam Narrative: HEENT: NCAT MMM EOMI PERRLA NECK: NO LAD JVD THYROIDMEGALY CV: RRR NO MRG LUNGS: CTAB NO AMU ABD: SCAPHOID EXT: NO CCE B NEURO: CN II-X11 PSYCH: AAOX3 Objective Last Vital Signs Temp 36.7 C 06/22/24 07:51 Pulse 78 06/22/24 08:07 Resp 14 06/22/24 08:07 BP 111/92 H 06/22/24 08:07 Pulse Ox 97 06/22/24 08:07 Laboratory Results - last 24 hr 06/21/24 06/21/24 06/22/24 11:49 14:35 05:20 WBC 7.21 RBC 2.95 L Hgb 9.3 L Hct 28.5 L MCV 97 H MCH 31.5 MCHC 32.6 D RDW 13.4 Plt Count 338 MPV 9.0 Immature Gran % 0.7 Neutrophils % 43.2 Lymphocytes % 41.6 Monocytes % 8.9 Eosinophils % 4.6 Basophils % 1.0 Nucleated RBC % 0.0 Absolute Neutrophils 3.12 Absolute Lymphocytes 3.00 Absolute Monocytes 0.64 Absolute Eosinophils 0.33 Absolute Basophils 0.07 Sodium 140 Potassium 4.9 Chloride 109 H Carbon Dioxide 24.1 Anion Gap 6.9 BUN 15 Creatinine 0.8 Est GFR (CKD-EPI 2020) 79.71 Glucose 93 Hemoglobin A1c 5.2 Calcium 9.8 Magnesium 2.4 Troponin I 4 5 Triglycerides 84 Total Cholesterol 123 LDL Cholesterol, Calc 38 HDL Cholesterol 69 Time Spent with Patient Time Spent with Patient: 25-34 minutes Time was spent: preparing to see the patient(eg.review tests), obtaining and/or reviewing separately otained hiistory, ordering medications,tests, procedures, referring, communicating with other health critical care nurse specialist, indepentently interpreting results, counseling the patient and care coordination
--- NOTE | 2024-06-22 13:56 | PT.INTREAT ---
PT Notes Visit Reasons: Unresponsiveness, seizure Date: 06/22/2024 PRECAUTIONS: Fall. Standard. Activity as tolerated. SUBJECTIVE: Pt in bed when approached for therapy this afternoon, pt very eager to participate reporting she was looking forward to walking again. OBJECTIVE: ? PAIN: non- reported VITALS: Closely monitored in ICU? Therapeutic Activities 11124: Direct one-on-one instruction in dynamic activities to improve functional performance. ?? BED MOBILITY/TRANSFERS? Rolling L/R: SBA Supine-sit: ?SBA ? Sit-supine: ? SBA? Sit-stand: ? SBA ? Stand-sit: ??SBA ? Bed-Chair:? ?SBA ? Chair-bed: Min A Provided skilled cues and instruction on performance and technique throughout. Gait Training 31635: Direct one-on-one instruction and skilled instruction in: Employing an assistive device Modified weight-bearing status Movement sequencing Turning and movement with proper form Provided verbal cues for equipment management and technique Provided instruction in gait pattern Patient education regarding pacing and breathing techniques to maximize activity tolerance? GAIT? Assistive Device: FWW ? Weight bearing: FWB Assist: ?close contact guarding and WC follow ? Distance:?? 150' ? Deviation: ? Nurse Sabrina provided WC follow, pt had syncopal episode at 150' which was sudden, pt was conversing with this therapist the whole time before pt became limp and had to be lowered gently on the WC for safety, pt able to recover after 10 to 15 secs, pt reports she was still dizzy refusing to walk back in room, pt transported using WC with pt able to get back in bed doing stand pivot transfer, pt was independent with bed mobility. ? ASSESSMENT:?Pt was back to her usual self after getting back in bed. vitals WNL PLAN: Continue with balance training, global strengthening and general conditioning for improved safety, mobility and activity tolerance until pt is ready for DC. TREATMENT CODE/TIME: 19678h6 25mins (1:25-1:50pm)
[2024-06-22] MEDS: Enoxaparin 40 MG/0.4 ML SYR SC (18:22)
[2024-06-22] MEDS: Atorvastatin 40 MG TAB PO (20:21)
[2024-06-22] MEDS: Acetaminophen 325 MG TAB 650 MG PO (20:22)
[2024-06-22] MEDS: Famotidine 20 MG TAB PO (20:22)
[2024-06-22] MEDS: Melatonin 3 MG TAB PO (20:22)
[2024-06-22] MEDS: Mirtazapine 15 MG TAB PO (20:22)
[2024-06-22] MEDS: Lidocaine Patch Removal 1 EACH TP (20:31)
[2024-06-23] VITALS (30 sets, daily range): BP systolic 93–165; BP diastolic 63–99; PULSE 59–90; RESP 8–25; TEMP 36.4–37; O2SAT 90–98
[2024-06-23] MEDS: Umeclidinium 7 CAP INHALER 1 CAP IH (07:57)
[2024-06-23] MEDS: Metoprolol CR 25 MG TABCR 12.5 MG PO (08:39)
[2024-06-23] MEDS: Escitalopram 10 MG TAB PO (08:39)
[2024-06-23] MEDS: Clopidogrel 75 MG TAB PO (08:39)
[2024-06-23] MEDS: Aspirin E.C. 81 MG TABEC PO (08:39)
[2024-06-23] MEDS: Docusate Sodium 100 MG CAP PO (08:40)
[2024-06-23] MEDS: Lidocaine 5% Patch 1 PATCH TP (08:40)
--- NOTE | 2024-06-23 10:26 | PT.INTREAT ---
PT Notes Visit Reasons: Unresponsiveness, seizure Inpatient Physical Therapy Treatment Note [facility] Date: 06/23/24 PRECAUTIONS:Fall risk, Standard OBJECTIVE: Therapeutic Activities (50447v[]): Direct one-on-one instruction in dynamic activities to improve functional performance. ? BED MOBILITY/TRANSFERS? Supine-sit: CGA? Sit-supine: Modx2 ? Sit-stand: CGA? Stand-sit: Modx2 ? Provided skilled cues and instruction on performance and technique throughout. Gait Training (61466q[]): Direct one-on-one instruction and skilled instruction in: ? Therapeutic Exercises (11797m[1]): Direct one-on-one instruction in therapeutic exercises to develop strength, endurance, range of motion and flexibility. ? Exercises ? Shoulder horz abd x 10 L Rx5 Shoulder flexion x5 Hip abd x 10 R x5 L Heel slides x10R x 5 L SLR R x 10 Lx5 Pt had another episode of falling back and dizziness while completinng seated exercises. Ambulation ? Assistive Device: FWW ? Weight bearing: Full Assist: Attempted to stand had 2 episodes of light headedness and fall back we were not able to complete walking in place or in the room due to this. ? ASSESSMENT:? Pt was not able to complete any standing today due to her episodes. We will monitor pt's response and progress accordingly. PLAN: Cont as per PT POC. TREATMENT CODE/TIME: 9:50-10-10:15-10:25 ( 20) TA DISCHARGE RECOMMENDATION: []
--- NOTE | 2024-06-23 11:49 | PHA.REVIEW2 ---
Pharmacy Admission Review Admission Clinical Review Admission Pharmacy Review: Right-sided lacunar infarction (Acute) Seizures (Acute) Discharge planning issues (Acute) On deep vein thrombosis (DVT) prophylaxis (Acute) Acute UTI (Acute) Syncope and collapse (Acute) No Known Drug Allergies Allergy (Verified 06/21/24 10:42) Unknown Resuscitation Status Full Code Height 4 ft 11 in Weight 46.4 kg Pharmacy Admission Review Renal Dosing Renal Dosing: BUN 15 mg/dL (7-18) 06/22/24 05:20 Creatinine 0.8 mg/dL (0.55-1.02) 06/22/24 05:20 Medications needing adjustments: Intervened (CrCl 38.85 mL/min) List of meds needing interventions: Changed famotidine dose from 20mg daily to 10mg daily Anticoagulation Anticoagulation: Hgb 9.3 g/dL (11.2-15.7) L 06/22/24 05:20 Hct 28.5 % (36.0-46.0) L 06/22/24 05:20 Plt Count 338 10^3/uL (130-400) 06/22/24 05:20 Creatinine 0.8 mg/dL (0.55-1.02) 06/22/24 05:20 DVT Prophylaxis: Reviewed Medications: Enoxaparin (40mg daily) Relevant Labs Relevant Labs: Sodium 140 mmol/L (136-145) 06/22/24 05:20 Potassium 4.9 mmol/L (3.5-5.1) 06/22/24 05:20 Chloride 109 mmol/L (98-107) H 06/22/24 05:20 Magnesium 2.4 mg/dL (1.8-2.4) 06/22/24 05:20 Electrolytes, C-Reactive P, ESR: Reviewed (No new labs for today) Cardiac Review Cardiac Review: Troponin I 5 ng/L (<or=51) 06/21/24 14:35 BP, HR, EF%: Reviewed (BP and HR WNL) List meds needing interventions: Has order for metoprolol XL 12.5mg daily and midodrine 2.5mg TID QTc Review QTc: Reviewed (406 from 06/21/24) IV to PO Switch IV Medications: Reviewed Home Meds Home Med List reviewed: Reviewed Relevent Home Meds Not ordered & why?: Vitamin D3 Current Meds Current Medication Order Review: Reviewed
--- NOTE | 2024-06-23 12:11 | PGE_ITS ---
Date of Service Date of service: 06/23/24 Time of Service: 12:11 Assessment and Plan Assessment and plan (1) Syncope and collapse: Status: Acute Assessment and plan: -No visceral chest pain, cough or SOB -EKG SR HR 73, ST segment minimally elevated in I,AVL & V6 as well as II, III, AVF but asymptomatic- this is different from EKG done on 05/2024 -Will ask for a cardiology consult:completed by Dr. Talbot and as per discussion: -EKG:within normal limits; different axis on previous EKG- this is non- specific -already on ASA 81 and high intensity statin with lipitor 40 mg - will continue -On home dose Plavix -Troponin negative X2 -Echocardiogram completed in 05/2024 w LVEF 575 to 65%, w/o PFO or no structural or hemodynamically significant valvular abnormalities -Patient was recently transferred to [facility] from [facility] for concerns of seizure disorder had continuous EEG and was not started on any antiepileptics -There is also concern for subclavian steal syndrome for which she did not receive any intervention -Patient continues to have syncopal episodes may be secondary to ongoing orthostasis -Was started on 2.5 mg of midodrine 3 times daily, will reassess this afternoon and increase dose if necessary (2) Acute UTI: Status: Acute Assessment and plan: -UA positive, started on CTX, will continue -urine culture neg at 24 hours looked at at 114, abx discontinued (3) Seizures: Status: Acute Assessment and plan: -As noted above patient was recently transferred to [facility] for continuous EEG and was not started on any antiepileptics -Additionally, patient's witnessed seizure, was not described as seizure-like and while patient has not had any witnessed seizure-like activity here, she has had episodes of prolonged syncope likely secondary to orthostasis as noted above (4) Right-sided lacunar infarction: Status: Acute Assessment and plan: -Head CT showed: possible new small subtle lacunar infarct in the right supra ventricular white matter -NIHS reassuring -Tele neuro consult -Already on ASA 81 mg, clopidogrel and high intensity statin outpatient -MRI w/o ordered in AM but consider neuro input prior to completing ( last done in 05/2024- negative ) (5) Hyponatremia: Status: Resolved Assessment and plan: H2O restriction 1000ml/24 hours BMP in AM 06/22/24 resolved (6) Hypomagnesemia: Status: Resolved Assessment and plan: Mg 2 gm IV Mg in AM (7) Anemia: Status: Chronic Assessment and plan: Mild w H&H 10& 30 with normal MCV w/o thrombocytopenia will continue to monitor CBC in AM 06/22/24 Pt with an MCV of 97 today. Would consider a b12/folate/fe/tibc but can defer to her PCP (8) On deep vein thrombosis (DVT) prophylaxis: Status: Acute Assessment and plan: LMWH SC (9) Discharge planning issues: Status: Acute Assessment and plan: Discharge to SNF when medically cleared Subjective Subjective Interval history since last seen: Patient states that she is feeling well right now but that she had few episodes of syncope earlier in the day when working with physical therapy. He was explained to her that we will be starting her on midodrine and will reassess later in the afternoon. Otherwise she has no other complaints concerns at this time. Exam Narrative Exam Narrative: Well-appearing older female laying in bed in no acute distress, ANO x 4, heart regular rhythm, lungs good auscultation bilaterally, abdomen soft, nontender, nondistended Objective Last Vital Signs Temp 97.5 F L 06/23/24 07:30 Pulse 82 06/23/24 09:47 Resp 20 06/23/24 09:47 BP 104/66 06/23/24 09:47 Pulse Ox 95 06/23/24 09:46 Time Spent with Patient Time Spent with Patient: >50 minutes Time was spent: preparing to see the patient(eg.review tests), obtaining and/or reviewing separately otained hiistory, ordering medications,tests, procedures, referring, communicating with other health personal caregiver, indepentently interpreting results, counseling the patient and care coordination
[2024-06-23] MEDS: Normal Saline Flush 10 ML SYR IVP ×2 (14:01→19:19)
[2024-06-23] MEDS: Midodrine 2.5 MG TAB PO ×2 (14:01→19:17)
[2024-06-23] MEDS: Acetaminophen 325 MG TAB 650 MG PO ×2 (14:31→19:16)
--- NOTE | 2024-06-23 15:00 | NUR.NOTE ---
Nursing Note:Contacted [facility] and [facility] to verify patient's pain medication regiment prior to arrival for treatment of left shoulder pain at previous surgical site; Max w/ the organization confirmed current regiment matches prior.
[2024-06-23] MEDS: Enoxaparin 40 MG/0.4 ML SYR SC (18:08)
[2024-06-23] MEDS: Famotidine 20 MG TAB 10 MG PO (19:15)
[2024-06-23] MEDS: Atorvastatin 40 MG TAB PO (19:18)
[2024-06-23] MEDS: Melatonin 3 MG TAB PO (19:18)
[2024-06-23] MEDS: Mirtazapine 15 MG TAB PO (19:18)
[2024-06-23] MEDS: Lidocaine Patch Removal 1 EACH TP (19:53)
[2024-06-24] VITALS (37 sets, daily range): BP systolic 74–138; BP diastolic 44–78; PULSE 56–87; RESP 11–22; TEMP 36.5–37.1; O2SAT 90–97
[2024-06-24] MEDS: Umeclidinium 7 CAP INHALER 1 CAP IH (08:01)
[2024-06-24] MEDS: Midodrine 2.5 MG TAB PO ×2 (08:48→14:08)
[2024-06-24] MEDS: Escitalopram 10 MG TAB PO (08:48)
[2024-06-24] MEDS: Aspirin E.C. 81 MG TABEC PO (08:48)
[2024-06-24] MEDS: Metoprolol CR 25 MG TABCR 12.5 MG PO (08:48)
[2024-06-24] MEDS: Docusate Sodium 100 MG CAP PO (08:48)
[2024-06-24] MEDS: Polyethylene Glycol 3350 17 GM PACKET PO (08:51)
[2024-06-24] MEDS: Lidocaine 5% Patch 1 PATCH TP (08:51)
[2024-06-24] MEDS: Clopidogrel 75 MG TAB PO (08:52)
[2024-06-24] MEDS: Normal Saline Flush 10 ML SYR IVP ×2 (08:52→20:05)
--- NOTE | 2024-06-24 09:47 | PT.INTREAT ---
PT Notes Visit Reasons: Unresponsiveness, seizure Inpatient Physical Therapy Treatment Note [facility] Date: 06/24/24 PRECAUTIONS:Standard, Fall, risk, Unresponsiveness, seizure SUBJECTIVE: Pt reports that she is doing well today. OBJECTIVE: Therapeutic Activities (14984e[]): Direct one-on-one instruction in dynamic activities to improve functional performance. ? BED MOBILITY/TRANSFERS? Supine-sit: CGA? Sit-supine: Min assist when having her episodes ? Sit-stand: CGAx2 ? Stand-sit: CGAx2 ? Provided skilled cues and instruction on performance and technique throughout. Gait Training ([id number][]): Direct one-on-one instruction and skilled instruction in: ? Therapeutic Exercises (98629u[1]): Direct one-on-one instruction in therapeutic exercises to develop strength, endurance, range of motion and flexibility. ? Exercises ? Rowing x 10 Shoulder flexion x 10 Horz abd x 10 Hip abd x 10 SLR x 10 Heel slides x 10 Ambulation ? Weight bearing: Full Assist: FWW with CGAx2 ? Distance:? Marching in place to fatigue ? ASSESSMENT:? Pt had two episodes today during her session but she was able to stand today which is better than yesterday. PLAN: Cont as per PT POC. TREATMENT CODE/TIME: 9:30-9:45 (15) TP DISCHARGE RECOMMENDATION:
[2024-06-24] MEDS: Acetaminophen 325 MG TAB 650 MG PO ×2 (12:03→20:05)
--- NOTE | 2024-06-24 14:48 | NUR.NOTE ---
Nursing Note: Patient's symptoms of headache and mild dizziness laying at rest were persisting for approximately 2 hours. Patient laid back to Trendelenburg position in order to attempt to increase blood flow to the brain - patient symptoms improved w/ a complete resolution of the headache.
[2024-06-24] MEDS: Ketorolac 10 MG TAB PO (15:56)
[2024-06-24] MEDS: Pantoprazole 40 MG TABCR PO (15:57)
--- NOTE | 2024-06-24 16:09 | W.PM.PROGNOT ---
Date of Service Date of service: 06/24/24 Time of Service: 16:09 Assessment and Plan Assessment and plan (1) Syncope and collapse: Status: Acute Assessment and plan: -No visceral chest pain, cough or SOB -EKG SR HR 73, ST segment minimally elevated in I,AVL & V6 as well as II, III, AVF but asymptomatic- this is different from EKG done on 05/2024 -Will ask for a cardiology consult:completed by Dr. Talbot and as per discussion: -EKG:within normal limits; different axis on previous EKG- this is non-specific -already on ASA 81 and high intensity statin with lipitor 40 mg - will continue -On home dose Plavix -Troponin negative X2 -Echocardiogram completed in 05/2024 w LVEF 575 to 65%, w/o PFO or no structural or hemodynamically significant valvular abnormalities -Patient was recently transferred to [facility] from [facility] for concerns of seizure disorder had continuous EEG and was not started on any antiepileptics -There is also concern for subclavian steal syndrome for which she did not receive any intervention -Patient continues to have syncopal episodes may be secondary to ongoing orthostasis -Was started on 2.5 mg of midodrine 3 times daily and has shown improvement, increasing to 5mg TID beginning evening dose 06/24 (2) Acute UTI: Status: Acute Assessment and plan: -UA positive, started on CTX, will continue -urine culture neg at 24 hours looked at at 114, abx discontinued (3) Seizures: Status: Acute Assessment and plan: -As noted above patient was recently transferred to [facility] for continuous EEG and was not started on any antiepileptics -Additionally, patient's witnessed seizure, was not described as seizure-like and while patient has not had any witnessed seizure-like activity here, she has had episodes of prolonged syncope likely secondary to orthostasis as noted above (4) Right-sided lacunar infarction: Status: Acute Assessment and plan: -Head CT showed: possible new small subtle lacunar infarct in the right supra ventricular white matter -NIHS reassuring -Tele neuro consult -Already on ASA 81 mg, clopidogrel and high intensity statin outpatient -MRI w/o ordered in AM but consider neuro input prior to completing ( last done in 05/2024- negative ) (5) Hyponatremia: Status: Resolved Assessment and plan: H2O restriction 1000ml/24 hours BMP in AM 06/22/24 resolved (6) Hypomagnesemia: Status: Resolved Assessment and plan: Mg 2 gm IV Mg in AM (7) Anemia: Status: Chronic Assessment and plan: Mild w H&H 10& 30 with normal MCV w/o thrombocytopenia will continue to monitor CBC in AM 06/22/24 Pt with an MCV of 97 today. Would consider a b12/folate/fe/tibc but can defer to her PCP (8) On deep vein thrombosis (DVT) prophylaxis: Status: Acute Assessment and plan: LMWH SC (9) Discharge planning issues: Status: Acute Assessment and plan: Discharge to SNF when medically cleared Subjective Subjective Interval history since last seen: Patient states that she is feeling a little better except that she is currently experiencing a headache. Exam Narrative Exam Narrative: Well-appearing older female laying in bed in no acute distress, ANO x 4, heart regular rhythm, lungs good auscultation bilaterally, abdomen soft, nontender, nondistended Objective Last Vital Signs Temp 97.7 F 06/24/24 08:35 Pulse 79 06/24/24 15:02 Resp 12 06/24/24 15:02 BP 88/63 L 06/24/24 15:02 Pulse Ox 94 06/24/24 14:59 Time Spent with Patient Time Spent with Patient: >50 minutes Time was spent: preparing to see the patient(eg.review tests), obtaining and/or reviewing separately otained hiistory, ordering medications,tests, procedures, referring, communicating with other health health care legal assistant, indepentently interpreting results, counseling the patient and care coordination
[2024-06-24] MEDS: LORazepam 2 MG/ML VIAL 1 MG IVP (17:07)
[2024-06-24 18:09] LABS: Bilirubin Negative (Negative); Blood Negative (Negative); Clarity Clear (Clear); Glucose Negative (Negative); Ketones Negative (Negative); Leukocyte Esterase Moderate (Negative); Nitrite Negative (Negative); Specific Gravity 1.015 (1.005-1.025); Urobilinogen 0.2 mg/dL (Up to 0.2)
[2024-06-24 18:16] LABS: Bacteria Negative HPF (Negative); C & S Indicated? No/Sq. Contamination; Crystals Negative HPF (Negative); Epithelial Cells Many HPF (Negative); Mucus Negative (Negative); Other Cells Few Transitional (Negative); RBC 0-2 HPF (0-2)
[2024-06-24] MEDS: Enoxaparin 40 MG/0.4 ML SYR SC (18:43)
[2024-06-24] MEDS: Famotidine 20 MG TAB 10 MG PO (20:04)
[2024-06-24] MEDS: Atorvastatin 40 MG TAB PO (20:04)
[2024-06-24] MEDS: Midodrine 2.5 MG TAB 5 MG PO (20:04)
[2024-06-24] MEDS: Mirtazapine 15 MG TAB PO (20:05)
[2024-06-24] MEDS: Lidocaine Patch Removal 1 EACH TP (20:30)
[2024-06-25] VITALS (13 sets, daily range): BP systolic 113–169; BP diastolic 54–82; PULSE 55–73; RESP 14–20; TEMP 36.7–37.2; O2SAT 92–98
[2024-06-25 06:43] LABS: HCT 28.3 % (36.0-46.0); HGB 9.5 g/dL (11.2-15.7); MCH 31.1 pg (27.0-33.0); MCHC 33.6 % (32.0-36.0); MCV 93 fL (80-95); MPV 9.2 fL (8.0-11.0); Platelet Count 302 10^3/uL (130-400); RBC 3.05 10^6/uL (3.93-5.22); RDW 12.8 % (11.7-14.6); RDW-SD 43.6 fL; WBC 9.02 10^3/uL (4.4-10.8)
[2024-06-25 06:59] LABS: Anion Gap 7.1 mmol/L (3-11); BUN 27 mg/dL (7-18); CO2 22.9 mmol/L (21.0-32.0); CREATININE 1.2 mg/dL (0.55-1.02); Calcium 9.9 mg/dL (8.5-10.1); Chloride 98 mmol/L (98-107); Glucose 86 mg/dL (74-106); Potassium 5.4 mmol/L (3.5-5.1); Sodium 128 mmol/L (136-145)
[2024-06-25] MEDS: Umeclidinium 7 CAP INHALER 1 CAP IH (07:54)
[2024-06-25] MEDS: Pantoprazole 40 MG TABCR PO (08:28)
[2024-06-25] MEDS: Clopidogrel 75 MG TAB PO (08:29)
[2024-06-25] MEDS: Escitalopram 10 MG TAB PO (08:29)
[2024-06-25] MEDS: Polyethylene Glycol 3350 17 GM PACKET PO (08:29)
[2024-06-25] MEDS: Aspirin E.C. 81 MG TABEC PO (08:29)
[2024-06-25] MEDS: Midodrine 2.5 MG TAB 5 MG PO (08:29)
[2024-06-25] MEDS: Docusate Sodium 100 MG CAP PO (08:29)
[2024-06-25] MEDS: Metoprolol CR 25 MG TABCR 12.5 MG PO (08:29)
[2024-06-25] MEDS: Normal Saline Flush 10 ML SYR IVP (08:30)
[2024-06-25] MEDS: Lidocaine 5% Patch 1 PATCH TP (08:30)
--- NOTE | 2024-06-25 10:39 | PT.INTREAT ---
PT Notes Visit Reasons: Unresponsiveness, seizure Physical Therapy Inpatient TREATMENT NOTE Date: 06/25/2024 Precautions: High fall risk. Standard. Activity as tolerated. Subjective: Complained of frontal headache during both episode sof unresponsiveness during this session. Objective: General Observation: Resting on bedside chair. Mental Status: Alert and oriented only to self, responses appropriate; did not lose consciousness during both epsiodes of unresposniveness in this session Pain: Frontal headache accompanying epsiode Vital Signs: Oxygen saturation decreased to as low as 88% on RA right before each near fainting episode with poor PPG reading Bed Mobility/Transfers: Rolling stand by assist Supine to sit stand by assist Sit to supine stand by assist with HOB at 30 degrees Sit to stand contact guard assist with FWW Stand to sit contact guard assist with FWW Bed to chair contact guard assist with FWW Chair to bed contact guard assist with FWW Gait: 75 feet using FWW with wheelchair follow by Nurse Sabrina before patient had an unresponsive episode, she was lowered slowly onto the wheelchair for safety. Epsiode lasted for less than a minute. She was able to cover another 50 feet before another epiiode happened. No twitching, no shaking observed during both occurrences--patient just went limp for less than a minute. Balance: Static sitting: Fair Dynamic sitting: Fair Static Standing: Fair Dynamic Standing: Fair Assessment: PLEASE PROVIDE 2 ASSIST AT ALL TIMES FOR ALL ESSENTIAL TRANSFERS AND AMBULATION FOR SAFETY. Patient continues to be at risk for falls due to recurrent change in mentation and general muscular tone with exertion and mobility performance. L UE and L LE weaker than the R. Patient had 2 episodes of fainting without loss of consciousness while with PT for this session. Patient presents with clinical signs and symptoms consistent with current/admitting diagnoses that have resulted to mobility limitations, gait instability, generalized weakness, and overall ADL decline as demonstrated by the following impairment level findings: 1. Decreased strength to B UE/LE major muscle groups 2. Impaired sitting/standing balance 3. Impaired activity tolerance 4. Limitation of joint range of motion in b shoulders (chronic) 5. Fainting spells Impairments are contributing to the following functional limitations: 1. Decline in bed mobility skills 2. Decline in transfer skills 3. Difficulty with ambulation without assistive device and physical assistance 4. Increased completion time for mobility ADL performance 5. Increased risk for falls 6. Difficulty with managing steps alone safely Plan of Care/Treatment Plan: 1-2x/day, 7 days/week x 1 week. Plan of care has been reviewed with the AIRLINE RESERVATION AGENT providing the service under Physical Therapy direction. Initiate Physical Therapy intervention for pain management as needed, strengthening, bed mobility, transfers, gait, stairs, balance training, and use of assistive device. DISCHARGE RECOMMENDATIONS: [] Home with no services [] [] Home with services [specify] [] Home with outpatient PT [] [] SNF for continued rehabilitation [] [] [facility] [] [] SNF versus LTC based on ability to participate and progress [] [X] Return to SNF with subacute rehab for continued mobility progression and fall reduction strategies TREATMENT CODE/TIME: 15027 x 38 minutes for 3 units (10:39-11:07).
[2024-06-25] MEDS: Acetaminophen 325 MG TAB 650 MG PO (11:04)
--- NOTE | 2024-06-25 11:09 | W.PM.DS.N ---
Date of service: 06/25/24 Time of Service: 11:09 DS: Diagnosis Discharge Diagnosis (1) Syncope and collapse: Status: Acute (2) Acute UTI: Status: Acute (3) Seizures: Status: Acute (4) Right-sided lacunar infarction: Status: Acute (5) Hyponatremia: Status: Resolved (6) Hypomagnesemia: Status: Resolved (7) Anemia: Status: Chronic (8) On deep vein thrombosis (DVT) prophylaxis: Status: Acute (9) Discharge planning issues: Status: Acute Discharge Plan Disposition Patient Disposition: Shelter Facility(SNF) Condition: Good Discharge Details Reason For Visit: Unresponsiveness, seizure Admit Date/Time: 06/21/24 13:05 Admit Provider: Noam Motley Attending Provider: Noam Motley Primary Care Provider: Unknown,Unknown Hospital Course Hospital Course: Patient initially presented with signs and symptoms that with initial concern for seizure. However, patient was recently at [facility] had a continuous EEG and was shown to not have any seizure-like activity. However, she is known to have very significant orthostatic hypotension for which she was fluid resuscitated but continued to have prolonged periods of syncope with movement. She was started on midodrine which was slowly titrated up to 5 mg 3 times daily and did have improvement of her symptoms, though it is still highly recommended that she go from laying to sitting and sitting to standing very slowly. However, given patient has significant improvement of her symptoms and has been able to ambulate and change position without frequent episodes of syncope was determined that she was stable for discharge back to [facility] and rehab. Home Meds and New Rx's Prescriptions: New pantoprazole 40 mg Tablet,Delayed Release (Dr/Ec) 40 mg PO DAILY@0730 Qty: 90 0RF midodrine 2.5 mg Tablet 5 mg PO TID Qty: 120 0RF Continued atorvastatin 40 MG tablet 40 mg PO QPM acetaminophen [Pain Relief (acetaminophen)] 325 mg tablet 650 mg PO TID PRN famotidine [Acid Controller] 20 mg tablet 20 mg PO QHS albuterol sulfate 90 mcg/actuation HFA aerosol inhaler 1 inh inhalation Q6H loperamide 2 mg 4 mg PO .Q24 PRN melatonin 3 mg 3 mg PO .Q24 HS PRN (Reason: Do not give after 2 am) proventil hfa 108 mcg 1 puff inhalation Q8H aspirin [Enteric Coated Aspirin] 81 mg tablet,delayed release (DR/EC) 81 mg PO DAILY clopidogrel 75 mg tablet 75 mg PO DAILY bisacodyl [Dulcolax (bisacodyl)] 10 mg suppository 10 mg MT DAILY PRN Patient Comments: for constipation if no result from MOM and/or by next shift escitalopram oxalate 10 mg tablet 10 mg PO DAILY Enema 19-7 gram/118 mL enema 118 ml MT DAILY PRN Patient Comments: for constipation if no result from Dulcolax within 2 hours. If no results from fleet enema, call MD/advanced practice provider ([facility]) for further orders Incruse Ellipta 62.5 mcg/actuation blister with device 1 inh inhalation DAILY lidocaine 5 % adhesive patch,medicated 1 patch topical DAILY Rx Instructions: leave on most painful area for up to 12 hrs metoprolol succinate 25 mg tablet extended release 24 hr 12.5 mg PO DAILY Patient Comments: Hold for SBP 110 or less polyethylene glycol 3350 [Miralax] 17 gram/dose powder 17 g PO DAILY mirtazapine 15 mg tablet 15 mg PO HS Discontinued cholecalciferol (vitamin D3) [Decara] 1,250 mcg (50,000 unit) capsule 50,000 unit PO QWEEK Patient Comments: takes every Tuesday docusate sodium 100 mg capsule 100 mg PO DAILY Discharge Instructions Activity:: Activity as Tolerated Equipment/Supplies:: No Equipment Needed Diet:: As Tolerated Discharge Orders Discharge Orders: Discharge Order (Routine); Ordered 06/25/24 Ordered By: Ricco Thakkar DS: Summary Time Spent with Patient providing and/or coordinating discharge services: Greater than 30 minutes Status at Discharge Functional status at discharge: independent ambulation Overall status at discharge: patient is back to baseline Mental Status: mental status grossly normal Speech and Movement: speech and movement normal Mood: congruent mood Affect: normal affect Quality:SDOH Health Related Social Needs: No Data to Display Exam Narrative Exam Narrative: Well-appearing older female laying in bed in no acute distress, ANO x 4, heart regular rhythm, lungs good auscultation bilaterally, abdomen soft, nontender, nondistended Psych Mental Status: mental status grossly normal Speech and Movement: speech and movement normal Mood: congruent mood Affect: normal affect DS: Data Vitals/I&O Vitals and I&O: Vital Signs Temperature 99.0 F 06/25/24 09:02 Temperature Source Temporal Artery Scan 06/25/24 09:02 Pulse 64 06/25/24 08:02 Pulse 67 06/25/24 08:02 Respiratory Rate 16 06/25/24 08:02 Respiratory Effort Normal, Non-Labored 06/21/24 14:30 Respiratory Depth Normal 06/21/24 14:30 Respiratory Pattern Normal 06/21/24 14:30 Blood Pressure 147/64 H 06/25/24 08:02 Blood Pressure Mean 86 06/25/24 08:02 Blood Pressure Position Supine 06/21/24 14:30 Pulse Oximetry 95 06/25/24 08:02 Oxygen Delivery Method Room Air 06/24/24 18:45 Oxygen Flow Rate 0 06/24/24 18:45 Pain Level 7 06/25/24 11:04 Comment Repeat BP in L arm for comparison 06/24/24 19:50 Comment right arm after midodrine 06/24/24 21:02 Intake & Output 06/24/24 06/25/24 06/25/24 17:59 05:59 17:59 Intake Total 320 / 320 800 / 1120 560 / 560 Output Total 1010 / 1010 350 / 1360 450 / 450 Balance -690 / -690 450 / -240 110 / 110 Weight 98 lb 5.219 oz Intake: Oral 320 / 320 800 / 1120 560 / 560 Output: Urine 1010 / 1010 350 / 1360 450 / 450 Other: Urine Color Yellow Dark Berta Yellow Urine Appearance Clear Clear Clear Urine Odor Normal None Comment Patient reports burning with voiding. concentrated Stool Size Small Smear Small Stool Characteristics Soft Soft Formed Formed Brown Data Completed and Pending Labs on day of discharge: Labs from last 24 hours 06/25/24 06/24/24 06:10 18:00 WBC 9.02 RBC 3.05 L Hgb 9.5 L Hct 28.3 L MCV 93 D MCH 31.1 MCHC 33.6 RDW 12.8 Plt Count 302 MPV 9.2 Sodium 128 L Potassium 5.4 H Chloride 98 Carbon Dioxide 22.9 Anion Gap 7.1 BUN 27 H Creatinine 1.2 H Est GFR (CKD-EPI 2020) 49.00 Glucose 86 Calcium 9.9 Urine Color Yellow Urine Clarity Clear Urine pH 7.0 Ur Specific [place] 1.015 Urine Protein Negative Urine Ketones Negative Urine Blood Negative Urine Nitrite Negative Urine Bilirubin Negative Urine Urobilinogen 0.2 Ur Leukocyte Esterase Moderate H Urine RBC 0-2 Urine WBC 10-20 H Ur Epithelial Cells Many Urine Crystals Negative Urine Bacteria Negative Urine Mucus Negative Urine Other Few Transitional Ur Culture Indicated? No/Sq. Contamination Urine Glucose Negative PFSH All Active Problems (Updated 06/21/24 @ 19:00 by Suki Billingsley APRN) Right-sided lacunar infarction (Acute) Seizures (Acute) Discharge planning issues (Acute) On deep vein thrombosis (DVT) prophylaxis (Acute) Anemia (Chronic) Acute UTI (Acute) Syncope and collapse (Acute) Hyperlipidemia (Chronic) Depression (Chronic) COPD (chronic obstructive pulmonary disease) (Chronic) HTN (hypertension) (Chronic) TIA (transient ischemic attack) (Acute) COVID-19 (Acute) Social History Smoking/Tobacco Use Status: Former Tobacco Use Smoking risk assessment performed?: Yes Alcohol Intake: former Drug use: Never Substance use type: marijuana Housing: [facility] Do you feel safe at home: Yes Do you feel safe in your relationship?: Yes Additional Social history: H+R Time Spent with Patient Time Spent with Patient: <45 minutes Time was spent: preparing to see the patient(eg.review tests), obtaining and/or reviewing separately otained hiistory, ordering medications,tests, procedures, referring, communicating with other health rental boats caretaker, indepentently interpreting results, counseling the patient and care coordination
--- NOTE | 2024-06-25 11:24 | CMDISCH_ITS ---
Date of service: 06/25/24 Time of Service: 11:25 LACE Index Scoring Tool Questions: Length of Stay (in days): 4 - 6 Was the patient admitted via the E.D.?: Yes Comorbidities: Chronic Pulmonary Disease E.D. Visits: 3 Answers: Total Score: 12 Risk of Readmission: High Risk Care Management Discharge Plan Reason for Hospitalization: unresponsiveness, seizure Discharge Plan: Karla will return to [facility] today, where she resides. She will transport via [employer] w/c [employer], coordinated by CM. She will follow up with facility providers, and her discharge plan of care. Patient/Family Education Needs: Review discharge instructions and limitations, discussion of self care needs including ask me three. Services Needed at Discharge: Alf Facility ([facility]) and Transportation ([employer] w/c van) [facility] Health Related Social Needs: No Data to Display
== END 2024-06-25 13:10 | disposition skilled nursing facility (03) | DRG 689 ==
LOC: ER 13:47 → ICU 14:20
PROVIDERS: Family Medicine; Nurse Practitioner Acute Care; Admitting Provider Hospitalist; Emergency Provider Student in an Organized Health Care Education/Training Program; Visit Provider Hospitalist
DX: N39.0 Urinary tract infection, site not specified (principal); I63.81 Other cerebral infarction due to occlusion or stenosis of small artery; E87.1 Hypo-osmolality and hyponatremia; I95.1 Orthostatic hypotension; R56.9 Unspecified convulsions; E83.42 Hypomagnesemia; D64.9 Anemia, unspecified; Z79.899 Other long term (current) drug therapy; J44.9 Chronic obstructive pulmonary disease, unspecified; I10 Essential (primary) hypertension; I25.2 Old myocardial infarction; Z86.73 Personal history of transient ischemic attack (TIA), and cerebral infarction without residual deficits; F32.A Depression, unspecified; Z87.891 Personal history of nicotine dependence; F12.90 Cannabis use, unspecified, uncomplicated; R51.9 Headache, unspecified
CPT/HCPCS: 00123; 36415; 80048; 80053; 80061; 80307; 83690; 85027; 93005; 94640; 96365; 96372; 97110; 97162; 97530; J1650; 70450; 80320; 81003; 81015; 83036; 83735; 84484; 85025; 87086; 93010; 94664; 99223; 99231; 99233; 99239; J0696; J2060; J3475; J3490

== ENCOUNTER 2024-07-04 16:24 | Emergency (ER) | payer MEDICARE, SELFPAY ==
[2024-07-04] VITALS (25 sets, daily range): BP systolic 84–199; BP diastolic 54–93; PULSE 76–102; RESP 13–27; TEMP 37.1; O2SAT 91–96
--- NOTE | 2024-07-04 16:00 | RT.EKG_ITS ---
APPROVED REPORT Exam: Resting ECG Reason for Exam: Seizure Patient Location: E HR:92 bpm ECG Measurements Heart Rate 92 AXIS MN 158 P 85 QRSd 85 QRS 82 QT 339 T 74 QTc 420 Conclusion Sinus rhythm 92 normal axis no stemi
--- NOTE | 2024-07-04 16:15 | DI.CT_ITS ---
Exam(s) CT ABDOMEN PELVIS W EXAM: CT ABDOMEN PELVIS W CLINICAL HISTORY: ABDOMINAL PAIN. TECHNIQUE: Imaging Protocol: Axial computed tomography images with coronal and sagittal reformatted images were created and reviewed CONTRAST MATERIAL: Intravenous: Omnipaque-350 70cc Oral: None COMPARISON: CT CT ABDOMEN PELVIS CTA from 02/09/2024 FINDINGS: VISUALIZED LUNG BASES: No nodules nor pleural effusions evident. ABDOMEN: There is no ascites. LIVER: There are 2 small sub cm hypodensities in the right hepatic lobe which are probably benign hem angiomas. There are no ominous liver lesions. No dilated intrahepatic ducts. GALLBLADDER/BILIARY: Gallbladder is not distended. No obvious gallstones nor gallbladder wall thicke issa. There is, however, very subtle suggestion of some mild fluid around the gallbladder. CBD diam eter is upper normal-minimally prominent. PANCREAS: No evidence of pancreatic mass. Pancreatic duct diameter is upper normal. There is no damian creatic edema nor peripancreatic fluid. SPLEEN: Spleen is not enlarged. No obvious intrasplenic lesions. Splenic and portal veins are paten t. ADRENALS: There are no significant adrenal masses. KIDNEYS:No cysts evident. No solid renal masses. No calculi nor hydronephrosis.. ABDOMINAL AORTA: The abdominal aorta is again noted be heavily calcified but not enlarged and there i s also heavy calcified plaque at the aortic bifurcation and within the damon of the nondilated iliac arteries. There is heavily calcified plaque again noted at the origin of the superior mesenteric art jc and celiac artery. 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 LYMPH NODES:There is no retroperitoneal nor paraaortic adenopathy. ABDOMINAL WALL: No evidence of significant anterior abdominal wall nor inguinal hernia. GI: There is no evidence of bowel obstruction, free air, nor abscess. PELVIS: GI: The appendix is not identified as an independent structure but there is no evidence of obvious ac douglas appendicitis.No evidence of sigmoid diverticulitis. REPRODUCTIVE: There is a cyst in the left adnexa which measures 3.4 by 2.9 by 3.3 cm, most probably i n the left ovary and unchanged from February [address]24 CT scan. There are no significant focal findings in the right adnexa. Uterus size is age-appropriate. LYMPH NODES: There is no adenopathy around the aortic bifurcation nor along the iliac chains and ther e is no inguinal adenopathy. No obturator adenopathy. URINARY BLADDER: Urinary bladder wall is diffusely thickened most probably related to cystitis. OSSEOUS: Multilevel chronic degenerative disc disease, again most evident at L2-3 level. Prominent S chmorl's node invagination in superior endplate level of L1 remains unchanged. There are no new frac tures evident. No listhesis. IMPRESSION: 1. 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 There are no ischemic appearing bowel loops . No evidence of bowel obstruction coma free air, nor abscess. 2. Very subtle suggestion of mild pericholecystic fluid. No gallbladder distension nor obvious radio paque calculi seen within the nondistended gallbladder lumen. CBD diameter is minimally prominent, m easuring 8 mm. There are no calculi seen in the lower CBD and there is no pancreatic head mass evide nt. 3. There is uniform thickening of the urinary bladder wall noted. This may be related to cystitis or relative under distension when compared to the normal appearing bladder appearance on CT scan of 02/2024 4. There is a left ovarian unilocular appearing cyst again noted measuring 3.4 x 2.9 x 3.3 cm, unchan ged from February 2024. No right adnexal findings. No free fluid in the pelvis. Report called by myself to ER physician 07/04/2024 at 6: 18 p.m. RADIATION DOSE DELIVERED: 254.84mGy.cm Total DLP DATA REPOSITORY: All CT scans at this facility are submitted to the National Radiology Data Registry (NRDR) Dose Index Registry (DIR) with the [employer] (ACR). RADIATION OPTIMIZATION: All CT scans at this facility use at least one of these dose optimization te chniques: automated exposure control; mA and/or kV adjustment per patient size (includes targeted exa ms where dose is matched to clinical indication); or iterative reconstruction.
[2024-07-04 16:37] LABS: Abs Immature Grans 0.05 10^3/uL (0.0-0.06); Absolute Basophil Count 0.09 10^3/uL (0.0-0.2); Absolute Eosinophil Count 0.28 10^3/uL (0.0-0.7); Absolute Lymphocyte Count 4.54 10^3/uL (1.2-3.4); Absolute Monocyte Count 0.79 10^3/uL (0.1-0.8); Absolute Neutrophil Count 4.85 10^3/uL (1.2-6.7); Basophils % 0.8 %; Eosinophils % 2.6 %; HGB 9.8 g/dL (11.2-15.7); Immature Grans % 0.5 %; Lymphocytes % 42.8 %; MCH 31.2 pg (27.0-33.0); MCHC 32.7 % (32.0-36.0); MCV 96 fL (80-95); Monocytes % 7.5 %; Neutrophils % 45.8 %; Platelet Count 370 10^3/uL (130-400); RBC 3.14 10^6/uL (3.93-5.22); RDW 13.4 % (11.7-14.6); RDW-SD 47.5 fL
--- NOTE | 2024-07-04 16:39 | W.ED.GENAD ---
Discharge Plan Disposition Patient Disposition: Home Discharge Details Clinical Impression: Syncope and collapse Primary Care Provider: Unknown,Unknown ED Provider: Luly Kumar Home Meds and New Rx's Prescriptions: No Action atorvastatin 40 MG tablet 40 mg PO QPM acetaminophen [Pain Relief (acetaminophen)] 325 mg tablet 650 mg PO TID PRN famotidine [Acid Controller] 20 mg tablet 20 mg PO QHS loperamide 2 mg 4 mg PO .Q24 PRN melatonin 3 mg 3 mg PO .Q24 HS PRN (Reason: Do not give after 2 am) proventil hfa 108 mcg 1 puff inhalation Q8H aspirin [Enteric Coated Aspirin] 81 mg tablet,delayed release (DR/EC) 81 mg PO DAILY clopidogrel 75 mg tablet 75 mg PO DAILY pantoprazole 40 mg Tablet,Delayed Release (Dr/Ec) 40 mg PO DAILY@0730 Qty: 90 0RF midodrine 2.5 mg Tablet 5 mg PO TID Qty: 120 0RF bisacodyl [Dulcolax (bisacodyl)] 10 mg suppository 10 mg WA DAILY PRN Patient Comments: for constipation if no result from MOM and/or by next shift escitalopram oxalate 10 mg tablet 10 mg PO DAILY Enema 19-7 gram/118 mL enema 118 ml WA DAILY PRN Patient Comments: for constipation if no result from Dulcolax within 2 hours. If no results from fleet enema, call MD/advanced practice provider ([facility]) for further orders Incruse Ellipta 62.5 mcg/actuation blister with device 1 inh inhalation DAILY lidocaine 5 % adhesive patch,medicated 1 patch topical DAILY Rx Instructions: leave on most painful area for up to 12 hrs metoprolol succinate 25 mg tablet extended release 24 hr 12.5 mg PO DAILY Patient Comments: Hold for SBP 110 or less polyethylene glycol 3350 [Miralax] 17 gram/dose powder 17 g PO DAILY mirtazapine 15 mg tablet 15 mg PO HS Discharge Instructions Instructions: Syncope (Fainting) (DC) Additional Instructions: Episode today seems consistent with prior evaluation for syncope. Please continue midodrine and patient should have significant caution when changing positions and should ambulate with caution and assistance HPI General Date/Time Provider Initiated Documentation: 07/04/24 16:38. Limitations to Documentation: altered mental status. Information obtained by: patient, EMS and old records reviewed. HPI Narrative: 69-year-old female with past medical history of hypertension COPD, dementia, chronic alcohol abuse presents for evaluation of altered mental status. Patient has been at [facility] and rehab. Earlier today she was walking and felt weak and sat down and felt better. Then later this afternoon a similar event occurred but when she sat down they noted that she was having tremors for approximately a minute. They cannot further describe these tremors or what they may have looked like. They reported that she did not see them responsive at the time. The patient is unable to provide additional information regarding this episode. She endorses urinary burning on evaluation and some abdominal pain but is unclear how long this has been ongoing. Related Data Home Medications ?Medication ?Instructions ?Recorded ?Confirmed atorvastatin 40 mg tablet 40 mg PO QPM 05/03/17 07/04/24 bisacodyl 10 mg rectal suppository 10 mg WA DAILY PRN 02/09/24 07/04/24 (Dulcolax (bisacodyl)) escitalopram oxalate 10 mg tablet 10 mg PO DAILY 02/09/24 07/04/24 lidocaine 5 % topical patch 1 patch topical DAILY 02/09/24 07/04/24 metoprolol succinate 25 mg 12.5 mg PO DAILY 02/09/24 07/04/24 tablet,extended release 24 hr mirtazapine 15 mg tablet 15 mg PO HS 02/09/24 07/04/24 polyethylene glycol 3350 17 17 g PO DAILY 02/09/24 07/04/24 gram/dose oral powder (Miralax) sodium phosphates 19 gram-7 118 ml WA DAILY PRN 02/09/24 07/04/24 gram/118 mL enema (Enema) umeclidinium 62.5 mcg/actuation 1 inh inhalation DAILY 02/09/24 07/04/24 blister powder for inhalation (Incruse Ellipta) acetaminophen 325 mg tablet (Pain 650 mg PO TID PRN 05/24/24 07/04/24 Relief (acetaminophen)) famotidine 20 mg tablet (Acid 20 mg PO QHS 05/24/24 07/04/24 Controller) loperamide 4 mg PO .Q24 PRN 05/25/24 07/04/24 melatonin 3 mg PO .Q24 HS PRN Do not give 05/25/24 07/04/24 after 2 am proventil hfa 1 puff inhalation Q8H 90 base- for 05/25/24 07/04/24 SOB, COPD. Notify provider of adverse aspirin 81 mg tablet,delayed 81 mg PO DAILY 06/21/24 07/04/24 release (Enteric Coated Aspirin) clopidogrel 75 mg tablet 75 mg PO DAILY 06/21/24 07/04/24 midodrine 2.5 mg tablet 5 mg (2 x 2.5 mg) PO TID #120 tabs 06/25/24 07/04/24 pantoprazole 40 mg tablet,delayed 40 mg PO DAILY@0730 #90 tabs 06/25/24 07/04/24 release Previous Rx's ?Medication ?Instructions ?Recorded midodrine 2.5 mg tablet 5 mg (2 x 2.5 mg) PO TID #120 tabs 06/25/24 pantoprazole 40 mg tablet,delayed 40 mg PO DAILY@0730 #90 tabs 06/25/24 release Allergies Allergy/AdvReac Type Severity Reaction Status Date / Time No Known Drug Allergies Allergy Unknown Verified 07/04/24 16:24 General Stated Complaint: [id number] JAZMIN: 3 Exam Narrative Exam Narrative: Review of Systems: All systems reviewed & are unremarkable except as noted in HPI and below Well-developed NCAT PERRL, normal conjunctiva RRR Unlabored respiratory effort, CTAB Nondistended abdomen , soft, suprapubic tenderness Extremities w/o deformity no focal neurologic deficits oriented to person, knows shes in the hospital, says year is 2011 Course Vital Signs Vital signs: Vital Signs Temperature 37.1 C 07/04/24 16:15 Pulse 102 H 07/04/24 16:15 Respiratory Rate 18 07/04/24 16:15 Blood Pressure 199/93 H 07/04/24 16:15 Pulse Oximetry 94 07/04/24 16:15 Temperature 37.1 C 07/04/24 16:15 Temperature Source Tympanic 07/04/24 16:15 Pulse 102 H 07/04/24 16:15 Respiratory Rate 18 07/04/24 16:15 Blood Pressure 199/93 H 07/04/24 16:15 Blood Pressure Position Sitting 07/04/24 16:15 Pulse Oximetry 94 07/04/24 16:15 Oxygen Delivery Method Room Air 07/04/24 16:15 Oxygen Flow Rate 0 07/04/24 16:15 Medical Decision Making Emergent evaluation of altered mental status. Initial differential includes syncopal episode, vasovagal episode, seizure. Per report patient went unresponsive and had some tremor but unclear if this was seizure activity . Patient was just discharged from the hospital on 1223. She presented with similar symptoms. She was found to have orthostatic hypotension. Had a continuous EEG that did not demonstrate any seizure-like activity. She continued to have prolonged periods of syncope with movement. She was started on midodrine prior to discharge. I suspect given the report today that her symptoms are due to the same etiology. An EKG was obtained, sinus 92 normal axis no acute ischemic changes. Have a low suspicion for a cardiac etiology. Will get orthostatic vital signs, will also evaluate for her abdominal tenderness and complaint of urinary discomfort. Lab work reviewed. No leukocytosis. Anemia is at baseline. There is mild hypomagnesemia which was repleted orally otherwise no additional concerning electrolyte derangement. Her urinalysis does not reveal infection. Her cardiac biomarkers are not elevated. I discussed the CT imaging with the radiologist and there is no acute abnormality. After review of her most recent hospitalization and discharge report, I feel that the symptoms today are the results of the same etiology. I recommend continued close monitoring of her blood pressure and close and safe precautions regarding position changes and ambulation. Quality:SDOH Health Related Social Needs: No Data to Display PFSH All Active Problems (Updated 07/04/24 @ 18:23 by Luly Kumar MD) Right-sided lacunar infarction (Acute) Anemia (Chronic) Acute UTI (Acute) Syncope and collapse (Acute) Hyperlipidemia (Chronic) Depression (Chronic) COPD (chronic obstructive pulmonary disease) (Chronic) HTN (hypertension) (Chronic) TIA (transient ischemic attack) (Acute) COVID-19 (Acute) Social History Smoking/Tobacco Use Status: Former Tobacco Use Smoking risk assessment performed?: Yes Alcohol Intake: former Drug use: Never Substance use type: marijuana Housing: senior care Do you feel safe at home: Yes Do you feel safe in your relationship?: Yes Additional Social history: H+R
[2024-07-04 17:05] LABS: ALT 18 U/L (14-59); AST 15 U/L (15-37); Alkaline Phosphatase 150 U/L (46-116); Anion Gap 11.9 mmol/L (3-11); BUN 16 mg/dL (7-18); Bilirubin, Total 0.19 mg/dL (0.2-1.0); CO2 23.1 mmol/L (21.0-32.0); Calcium 10.3 mg/dL (8.5-10.1); Chloride 100 mmol/L (98-107); Estimated GFR 60.98 (mL/min/1.73m2); Glucose 122 mg/dL (74-106); Magnesium 1.4 mg/dL (1.8-2.4); Potassium 4.5 mmol/L (3.5-5.1); Sodium 135 mmol/L (136-145); TSH 2.55 uIU/mL (0.36-3.74); Total Protein 7.2 g/dL (6.4-8.2); Troponin I 6 ng/L (<or=51)
[2024-07-04] MEDS: Normal Saline - Diluent 50 ML VIAL IJ (17:08)
[2024-07-04] MEDS: Omnipaque 350 MG/ML 100 ML BTL IJ (17:09)
[2024-07-04] MEDS: Ondansetron 4 MG/2 ML VIAL IVP (17:29)
[2024-07-04] MEDS: Magnesium Oxide 400 MG TAB PO (17:29)
[2024-07-04 17:31] LABS: Bilirubin Negative (Negative); Blood Negative (Negative); Clarity Clear (Clear); Glucose Negative (Negative); Ketones Negative (Negative); Leukocyte Esterase Small (Negative); Nitrite Negative (Negative); Urobilinogen 0.2 mg/dL (Up to 0.2)
[2024-07-04 17:38] LABS: Bacteria Negative HPF (Negative); C & S Indicated? No; Crystals Negative HPF (Negative); Epithelial Cells Rare HPF (Negative); Mucus Negative (Negative); RBC Negative HPF (0-2)
[2024-07-04 17:55] LABS: Troponin I 5 ng/L (<or=51)
[2024-07-04] MEDS: Midodrine 2.5 MG TAB 5 MG PO (18:24)
--- NOTE | 2024-07-04 18:41 | NUR.NOTE ---
Nursing Note: Report called to [facility]
== END 2024-07-04 18:45 | disposition home or self-care (01) ==
PROVIDERS: Emergency Provider Emergency Medicine
DX: R55 Syncope and collapse (principal); E83.42 Hypomagnesemia; D64.9 Anemia, unspecified; I10 Essential (primary) hypertension; J44.9 Chronic obstructive pulmonary disease, unspecified; F03.90 Unspecified dementia, unspecified severity, without behavioral disturbance, psychotic disturbance, mood disturbance, and anxiety; Z79.82 Long term (current) use of aspirin; Z79.01 Long term (current) use of anticoagulants; Z86.73 Personal history of transient ischemic attack (TIA), and cerebral infarction without residual deficits; Z87.891 Personal history of nicotine dependence
CPT/HCPCS: 80053; 82962; 93005; 96374; 99285; 74177; 81003; 81015; 83735; 84443; 84484; 85025; 93010; J2405; J3490

== ENCOUNTER 2024-08-04 12:15 | Emergency (ER) | payer MEDICARE, SELFPAY ==
[2024-08-04] VITALS (22 sets, daily range): BP systolic 158–204; BP diastolic 73–87; PULSE 58–87; RESP 15–24; TEMP 36.4; O2SAT 94–99
--- NOTE | 2024-08-04 12:00 | RT.EKG_ITS ---
APPROVED REPORT Exam: Resting ECG Reason for Exam: ?syncope Patient Location: E HR:66 bpm ECG Measurements Heart Rate 66 AXIS OK 161 P 77 QRSd 82 QRS 83 QT 378 T 79 QTc 398 Conclusion Sinus rhythm...normal P axis, V-rate 60- 99
[2024-08-04 12:32] LABS: Abs Immature Grans 0.06 10^3/uL (0.0-0.06); Absolute Basophil Count 0.09 10^3/uL (0.0-0.2); Absolute Eosinophil Count 0.43 10^3/uL (0.0-0.7); Absolute Lymphocyte Count 3.46 10^3/uL (1.2-3.4); Absolute Neutrophil Count 5.55 10^3/uL (1.2-6.7); Basophils % 0.9 %; Eosinophils % 4.1 %; HCT 32.3 % (36.0-46.0); HGB 10.5 g/dL (11.2-15.7); Immature Grans % 0.6 %; MCH 30.6 pg (27.0-33.0); MCHC 32.5 % (32.0-36.0); MCV 94 fL (80-95); MPV 9.2 fL (8.0-11.0); Monocytes % 8.6 %; Neutrophils % 52.8 %; Platelet Count 344 10^3/uL (130-400); RBC 3.43 10^6/uL (3.93-5.22); RDW 12.4 % (11.7-14.6); RDW-SD 43.1 fL; WBC 10.49 10^3/uL (4.4-10.8)
--- NOTE | 2024-08-04 12:32 | ED.GENADUL_ITS ---
Discharge Plan Disposition Patient Disposition: Home Condition: Stable Discharge Details Clinical Impression: Orthostatic hypotension Primary Care Provider: Unknown,Unknown ED Provider: Yanick Alvarez Home Meds and New Rx's Prescriptions: Continued atorvastatin 40 MG tablet 40 mg PO QPM acetaminophen [Pain Relief (acetaminophen)] 325 mg tablet 650 mg PO TID PRN famotidine [Acid Controller] 20 mg tablet 20 mg PO QHS loperamide 2 mg 4 mg PO .Q24 PRN melatonin 3 mg 3 mg PO .Q24 HS PRN (Reason: Do not give after 2 am) proventil hfa 108 mcg 1 puff inhalation Q8H aspirin [Enteric Coated Aspirin] 81 mg tablet,delayed release (DR/EC) 81 mg PO DAILY clopidogrel 75 mg tablet 75 mg PO DAILY pantoprazole 40 mg Tablet,Delayed Release (Dr/Ec) 40 mg PO DAILY@0730 Qty: 90 0RF midodrine 2.5 mg Tablet 5 mg PO TID Qty: 120 0RF bisacodyl [Dulcolax (bisacodyl)] 10 mg suppository 10 mg ID DAILY PRN Patient Comments: for constipation if no result from MOM and/or by next shift escitalopram oxalate 10 mg tablet 10 mg PO DAILY Enema 19-7 gram/118 mL enema 118 ml ID DAILY PRN Patient Comments: for constipation if no result from Dulcolax within 2 hours. If no results from fleet enema, call MD/advanced practice provider ([facility]) for further orders Incruse Ellipta 62.5 mcg/actuation blister with device 1 inh inhalation DAILY lidocaine 5 % adhesive patch,medicated 1 patch topical DAILY Patient Comments: not on patient MAR Rx Instructions: leave on most painful area for up to 12 hrs metoprolol succinate 25 mg tablet extended release 24 hr 12.5 mg PO DAILY Patient Comments: Hold for SBP 110 or less Not on patient MAR polyethylene glycol 3350 [Miralax] 17 gram/dose powder 17 g PO DAILY mirtazapine 15 mg tablet 15 mg PO HS magnesium hydroxide [Milk of Magnesia] 400 mg/5 mL suspension 2,400 mg PO ONCE PRN metoclopramide HCl [Reglan] 5 mg tablet 5 mg PO TID PRN Discharge Instructions Additional Instructions: Your blood work exam did not show any concerning findings. Follow-up with your primary care provider within 1 to 2 weeks If you feel more ill, have new symptoms such as high fevers or difficulty breathing return to the emergency department for reevaluation HPI General Mode of arrival: EMS . Date/Time Provider Initiated Documentation: 08/04/24 12:23 . Limitations to Documentation: no limitations . Information obtained by: patient . History of Present Illness 69 year old F presents to the emergency department with the chief complaint of possible syncope, described as moderate, Patient started experiencing this hour(s) (1) and it has been now resolved. No relieving factors improve symptom(s), No exacerbating factors reported . Patient notes denies chest pain, fever/chills and shortness of breath. Patient did receive the following treatments prior to arrival, none Related Data Home Medications ?Medication ?Instructions ?Recorded ?Confirmed atorvastatin 40 mg tablet 40 mg PO QPM 05/03/17 08/04/24 bisacodyl 10 mg rectal suppository 10 mg ID DAILY PRN 02/09/24 08/04/24 (Dulcolax (bisacodyl)) escitalopram oxalate 10 mg tablet 10 mg PO DAILY 02/09/24 08/04/24 lidocaine 5 % topical patch 1 patch topical DAILY 02/09/24 07/04/24 metoprolol succinate 25 mg 12.5 mg PO DAILY 02/09/24 07/04/24 tablet,extended release 24 hr mirtazapine 15 mg tablet 15 mg PO HS 02/09/24 08/04/24 polyethylene glycol 3350 17 17 g PO DAILY 02/09/24 08/04/24 gram/dose oral powder (Miralax) sodium phosphates 19 gram-7 118 ml ID DAILY PRN 02/09/24 08/04/24 gram/118 mL enema (Enema) umeclidinium 62.5 mcg/actuation 1 inh inhalation DAILY 02/09/24 08/04/24 blister powder for inhalation (Incruse Ellipta) acetaminophen 325 mg tablet (Pain 650 mg PO TID PRN 05/24/24 08/04/24 Relief (acetaminophen)) famotidine 20 mg tablet (Acid 20 mg PO QHS 05/24/24 08/04/24 Controller) loperamide 4 mg PO .Q24 PRN 05/25/24 08/04/24 melatonin 3 mg PO .Q24 HS PRN Do not give 05/25/24 08/04/24 after 2 am proventil hfa 1 puff inhalation Q8H 90 base- for 05/25/24 08/04/24 SOB, COPD. Notify provider of adverse aspirin 81 mg tablet,delayed 81 mg PO DAILY 06/21/24 08/04/24 release (Enteric Coated Aspirin) clopidogrel 75 mg tablet 75 mg PO DAILY 06/21/24 08/04/24 midodrine 2.5 mg tablet 5 mg (2 x 2.5 mg) PO TID #120 tabs 06/25/24 08/04/24 pantoprazole 40 mg tablet,delayed 40 mg PO DAILY@0730 #90 tabs 06/25/24 08/04/24 release magnesium hydroxide 400 mg/5 mL 2,400 mg PO ONCE PRN 08/04/24 08/04/24 oral suspension (Milk of Magnesia) metoclopramide HCl 5 mg tablet 5 mg PO TID PRN 08/04/24 08/04/24 (Reglan) Previous Rx's ?Medication ?Instructions ?Recorded midodrine 2.5 mg tablet 5 mg (2 x 2.5 mg) PO TID #120 tabs 06/25/24 pantoprazole 40 mg tablet,delayed 40 mg PO DAILY@0730 #90 tabs 06/25/24 release Allergies Allergy/AdvReac Type Severity Reaction Status Date / Time No Known Drug Allergies Allergy Unknown Verified 08/04/24 12:24 General Stated Complaint: AMS/LOC JAZMIN: 2 Review of Systems All systems reviewed & are unremarkable except as noted in HPI and below Constitutional Constitutional: Denies chills, Denies fever(s), Reports frequent falls and Denies weakness Cardiovascular Cardiovascular: Denies chest pain, Reports syncope and Denies dyspnea Respiratory Respiratory: Denies cough and Denies dyspnea Gastrointestinal Gastrointestinal: Denies abdominal pain, Denies nausea and Denies vomiting Neurologic Neurologic: Reports syncope, Reports frequent falls and Denies weakness Exam Const General: no acute distress Orientation: alert HENMT Head: normal to inspection Ears: external ears normal General nose exam: external nose normal Mouth: moist mucous membranes Eyes General: appearance normal, both eyes and all related structures Neck Neck: normal visual inspection Resp Effort & Inspection: normal respiratory effort and able to speak in complete sentences Cardio Jugular venous pressure: no JVD Rate: regular rate Heart Sounds: no murmurs GI Palpation: soft and nontender Skin General skin exam: no rashes or lesions noted Neuro General: patient alert and patient oriented x3 Extrem General: normal to inspection Psych Mental Status: mental status grossly normal Course Vital Signs Vital signs: Vital Signs Temperature 36.4 C L 08/04/24 12:10 Pulse 65 08/04/24 12:10 Respiratory Rate 18 08/04/24 12:10 Blood Pressure 158/82 H 08/04/24 12:10 Pulse Oximetry 99 08/04/24 12:10 Temperature 36.4 C L 08/04/24 12:10 Temperature Source Tympanic 08/04/24 12:10 Pulse 68 08/04/24 12:20 Respiratory Rate 18 08/04/24 12:10 Blood Pressure 158/82 H 08/04/24 12:10 Pulse Oximetry 99 08/04/24 12:10 Oxygen Delivery Method Room Air 08/04/24 12:10 Oxygen Flow Rate 0 08/04/24 12:10 Pain Level 0 08/04/24 12:10 Medical Decision Making 69-year-old female who resides at [facility] and [facility] and has a history of COPD, cognitive impairment, hypertension who comes in from [facility] and [facility] with near syncope and unclear if she had full syncope along with shaking of her arms. She has had multiple episodes of these over the past few months and has had workups including EEGs and MRIs which do not reveal any clear cause, she has diagnosed with orthostatic hypotension which was felt to be the cause of her symptoms. She currently has no complaints, she has no chest pain, no difficulty breathing, no abdominal pain. She is moving all of her extremities well. Has clear speech, oriented x 4 currently. I suspect she had orthostasis versus near syncope, will check a CBC, CMP, troponins. She has no headache and no deficits on exam so I do not feel imaging of her head are indicated. Labs show no significant change from baseline. She is stable and asymptomatic. Given reassuring workup and recent admissions with no significant acute findings I do not feel she requires hospitalization. She is stable for discharge back to rehab, return precautions given Differential Diagnosis Differential Diagnosis: Orthostasis, electrolyte abnormality, syncope Medical Records Medical records reviewed: Yes I reviewed the patient's medical records. Lab Data Lab results reviewed: Yes I reviewed the patient's lab results. ECG Data Attestation: I personally reviewed and interpreted this ECG (s) as follows: Prior ECG tracings: available for review Interpretation: sinus rate of 66 no stemi Quality:SDOH Health Related Social Needs: No Data to Display PFSH All Active Problems (Updated 08/04/24 @ 14:43 by Yanick Alvarez MD) Orthostatic hypotension (Acute) Right-sided lacunar infarction (Acute) Anemia (Chronic) Acute UTI (Acute) Hyperlipidemia (Chronic) Depression (Chronic) COPD (chronic obstructive pulmonary disease) (Chronic) HTN (hypertension) (Chronic) TIA (transient ischemic attack) (Acute) COVID-19 (Acute) Social History Smoking/Tobacco Use Status: Former Tobacco Use Smoking risk assessment performed?: Yes Alcohol Intake: former Drug use: Never Substance use type: marijuana Housing: [facility] Do you feel safe at home: Yes Do you feel safe in your relationship?: Yes Additional Social history: H+R
[2024-08-04 12:49] LABS: PTT Activated 25.6 sec (20.6-30.2); Prothrombin Time 9.9 sec (9.1-11.1)
[2024-08-04 12:56] LABS: ALT 21 U/L (14-59); AST 20 U/L (15-37); Alkaline Phosphatase 156 U/L (46-116); BUN 11 mg/dL (7-18); Calcium 10.9 mg/dL (8.5-10.1); Chloride 100 mmol/L (98-107); Estimated GFR 60.98 (mL/min/1.73m2); Glucose 107 mg/dL (74-106); Magnesium 1.6 mg/dL (1.8-2.4); Potassium 5.1 mmol/L (3.5-5.1); Sodium 132 mmol/L (136-145); Total Protein 7.7 g/dL (6.4-8.2); Troponin I 6 ng/L (<or=51)
[2024-08-04 13:10] LABS: COVID-19 PCR Negative (Negative); Influenza A PCR Negative (Negative); Influenza B PCR Negative (Negative); RSV PCR Negative (Negative)
[2024-08-04 13:11] LABS: Source Nasopharynx
[2024-08-04 13:58] LABS: Bilirubin Negative (Negative); Blood Small (Negative); Clarity Clear (Clear); Glucose Negative (Negative); Ketones Negative (Negative); Leukocyte Esterase Moderate (Negative); Nitrite Negative (Negative); Urobilinogen 0.2 mg/dL (Up to 0.2)
[2024-08-04 14:10] LABS: Bacteria Rare HPF (Negative); C & S Indicated? Yes; Casts Negative LPF (Negative); Crystals Negative HPF (Negative); Epithelial Cells Few HPF (Negative); Mucus Negative (Negative); Other Cells Few Renal (Negative); WBC 20-50 HPF (0-5)
[2024-08-04 14:23] LABS: Troponin I 5 ng/L (<or=51)
--- NOTE | 2024-08-06 10:44 | NUR.NOTE ---
Accessed Pt chart to see if Pt was prescribed an antibiotics. She was not. Specimen sheet clipped on clipboard in Dr petersen
== END 2024-08-04 15:25 | disposition home or self-care (01) ==
LOC: ER 15:02
PROVIDERS: Emergency Provider Emergency Medicine
DX: I95.1 Orthostatic hypotension (principal); J44.9 Chronic obstructive pulmonary disease, unspecified; R41.89 Other symptoms and signs involving cognitive functions and awareness
CPT/HCPCS: 80053; 87077; 87637; 93005; 99284; 81003; 81015; 83735; 84484; 85025; 85610; 85730; 87086; 93010

== ENCOUNTER 2024-09-20 21:28 | Emergency (ER) | payer MEDICARE, SELFPAY ==
[2024-09-20] VITALS (12 sets, daily range): BP systolic 180–199; BP diastolic 69–84; PULSE 66–74; RESP 13–19; TEMP 36.8; O2SAT 93–98
--- NOTE | 2024-09-20 21:30 | DI.RAD_ITS ---
Exam(s) XR PORTABLE CHEST AP EXAM: XR PORTABLE CHEST AP CLINICAL HISTORY: chest pain TECHNIQUE: 2D digital imaging was performed. COMPARISON: CR,XR XR CHEST 2V PA LATERAL from 02/12/2024 FINDINGS: LUNGS: Clear. No pleural abnormality seen. HEART: Normal size. AORTA: Normal diameter. BONES: Unremarkable for age. Soft tissues: Unremarkable. IMPRESSION: No acute findings. DATA REPOSITORY: RADIATION DOSE DELIVERED:
--- NOTE | 2024-09-20 21:36 | ED.GENADUL_ITS ---
Discharge Plan Disposition Patient Disposition: Home Discharge Details Clinical Impression: Fatigue, HTN (hypertension) Primary Care Provider: Unknown,Unknown ED Provider: Luly Kuamr Home Meds and New Rx's Prescriptions: No Action atorvastatin 40 MG tablet 40 mg PO QPM acetaminophen [Pain Relief (acetaminophen)] 325 mg tablet 650 mg PO TID PRN famotidine [Acid Controller] 20 mg tablet 20 mg PO QHS loperamide 2 mg 4 mg PO .Q24 PRN melatonin 3 mg 3 mg PO .Q24 HS PRN (Reason: Do not give after 2 am) proventil hfa 108 mcg 1 puff inhalation Q8H aspirin [Enteric Coated Aspirin] 81 mg tablet,delayed release (DR/EC) 81 mg PO DAILY clopidogrel 75 mg tablet 75 mg PO DAILY pantoprazole 40 mg Tablet,Delayed Release (Dr/Ec) 40 mg PO DAILY@0730 Qty: 90 0RF midodrine 2.5 mg Tablet 5 mg PO TID Qty: 120 0RF bisacodyl [Dulcolax (bisacodyl)] 10 mg suppository 10 mg MO DAILY PRN Patient Comments: for constipation if no result from MOM and/or by next shift escitalopram oxalate 10 mg tablet 10 mg PO DAILY Enema 19-7 gram/118 mL enema 118 ml MO DAILY PRN Patient Comments: for constipation if no result from Dulcolax within 2 hours. If no results from fleet enema, call MD/advanced practice provider ([facility]) for further orders Incruse Ellipta 62.5 mcg/actuation blister with device 1 inh inhalation DAILY lidocaine 5 % adhesive patch,medicated 1 patch topical DAILY Patient Comments: not on patient MAR Rx Instructions: leave on most painful area for up to 12 hrs metoprolol succinate 25 mg tablet extended release 24 hr 12.5 mg PO DAILY Patient Comments: Hold for SBP 110 or less Not on patient MAR polyethylene glycol 3350 [Miralax] 17 gram/dose powder 17 g PO DAILY mirtazapine 15 mg tablet 15 mg PO HS magnesium hydroxide [Milk of Magnesia] 400 mg/5 mL suspension 2,400 mg PO ONCE PRN metoclopramide HCl [Reglan] 5 mg tablet 5 mg PO TID PRN venlafaxine 75 mg tablet extended release 24hr 75 mg PO DAILY Discharge Instructions Instructions: Fatigue Additional Instructions: Patient has no complaints at this time. She has a nonfocal neurologic exam, EKG does not show an acute change and blood work her urine does not demonstrate any signs of infection. Recommend that you continue ongoing care and follow-up with PCP for any ongoing issues HPI General Date/Time Provider Initiated Documentation: 09/20/24 21:31 . Limitations to Documentation: altered mental status (baseline dementia ) and physical limitation . Information obtained by: EMS . HPI Narrative: 69-year-old female with past medical history of hypertension, COPD, prior chronic alcohol use, dementia presents from the nursing facility for evaluation of generalized weakness. They report onset of symptoms throughout the day. [facility]. They decided to call 911 this evening when she began complaining of chest pain. At this time the patient does not complain of chest pain to me, she says that she has some pressure in her head. She is able to identify her self and place. She denies any chest pain cough or shortness of breath. Related Data Home Medications ?Medication ?Instructions ?Recorded ?Confirmed atorvastatin 40 mg tablet 40 mg PO QPM 05/03/17 09/20/24 bisacodyl 10 mg rectal suppository 10 mg MO DAILY PRN 02/09/24 09/20/24 (Dulcolax (bisacodyl)) escitalopram oxalate 10 mg tablet 10 mg PO DAILY 02/09/24 09/20/24 lidocaine 5 % topical patch 1 patch topical DAILY 02/09/24 09/20/24 metoprolol succinate 25 mg 12.5 mg PO DAILY 02/09/24 09/20/24 tablet,extended release 24 hr mirtazapine 15 mg tablet 15 mg PO HS 02/09/24 09/20/24 polyethylene glycol 3350 17 17 g PO DAILY 02/09/24 09/20/24 gram/dose oral powder (Miralax) sodium phosphates 19 gram-7 118 ml MO DAILY PRN 02/09/24 09/20/24 gram/118 mL enema (Enema) umeclidinium 62.5 mcg/actuation 1 inh inhalation DAILY 02/09/24 09/20/24 blister powder for inhalation (Incruse Ellipta) acetaminophen 325 mg tablet (Pain 650 mg PO TID PRN 05/24/24 09/20/24 Relief (acetaminophen)) famotidine 20 mg tablet (Acid 20 mg PO QHS 05/24/24 09/20/24 Controller) loperamide 4 mg PO .Q24 PRN 05/25/24 09/20/24 melatonin 3 mg PO .Q24 HS PRN Do not give 05/25/24 09/20/24 after 2 am proventil hfa 1 puff inhalation Q8H 90 base- for 05/25/24 09/20/24 SOB, COPD. Notify provider of adverse aspirin 81 mg tablet,delayed 81 mg PO DAILY 06/21/24 09/20/24 release (Enteric Coated Aspirin) clopidogrel 75 mg tablet 75 mg PO DAILY 06/21/24 09/20/24 midodrine 2.5 mg tablet 5 mg (2 x 2.5 mg) PO TID #120 tabs 06/25/24 09/20/24 pantoprazole 40 mg tablet,delayed 40 mg PO DAILY@0730 #90 tabs 06/25/24 09/20/24 release magnesium hydroxide 400 mg/5 mL 2,400 mg PO ONCE PRN 08/04/24 09/20/24 oral suspension (Milk of Magnesia) metoclopramide HCl 5 mg tablet 5 mg PO TID PRN 08/04/24 09/20/24 (Reglan) venlafaxine 75 mg tablet,extended 75 mg PO DAILY 09/20/24 09/20/24 release 24 hr Previous Rx's ?Medication ?Instructions ?Recorded midodrine 2.5 mg tablet 5 mg (2 x 2.5 mg) PO TID #120 tabs 06/25/24 pantoprazole 40 mg tablet,delayed 40 mg PO DAILY@0730 #90 tabs 06/25/24 release Allergies Allergy/AdvReac Type Severity Reaction Status Date / Time No Known Drug Allergies Allergy Unknown Verified 08/04/24 12:24 General Stated Complaint: AMS/LOC JAZMIN: 3 Exam Narrative Exam Narrative: Review of Systems: All systems reviewed & are unremarkable except as noted in HPI and below Elderly, fragile NCAT RRR, no murmur unlabored respiratory effort, no hypoxia or increased work of breathing, Nondistended abdomen soft nontender Extremities w/o edema Follows commands, moves all extremities with equal symmetric strength Course Vital Signs Vital signs: Vital Signs Temperature 36.8 C 09/20/24 21:26 Pulse 68 09/20/24 21:26 Respiratory Rate 16 09/20/24 21:26 Blood Pressure 199/77 H 09/20/24 21:26 Pulse Oximetry 96 09/20/24 21:26 Temperature 36.8 C 09/20/24 21: Temperature Source Oral 09/20/24 21:30 Pulse 68 09/20/24 21:30 Respiratory Rate 16 09/20/24 21:30 Blood Pressure 199/77 H 09/20/24 21:30 Pulse Oximetry 96 09/20/24 21:30 Medical Decision Making Emergent evaluation of generalized weakness. The facility reports that she was complaining of chest pain that she does not have any chest pain complaint at this time. She is afebrile and has stable vital signs. Based on the records provided, she seems to be improved generally poor clinical condition. Will barrett luate for ACS, electrolyte derangement, infectious etiology. She complains of some mild headache and I will give IV Tylenol. On reassessment, the patient is resting comfortably, no examination remains benign. Lab work is noncontributory and given most recent hospitalization and extensive workup, I do not feel that there is any additional workup indicated or need for hospitalization at this time and the patient will be returned to [facility] for continued management of her ongoing conditions. Quality:SDOH Health Related Social Needs: No Data to Display PFSH All Active Problems (Updated 09/20/24 @ 22:28 by Luly Kumar MD) Fatigue (Acute) Right-sided lacunar infarction (Acute) Anemia (Chronic) Acute UTI (Acute) Hyperlipidemia (Chronic) Depression (Chronic) COPD (chronic obstructive pulmonary disease) (Chronic) HTN (hypertension) (Chronic) TIA (transient ischemic attack) (Acute) COVID-19 (Acute) Social History Smoking/Tobacco Use Status: Former Tobacco Use Smoking risk assessment performed?: Yes Alcohol Intake: former Drug use: Never Substance use type: marijuana Housing: [facility] Do you feel safe at home: Yes Do you feel safe in your relationship?: Yes Additional Social history: [employer]
[2024-09-20 21:43] LABS: Abs Immature Grans 0.03 10^3/uL (0.0-0.06); Absolute Basophil Count 0.08 10^3/uL (0.0-0.2); Absolute Eosinophil Count 0.42 10^3/uL (0.0-0.7); Absolute Lymphocyte Count 4.52 10^3/uL (1.2-3.4); Absolute Neutrophil Count 2.54 10^3/uL (1.2-6.7); Eosinophils % 5.1 %; HCT 33.3 % (36.0-46.0); HGB 10.6 g/dL (11.2-15.7); Immature Grans % 0.4 %; Lymphocytes % 54.5 %; MCHC 31.8 % (32.0-36.0); MCV 91 fL (80-95); MPV 9.7 fL (8.0-11.0); Monocytes % 8.4 %; Neutrophils % 30.6 %; Platelet Count 345 10^3/uL (130-400); RBC 3.66 10^6/uL (3.93-5.22); RDW 12.6 % (11.7-14.6); RDW-SD 42.3 fL; WBC 8.29 10^3/uL (4.4-10.8)
--- NOTE | 2024-09-20 21:45 | RT.EKG_ITS ---
APPROVED REPORT Exam: Resting ECG Reason for Exam: weakness Patient Location: E HR:67 bpm ECG Measurements Heart Rate 67 AXIS OH 170 P 69 QRSd 88 QRS 81 QT 390 T 80 QTc 414 Conclusion Sinus rhythm 67 normal axis no stemi
[2024-09-20 21:50] LABS: Bilirubin Negative (Negative); Blood Negative (Negative); Clarity Clear (Clear); Glucose Negative (Negative); Ketones Negative (Negative); Leukocyte Esterase Negative (Negative); Nitrite Negative (Negative); Specific Gravity 1.015 (1.005-1.025); Urobilinogen 0.2 mg/dL (Up to 0.2)
[2024-09-20 22:02] LABS: Ammonia 23 umol/L (11-32)
[2024-09-20 22:09] LABS: ALT 22 U/L (14-59); AST 15 U/L (15-37); Albumin 4.2 g/dL (3.4-5.0); Alkaline Phosphatase 174 U/L (46-116); BUN 10 mg/dL (7-18); Bilirubin, Total 0.2 mg/dL (0.2-1.0); CREATININE 0.8 mg/dL (0.55-1.02); Calcium 10.6 mg/dL (8.5-10.1); Chloride 101 mmol/L (98-107); Estimated GFR 79.71 (mL/min/1.73m2); Glucose 119 mg/dL (74-106); Magnesium 1.7 mg/dL (1.8-2.4); Potassium 4.2 mmol/L (3.5-5.1); Sodium 135 mmol/L (136-145); Total Protein 7.6 g/dL (6.4-8.2); Troponin I 11 ng/L (<or=51)
[2024-09-20] MEDS: ACETAMINOPHEN 1,000 MG/100 ML BAG 400 MG IVPB (22:10)
--- NOTE | 2024-09-20 23:01 | DI.[facility]_ITS ---
PROCEDURE INFORMATION: Exam: XR Chest Exam date and time: 09/20/2024 9:55 PM Age: 69 years old Clinical indication: Chest pressure; Prior surgery; Surgery date: 6+ months; Surgery type: Shoulder surgery; Chest pain TECHNIQUE: Imaging protocol: Radiologic exam of the chest. Views: 1 view. COMPARISON: CR XR CHEST 2V PA LATERAL 02/12/2024 10:13 AM FINDINGS: Lungs: Unremarkable. No consolidation. Pleural spaces: Unremarkable. No pleural effusion. No pneumothorax. Heart/Mediastinum: Unremarkable. No cardiomegaly. Bones/joints: Unremarkable. IMPRESSION: No acute findings. Dictated and Authenticated by: Hi Heredia MD. Orderin Stacy Lynn MD
== END 2024-09-20 22:54 | disposition home or self-care (01) ==
PROVIDERS: Emergency Provider Emergency Medicine
DX: R53.1 Weakness (principal); R53.83 Other fatigue; I10 Essential (primary) hypertension; J44.9 Chronic obstructive pulmonary disease, unspecified; F03.90 Unspecified dementia, unspecified severity, without behavioral disturbance, psychotic disturbance, mood disturbance, and anxiety; Z79.82 Long term (current) use of aspirin; Z79.02 Long term (current) use of antithrombotics/antiplatelets; Z87.891 Personal history of nicotine dependence
CPT/HCPCS: 36415; 80053; 87426; 93005; 96374; 99285; 71045; 81003; 82140; 83735; 84443; 84484; 85025; 93010; J0131

== ENCOUNTER 2024-11-23 20:52 | Outpatient (REF) | payer MEDICARE, SELFPAY ==
[2024-11-23 14:43] LABS: HCT 30.2 % (36.0-46.0); HGB 9.5 g/dL (11.2-15.7); MCH 27.9 pg (27.0-33.0); MCHC 31.5 % (32.0-36.0); MCV 89 fL (80-95); MPV 9.9 fL (8.0-11.0); Platelet Count 383 10^3/uL (130-400); RBC 3.41 10^6/uL (3.93-5.22); RDW 14.6 % (11.7-14.6); RDW-SD 47.4 fL; WBC 8.15 10^3/uL (4.4-10.8)
[2024-11-23 15:29] LABS: ALT 18 U/L (14-59); AST 16 U/L (15-37); Albumin 3.9 g/dL (3.4-5.0); Alkaline Phosphatase 162 U/L (46-116); Anion Gap 6.8 mmol/L (3-11); BUN 16 mg/dL (7-18); Bilirubin, Total 0.3 mg/dL (0.2-1.0); CO2 27.2 mmol/L (21.0-32.0); CREATININE 0.9 mg/dL (0.55-1.02); Calcium 10.7 mg/dL (8.5-10.1); Calculated LDL 57 mg/dL (<100); Chloride 106 mmol/L (98-107); Cholesterol 149 mg/dL (<200); Glucose 122 mg/dL (74-106); HDL Cholesterol 65 mg/dL (>or=50); Potassium 4.6 mmol/L (3.5-5.1); Sodium 140 mmol/L (136-145); TSH 1.26 uIU/mL (0.36-3.74); Triglyceride 136 mg/dL (<150)
== END 2024-11-23 20:53 | disposition home or self-care (01) ==
LOC: LBN 20:52
PROVIDERS: Visit Provider Nurse Practitioner Adult Health
DX: F32.A Depression, unspecified (principal); J44.9 Chronic obstructive pulmonary disease, unspecified; F03.A18 Unspecified dementia, mild, with other behavioral disturbance
CPT/HCPCS: 80053; 80061; 85027; 84443

== ENCOUNTER 2024-12-26 02:52 | Inpatient (IN) | payer MEDICARE, SELFPAY ==
[2024-12-26] VITALS (151 sets, daily range): BP systolic 69–144; BP diastolic 17–84; PULSE 102–134; RESP 17–39; TEMP 36.4–36.9; O2SAT 77–100
--- NOTE | 2024-12-26 02:45 | RT.EKG_ITS ---
APPROVED REPORT Exam: Resting ECG Reason for Exam: chest pain Patient Location: E HR:108 bpm ECG Measurements Heart Rate 108 AXIS AK 168 P 59 QRSd 89 QRS 78 QT 313 T 43 QTc 421 Conclusion Sinus tachycardia...rate> [address] segment or T wave abnormalities to suggest occlusive [place]
--- NOTE | 2024-12-26 03:00 | DI.RAD_ITS ---
Exam(s) XR PORTABLE CHEST AP EXAM: XR PORTABLE CHEST AP CLINICAL HISTORY: Chest pain TECHNIQUE: 2D digital imaging was performed. COMPARISON: CR,XR XR PORTABLE CHEST AP from 09/20/2024 FINDINGS: LUNGS: There is an infiltrate at the left mid to lower lung field. A component of linear atelectasis is also present. The right lung is clear. No pleural abnormality seen. HEART: Normal size. AORTA: Normal diameter. BONES: Unremarkable for age. Soft tissues: Unremarkable. IMPRESSION: Left lower lobe pneumonia. The preliminary [facility] report was reviewed. DATA REPOSITORY: RADIATION DOSE DELIVERED:
[2024-12-26 03:20] LABS: Abs Immature Grans 0.11 10^3/uL (0.0-0.06); HCT 25.6 % (36.0-46.0); HGB 8.3 g/dL (11.2-15.7); MCH 27.2 pg (27.0-33.0); MCHC 32.4 % (32.0-36.0); MCV 84 fL (80-95); MPV 10.6 fL (8.0-11.0); Platelet Count 249 10^3/uL (130-400); RBC 3.05 10^6/uL (3.93-5.22); RDW 14.5 % (11.7-14.6); RDW-SD 44.4 fL; WBC 15.07 10^3/uL (4.4-10.8)
[2024-12-26 03:24] LABS: BE (Venous) -8 mmol/L (-2-3); HCO3 (Venous) 19 mmol/L (23-28); O2 Sat (Venous) 40 %; TCO2 (Venous) 19 mmol/L (24-29); pCO2 (Venous) 40 mmHg (41-51); pO2 (Venous) 26 mmHg
[2024-12-26] MEDS: Albuterol/Ipratropium 3 ML UPD VIAL UPD ×2 (03:28→03:29)
--- NOTE | 2024-12-26 03:28 | W.ED.GENAD ---
Discharge Plan Discharge Details Chief Complaint: Chest Pain Clinical Impression: Acute hypoxemic respiratory failure, Heart failure, Hyponatremia, Abnormal kidney function, Anemia, Cardiorenal syndrome, Pneumonia, Sepsis Primary Care Provider: Unknown,Unknown ED Provider: Rosemary Reynolds Home Meds and New Rx's Prescriptions: No Action atorvastatin 40 MG tablet 40 mg PO QPM acetaminophen [Pain Relief (acetaminophen)] 325 mg tablet 650 mg PO TID PRN famotidine [Acid Controller] 20 mg tablet 20 mg PO QHS ipratropium-albuterol 0.5 mg-3 mg(2.5 mg base)/3 mL solution for nebulization 3 ml inhalation Q3H PRN PRN loperamide 2 mg capsule 2 mg PO DAILY PRN Fleet Bisacodyl 10 mg/30 mL enema 5 mg AK DAILY PRN bisacodyl [Dulcolax (bisacodyl)] 10 mg suppository 10 mg AK ONCE cholecalciferol (vitamin D3) 25 mcg (1,000 unit) capsule 50 mcg PO DAILY Trelegy Ellipta 200-62.5-25 mcg blister with device 1 inh inhalation DAILY melatonin 3 mg 3 mg PO .Q24 HS PRN (Reason: Do not give after 2 am) proventil hfa 108 mcg 1 puff inhalation Q8H aspirin [Enteric Coated Aspirin] 81 mg tablet,delayed release (DR/EC) 81 mg PO DAILY clopidogrel 75 mg tablet 75 mg PO DAILY pantoprazole 40 mg Tablet,Delayed Release (Dr/Ec) 40 mg PO DAILY@0730 Qty: 90 0RF midodrine 2.5 mg Tablet 5 mg PO TID Qty: 120 0RF bisacodyl [Dulcolax (bisacodyl)] 10 mg suppository 10 mg AK DAILY PRN Patient Comments: for constipation if no result from MOM and/or by next shift Enema 19-7 gram/118 mL enema 118 ml AK DAILY PRN Patient Comments: for constipation if no result from Dulcolax within 2 hours. If no results from fleet enema, call MD/advanced practice provider ([facility]) for further orders Incruse Ellipta 62.5 mcg/actuation blister with device 1 inh inhalation DAILY lidocaine 5 % adhesive patch,medicated 1 patch topical DAILY Patient Comments: not on patient MAR Rx Instructions: leave on most painful area for up to 12 hrs metoprolol succinate 25 mg tablet extended release 24 hr 12.5 mg PO DAILY Patient Comments: Hold for SBP 110 or less Not on patient MAR polyethylene glycol 3350 [Miralax] 17 gram/dose powder 17 g PO DAILY mirtazapine 15 mg tablet 15 mg PO HS magnesium hydroxide [Milk of Magnesia] 400 mg/5 mL suspension 2,400 mg PO ONCE PRN metoclopramide HCl [Reglan] 5 mg tablet 5 mg PO TID PRN venlafaxine 75 mg tablet extended release 24hr 75 mg PO DAILY HPI General Mode of arrival: EMS. Date/Time Provider Initiated Documentation: 12/26/24 03:08. Information obtained by: patient, EMS and old records reviewed. HPI Narrative: 69yo F with hx dementia, alcoholic cardiomyopahty, CVA, COPD, on midodrine for orthostatic hypotension, presenting [facility] for hypotension and chest pain. Has had low BP (yudi 70's/40's) at the facility starting at 1900, treated with PO fluids and and midodrine with some improvement. BP for EMS 100's/50's. EMS was called for new chest pain onset ~1 hour prior to arrival as well as new oxygen requirement (3L NC on EMS arrival). Was given 325 of ASA [employer] and IV started. Patient reports dull substernal chest pressure, non-radiating, worse with movement, no aggravating factors. Feels somewhat lightheaded especially with transfers. Short of breath, not sure when this started. No fevers, chills, rash, abdominal pain, back pain, dysuria, hematuria, decreased urine output, nausea, vomiting, headache, numbness, weakness, or other concerns. Related Data Home Medications ?Medication ?Instructions ?Recorded ?Confirmed atorvastatin 40 mg tablet 40 mg PO QPM 05/03/17 12/26/24 bisacodyl 10 mg rectal suppository 10 mg AK DAILY PRN 02/09/24 12/26/24 (Dulcolax (bisacodyl)) lidocaine 5 % topical patch 1 patch topical DAILY 02/09/24 12/26/24 metoprolol succinate 25 mg 12.5 mg PO DAILY 02/09/24 12/26/24 tablet,extended release 24 hr Held on 09/20/24. Instructions: not listed on [facility] paperwork mirtazapine 15 mg tablet 15 mg PO HS 02/09/24 12/26/24 polyethylene glycol 3350 17 17 g PO DAILY 02/09/24 12/26/24 gram/dose oral powder (Miralax) sodium phosphates 19 gram-7 118 ml AK DAILY PRN 02/09/24 12/26/24 gram/118 mL enema (Enema) umeclidinium 62.5 mcg/actuation 1 inh inhalation DAILY 02/09/24 12/26/24 blister powder for inhalation (Incruse Ellipta) acetaminophen 325 mg tablet (Pain 650 mg PO TID PRN 05/24/24 12/26/24 Relief (acetaminophen)) famotidine 20 mg tablet (Acid 20 mg PO QHS 05/24/24 12/26/24 Controller) Held on 09/20/24. Instructions: not listed on [facility] paperwork melatonin 3 mg PO .Q24 HS PRN Do not give 05/25/24 12/26/24 Held on 09/20/24. after 2 am Instructions: not listed on [facility] paperwork proventil hfa 1 puff inhalation Q8H 90 base- for 05/25/24 12/26/24 Held on 09/20/24. SOB, COPD. Notify provider of Instructions: not listed on adverse [facility] paperwork aspirin 81 mg tablet,delayed 81 mg PO DAILY 06/21/24 12/26/24 release (Enteric Coated Aspirin) clopidogrel 75 mg tablet 75 mg PO DAILY 06/21/24 12/26/24 midodrine 2.5 mg tablet 5 mg (2 x 2.5 mg) PO TID #120 tabs 06/25/24 12/26/24 pantoprazole 40 mg tablet,delayed 40 mg PO DAILY@0730 #90 tabs 06/25/24 12/26/24 release magnesium hydroxide 400 mg/5 mL 2,400 mg PO ONCE PRN 08/04/24 12/26/24 oral suspension (Milk of Magnesia) metoclopramide HCl 5 mg tablet 5 mg PO TID PRN 08/04/24 12/26/24 (Reglan) Held on 09/20/24. Instructions: not listed on [facility] paperwork venlafaxine 75 mg tablet,extended 75 mg PO DAILY 09/20/24 12/26/24 release 24 hr bisacodyl 10 mg rectal suppository 10 mg AK ONCE 12/24/24 12/26/24 (Dulcolax (bisacodyl)) bisacodyl 10 mg/30 mL enema (Fleet 5 mg AK DAILY PRN 12/24/24 12/26/24 Bisacodyl) cholecalciferol (vitamin D3) 25 50 mcg PO DAILY 12/24/24 12/26/24 mcg (1,000 unit) capsule fluticasone fur. 200 mcg-umeclid 1 inh inhalation DAILY 12/24/24 12/26/24 62.5 mcg-vilant 25 mcg inhalat.powder (Trelegy Ellipta) ipratropium 0.5 mg-albuterol 3 mg 3 ml inhalation Q3H PRN PRN 12/24/24 12/26/24 (2.5 mg base)/3 mL nebulization soln loperamide 2 mg capsule 2 mg PO DAILY PRN 12/24/24 12/26/24 Previous Rx's ?Medication ?Instructions ?Recorded midodrine 2.5 mg tablet 5 mg (2 x 2.5 mg) PO TID #120 tabs 06/25/24 pantoprazole 40 mg tablet,delayed 40 mg PO DAILY@0730 #90 tabs 06/25/24 release Allergies Allergy/AdvReac Type Severity Reaction Status Date / Time No Known Drug Allergies Allergy Unknown Verified 12/26/24 02:59 General Stated Complaint: Chest Pain JAZMIN: 2 Review of Systems Narrative: see HPI Exam Narrative Exam Narrative: General: Alert, in no acute distress. Head: Normocephalic, atraumatic Neck: Trachea midline, ?Neck supple. ENT: ?MMM.? No oropharygeal lesions or exudate. Cardiac: ?Tachycardiac, regular, no murmurs appreciated Resp: No respiratory distress. Diffuse rhonchi and crackles. Diminished LLL. Abd: ?Soft, non-distended, nontender : ?No suprapubic tenderness. No CVA tenderness. Extremities: ?No deformities.? No peripheral edema. Skin: No sacral decubitis ulcer Neurologic: GCS 15. ? Moves all extremities freely against gravity Course Vital Signs Vital signs: Vital Signs Temperature 36.9 C 12/26/24 02:52 Pulse 110 H 12/26/24 02:52 Respiratory Rate 32 H 12/26/24 02:52 Blood Pressure 91/17 L 12/26/24 02:52 Pulse Oximetry 77 L 12/26/24 02:52 Temperature 36.9 C 12/26/24 02:52 Pulse 110 H 12/26/24 02:52 Respiratory Rate 32 H 12/26/24 02:52 Respiratory Effort Short of Breath 12/26/24 03:15 Blood Pressure 91/17 L 12/26/24 02:52 Pulse Oximetry 77 L 12/26/24 02:52 Oxygen Delivery Method Nasal Cannula 12/26/24 02:52 Oxygen Flow Rate 3 12/26/24 02:52 Pain Level 5 12/26/24 02:52 Lab/Test Results Lab/Test Results: 12/26/24 03:06 Blood Blood Culture - Pending 12/26/24 03:08 Blood Blood Culture - Pending Laboratory Tests Range/Units 12/26/24 03:21 VBG pH (7.31-7.41) 7.29 L VBG pCO2 (41-51) mmHg 40 L VBG pO2 mmHg 26 VBG HCO3 (23-28) mmol/L 19 L VBG Total CO2 (24-29) mmol/L 19 L VBG O2 Saturation % 40 VBG Base Excess (-2-3) mmol/L -8 L Medical Decision Making 69yo F with hx dementia, alcoholic cardiomyopahty, CVA, COPD, on midodrine for orthostatic hypotension, presenting via EMS from [facility] for hypotension and chest pain. Has had low BP (yudi 70's/40's) at the facility starting at 1900, treated with PO fluids and and midodrine with some improvement. BP for EMS 100's/50's. EMS was called for new chest pain onset ~1 hour prior to arrival as well as new oxygen requirement (3L NC on EMS arrival). Was given 325 of ASA [employer] and IV started. Patient reports dull substernal chest pain worse with movement, shortness of breath, and lightheadedness. Initial eval & resus: -Initial BP on arrival 91/17 with overlarge cuff; repeated with appropriately sized cuff and MAP >65. Mildly tachcyardiac 110's. Equal BPs bilateral UE and equal radial pulses. -Tachypneic and hypoxic to high 70's on room air, placed on NC with improved to low 90's however intermittent desats. Patient noted to be mouthbreathing and changed to simple face mask, subsequently O2 95+%. -No LE edema on exam but diffuse crackles/rhonchi and diminished breath sounds LLL; concern for volume overload/pulmonary edema and so will hold off on further fluids here at this time. -Fingerstick in 110's. -EKG sinus tachycardia, appropriate intervals, no ST segment or T wave abnormalities to suggest occlusive MS. -Limited bedside US with large pericardial effusion or grossly distended RV on my view; limited quality and views 2/t profuse B lines. -CXR with left sided consolidation and mild/moderate diffuse edema on my view, radiology read below with suspected pneumonia or aspiration Patient was given ASA prior to arrival. Will treat for possible sepsis (? LLL pneumonia) with broad spectrum abx while awaiting results of workup; no additional fluids at this time given respiratory status. Blood cultures sent. With her hx COPD, will also trial duonebs. ED course: -Labs reviewed as below, CBC with leukocytosis to 15 and anemia with Hg 8.3, CMP with significant hyponatremia with Na of 126 (new; most recent prior 140 however has been as low as 128 intermittently in the past- with no symptoms currently would not treat with hypertonic at this time) and Cr 2.9 from normal baseline suggestive of JOSE, Mg slightly low at 1.5 (oral replacement ordered), VBG with mild acidosis ph 7.29 and no hypercapnea, lactate slightly elevated at 2.2 (will trend), lipase not suggestive of pancreatitis, coags unremarkable, BNP 1989 suggestive of heart failure (pt without hx of this), initial troponin normal. Awaiting urine for UA. -Respiratory viral swab negative. -Dimer is elevated raising concern for pulmonary embolism or less likely aortic dissection (no tearing pain, no radiation to her back, equal BP bl UE, no neurologic symptoms or deficits) On reassessment BP remains acceptable with MAP >65, patient reports her chest pain has been 'coming and going' but is not currently present. When present it is now more sharp and worse with deep breathing. O2 sat high 80's on face mask; will try NIPPV. Trialed on BiPAP which pt found uncomfortable, transitioned to CPAP @6 at 40% FiO2 and she reports her breathing feels much better, maintains O2 sat, RR decreased to 20's. Considered diuresis for likely pulmonary edema however this would likely worsen her hypotension, hyponatremia, and could affect her kidney function; will hold off for now pending clinical course. With elevated dimer, pleurtic pain, hypoxia, tachycardiac, and heart failure I am concerned for PE thought patient is on aspirin and plavix post CVA and clinically is more consistent with left sided heart failure than right. She has no history of prior heart failure or CHF. It is possible pneumonia is contributing but it seems her respiratory distress and O2 requirement came on fairly suddenly. Risk of life-threatening pulmonary embolism outweighs theoretical risk of contrast administration in this critically ill patient, so will proceed with CTA. Repeat troponin flat. Repeat lactate increased to 4 and she remains tachycardiac to 110's. Respiratory status is stable on CPAP and she is breathing more comfortably; will give 500cc IVFB over 1 hour with close reassessment (this should also help with her hyponatremia). Needs admission for cardiorenal syndrome, heart failure, kidney injury, hyponatremia, acute hypoxic respiratory failure, sepsis, pneumonia; regrettably no ICU capacity at [facility] at this time. Discussed with [facility] [place] center with plan for transfer to [facility] which does have capacity; I was advised to expect a callback from [facility] after shift change this morning. CTA independently reviewed; no large saddle embolus on my view, does have left sided pneumonia without large amount of pulmonary edema. Radiology read as below. UA not infected. Repeat lactate downtrending to 3.0, pt tolerated fluid well from a respiratory standpoint. Will continue to infuse slowly. Will be signed out to oncoming physican, plan to transfer likely to [facility]. Medical Records Medical records reviewed: Yes I reviewed the patient's medical records. Imaging Data Radiologic Study: Imaging: X-Ray and CT Scan Radiologist's impression: CXR: IMPRESSION: Asymmetric patchy and hazy opacity over the left mid-lower lung zone. Pneumonia or aspiration is suspected. Clinical correlation is recommended. CTA: IMPRESSION: 1. No evidence of pulmonary embolus. 2. Airspace opacification with air bronchogram formation noted within the lingula and left lower lobe, suspicious for an acute airspace process. 3. There is a 0.5 cm soft tissue density pulmonary nodule within the right upper lobe (series 5, image 12). For patients at low risk (minimal or absent history of smoking and of other known risk factors), no routine follow-up is indicated. For patients at high risk (history of smoking or of other known risk factors), consider optional CT Chest at 12 months. (Reference: Hugo) Lab Data Lab results reviewed: Yes I reviewed the patient's lab results. Labs: 12/26/24 03:40 Blood Blood Culture - Pending 12/26/24 03:06 Blood Blood Culture - Pending Laboratory Tests Range/Units 12/26/24 12/26/24 12/26/24 03:02 03:20 03:21 WBC (4.4-10.8) 10^3/uL 15.07 H RBC (3.93-5.22) 10^6/uL 3.05 L Hgb (11.2-15.7) g/dL 8.3 L Hct (36.0-46.0) % 25.6 L MCV (80-95) fL 84 MCH (27.0-33.0) pg 27.2 MCHC (32.0-36.0) % 32.4 RDW (11.7-14.6) % 14.5 Plt Count (130-400) 10^3/uL 249 MPV (8.0-11.0) fL 10.6 Immature Gran % % 0.0 Neutrophils % % 72.0 Band Neutrophils % % 7 Lymphocytes % % 11.0 Atypical Lymphs % % 0 Monocytes % % 8.0 Eosinophils % % 0.0 Basophils % % 0.0 Metamyelocytes % 1 Myelocytes % 1 Nucleated RBC % (0.0-0.3) % 0.0 Absolute Neutrophils (1.2-6.7) 10^3/uL 11.91 H Absolute Lymphocytes (1.2-3.4) 10^3/uL 1.66 Absolute Monocytes (0.1-0.8) 10^3/uL 1.21 H Absolute Eosinophils (0.0-0.7) 10^3/uL 0.00 Absolute Basophils (0.0-0.2) 10^3/uL 0.00 RBC Morphology See Below Hypochromasia 1+ PT (9.1-11.1) sec 10.6 INR (0.9-1.1) 1.1 APTT (20.6-30.2) sec 33.0 H VBG pH (7.31-7.41) 7.29 L VBG pCO2 (41-51) mmHg 40 L VBG pO2 mmHg 26 VBG HCO3 (23-28) mmol/L 19 L VBG Total CO2 (24-29) mmol/L 19 L VBG O2 Saturation % 40 VBG Base Excess (-2-3) mmol/L -8 L VBG Lactate (<or=2.0) mmol/L 2.2 H* Sodium (136-145) mmol/L 126 L Potassium (3.5-5.1) mmol/L 4.3 Chloride (98-107) mmol/L 95 L Carbon Dioxide (21.0-32.0) mmol/L 21.3 Anion Gap (3-11) mmol/L 9.7 BUN (7-18) mg/dL 62 H Creatinine (0.55-1.02) mg/dL 2.9 H Est GFR (CKD-EPI 2020) (mL/min/1.73m2) 17.00 Glucose (74-106) mg/dL 107 H Calcium (8.5-10.1) mg/dL 9.3 Magnesium (1.8-2.4) mg/dL 1.5 L Total Bilirubin (0.2-1.0) mg/dL 0.4 AST (15-37) U/L 36 ALT (14-59) U/L 21 Alkaline Phosphatase (46-116) U/L 73 Troponin I (<or=51) ng/L 8 NT-Pro-B Natriuret Pep (<300) pg/mL 1989 H Total Protein (6.4-8.2) g/dL 6.6 Albumin (3.4-5.0) g/dL 2.5 L Lipase (<78) U/L 9 COVID-19 Source Nasopharynx SARS-CoV-2 (PCR) (Negative) Negative Influenza Type A (PCR) (Negative) Negative Influenza Type B (PCR) (Negative) Negative RSV (PCR) (Negative) Negative Critical Care Time Critical Care Time Total Critical Care Time: 65 Attestation: Due to a high probability of clinically significant, life threatening deterioration, the patient required my highest level of preparedness to intervene emergently and I personally spent this critical care time directly and personally managing the patient. This critical care time included obtaining a history; examining the patient; pulse oximetry; ordering and review of studies; arranging urgent treatment with development of a management plan; evaluation of patient's response to treatment; frequent reassessment; and, discussions with other providers. This critical care time was performed to assess and manage the high probability of imminent, life-threatening deterioration that could result in multi-organ failure. It was exclusive of separately billable procedures and treating other patients PFSH All Active Problems (Updated 12/26/24 @ 06:05 by Rosemary Reynolds MD) Sepsis (Acute) Pneumonia (Acute) Cardiorenal syndrome (Acute) Anemia (Chronic) Abnormal kidney function (Acute) Hyponatremia (Acute) Heart failure (Acute) Acute hypoxemic respiratory failure (Acute) Repeated falls (Acute) Osteoporosis (Chronic) Alcoholic cardiomyopathy (Acute) Alcohol abuse (Chronic) Dementia (Chronic) Right-sided lacunar infarction (Acute) Anemia (Chronic) Acute UTI (Acute) Hyperlipidemia (Chronic) Depression (Chronic) COPD (chronic obstructive pulmonary disease) (Chronic) HTN (hypertension) (Chronic) TIA (transient ischemic attack) (Acute) COVID-19 (Acute) Social History Smoking/Tobacco Use Status: Former Tobacco Use Smoking risk assessment performed?: Yes Alcohol Intake: former Drug use: Never Substance use type: marijuana Housing: half-way Do you feel safe at home: Yes Do you feel safe in your relationship?: Yes Additional Social history: [facility] POCUS Exam (ED) Limited Cardiac Exam DATE OF EXAM: 12/26/24 TIME OF EXAM: 03:20 PROVIDER THAT PERFORMED THE STUDY: Rosemary Reynolds REASON FOR EXAM: Chest pain VISUALIZED STRUCTURES: Four Chambers and Interventricular septum VIEW OBTAINED: Parasternal long-axis, Parasternal short-axis and Subxiphoid PERTINENT FINDINGS/IMPRESSION: Other b-lines ; No pericardial effusion and No RV dilation Exam complete
[2024-12-26] MEDS: PIPERACILLIN/TAZO 3.375 GM in Normal Saline 50 ML IVPB (03:29)
[2024-12-26] MEDS: LINEZOLID 600 MG/300 ML BAG 300 MG IVPB (03:30)
[2024-12-26 03:31] LABS: INR 1.1 (0.9-1.1); PTT Activated 33.0 sec (20.6-30.2); Prothrombin Time 10.6 sec (9.1-11.1)
[2024-12-26 03:40] LABS: ALT 21 U/L (14-59); AST 36 U/L (15-37); Albumin 2.5 g/dL (3.4-5.0); Alkaline Phosphatase 73 U/L (46-116); Anion Gap 9.7 mmol/L (3-11); BUN 62 mg/dL (7-18); Bilirubin, Total 0.4 mg/dL (0.2-1.0); CO2 21.3 mmol/L (21.0-32.0); Calcium 9.3 mg/dL (8.5-10.1); Chloride 95 mmol/L (98-107); Estimated GFR 17.00 (mL/min/1.73m2); Glucose 107 mg/dL (74-106); Lipase 9 U/L (<78); Magnesium 1.5 mg/dL (1.8-2.4); NT-proBNP 1990 pg/mL (<300); Potassium 4.3 mmol/L (3.5-5.1); Sodium 126 mmol/L (136-145); Total Protein 6.6 g/dL (6.4-8.2); Troponin I 8 ng/L (<or=51)
[2024-12-26 03:41] LABS: Immature Grans % 0.0 %
[2024-12-26 03:42] LABS: Hypochromasia 1+
--- NOTE | 2024-12-26 03:48 | DI.[facility]AD_ITS ---
PROCEDURE INFORMATION: Exam: XR Chest Exam date and time: 12/26/2024 3:31 AM Age: 69 years old Clinical indication: Other: Chest pain TECHNIQUE: Imaging protocol: Radiologic exam of the chest. Views: 1 view. COMPARISON: CR XR PORTABLE CHEST AP 09/20/2024 9:55 PM FINDINGS: Lungs: There is asymmetric patchy opacity over the left mid and lower lung zones. Pleural spaces: No pleural effusion or pneumothorax is seen. Heart/Mediastinum: The heart appears normal in size. There is atherosclerotic calcification at the apex of the aortic arch. Bones/joints: The visualized bony structures appear grossly intact, as seen. Surgical hardware is partially visualized in the proximal left humerus. IMPRESSION: Asymmetric patchy and hazy opacity over the left mid-lower lung zone. Pneumonia or aspiration is suspected. Clinical correlation is recommended. Dictated and Authenticated by: Gilberto Lawrence MD. Orderin Gail Riley MD
[2024-12-26 04:07] LABS: COVID-19 PCR Negative (Negative); RSV PCR Negative (Negative)
--- NOTE | 2024-12-26 04:23 | RESPIRATORY ---
Called to pt's room to initiate cpap/bipap for fluid overload and o2 needs. Upon arrival to room pt has moderate wob and is on a nrb. Bipap initiated 10/5 35%, with pt tolerating but rr high, pt seemed slightly uncomforable with settings. Changes to cpap +6, 40% and pt nodded that this mode felt easier to breathe. Pt did not tolerate cpap being increased to 8 and seemed to fight against the cpap. Returned to cpap of 6 for pt comfort. Pt able to fall asleep and tolerate current settings. MD and RN aware of settings.
[2024-12-26 04:54] LABS: Troponin I 7 ng/L (<or=51)
[2024-12-26 05:13] LABS: D-Dimer 2851 ng/mlFEU (<500)
--- NOTE | 2024-12-26 05:15 | DI.CT_ITS ---
Exam(s) CT CHEST PE CTA EXAM: CT CHEST PE CTA CLINICAL HISTORY: hypoxia, chest pain. TECHNIQUE: Imaging Protocol: Axial CT angiography was performed with multi- slice acquisition and multi-planar reconstructions as well as axial, coronal and sagittal MIP reconstructions. Computer aided detection (CAD) was utilized. CONTRAST MATERIAL: Intravenous: Omnipaque 350 Contrast volume: 60 ml COMPARISON: CT CT ABDOMEN PELVIS W from 07/04/2024 CR,XR XR PORTABLE CHEST AP from 12/26/2024 FINDINGS: Pulmonary Arteries: The pulmonary arteries are well opacified with IV contrast. No evidence of filling defect to suggest pulmonary emboli. Mediastinum and Mel: Fluid in the saphenous which could indicate reflux. No dominant adenopathy or fluid collection. Pulmonary parenchyma: Large area of consolidation within the left lower lobe. Atelectasis versus infiltrate also present in the lingula. Air bronchograms. Moderate emphysematous changes, greater in the upper lobes. 5 millimeter nodule in the right upper lobe. Pleura: There is a small left pleural effusion. No pneumothorax. Heart: The heart is not dilated. No coronary artery calcifications are seen. Aorta: Thoracic aorta non-dilated. No dissection. Upper abdomen: No acute findings. Bones: hardware in the left shoulder. Mild compression of the superior endplate of L1 also showing Schmorl's node. Tubes, Catheters, and Lines: None Soft tissues: Unremarkable. IMPRESSION: No evidence of pulmonary embolism. Left lower lobe consolidation. Atelectasis versus infiltrate in the lingula. Small left pleural effusion. Moderate emphysematous changes. 5 millimeter right upper lobe nodule. Single solid noncalcified nodules. ???Solid nodules smaller than 6 mm (those 5 mm or smaller) do not require routine follow-up in patients at low risk (grade 1C; strong recommendation, low- or [id number] evidence). (Hugo et al., 2017) Solid nodules smaller than 6 mm do not require routine follow-up in all patients with high clinical risk; however, some nodules smaller than 6 mm with suspicious morphology, upper lobe location, or both may warrant follow-up at 12 months (grade 2A; weak recommendation, high-quality evidence). (Hugo et al., 2017) The preliminary [facility] report was reviewed. RADIATION DOSE DELIVERED: 82.45mGy.cm Total DLP DATA REPOSITORY: All CT scans at this facility are submitted to the National Radiology Data Registry (NRDR) Dose Index Registry (DIR) with the [employer] ([employer]). RADIATION OPTIMIZATION: All CT scans at this facility use at least one of these dose optimization techniques: automated exposure control; mA and/or kV adjustment per patient size (includes targeted exams where dose is matched to clinical indication); or iterative reconstruction.
[2024-12-26] MEDS: Omnipaque 350 MG/ML 100 ML BTL IJ (05:44)
[2024-12-26] MEDS: Normal Saline - Diluent 50 ML VIAL IJ (05:47)
[2024-12-26] MEDS: Normal Saline Flush 10 ML SYR IVP ×3 (05:48→16:52)
[2024-12-26] MEDS: Magnesium Gluconate 500 MG TAB 1000 MG PO (05:56)
[2024-12-26 06:02] LABS: Troponin I 6 ng/L (<or=51)
[2024-12-26] MEDS: Normal Saline 500 ML IV (06:27)
[2024-12-26 07:13] LABS: Glucose Negative (Negative)
[2024-12-26 07:24] LABS: C & S Indicated? No
--- NOTE | 2024-12-26 07:33 | DI.VRAD_ITS ---
PROCEDURE INFORMATION: Exam: CTA Chest With Contrast Exam date and time: 12/26/2024 5:42 AM Age: 69 years old Clinical indication: Abnormal findings; Abnormal diagnostic tests; Elevated d-dimer; Other: Hypoxia, chest pain; Prior surgery; Surgery date: 6+ months; Surgery type: Shoulder TECHNIQUE: Imaging protocol: Computed tomographic angiography of the chest with contrast. Exam focused on the arteries. 3D rendering (Not supervised by radiologist): MIP and/or 3D reconstructed images were created by the technologist. Radiation optimization: All CT scans at this facility use at least one of these dose optimization techniques: automated exposure control; mA and/or kV adjustment per patient size (includes targeted exams where dose is matched to clinical indication); or iterative reconstruction. Contrast material: OMNIPAQUE 350; Contrast volume: 60 ml; Contrast route: INTRAVENOUS (IV); COMPARISON: CR XR PORTABLE CHEST AP 12/26/2024 3:31 AM FINDINGS: Pulmonary arteries: Normal. No pulmonary emboli. Aorta: Thoracic aortic atherosclerotic plaque. Lungs: There is a 0.5 cm soft tissue density pulmonary nodule within the right upper lobe (series 5, image 12). Diffuse emphysematous change. Airspace opacification with air bronchogram formation noted within the lingula and left lower lobe, suspicious for an acute airspace process. Pleural spaces: Unremarkable. No pneumothorax. No pleural effusion. Heart: Unremarkable. No cardiomegaly. No pericardial effusion. Esophagus: The esophagus is fluid-filled, which may reflect reflux. Lymph nodes: Unremarkable. No enlarged lymph nodes. Bones/joints: Postoperative changes within the left shoulder. Soft tissues: Unremarkable. IMPRESSION: 1. No evidence of pulmonary embolus. 2. Airspace opacification with air bronchogram formation noted within the lingula and left lower lobe, suspicious for an acute airspace process. 3. There is a 0.5 cm soft tissue density pulmonary nodule within the right upper lobe (series 5, image 12). For patients at low risk (minimal or absent history of smoking and of other known risk factors), no routine follow-up is indicated. For patients at high risk (history of smoking or of other known risk factors), consider optional CT Chest at 12 months. (Reference: Hugo) REFERENCES: Hugo Hernandez et al. Guidelines for Management of Incidental Pulmonary Nodules Detected on CT Images: From the Fleischner Society 2017. Radiology. 2017;284(1):228-243. Dictated and Authenticated by: Klever Mccloud MD. Orderin Gail Riley MD
--- NOTE | 2024-12-26 07:46 | W.EDPROG ---
Date of service: 12/26/24 Time of Service: 07:46 Medical Decision Making I received signout on this full code 69-year-old female with history of COPD hypertension hyperlipidemia arriving in the setting of chest pain. She has a new oxygen requirement. She was covered empirically with sepsis. She has received 500 cc of fluid. She made 200 cc of urine since 7 AM. She has been covered for pneumonia. She is pending transfer. She is tolerating CPAP. She is not on chronic steroids however in the event that there is a component of COPD exacerbation we will treat with 125 mg of methylprednisolone and doxycycline. On bedside ultrasound she has only several B-lines. She is not floridly volume overloaded. She has a preserved EF. Will attempt additional 500 cc of crystalloid using NS and will provide morning metoprolol and midodrine. She is not on chronic steroids to suggest benefit from hydrocortisone. 8:45 AM Patient was hypomagnesemic for which I treated her with 2 g of magnesium. 3:30 PM Initial plan had been for the patient to be transferred to [facility] where she was excepted by Dr. Burdick. Given the distance and transfer I was in touch with Dr. Morrow. He reviewed the patient's chart and was comfortable excepting the patient locally. Quality:SDOH Health Related Social Needs: Health related social needs risk of homeless transpo insecurity daily activities lonely/isolated Health related social needs details none Critical Care Time Critical Care Time Critical Care Time: Yes Total Critical Care Time: 60 Attestation: Acute respiratory failure hypoxia tachycardia hypotension Discharge Plan Disposition Patient Disposition: Admit to [facility] Discharge Details Clinical Impression: Acute hypoxemic respiratory failure, Heart failure, Hyponatremia, Abnormal kidney function, Anemia, Cardiorenal syndrome, Pneumonia, Sepsis, Hypomagnesemia Admit Date/Time: 12/26/24 13:00 Admit Provider: Atif Morrow Attending Provider: Atif Morrow Primary Care Provider: Unknown,Unknown ED Provider: Atif Roche POCUS Exam (ED) Limited Cardiac Exam DATE OF EXAM: 12/26/24 TIME OF EXAM: 08:14 PROVIDER THAT PERFORMED THE STUDY: Atif Roche IS THIS A REPEAT EXAM DURING THIS ENCOUNTER: no REASON FOR EXAM: Chest pain VISUALIZED STRUCTURES: Four Chambers, Left ventricle and LVOT VIEW OBTAINED: Apical 4-Chamber, Parasternal long-axis and Subxiphoid PERTINENT FINDINGS/IMPRESSION: No pericardial effusion and No RV dilation DIFFERENTIAL DIAGNOSES: Good squeeze, RV less than LV, no significant pericardial effusion. Several B-lines bilaterally Exam complete
[2024-12-26 07:47] LABS: Anion Gap 14.9 mmol/L (3-11); BUN 62 mg/dL (7-18); CO2 17.1 mmol/L (21.0-32.0); Calcium 9.2 mg/dL (8.5-10.1); Chloride 95 mmol/L (98-107); Estimated GFR 20.31 (mL/min/1.73m2); Glucose 116 mg/dL (74-106); Potassium 3.6 mmol/L (3.5-5.1); Sodium 127 mmol/L (136-145)
--- NOTE | 2024-12-26 08:15 | RT.EKG_ITS ---
APPROVED REPORT Exam: Resting ECG Reason for Exam: Chest pain Patient Location: E HR:121 bpm ECG Measurements Heart Rate 121 AXIS OR 152 P 70 QRSd 87 QRS 66 QT 306 T 37 QTc 434 Conclusion Sinus tachycardia...rate> 99 Low voltage, extremity leads...all extremity leads <0.5mV No Occlusion AL
[2024-12-26] MEDS: Normal Saline 500 ML 1000 ML IV ×2 (08:16→10:03)
[2024-12-26] MEDS: methylPREDNISolone SUCC 125 MG VIAL IVP (08:27)
[2024-12-26] MEDS: Doxycycline Hyclate 100 MG CAP PO (08:27)
[2024-12-26] MEDS: Midodrine 2.5 MG TAB 5 MG PO ×3 (08:27→21:26)
[2024-12-26 09:12] LABS: HCT 25.7 % (36.0-46.0); HGB 8.3 g/dL (11.2-15.7)
[2024-12-26] MEDS: MAGNESIUM SULFATE 2 GM/50 ML BAG IVINF (09:23)
--- NOTE | 2024-12-26 09:51 | NUR.NOTE ---
Spoke with Salma, nursing supervisor parking lot; [facility] and notified her that the request for a bed has been cancelled. Nursing Note:
[2024-12-26 10:02] LABS: Troponin I 7 ng/L (<or=51)
[2024-12-26] MEDS: Normal Saline 1,000 ML 100 ML IV (10:37)
[2024-12-26 10:40] LABS: Troponin I 7 ng/L (<or=51)
[2024-12-26] MEDS: Albuterol/Ipratropium 3 ML UPD VIAL IH ×3 (12:25→23:52)
[2024-12-26 12:55] LABS: BE (Venous) -10 mmol/L (-2-3); HCO3 (Venous) 17 mmol/L (23-28); O2 Sat (Venous) 83 %; TCO2 (Venous) 17 mmol/L (24-29); pCO2 (Venous) 39 mmHg (41-51); pO2 (Venous) 53 mmHg
[2024-12-26 13:31] LABS: Troponin I 7 ng/L (<or=51)
--- NOTE | 2024-12-26 13:42 | W.PM.HP.N ---
Date of service: 12/26/24 Time of Service: 13:42 Assessment and Plan Assessment and plan (1) Severe sepsis: Status: Acute Assessment and plan: Elevated HR, RR, WBC, lactate, and respiratory and renal failure. Some low BPs responsive to fluids. She has now had adequate bolus fluid after initial conservative fluid. Source appears pneumonia. Blood cultures pending. (2) Acute renal failure: Status: Acute Assessment and plan: Acute renal failure with metabolic acidosis that hasn't improved, not fully compensated due to some respiratory failure. Initial concern for cardiorenal but I think she was just underresuscitated initially. Fortunately her urine output is responsive to fluids given later this morning, she has made 500ml Given acidemia, ventilating well now on BiPAP, will give Bicarb drip for 1 liter at 150ml/hr rather than NS. (3) Heart failure: Status: Acute Assessment and plan: history of alcoholic cardiomyopathy, but recovered LVEF last May, no ongoing EtOH. POCUS concerning but CT reassuring about effusion or cardiomegaly. Getting STAT echo, cardiology consult (will be 12/27). BNP up but EKG/trops reassuring. (4) Anemia: Status: Chronic Assessment and plan: Slight worsening of chornic. Uncertain etiology. Get B12/iron in am. Stable overnight. She denies any notable bleeding. Get occult blood if stooling. (5) Hyponatremia: Status: Acute Assessment and plan: In setting of functional low volume status, some degress of chronic hyponatremia. I expect improvement with isotonic fluids. (6) Acute hypoxemic respiratory failure: Status: Acute Assessment and plan: Secondary to pneumonia, sepsis, COPD. We have transitioned to BiPAP, increasing minute ventilation to blow off acid wiht short term bicarb drip. (7) COPD (chronic obstructive pulmonary disease): Status: Chronic Assessment and plan: with exacerbation. Continue IV steroid for now until she stabilzes taking po, then prednisone. (8) Pneumonia: Status: Acute Assessment and plan: LLL. Started on linezolid and pip/tazo. Change linezolid to vancomycin given 2 serotinergic drugs chronically. (9) Hypomagnesemia: Status: Acute Assessment and plan: Replaced, follow in AM (10) Depression: Status: Chronic Assessment and plan: continue outpatient therapy (11) DVT prophylaxis: Status: Acute Assessment and plan: enoxaparin History of Present Illness History of Present Illness Chief Complaint: SOB Narrative: 69 yo F with history of alcoholic cardiomyopathy with normalized LVEF on 05/2024, h/o CVA, dementia, chronc orthostatic hypotension on midodrine, and COPD who is [facility] who was sent to the ED overnight with chest pain, SOB, and new oxygen requirement. On initial evaluation at around 1900 at rehab, her blood pressure was low in 70s/40s, improved with her midodrine and fluids, but chest pain recurred and she was sent to the ED. In ED MAPs above 65 (dipping twice from 7:38 to 8:48 in the ED before rebounding). Her EKGs and troponins did no suggest ischemia. POCUS was concerning for pericardial effusion vs large right year and pulmonary edema, CXR and CTA chest showing no dilation of heart or pericardial effusion, no clear fluid overload, and large LLL consolidation. She was acidotic with elevated lactate, initial fluid resuscitation was conservative due to concern for fluid overload, lactate increased. Has been on CPAP, BiPAP uncomfortable. Plan was transfer due to full ICU, but beds opened in the morning. On my evaluation around 9:30am, the patient described feeling well until yesterday evening except 2 days of increased fatigue and some decrease in urine output. No recent medication changes. She was eating and drinking. Some cough, but not severe, small amount of sputum. No blood. She had not had diarrhea or vomiting or abominal pain. No urinary symptoms. Her chest pain has resolved. 09/20/24 she was sent to ED for vague chest pain, had a negative workup and the pain resolved and she went back to [facility]. Review of Systems All systems reviewed & are unremarkable except as noted in HPI and below PFSH All Active Problems (Updated 12/26/24 @ 14:29 by Atif Morrow) DVT prophylaxis (Acute) Severe sepsis (Acute) Acute renal failure (Acute) Hypomagnesemia (Acute) Sepsis (Acute) Pneumonia (Acute) Cardiorenal syndrome (Acute) Anemia (Chronic) Abnormal kidney function (Acute) Hyponatremia (Acute) Heart failure (Acute) Acute hypoxemic respiratory failure (Acute) Repeated falls (Acute) Osteoporosis (Chronic) Alcoholic cardiomyopathy (Acute) Alcohol abuse (Chronic) Dementia (Chronic) Right-sided lacunar infarction (Acute) Anemia (Chronic) Acute UTI (Acute) Hyperlipidemia (Chronic) Depression (Chronic) COPD (chronic obstructive pulmonary disease) (Chronic) HTN (hypertension) (Chronic) TIA (transient ischemic attack) (Acute) COVID-19 (Acute) Surgical History (Updated 12/26/24 @ 14:14 by Atif Morrow) Status post open reduction and internal fixation (ORIF) of fracture of lateral condyle of left femur Family History (Updated 12/26/24 @ 14:15 by Atif Morrow) Mother Breast cancer Stroke Asthma Heart disease Sister Breast cancer Social History (Updated 12/26/24 @ 14:16 by Atif Morrow) Smoking/Tobacco Use Status: Former Tobacco Use Smoking risk assessment performed?: Yes Alcohol Intake: former Drug use: Never Substance use type: marijuana [facility]: [facility] Do you feel safe at home: Yes Do you feel safe in your relationship?: Yes Additional Social history: [facility] since 2023. Previously lived in [place]. Meds Allergies and Home Medications Allergies Allergy/AdvReac Type Severity Reaction Status Date / Time No Known Drug Allergies Allergy Unknown Verified 12/26/24 02:59 Home Medications ?Medication ?Instructions ?Recorded ?Confirmed ?Type atorvastatin 40 mg tablet 40 mg PO QPM 05/03/17 12/26/24 History bisacodyl 10 mg rectal suppository 10 mg VA DAILY PRN 02/09/24 12/26/24 History (Dulcolax (bisacodyl)) mirtazapine 15 mg tablet 15 mg PO HS 02/09/24 12/26/24 History polyethylene glycol 3350 17 17 g PO DAILY 02/09/24 12/26/24 History gram/dose oral powder (Miralax) sodium phosphates 19 gram-7 118 ml VA DAILY PRN 02/09/24 12/26/24 History gram/118 mL enema (Enema) acetaminophen 325 mg tablet (Pain 650 mg PO TID PRN 05/24/24 12/26/24 History Relief (acetaminophen)) famotidine 20 mg tablet (Acid 20 mg PO QHS 05/24/24 12/26/24 History Controller) Held on 09/20/24. Instructions: not listed on [facility] paperwork melatonin 3 mg PO .Q24 HS PRN Do not give 05/25/24 12/26/24 History Held on 09/20/24. after 2 am Instructions: not listed on [facility] paperwork proventil hfa 1 puff inhalation Q8H 90 base- for 05/25/24 12/26/24 History Held on 09/20/24. SOB, COPD. Notify provider of Instructions: not listed on adverse [facility] paperwork aspirin 81 mg tablet,delayed 81 mg PO DAILY 06/21/24 12/26/24 History release (Enteric Coated Aspirin) clopidogrel 75 mg tablet 75 mg PO DAILY 06/21/24 12/26/24 History pantoprazole 40 mg tablet,delayed 40 mg PO DAILY@0730 #90 tabs 06/25/24 12/26/24 Rx release magnesium hydroxide 400 mg/5 mL 2,400 mg PO ONCE PRN 08/04/24 12/26/24 History oral suspension (Milk of Magnesia) bisacodyl 10 mg/30 mL enema (Fleet 5 mg VA DAILY PRN 12/24/24 12/26/24 History Bisacodyl) cholecalciferol (vitamin D3) 25 50 mcg PO DAILY 12/24/24 12/26/24 History mcg (1,000 unit) capsule fluticasone fur. 200 mcg-umeclid 1 inh inhalation DAILY 12/24/24 12/26/24 History 62.5 mcg-vilant 25 mcg inhalat.powder (Trelegy Ellipta) ipratropium 0.5 mg-albuterol 3 mg 3 ml inhalation Q3H PRN PRN 12/24/24 12/26/24 History (2.5 mg base)/3 mL nebulization soln loperamide 2 mg capsule 2 mg PO DAILY PRN 12/24/24 12/26/24 History midodrine 5 mg tablet 5 mg PO TID 12/26/24 12/26/24 History venlafaxine 150 mg tablet,extended 150 mg PO DAILY 12/26/24 12/26/24 History release 24 hr Exam Narrative Exam Narrative: GEN: Alert and oriented to self, place, and general time but gets the year wrong. Gives vague history but responds appropriately, pleasant and cooperative, and makes jokes at times. Mask in place with mild tachypnea in 20s. HEENT: Head atraumatic. Conjunctiva clear, no icterus. PEERL, EOMI. no rhinorrhea. MMM, OP benign. Neck is supple with no masses or lymphadenopathy, trachea midline LUNGS: Air movement bilaterally, mildly deminished left base, sligh bilateral wheeze in periphery. I don't hear rales. CV: RRR with no murmurs, gallops, or rubs. JVP elevated but difficult to interpret with pressure from mask ABD: active bowel sounds, soft, nontender and nondistended. No masses. EXT: no cyanosis, clubbing. Trace sally ankle edema. Warm and not tender to palpation MSK: No joint redness or swelling NEURO: CN 2-12 grossly intact. Normal movement of 4 extremities with symmetric strength and gross sensation to light touch. Normal speech and coordination. Intermittent tremor in right foot, left hand SKIN: No rashes or open wounds. No pressure sores. PSYCH: normal mood and affect, normal thought process. Results Labs 12/26/24 09:05 12/26/24 07:28 Labs: Laboratory Results - last 24 hr 12/26/24 12/26/24 12/26/24 03:02 03:20 03:21 WBC 15.07 H RBC 3.05 L Hgb 8.3 L Hct 25.6 L MCV 84 MCH 27.2 MCHC 32.4 RDW 14.5 Plt Count 249 MPV 10.6 Immature Gran % 0.0 Neutrophils % 72.0 Band Neutrophils % 7 Lymphocytes % 11.0 Atypical Lymphs % 0 Monocytes % 8.0 Eosinophils % 0.0 Basophils % 0.0 Metamyelocytes % 1 Myelocytes % 1 Nucleated RBC % 0.0 Absolute Neutrophils 11.91 H Absolute Lymphocytes 1.66 Absolute Monocytes 1.21 H Absolute Eosinophils 0.00 Absolute Basophils 0.00 RBC Morphology See Below Hypochromasia 1+ PT 10.6 INR 1.1 APTT 33.0 H D-Dimer VBG pH 7.29 L VBG pCO2 40 L VBG pO2 26 VBG HCO3 19 L VBG Total CO2 19 L VBG O2 Saturation 40 VBG Base Excess -8 L VBG Lactate 2.2 H* Sodium 126 L Potassium 4.3 Chloride 95 L Carbon Dioxide 21.3 Anion Gap 9.7 BUN 62 H Creatinine 2.9 H Est GFR (CKD-EPI 2020) 17.00 Glucose 107 H Calcium 9.3 Magnesium 1.5 L Total Bilirubin 0.4 AST 36 ALT 21 Alkaline Phosphatase 73 Troponin I 8 NT-Pro-B Natriuret Pep 1990 H Total Protein 6.6 Albumin 2.5 L Lipase 9 Urine Color Urine Clarity Urine pH Ur Specific [place] Urine Protein Urine Ketones Urine Blood Urine Nitrite Urine Bilirubin Urine Urobilinogen Ur Leukocyte Esterase Urine RBC Urine WBC Ur Epithelial Cells Urine Crystals Urine Bacteria Urine Casts Urine Mucus Ur Culture Indicated? Urine Glucose COVID-19 Source Nasopharynx SARS-CoV-2 (PCR) Negative Influenza Type A (PCR) Negative Influenza Type B (PCR) Negative RSV (PCR) Negative ABO/Rh Blood Type Recheck O Positive Antibody Screen 12/26/24 12/26/24 12/26/24 04:10 05:38 07:02 WBC RBC Hgb Hct MCV MCH MCHC RDW Plt Count MPV Immature Gran % Neutrophils % Band Neutrophils % Lymphocytes % Atypical Lymphs % Monocytes % Eosinophils % Basophils % Metamyelocytes % Myelocytes % Nucleated RBC % Absolute Neutrophils Absolute Lymphocytes Absolute Monocytes Absolute Eosinophils Absolute Basophils RBC Morphology Hypochromasia PT INR APTT D-Dimer 2851 H VBG pH VBG pCO2 VBG pO2 VBG HCO3 VBG Total CO2 VBG O2 Saturation VBG Base Excess VBG Lactate 4.3 H* Sodium Potassium Chloride Carbon Dioxide Anion Gap BUN Creatinine Est GFR (CKD-EPI 2020) Glucose Calcium Magnesium Total Bilirubin AST ALT Alkaline Phosphatase Troponin I 7 6 NT-Pro-B Natriuret Pep Total Protein Albumin Lipase Urine Color Yellow Urine Clarity Sl Cloudy Urine pH 5.0 Ur Specific [place] <= 1.005 Urine Protein 100 H Urine Ketones Negative Urine Blood Moderate H Urine Nitrite Negative Urine Bilirubin Negative Urine Urobilinogen 0.2 Ur Leukocyte Esterase Trace H Urine RBC 3-5 H Urine WBC 3-5 Ur Epithelial Cells Few Urine Crystals Negative Urine Bacteria Few Urine Casts Negative Urine Mucus Negative Ur Culture Indicated? No Urine Glucose Negative COVID-19 Source SARS-CoV-2 (PCR) Influenza Type A (PCR) Influenza Type B (PCR) RSV (PCR) ABO/Rh Blood Type Recheck Antibody Screen 12/26/24 12/26/24 12/26/24 07:28 09:05 10:01 WBC RBC Hgb 8.3 L Hct 25.7 L MCV MCH MCHC RDW Plt Count MPV Immature Gran % Neutrophils % Band Neutrophils % Lymphocytes % Atypical Lymphs % Monocytes % Eosinophils % Basophils % Metamyelocytes % Myelocytes % Nucleated RBC % Absolute Neutrophils Absolute Lymphocytes Absolute Monocytes Absolute Eosinophils Absolute Basophils RBC Morphology Hypochromasia PT INR APTT D-Dimer VBG pH VBG pCO2 VBG pO2 VBG HCO3 VBG Total CO2 VBG O2 Saturation VBG Base Excess VBG Lactate 3.0 H* 3.3 H* Sodium 127 L Potassium 3.6 Chloride 95 L Carbon Dioxide 17.1 L Anion Gap 14.9 H BUN 62 H Creatinine 2.5 H Est GFR (CKD-EPI 2020) 20.31 Glucose 116 H Calcium 9.2 Magnesium Total Bilirubin AST ALT Alkaline Phosphatase Troponin I 7 7 NT-Pro-B Natriuret Pep Total Protein Albumin Lipase Urine Color Urine Clarity Urine pH Ur Specific [place] Urine Protein Urine Ketones Urine Blood Urine Nitrite Urine Bilirubin Urine Urobilinogen Ur Leukocyte Esterase Urine RBC Urine WBC Ur Epithelial Cells Urine Crystals Urine Bacteria Urine Casts Urine Mucus Ur Culture Indicated? Urine Glucose COVID-19 Source SARS-CoV-2 (PCR) Influenza Type A (PCR) Influenza Type B (PCR) RSV (PCR) ABO/Rh O Positive Blood Type Recheck Antibody Screen NEGATIVE 12/26/24 12:50 WBC RBC Hgb Hct MCV MCH MCHC RDW Plt Count MPV Immature Gran % Neutrophils % Band Neutrophils % Lymphocytes % Atypical Lymphs % Monocytes % Eosinophils % Basophils % Metamyelocytes % Myelocytes % Nucleated RBC % Absolute Neutrophils Absolute Lymphocytes Absolute Monocytes Absolute Eosinophils Absolute Basophils RBC Morphology Hypochromasia PT INR APTT D-Dimer VBG pH 7.25 L VBG pCO2 39 L VBG pO2 53 VBG HCO3 17 L VBG Total CO2 17 L VBG O2 Saturation 83 VBG Base Excess -10 L VBG Lactate Sodium Potassium Chloride Carbon Dioxide Anion Gap BUN Creatinine Est GFR (CKD-EPI 2020) Glucose Calcium Magnesium Total Bilirubin AST ALT Alkaline Phosphatase Troponin I 7 NT-Pro-B Natriuret Pep Total Protein Albumin Lipase Urine Color Urine Clarity Urine pH Ur Specific [place] Urine Protein Urine Ketones Urine Blood Urine Nitrite Urine Bilirubin Urine Urobilinogen Ur Leukocyte Esterase Urine RBC Urine WBC Ur Epithelial Cells Urine Crystals Urine Bacteria Urine Casts Urine Mucus Ur Culture Indicated? Urine Glucose COVID-19 Source SARS-CoV-2 (PCR) Influenza Type A (PCR) Influenza Type B (PCR) RSV (PCR) ABO/Rh Blood Type Recheck Antibody Screen Last Vital Signs Temp 36.4 C L 12/26/24 08:48 Pulse 105 H 12/26/24 12:27 Resp 20 12/26/24 13:28 BP 131/75 12/26/24 12:01 Pulse Ox 93 12/26/24 13:28 Time Spent Time spent with Patient: >75 minutes Time was spent: preparing to see the patient(eg.review tests), obtaining and/or reviewing separately otained hiistory, ordering medications,tests, procedures, referring, communicating with other health hiv/aids care nurse, indepentently interpreting results, counseling the patient and care coordination
[2024-12-26] MEDS: Lactated Ringers 500 ML IV (13:56)
[2024-12-26] MEDS: PIPERACILLIN/TAZO 2.25 GM in Normal Saline 50 ML IVPB ×2 (14:01→21:23)
--- NOTE | 2024-12-26 14:47 | PHA.REVIEW2 ---
Pharmacy Admission Review Admission Clinical Review Admission Pharmacy Review: DVT prophylaxis (Acute) Severe sepsis (Acute) Acute renal failure (Acute) Hypomagnesemia (Acute) Pneumonia (Acute) Hyponatremia (Acute) Heart failure (Acute) Acute hypoxemic respiratory failure (Acute) No Known Drug Allergies Allergy (Verified 12/26/24 02:59) Unknown Resuscitation Status Full Code Height 4 ft 11 in Weight 52.9 kg Pharmacy Admission Review Renal Dosing Renal Dosing: BUN 62 mg/dL (7-18) H 12/26/24 07:28 Creatinine 2.5 mg/dL (0.55-1.02) H 12/26/24 07:28 Medications needing adjustments: Intervened (CrCl 17 mL/min) List of meds needing interventions: Changed Zosyn dose from 3.375mg q6h to 2.25mg q8h. Changed enoxaparin from 40mg daily to 30mg daily. Anticoagulation Anticoagulation: Hgb 8.3 g/dL (11.2-15.7) L 12/26/24 09:05 Hct 25.7 % (36.0-46.0) L 12/26/24 09:05 Plt Count 249 10^3/uL (130-400) 12/26/24 03:02 INR 1.1 (0.9-1.1) 12/26/24 03:02 Creatinine 2.5 mg/dL (0.55-1.02) H 12/26/24 07:28 DVT Prophylaxis: Intervened (changed from 40mg to 30mg due to CrCl < 30) Medications: Enoxaparin (30mg daily) Relevant Labs Relevant Labs: Sodium 127 mmol/L (136-145) L 12/26/24 07:28 Potassium 3.6 mmol/L (3.5-5.1) 12/26/24 07:28 Chloride 95 mmol/L (98-107) L 12/26/24 07:28 Magnesium 1.5 mg/dL (1.8-2.4) L 12/26/24 03:02 Electrolytes, C-Reactive P, ESR: Reviewed (received Mg IV infusion and sodium bicarb infusion, repeat labs pending) Cardiac Review Cardiac Review: Troponin I 7 ng/L (<or=51) 12/26/24 12:50 NT-Pro-B Natriuret Pep 1990 pg/mL (<300) H 12/26/24 03:02 BP, HR, EF%: Reviewed (BP 69/56, HR 131, oxygen flow rate = 3) List meds needing interventions: Has order for midodrine 5mg TID QTc Review QTc: Reviewed (434 from 12/26/24) IV to PO Switch IV Medications: Reviewed (lorazepam, methylprednisolone, pantoprazole, Zosyn and vancomycin) Home Meds Home Med List reviewed: Intervened Relevent Home Meds Not ordered & why?: vitamin D3, clopidogrel, famotidine, Trelegy (substituted with Symbicort and Spiriva per pharmacy protocol), loperamide (PRN), milk of magnesia, pantoprazole, Proventil and fleet enema Asked provider about clopidogrel, famotidine and pantoprazole. Per provider does not believe DAPT is needed anymore and put in order for pantoprazole. Asked nurse to verify patients venlafaxine dose at home. Home med list had 75mg daily but most recently has been filling from XL 150mg daily. Patient was unsure what dose was. Updated home med list to 150mg daily and changed order. Current Meds Current Medication Order Review: Intervened Comments: Changed IV ED access order Pharmacy Antibiotic Review Relevant Labs: WBC 15.07 10^3/uL (4.4-10.8) H 12/26/24 03:02 Temperature 36.4 C Pharmacy Antibiotic Activity: C/S review and Reviewed, no change Comments: Patient is on Zosyn (renally adjusted) and vancomycin, day 1, for possible pneumonia/sepsis. Put in order for 1000mg loading dose and ordered level for tomorrow with morning labs. Will use level to figure out correct dosing, may need to base on levels depending on if renal function improves or not. Patient received 1 dose of linezolid in ED but provider changed to vanco as patient takes mirtazapine and venlafaxine. Blood cultures are pending.
[2024-12-26] MEDS: LORazepam 20 MG/10 ML VIAL IVP (14:50)
[2024-12-26 15:05] LABS: Creatinine,Urine 37.74 mg/dL; Sodium, Urine 11 mmol/L
[2024-12-26] MEDS: methylPREDNISolone SUCC 125 MG VIAL 80 MG IVP (16:48)
[2024-12-26] MEDS: Pantoprazole 40 MG VIAL IVP (16:49)
[2024-12-26] MEDS: Enoxaparin 30 MG/0.3 ML SYR SC (16:49)
[2024-12-26] MEDS: VANCOMYCIN/WATER (PEG) 1 GM/200 ML BAG IVPB (16:58)
[2024-12-26 17:12] LABS: BE (Venous) -9 mmol/L (-2-3); HCO3 (Venous) 17 mmol/L (23-28); O2 Sat (Venous) 98 %; TCO2 (Venous) 16 mmol/L (24-29); pCO2 (Venous) 30 mmHg (41-51); pO2 (Venous) 99 mmHg
[2024-12-26 17:24] LABS: Anion Gap 12.8 mmol/L (3-11); BUN 49 mg/dL (7-18); CO2 18.2 mmol/L (21.0-32.0); Calcium 10.0 mg/dL (8.5-10.1); Chloride 102 mmol/L (98-107); Estimated GFR 37.49 (mL/min/1.73m2); Glucose 152 mg/dL (74-106); Potassium 3.5 mmol/L (3.5-5.1); Sodium 133 mmol/L (136-145)
[2024-12-26] MEDS: SODIUM BICARBONATE 150 MEQ in DEXTROSE 5%-WATER 850 ML IV (18:39)
--- NOTE | 2024-12-26 18:58 | NUR.NOTE ---
Nurses attempted to gain consent to speak with Elizabeth Granados to give a medical update. Patient was unable to consent. Elizabeth Granados will need to send over the legal documents stating that she is the POA, inorder to give her a medical update on the patient.
[2024-12-26] MEDS: Atorvastatin 40 MG TAB PO (21:26)
[2024-12-26] MEDS: Mirtazapine 15 MG TAB PO (21:26)
[2024-12-27] VITALS (54 sets, daily range): BP systolic 84–175; BP diastolic 62–163; PULSE 81–129; RESP 16–37; TEMP 36.8–38; O2SAT 86–94
[2024-12-27] MEDS: Normal Saline Flush 10 ML SYR IVP ×5 (00:32→12:59)
[2024-12-27] MEDS: methylPREDNISolone SUCC 125 MG VIAL 80 MG IVP ×2 (00:32→08:31)
[2024-12-27] MEDS: Albuterol/Ipratropium 3 ML UPD VIAL IH ×3 (05:45→18:04)
[2024-12-27] MEDS: PIPERACILLIN/TAZO 2.25 GM in Normal Saline 50 ML IVPB (06:00)
[2024-12-27 07:35] LABS: Abs Immature Grans 0.18 10^3/uL (0.0-0.06); HCT 24.1 % (36.0-46.0); HGB 8.2 g/dL (11.2-15.7); Immature Grans % 1.1 %; MCH 27.5 pg (27.0-33.0); MCHC 34.0 % (32.0-36.0); MCV 81 fL (80-95); MPV 10.9 fL (8.0-11.0); Platelet Count 302 10^3/uL (130-400); RBC 2.98 10^6/uL (3.93-5.22); RDW 13.9 % (11.7-14.6); RDW-SD 41.1 fL; WBC 15.92 10^3/uL (4.4-10.8)
[2024-12-27 07:58] LABS: Iron 6 ug/dL (50-170); Total Iron Binding Capacity 203 ug/dL (250-450); Transferrin Sat 3 % (15-50)
[2024-12-27 08:09] LABS: Vancomycin, Random 9.4 ug/mL
[2024-12-27] MEDS: Budesonide/Formoterol 160/4.5 6 GM 60 PUFF INH IH ×2 (08:14→20:22)
[2024-12-27] MEDS: Tiotropium Bromide-Respimat 10 PUFF INH 2 PUFF IH (08:27)
[2024-12-27] MEDS: Aspirin E.C. 81 MG TABEC PO (08:31)
[2024-12-27] MEDS: Midodrine 2.5 MG TAB 5 MG PO ×3 (08:31→20:25)
[2024-12-27] MEDS: Venlafaxine 150 MG CAPCR PO (08:31)
[2024-12-27] MEDS: Polyethylene Glycol 3350 17 GM PACKET PO (08:31)
[2024-12-27 08:32] LABS: ALT 23 U/L (14-59); AST 28 U/L (15-37); Albumin 2.2 g/dL (3.4-5.0); Alkaline Phosphatase 90 U/L (46-116); Anion Gap 9.4 mmol/L (3-11); BUN 29 mg/dL (7-18); Bilirubin, Total 0.3 mg/dL (0.2-1.0); CO2 26.6 mmol/L (21.0-32.0); Calcium 10.5 mg/dL (8.5-10.1); Chloride 101 mmol/L (98-107); Estimated GFR 69.20 (mL/min/1.73m2); Glucose 151 mg/dL (74-106); Magnesium 1.9 mg/dL (1.8-2.4); Sodium 137 mmol/L (136-145); Total Protein 6.5 g/dL (6.4-8.2); Vitamin B12 323 pg/mL (193-986)
[2024-12-27 08:35] LABS: Potassium 2.5 mmol/L (3.5-5.1)
[2024-12-27 08:37] LABS: RBC Morphology Normal
--- NOTE | 2024-12-27 08:55 | PDOC.CMIN ---
Date of service: 12/27/24 Time of Service: 08:55 Care Management Initial Assmt Initial Assessment Reason for Hospitalization: sepsis, renal failure, hypoxic respiratory failure Functional Status/Living Situation Patient Presentation: Karla presented to the ED via EMS from [facility], where she resides. She had complaints of hypotension and chest pain. She was treated at the facility with midodrine and PO fluids. She also had a new O2 requirement and was on 3L nc on arrival to ED. She reported substernal chest pressure and feeling light headed. At the SNF, her BP was noted as low as 70/40. She is being treated for pneumonia. Karla was lying in bed when CM met with her this morning. She was pleasant, but didn't really want to talk as she had a bad headache with a lot of pressure. CM reported this to her RN. Town of Residence: [facility]: [facility] - has a roommate, whom she enjoys) Significant Other/Family: Out of area (partner Jose and a sister live in [place]. 2 sons live in [place]. 9 grandchildren. Niece, Elizabeth, lives local and visits often.) Caregiver/Guardian: [facility] Employment Status: Disabled Instrumental Activities of Daily Living (ADLs): Requires support Activities/Hobbies/SocialSupport: prefers to stay in her room with her roommate as opposed to joining the group activities Medications Medication Management: No Issues/Barriers identified Physical Functioning/Mobility Assistive Device: FWW Advance Directives Advance Directives: Do you have an Advance Directive: N 16, 09:07 AD On File at [facility]: N 05/24/24, 16:24 Date Asked 12/26/24 12/26/24, 02:53 AD Date Reviewed COLST On File at [facility] COLST Date Scanned Code Status Resuscitation Status Full Code Insurance Coverage/Financial Issues Insurance: Medicare Part A & B Care Team Visit Care Team Role Provider Type Unknown Unknown Primary Care Provider STAFF PHYSICIAN Atif Roche MD Emergency Provider [facility] STAFF PHYSICIAN Atif Morrow Admit Provider [facility] STAFF PHYSICIAN Attending Provider Discharge Potential Discharge Needs: Other (facility provider f/u) Anticipated Barriers to Discharge: None Identified Patient/Family Education Needs: Review discharge instructions, discuss Ask Me Three Transportation: RCT RCT Transportation: Wheel chair van Plan: Karla will return to [facility], where she resides, once medically stable. She will transport via RCT w/c van, coordinated by CM. She will follow up with facility providers, and her discharge plan of care. CM will continue to follow. Social Determinants of Health Screening Social Determinants of health last assessed in clinic: 12/26/24 Will the Patient Participate in the Screening?: Unable to obtain Do you worry about having a steady place to live?: yes What is your living situation today?: I have housing today, but am worried about losing it Problems where you live: no known problems In the past 12 months, have you had to go without electric, gas, oil or water in your home?: no Has lack of transportation kept you from medical appointments or from doing things needed for daily living?: yes Has anyone in your life made you feel unsafe or unsupported?: choose not to answer How hard is it for you to pay for the very basics like food, housing, medical care, and heating? Would you say it is:: Not hard at all Do you want help finding or keeping work or a job?: I do not need or want help If for any reason you need help with day-to-day activities such as bathing, preparing meals, shopping, managing finances, etc., do you get the help you need?: I need a lot more help How often do you feel lonely or isolated from those around you?: Often Do you speak a language other than Omani at home?: No Does the patient want assistance with any of the above?: No Health Related Social Needs Health related social needs: housing instability, housed, with risk of homelessness (Z59.811), transportation insecurity (Z59.82), problems with daily activities (Z73.9) and feeling lonely/isolated (Z60.8) Health related social needs details: none PFSH All Active Problems (Updated 12/27/24 @ 12:11 by Atif Morrow) Hypokalemia (Acute) DVT prophylaxis (Acute) Severe sepsis (Acute) Acute renal failure (Acute) Hypomagnesemia (Acute) Sepsis (Acute) Pneumonia (Acute) Cardiorenal syndrome (Acute) Anemia (Chronic) Abnormal kidney function (Acute) Hyponatremia (Acute) Heart failure (Acute) Acute hypoxemic respiratory failure (Acute) Orthostatic hypotension (Chronic) Repeated falls (Acute) Osteoporosis (Chronic) Alcoholic cardiomyopathy (Acute) Alcohol abuse (Chronic) Dementia (Chronic) Right-sided lacunar infarction (Acute) Anemia (Chronic) Acute UTI (Acute) Hyperlipidemia (Chronic) Depression (Chronic) COPD (chronic obstructive pulmonary disease) (Chronic) HTN (hypertension) (Chronic) TIA (transient ischemic attack) (Acute) COVID-19 (Acute) Surgical History (Updated 12/26/24 @ 14:14 by Atif Morrow) Status post open reduction and internal fixation (ORIF) of fracture of lateral condyle of left femur Family History (Updated 12/26/24 @ 14:15 by Atif Morrow) Mother Breast cancer Stroke Asthma Heart disease Sister Breast cancer Social History (Updated 12/26/24 @ 14:16 by Atif Morrow) Smoking/Tobacco Use Status: Former Tobacco Use Smoking risk assessment performed?: Yes Alcohol Intake: former Drug use: Never Substance use type: marijuana Housing: [facility] Do you feel safe at home: Yes Do you feel safe in your relationship?: Yes Additional Social history: [employer] since 2023. Previously lived in [place].
[2024-12-27] MEDS: POTASSIUM CHLORIDE 20 MEQ/100 ML BAG 50 MEQ IV_INF (09:50)
[2024-12-27] MEDS: Pantoprazole 40 MG TABCR PO (09:51)
[2024-12-27] MEDS: Nystatin POWDER 60 GM JAR TP (09:51)
[2024-12-27] MEDS: Acetaminophen 325 MG TAB PO (09:51)
[2024-12-27] MEDS: Normal Saline 500 ML 60 ML IV (10:00)
--- NOTE | 2024-12-27 11:57 | PGE_ITS ---
Date of Service Date of service: 12/27/24 Time of Service: 11:57 Assessment and Plan Assessment and plan (1) Severe sepsis: Status: Acute Assessment and plan: Elevated HR, RR, WBC, lactate, and respiratory and renal failure. Some low BPs responsive to fluids. Source appears pneumonia. Blood cultures growing GPC, will repeat. Continue cefepime and vancomycin. Nasal +MRSA. (2) Acute renal failure: Status: Acute Assessment and plan: Acute renal failure with metabolic acidosis Initially was not improving, but resolved with more aggressive fluid resuscitation. (3) Heart failure: Status: Acute Assessment and plan: history of alcoholic cardiomyopathy, but recovered LVEF last May, no ongoing EtOH. POCUS concerning, but status echo with reassuring function and not c/w fluid overload. BNP up but EKG/trops reassuring. Cardiology consult cancelled, this is not cardiorenal syndrome. (4) Anemia: Status: Chronic Assessment and plan: Slight worsening of chornic. Uncertain etiology. B12 okay but iron very low. Will supplement iron once infection is better controlled. She denies any notable bleeding. Get occult blood if stooling. EGD/colo indicated as outpatient pending goals of care. (5) Hyponatremia: Status: Acute Assessment and plan: In setting of functional low volume status, some degress of chronic hypo natremia. Normalized with fluid resuscitation. (6) Acute hypoxemic respiratory failure: Status: Acute Assessment and plan: Secondary to pneumonia, sepsis, COPD. Off BiPAP, on NC. (7) COPD (chronic obstructive pulmonary disease): Status: Chronic Assessment and plan: with exacerbation. transition to prednisone. (8) Pneumonia: Status: Acute Assessment and plan: LLL. Started on linezolid and pip/tazo in early 12/26. Changed linezolid to vancomycin 12/26 given 2 serotinergic drugs chronically. (9) Orthostatic hypotension: Status: Chronic Assessment and plan: on midocrine for this chornically, continue (10) DVT prophylaxis: Status: Acute Assessment and plan: enoxaparin (11) Hypomagnesemia: Status: Acute Assessment and plan: Normalized (12) Hypokalemia: Status: Acute Assessment and plan: chornic, supplement IV as very low 12/27, high dose oral for now, follow Subjective Subjective Patient reports: no new complaints and tolerating a regular diet; denies diarrhea, nausea, vomiting or fever Interval history since last seen: Events: On BiPAP 12/26 overnight, off at 6am She feels better today. Still some SOB. Eating and drinking a little. Has some chest pain on left side below breast and in LUQ, worse with breathing. Sputum improving. Exam Narrative Exam Narrative: GEN: Alert and oriented, NAD sitting up in bed with NC 4liters. LUNGS: Normal effort at rest, rhonchi, demished breath sounds left base. CV: RRR with no murmurs, gallops, or rubs. ABD: active bowel sounds, soft, nontender and nondistended. No masses. EXT: no cyanosis, clubbing. Trace sally ankle edema. Warm and not tender to palpation Objective Last Vital Signs Temp 37.8 C H 12/27/24 08:50 Pulse 105 H 12/27/24 11:08 Resp 17 12/27/24 11:08 BP 156/73 H 12/27/24 11:01 Pulse Ox 90 L 12/27/24 11:08 Laboratory Results - last 24 hr 12/26/24 12/26/24 12/26/24 12:50 14:37 17:04 WBC RBC Hgb Hct MCV MCH MCHC RDW Plt Count MPV Immature Gran % Neutrophils % Band Neutrophils % Lymphocytes % Monocytes % Eosinophils % Basophils % Nucleated RBC % Absolute Neutrophils Absolute Lymphocytes Absolute Monocytes Absolute Eosinophils Absolute Basophils RBC Morphology VBG pH 7.25 L 7.35 VBG pCO2 39 L 30 L VBG pO2 53 99 VBG HCO3 17 L 17 L VBG Total CO2 17 L 16 L VBG O2 Saturation 83 98 VBG Base Excess -10 L -9 L VBG Lactate 1.6 Sodium 133 L Potassium 3.5 Chloride 102 Carbon Dioxide 18.2 L Anion Gap 12.8 H BUN 49 H Creatinine 1.5 H D Est GFR (CKD-EPI 2020) 37.49 Glucose 152 H Calcium 10.0 Magnesium Iron TIBC Transferrin % Sat Total Bilirubin AST ALT Alkaline Phosphatase Troponin I 7 Total Protein Albumin Vitamin B12 Ur Random Creatinine 37.74 Ur Random Sodium 11 Random Vancomycin 12/27/24 06:21 WBC 15.92 H RBC 2.98 L Hgb 8.2 L Hct 24.1 L MCV 81 MCH 27.5 MCHC 34.0 RDW 13.9 Plt Count 302 MPV 10.9 Immature Gran % 1.1 Neutrophils % 76.0 Band Neutrophils % 1 Lymphocytes % 20.0 Monocytes % 3.0 Eosinophils % 0.0 Basophils % 0.0 Nucleated RBC % 0.4 H Absolute Neutrophils 12.26 H Absolute Lymphocytes 3.18 Absolute Monocytes 0.48 Absolute Eosinophils 0.00 Absolute Basophils 0.00 RBC Morphology Normal VBG pH VBG pCO2 VBG pO2 VBG HCO3 VBG Total CO2 VBG O2 Saturation VBG Base Excess VBG Lactate Sodium 137 Potassium 2.5 L* D Chloride 101 Carbon Dioxide 26.6 Anion Gap 9.4 BUN 29 H Creatinine 0.9 Est GFR (CKD-EPI 2020) 69.20 Glucose 151 H Calcium 10.5 H Magnesium 1.9 Iron 6 L TIBC 203 L Transferrin % Sat 3 L Total Bilirubin 0.3 AST 28 ALT 23 Alkaline Phosphatase 90 Troponin I Total Protein 6.5 Albumin 2.2 L Vitamin B12 323 Ur Random Creatinine Ur Random Sodium Random Vancomycin 9.4 Time Spent with Patient Time Spent with Patient: >50 minutes Time was spent: preparing to see the patient(eg.review tests), obtaining and/or reviewing separately otained hiistory, ordering medications,tests, procedures, referring, communicating with other health child care center assistant director, indepentently interpreting results, counseling the patient and care coordination
[2024-12-27 12:12] LABS: MRSA PCR Positive (Negative)
[2024-12-27] MEDS: PIPERACILLIN/TAZO 3.375 GM in Normal Saline 50 ML IVPB ×2 (12:59→17:57)
[2024-12-27] MEDS: POTASSIUM CHLORIDE 20 MEQ/100 ML BAG 25 MEQ IV_INF (13:37)
[2024-12-27] MEDS: Potassium Chloride Liquid 20 MEQ PKT 40 MEQ PO ×2 (13:37→20:25)
[2024-12-27] MEDS: Hyaluronidase 150 UNITS VIAL 15 UNITS IJ (14:27)
[2024-12-27] MEDS: VANCOMYCIN/WATER (PEG) 1.25 GM/250 ML BAG IVPB (17:00)
[2024-12-27] MEDS: Enoxaparin 40 MG/0.4 ML SYR SC (17:00)
[2024-12-27] MEDS: Mirtazapine 15 MG TAB PO (20:24)
[2024-12-27] MEDS: Melatonin 3 MG TAB PO (20:24)
[2024-12-27] MEDS: Atorvastatin 40 MG TAB PO (20:25)
[2024-12-28] VITALS (30 sets, daily range): BP systolic 94–154; BP diastolic 63–105; PULSE 84–120; RESP 13–34; TEMP 36.2–36.6; O2SAT 89–98
[2024-12-28] MEDS: PIPERACILLIN/TAZO 3.375 GM in Normal Saline 50 ML IVPB ×5 (00:33→23:37)
[2024-12-28] MEDS: Albuterol/Ipratropium 3 ML UPD VIAL IH ×4 (00:33→17:57)
[2024-12-28 06:29] LABS: Vancomycin, Random 14.6 ug/mL
[2024-12-28] MEDS: Potassium Chloride Liquid 20 MEQ PKT 40 MEQ PO ×3 (08:00→20:59)
[2024-12-28] MEDS: Venlafaxine 150 MG CAPCR PO (08:01)
[2024-12-28] MEDS: Midodrine 2.5 MG TAB 5 MG PO ×3 (08:01→20:59)
[2024-12-28] MEDS: Aspirin E.C. 81 MG TABEC PO (08:01)
[2024-12-28] MEDS: Pantoprazole 40 MG TABCR PO (08:01)
[2024-12-28] MEDS: predniSONE 20 MG TAB 40 MG PO (08:02)
[2024-12-28] MEDS: Budesonide/Formoterol 160/4.5 6 GM 60 PUFF INH IH ×2 (08:16→19:58)
[2024-12-28] MEDS: Tiotropium Bromide-Respimat 10 PUFF INH 2 PUFF IH (08:17)
--- NOTE | 2024-12-28 09:45 | CMPROGNOTE_ITS ---
Date of service: 12/28/24 Time of Service: 09:46 Care Management Progress Note Progress Note Text Progress Note Text: Karla was lying in bed when CM met with her today. She stated that she is really feeling lousy today. She has had some diarrhea, and is just not feeling great. That said, she has improved some, and is being transferred to the [facility] floor. Karla has been found to have gram positive bacteremia, likely MRSA. A 3rd set of blood cultures were drawn this morning, and we are awaiting final culture and sensitivity results to determine course of tx. She is currently receiving double antibiotics. She will likely need an extended course of antibiotics. CM reached out to [facility] to inquire if they do IV antibiotics, but had to leave a message and have not yet heard back. Discharge Potential Discharge Needs: Other (f/u with facility provider) Anticipated Barriers to Discharge: None Identified Patient/Family Education Needs: Review discharge instructions, discuss Ask Me Three Transportation: RCT RCT Transportation: Wheel chair van Plan: Karla will return to [facility], where she resides, once medically stable. She will transport via RCT w/c van, coordinated by SU. She will follow up with facility providers, and her discharge plan of care. CM will continue to follow. Social Determinants of Health Screening Social Determinants of health last assessed in clinic: 12/26/24 Will the Patient Participate in the Screening?: Unable to obtain Do you worry about having a steady place to live?: yes What is your living situation today?: I have housing today, but am worried about losing it Problems where you live: no known problems In the past 12 months, have you had to go without electric, gas, oil or water in your home?: no Has lack of transportation kept you from medical appointments or from doing things needed for daily living?: yes Has anyone in your life made you feel unsafe or unsupported?: choose not to answer How hard is it for you to pay for the very basics like food, housing, medical care, and heating? Would you say it is:: Not hard at all Do you want help finding or keeping work or a job?: I do not need or want help If for any reason you need help with day-to-day activities such as bathing, preparing meals, shopping, managing finances, etc., do you get the help you need?: I need a lot more help How often do you feel lonely or isolated from those around you?: Often Do you speak a language other than [place]arag[place] at home?: No Does the patient want assistance with any of the above?: No Health Related Social Needs Health related social needs: housing instability, housed, with risk of homeless ness (Z59.811), transportation insecurity (Z59.82), problems with daily activities (Z73.9) and feeling lonely/isolated (Z60.8) Health related social needs details: none
[2024-12-28 10:02] LABS: Anion Gap 10.9 mmol/L (3-11); BUN 17 mg/dL (7-18); CO2 27.1 mmol/L (21.0-32.0); Calcium 10.8 mg/dL (8.5-10.1); Chloride 103 mmol/L (98-107); Estimated GFR 93.56 (mL/min/1.73m2); Glucose 169 mg/dL (74-106); Magnesium 1.5 mg/dL (1.8-2.4); Potassium 3.1 mmol/L (3.5-5.1); Sodium 141 mmol/L (136-145)
--- NOTE | 2024-12-28 12:03 | W.PM.PROGNOT ---
Date of Service Date of service: 12/28/24 Time of Service: 12:03 Assessment and Plan Assessment and plan (1) Septic shock: Status: Acute Assessment and plan: -patient met criteria for septic shocks with HR 124, RR 38, WBC 15, CAP as source of infection, and while initial lactic was 2.3 repeat increased to 4.3 and JOSE with Cr 2.9 (baseline 0.9) -started on cefepime and vanc which will be continued -blood cultures from 12/26 and 12/27 both growing GPCs in clusters -clutures from PM 12/27 remain negative -f/u final blood culture results (2) Pneumonia: Status: Acute Assessment and plan: - as seen on imaging in LLL. Started on linezolid and pip/tazo in early 12/26. -Changed linezolid to vancomycin 12/26 given 2 serotinergic drugs chronically. (3) Gram-positive bacteremia: Status: Acute Assessment and plan: -likely from CAP -continue treatment as noted above (4) Acute renal failure: Status: Acute Assessment and plan: -Cr up to 2.9 (baseline 0.9) and low UOP -Initially was not improving, but resolved with more aggressive fluid resuscitation. -UOP improved and Cr down to 0.7 as of AM 12/28 (5) Heart failure: Status: Acute Assessment and plan: -history of alcoholic cardiomyopathy, but recovered LVEF last May, no ongoing EtOH. -POCUS concerning, but formal TTE with reassuring function and not c/w fluid overload. -BNP up but EKG/trops reassuring. (6) Anemia: Status: Chronic Assessment and plan: -acute on chronic, though only slightly worse as compared to baseline -Uncertain etiology. B12 okay but iron very low. -Will supplement iron once infection is better controlled. -She denies any notable bleeding. (7) Hyponatremia: Status: Acute Assessment and plan: -In setting of functional low volume status, some degress of chronic hyponatremia. -Normalized with fluid resuscitation. (8) Acute hypoxemic respiratory failure: Status: Acute Assessment and plan: -Secondary to pneumonia, sepsis, COPD. -Off BiPAP, on 3L NC as of AM 12/28, wean as tolerated with goal O2 88-92% (9) COPD (chronic obstructive pulmonary disease): Status: Chronic Assessment and plan: -with acute exacerbation. -initially given IV methylpred, has since been transitioned to prednisone. (10) Orthostatic hypotension: Status: Chronic Assessment and plan: -on midocrine for this chornically, continue (11) DVT prophylaxis: Status: Acute Assessment and plan: enoxaparin (12) Hypomagnesemia: Status: Acute Assessment and plan: Normalized (13) Hypokalemia: Status: Acute Assessment and plan: chornic, supplement IV as very low 12/27, high dose oral for now, follow Subjective Subjective Interval history since last seen: Patient states that she is tired but is otherwise feeling better as compared to admission. Exam Narrative Exam Narrative: chroniclly ill appearing older female laying in bed in no acute distress, 3L NC in place, heart RRR, lungs CTAB, abdomen soft, non-tender, non-distended Objective Last Vital Signs Temp 97.9 F 12/28/24 09:01 Pulse 98 H 12/28/24 09:01 Resp 25 H 12/28/24 09:01 BP 137/63 12/28/24 09:01 Pulse Ox 94 12/28/24 09:01 Laboratory Results - last 24 hr 12/27/24 12/28/24 10:00 05:50 Sodium 141 Potassium 3.1 L Chloride 103 Carbon Dioxide 27.1 Anion Gap 10.9 BUN 17 Creatinine 0.7 Est GFR (CKD-EPI 2020) 93.56 Glucose 169 H Calcium 10.8 H Magnesium 1.5 L Random Vancomycin 14.6 MRSA (TEM-PCR) Positive A Time Spent with Patient Time Spent with Patient: >50 minutes Time was spent: preparing to see the patient(eg.review tests), obtaining and/or reviewing separately otained hiistory, ordering medications,tests, procedures, referring, communicating with other health medicare insurance specialist, indepentently interpreting results, counseling the patient and care coordination
[2024-12-28] MEDS: Nystatin POWDER 60 GM JAR TP (13:00)
[2024-12-28] MEDS: VANCOMYCIN/WATER (PEG) 1.25 GM/250 ML BAG IVPB (15:59)
[2024-12-28] MEDS: Enoxaparin 40 MG/0.4 ML SYR SC (16:50)
--- NOTE | 2024-12-28 17:53 | W.PC.ACHO ---
Registration Status: ADM IN Primary Language: Preferred Language: Persian ED Information & Data Chief Complaint Chest Pain 12/26/24 03:30 Triage Note hxo hypotension / treated 12/26/24 02:52 with po fluids and midodrine . chief complaints of chest pain heavy in nature new oxygen dependency 3LNC denies fever/ chills. 324 of asprin given DIRECTOR OF QUALITY, c/o shortness of breath (Last Updated 12/26/24 @ 14:14 by Atif Morrow) Status post open reduction and internal fixation (ORIF) of fracture of lateral condyle of left femur Most Recent Vital Signs Temperature 36.2 C L 12/28/24 15:10 Temperature Source Temporal Artery Scan 12/28/24 15:10 Pulse 91 H 12/28/24 15:10 Pulse 84 12/28/24 14:01 Respiratory Rate 16 12/28/24 15:10 Respiratory Effort Accessory Muscle Use 12/26/24 08:48 Respiratory Depth Deep 12/26/24 08:48 Respiratory Pattern Tachypnea 12/26/24 08:48 Blood Pressure 132/92 H 12/28/24 15:10 Blood Pressure Mean 105 12/28/24 15:10 Blood Pressure Position Supine 12/26/24 08:48 Pulse Oximetry 98 12/28/24 15:10 Oxygen Delivery Method Nasal Cannula 12/28/24 15:10 Oxygen Flow Rate 3 12/28/24 15:10 Fraction of Inspired Oxygen (FIO2) 92 12/27/24 08:15 Pain Level 0 12/28/24 14:42 Comment Bipap Epap 5 Ipap 10 Fio2 30% 12/26/24 17:07 Allergies No Known Drug Allergies Allergy (Verified 12/26/24 02:59) Unknown Precautions Isolation Standard precaution 12/26/24 03:17 Active Medications Generic Name Dose Route Start Last Admin Trade Name Freq PRN Reason Stop Dose Admin Acetaminophen 0 mg 12/26/24 10:30 12/27/24 09:51 Acetaminophen 325 Mg Tab PO 650 mg Q4H PRN PRN Administration Albuterol/Ipratropium 3 ml 12/26/24 18:00 12/28/24 12:17 Albuterol/Ipratropium 3 Ml Upd Vial IH 3 ml Q6H DREW Administration Aspirin 81 mg 12/27/24 08:30 12/28/24 08:01 Aspirin E.C. 81 Mg Tabec PO 81 mg DAILY DREW Administration Atorvastatin Calcium 40 mg 12/26/24 20:00 12/27/24 20:25 Atorvastatin 40 Mg Tab PO 40 mg QPM DREW Administration Budesonide/Formoterol Fumarate 2 puff 12/26/24 20:00 12/28/24 08:16 Budesonide/Formoterol 160/4.5 6 Gm 60 Puff Inh IH 2 puffs BID DREW Administration Enoxaparin Sodium 40 mg 12/27/24 16:00 12/28/24 16:50 Enoxaparin 40 Mg/0.4 Ml Syr SC 40 mg Q24H DREW Administration Vancomycin/PEG/NADA/Lysine/Water 1.25 gm in 250 mls @ 166.667 mls/hr 12/27/24 16:00 12/28/24 15:59 Vancocin Injection IVPB 166.6 mls/hr Q24H DREW Administration Sodium Chloride 500 mls @ 0 mls/hr 12/27/24 10:30 12/27/24 10:00 Saline 500ml Bag IV 60 mls/hr PRN PRN Administration Titrate Piperacillin Sod/Tazobactam 50 mls @ 100 mls/hr 12/27/24 12:00 12/28/24 12:50 Sod 3.375 gm/ Sodium Chloride IVPB 100 mls/hr Q6H [facility] Administration Melatonin 3 mg 12/26/24 20:00 12/27/24 20:24 Melatonin 3 Mg Tab PO 3 mg HS PRN PRN Administration Do not give after 2 am Midodrine 5 mg 12/27/24 14:00 12/28/24 14:22 Midodrine 2.5 Mg Tab PO 5 mg TID DREW Administration Mirtazapine 15 mg 12/26/24 20:00 12/27/24 20:24 Mirtazapine 15 Mg Tab PO 15 mg HS DREW Administration Nystatin 0 gm 12/26/24 20:00 12/28/24 13:00 Nystatin Powder 60 Gm Jar TP 1 applic BID DREW Administration Pantoprazole Sodium 40 mg 12/28/24 07:30 12/28/24 08:01 Pantoprazole 40 Mg Tabcr PO 40 mg DAILY@0730 DREW Administration Polyethylene Glycol 17 gm 12/27/24 08:30 12/28/24 08:12 Polyethylene Glycol 3350 17 Gm Packet PO Not Given DAILY [facility] Potassium Chloride 40 meq 12/27/24 14:00 12/28/24 14:22 Potassium Chloride Liquid 20 Meq Pkt PO 40 meq TID DREW Administration Prednisone 40 mg 12/28/24 08:30 12/28/24 08:02 Prednisone 20 Mg Tab PO 40 mg DAILY DREW Administration Sodium Chloride 0 ml 12/26/24 05:48 12/27/24 12:59 Normal Saline Flush 10 Ml Syr IVP 20 ml PRN PRN Administration Tiotropium [place] 2 puff 12/27/24 08:30 12/28/24 08:17 Tiotropium [place]-Respimat 10 Puff Inh IH 2 inh DAILY DREW Administration Venlafaxine HCl 150 mg 12/27/24 08:30 12/28/24 08:01 Venlafaxine 150 Mg Capcr PO 150 mg DAILY DREW Administration IV IV Catheter Type [Left Saline Lock Antecubital] IV Catheter Type [Right Peripheral IV Antecubital] IV Catheter Gauge [Left 18 Antecubital] IV Catheter Gauge [Right 18 Antecubital] Diagnostics 12/28/24 12/28/24 Range/Units 19:00 05:50 Sodium 141 (136-145) mmol/L Potassium 3.1 L (3.5-5.1) mmol/L Chloride 103 (98-107) mmol/L Carbon Dioxide 27.1 (21.0-32.0) mmol/L Anion Gap 10.9 (3-11) mmol/L BUN 17 (7-18) mg/dL Creatinine 0.7 (0.55-1.02) mg/dL Est GFR (CKD-EPI 2020) 93.56 (mL/min/1.73m2) Glucose 169 H (74-106) mg/dL Calcium 10.8 H (8.5-10.1) mg/dL Magnesium 1.5 L (1.8-2.4) mg/dL Random Vancomycin Pending 14.6 ug/mL 12/26/24 03:40 Blood Culture - Preliminary Blood Staph aureus, MRSA 12/26/24 03:06 Blood Culture - Preliminary Blood Staph aureus, MRSA 12/27/24 12:57 Blood Culture - Preliminary Blood Gram positive cocci 12/27/24 13:06 Blood Culture - Preliminary Blood Gram positive cocci 12/28/24 00:40 Blood Culture - Pending Blood 12/28/24 00:30 Blood Culture - Pending Blood 12/27/24 15:40 Stool Occult Blood (JO) - Final Stool [id number] Documentation Fingerstick Glucose Start: 12/26/24 03:07 Freq: Status: Complete Protocol: Activity Type Activity Date Activity User E-sign Co-sign Detail Recorded Client Recorded Date Recorded By Document 12/26/24 03:06 BKG DAEMON(10) [id number] 12/26/24 03:07 BKG DAEMON(10) Intake and Output - 24 Hour Total 12/26/24 02:51 thru 12/28/24 16:14 Intake Total 6821.667 Output Total 6225 Balance 596.667 Weight 49.895 kg Intake: IV 4801.667 Oral 2020 Output: Urine 6225 Other: Urine Color Yellow Urine Appearance Clear Stool Size Moderate Stool Characteristics Liquid Brown Urinary Catheter Urinary Catheter Date of 12/26/24 Insertion [Urethral ([place])] Time of insertion [Urethral ( 06:45 [place])] Falls Risk Assessment History of Falls No History 12/26/24 08:48 Contributing Factors Confusion,Unstable, 12/26/24 08:48 Impairments,Incontinence Ambulatory Aids Uses ambulatory device 12/26/24 08:48 Tubes/Lines W/no contributing factors 12/26/24 08:48 Gait Evaluation W/no contributing factors 12/26/24 08:48 Cognition Cognitive impairment 12/26/24 08:48 Fall Total Score 62 12/26/24 08:48 Level of Risk High Risk 12/26/24 08:48 Problems (Last Reviewed 12/26/24 @ 14:13 by Atif Morrow) Gram-positive bacteremia (Acute) Septic shock (Acute) Hypokalemia (Acute) DVT prophylaxis (Acute) Severe sepsis (Acute) Acute renal failure (Acute) Hypomagnesemia (Acute) Pneumonia (Acute) Hyponatremia (Acute) Heart failure (Acute) Acute hypoxemic respiratory failure (Acute) Orthostatic hypotension (Chronic) Anemia (Chronic) Depression (Chronic) COPD (chronic obstructive pulmonary disease) (Chronic) Notes 12/26/24 18:58 Nursing Notes by Payal Jasmine Nurses attempted to gain consent to speak with Elizabeth Granados to give a medical update. Patient was unable to consent. Elizabeth Granados will need to send over the legal documents stating that she is the POA, inorder to give her a medical update on the patient. Initialized on 12/26/24 18:58 - END OF NOTE 12/26/24 09:51 Nursing Notes by Mratine Waite Spoke with Salma, nursing traffic sign erection supervisor; [facility] and notified her that the request for a bed has been cancelled. Nursing Note: Initialized on 12/26/24 09:51 - END OF NOTE 12/26/24 04:23 Respiratory by Tracy Kidd Called to pt's room to initiate cpap/bipap for fluid overload and o2 needs. Upon arrival to room pt has moderate wob and is on a nrb. Bipap initiated 10/5 35%, with pt tolerating but rr high, pt seemed slightly uncomforable with settings. Changes to cpap +6, 40% and pt nodded that this mode felt easier to breathe. Pt did not tolerate cpap being increased to 8 and seemed to fight against the cpap. Returned to cpap of 6 for pt comfort. Pt able to fall asleep and tolerate current settings. MD and RN aware of settings. Initialized on 12/26/24 04:23 - END OF NOTE v v v v v v v v v Sending and/or Receiving Nurses: Please use comment section below to note any information pertinent to the patient hand-off not included above. Information / Comments: AO in person only, VSS, on 3L of O2 via NC, c/o general weakness. [place] drains by gravity, yellow clear urine. Report received from: Yvette
[2024-12-28 20:14] LABS: Vancomycin, Random 42.3 ug/mL
[2024-12-28] MEDS: Mirtazapine 15 MG TAB PO (21:00)
[2024-12-28] MEDS: Atorvastatin 40 MG TAB PO (21:00)
[2024-12-29] VITALS (13 sets, daily range): BP systolic 111–128; BP diastolic 75–87; PULSE 84–98; RESP 17–24; TEMP 36.6–37.2; O2SAT 88–92
[2024-12-29] MEDS: Albuterol/Ipratropium 3 ML UPD VIAL IH ×5 (01:05→23:56)
[2024-12-29] MEDS: PIPERACILLIN/TAZO 3.375 GM in Normal Saline 50 ML IVPB ×3 (05:27→20:06)
[2024-12-29 07:26] LABS: HCT 27.5 % (36.0-46.0); HGB 9.1 g/dL (11.2-15.7); MCH 26.8 pg (27.0-33.0); MCHC 33.1 % (32.0-36.0); MCV 81 fL (80-95); MPV 10.6 fL (8.0-11.0); Platelet Count 330 10^3/uL (130-400); RBC 3.40 10^6/uL (3.93-5.22); RDW 15.1 % (11.7-14.6); RDW-SD 44.5 fL; WBC 24.62 10^3/uL (4.4-10.8)
[2024-12-29 07:33] LABS: Anion Gap 9.5 mmol/L (3-11); BUN 16 mg/dL (7-18); CO2 28.5 mmol/L (21.0-32.0); Calcium 11.2 mg/dL (8.5-10.1); Chloride 99 mmol/L (98-107); Estimated GFR 93.56 (mL/min/1.73m2); Glucose 118 mg/dL (74-106); Potassium 3.3 mmol/L (3.5-5.1); Sodium 137 mmol/L (136-145)
[2024-12-29] MEDS: Budesonide/Formoterol 160/4.5 6 GM 60 PUFF INH IH ×2 (08:56→19:57)
[2024-12-29] MEDS: Tiotropium Bromide-Respimat 10 PUFF INH 2 PUFF IH (08:57)
--- NOTE | 2024-12-29 09:02 | PT.INIE ---
PT Notes Visit Reasons: severe sepsis, pneumonia, renal failure Physical Therapy Inpatient Initial Evaluation Date: 12/29/2024 Referring Doctor: Ricco Thakkar MD PT Orders: PT CONSULT: Eval/Treat Precautions: High fall risk. Standard. Activity as tolerated. Patient Profile/Admitting Diagnosis: Karla is a 69-year-old female known to this provider for having sudden onset syncopal episodes with standing or while transferring who presented to the ED on 12/26/2024 due to complaints of chest pain. Patient was admitted same day to [facility] for management of septic [place], PNA, gram-positive bacteremia related to PNA, heart failure, hyponatremia, hypomagenesemia, and hypokealemia. PMHX: All Active Problems (Updated 12/26/24 @ 14:29 by Atif Morrow) DVT prophylaxis (Acute) Severe sepsis (Acute) Acute renal failure (Acute) Hypomagnesemia (Acute) Sepsis (Acute) Pneumonia (Acute) Cardiorenal syndrome (Acute) Anemia (Chronic) Abnormal kidney function (Acute) Hyponatremia (Acute) Heart failure (Acute) Acute hypoxemic respiratory failure (Acute) Repeated falls (Acute) Osteoporosis (Chronic) Alcoholic cardiomyopathy (Acute) Alcohol abuse (Chronic) Dementia (Chronic) Right-sided lacunar infarction (Acute) Anemia (Chronic) Acute UTI (Acute) Hyperlipidemia (Chronic) Depression (Chronic) COPD (chronic obstructive pulmonary disease) (Chronic) HTN (hypertension) (Chronic) TIA (transient ischemic attack) (Acute) COVID-19 (Acute) Surgical History (Updated 12/26/24 @ 14:14 by Atif Morrow) Status post open reduction and internal fixation (ORIF) of fracture of lateral condyle of left femur Social History/Home Situation: Has been a SNF resident since April of 2024. Main mode of mobility is through self-propulsion of regular wheelchair in facility. Requires assistance of of 2 people for transfers for safety Equipment Owned/DME: Wheelchair, FWW for transfers Subjective: Feels weak. Agreeable to transferring to wheelchair for this session. Lightheaded upon sittig at edeg of bed. BALBIR Byrnes was requested to come to assist for safety. Objective: General Observation: Resting in bed. HOB 45 degrees elevated. Mental Status: Alert and oriented only to self, poor historian Pain: None reprorted Vital Signs: Closely monitored by nursing staff ROM: Right Upper Extremity: Shoulder Flexion allows up to about 90 degrees only with pain at end of range. Shoulder abduction allows up to about 90 degrees only with pain at end of range. Elbow flexion WFL. Wrist flexion WFL. Functional opening and closing of hand WFL. Left Upper Extremity: Shoulder Flexion allows up to about 90 degrees only with pain at end of range. Shoulder abduction allows up to about 90 degrees only with pain at end of range. Elbow flexion WFL. Wrist flexion WFL. Functional opening and closing of hand WFL. Right Lower Extremity: Hip flexion WFL. Hip abduction WFL. Knee flexion WFL. Ankle dorsiflexion WFL. Ankle plantarflexion WFL. Left Lower Extremity: Hip flexion WFL. Hip abduction WFL. Knee flexion WFL. Ankle dorsiflexion WFL. Ankle plantarflexion WFL. Strength: Right Upper Extremity: Shoulder flexors 3-/5. Shoulder abductors 3-/5. Elbow flexors 4-/5. Elbow extensors 4-/5. Jet Dyeing Machine Operator weak but functional. Left Upper Extremity: Shoulder flexors 3-/5. Shoulder abductors 3-/5. Elbow flexors 4-/5. Elbow extensors 4-/5. Jet Dyeing Machine Operator weak but functional. Right Lower Extremity: Hip flexors 4-/5. Hip abductors 4-/5. Knee flexors 4-/5. Knee extensors 4-/5. Ankle dorsiflexors 4-/5. Ankle plantarflexors 4-/5. Left Lower Extremity: Hip flexors 4-/5. Hip abductors 4-/5. Knee flexors 4-/5. Knee extensors 4-/5. Ankle dorsiflexors 4-/5. Ankle plantarflexors 4-/5. Bed Mobility/Transfers: Minimal cueing provided for use of B hands as needed for support, movement sequence, AD management, and posture to reduce fall risk and minimize pain report Rolling stand by assist Supine to sit minimal assist Sit to stand minimal assist of 2 with FWW Stand to sit minimal assist of 2 with FWW Bed to chair minimal assist of 2 with FWW Chair to bed minimal assist of 2 with FWW Gait: Patient was able to take 4-5 steps to transfer from edege of bed to bedside recliner using FWW with minimal assist of PT and INSURANCE CLAIMS CLERK Soniya. No syncopal episode despite report of lightheadedness upon sitting up at edge of bed. Balance: Static sitting: Fair Dynamic sitting: Fair Static Standing: Fair Dynamic Standing: Fair Special Tests: Mobility Limitations Standardized Measure [facility] AM-PAC 6 clicks Basic Mobility Inpatient Short Form: Raw Score: 11 CMS Score: 72% deficit Informed Consent/Education: Patient was instructed in purpose of PT consult and plan of care. Agreeable to proceed with established PT POC to achieve personal goals. Assessment: Patient presents with clinical signs and symptoms consistent with current/admitting diagnoses that have resulted to mobility limitations, gait instability, generalized weakness, and overall ADL decline as demonstrated by the following impairment level findings: 1. Decreased strength to B UE/LE major muscle groups 2. Impaired sitting/standing balance 3. Impaired activity tolerance 4. Limitation of joint range of motion in b shoulders (chronic) 5. Fainting spells Impairments are contributing to the following functional limitations: 1. Decline in bed mobility skills 2. Decline in transfer skills 3. Difficulty with ambulation without assistive device and physical assistance 4. Increased completion time for mobility ADL performance 5. Increased risk for falls 6. Difficulty with managing steps alone safely Patient is assessed as a 06366 moderate complexity based on the following: History: 69-year-old female with past medical history as indicated above Examination: Demonstrable impairment in strength, balance, and mobility level with underlying impairments and functional limitations as exhibited above as well as deficit score of 72% utilizing the [facility] Mobility Inpatient Short Form Presentation: Evolving Decision Makin moderate complexity Goals: Goals X1 week 1. Supine-Sit independent 2. Sit-Supine independent 3. Sit-Stand stand by assist 4. Stand-Sit stand by assist with FWW 5. Bed-Chair stand by assist with FWW 6. Chair-Bed stand by assist with FWW 7. Contact guard assist gait on level surface with use of FWW for at least 15 feet without report of pain nor dyspnea 8. Good static and dynamic standing balance/tolerance Plan of Care/Treatment Plan: 1-2x/day, 7 days/week x 1 week. Plan of care has been reviewed with the FLIGHT ATTENDANT providing the service under Physical Therapy direction. Initiate Physical Therapy intervention for pain management as needed, strengthening, bed mobility, transfers, gait, stairs, balance training, and use of assistive device. DISCHARGE RECOMMENDATIONS: [] Home with no services [] [] Home with services [specify] [] Home with outpatient PT [] [] SNF for continued rehabilitation [] [] [facility] [] [] SNF versus LTC based on ability to participate and progress [] [X] Return to SNF with subacute rehab for continued mobility progression and fall reduction strategies TREATMENT CODE/TIME: 19291 x 20 minutes for 1 unit, 01844 x 10 minutes for 1 unit (09:41-10:22). Thank you for the opportunity to participate in the care of this patient. Bindu Bran PT, DPT, CLT [facility] [place], [place]
[2024-12-29] MEDS: Venlafaxine 150 MG CAPCR PO (09:13)
[2024-12-29] MEDS: Potassium Chloride Liquid 20 MEQ PKT 40 MEQ PO ×3 (09:13→20:06)
[2024-12-29] MEDS: Polyethylene Glycol 3350 17 GM PACKET PO (09:13)
[2024-12-29] MEDS: Aspirin E.C. 81 MG TABEC PO (09:14)
[2024-12-29] MEDS: Pantoprazole 40 MG TABCR PO (09:14)
[2024-12-29] MEDS: predniSONE 20 MG TAB 40 MG PO (09:14)
[2024-12-29] MEDS: Midodrine 2.5 MG TAB 5 MG PO ×3 (09:14→20:06)
[2024-12-29] MEDS: Nystatin POWDER 60 GM JAR TP (09:23)
--- NOTE | 2024-12-29 11:12 | W.PM.PROGNOT ---
Date of Service Date of service: 12/29/24 Time of Service: 11:12 Assessment and Plan Assessment and plan (1) Septic shock: Status: Acute Assessment and plan: -patient met criteria for septic shocks with HR 124, RR 38, WBC 15, CAP as source of infection, and while initial lactic was 2.3 repeat increased to 4.3 and JOSE with Cr 2.9 (baseline 0.9) -started on cefepime and vanc which will be continued -blood cultures from 12/26 growing MRSA - Preliminary blood culture results from 12/27 and 12/28 growing gram-positive cocci in clusters - Highly concerning for ongoing bacteremia despite overall clinical improvement of patient - Blood cultures redrawn on 12/29 and or results from 12/27 and 12/28 finalized as MRSA, will reach out to [facility] [place] infectious disease regarding further investigation of ongoing bacteremia and potential MOLLY for rule out of endocarditis -f/u final blood culture results (2) Pneumonia: Status: Acute Assessment and plan: - as seen on imaging in [facility]. Started on linezolid and pip/tazo in early 12/26. -Changed linezolid to vancomycin 12/26 given 2 serotinergic drugs chronically. (3) Gram-positive bacteremia: Status: Acute Assessment and plan: -likely from CAP -continue treatment as noted above (4) Acute renal failure: Status: Acute Assessment and plan: -Cr up to 2.9 (baseline 0.9) and low UOP -Initially was not improving, but resolved with more aggressive fluid resuscitation. -UOP improved and Cr down to 0.7 as of AM 12/28 (5) Heart failure: Status: Acute Assessment and plan: -history of alcoholic cardiomyopathy, but recovered LVEF last May, no ongoing EtOH. -POCUS concerning, but formal TTE with reassuring function and not c/w fluid overload. -BNP up but EKG/trops reassuring. (6) Anemia: Status: Chronic Assessment and plan: -acute on chronic, though only slightly worse as compared to baseline -Uncertain etiology. B12 okay but iron very low. -Will supplement iron once infection is better controlled. -She denies any notable bleeding. (7) Hyponatremia: Status: Acute Assessment and plan: -In setting of functional low volume status, some degress of chronic hyponatremia. -Normalized with fluid resuscitation. (8) Acute hypoxemic respiratory failure: Status: Acute Assessment and plan: -Secondary to pneumonia, sepsis, COPD. -Off BiPAP, on 3L NC as of AM 12/28, wean as tolerated with goal O2 88-92% (9) COPD (chronic obstructive pulmonary disease): Status: Chronic Assessment and plan: -with acute exacerbation. -initially given IV methylpred, has since been transitioned to prednisone. (10) Orthostatic hypotension: Status: Chronic Assessment and plan: -on midocrine for this chornically, continue (11) DVT prophylaxis: Status: Acute Assessment and plan: enoxaparin (12) Hypomagnesemia: Status: Acute Assessment and plan: Normalized (13) Hypokalemia: Status: Acute Assessment and plan: chornic, supplement IV as very low 12/27, high dose oral for now, follow Subjective Subjective Interval history since last seen: Patient states that she is feeling better today. She understands plan to continue with IV antibiotics and monitoring her blood culture results. Exam Narrative Exam Narrative: chroniclly ill appearing older female laying in bed in no acute distress, 1L NC in place, heart RRR, lungs CTAB, abdomen soft, non-tender, non-distended Objective Last Vital Signs Temp 97.9 F 12/29/24 04:11 Pulse 90 12/29/24 05:45 Resp 18 12/29/24 05:45 BP 125/75 12/29/24 04:11 Pulse Ox 90 L 12/29/24 08:57 Laboratory Results - last 24 hr 12/28/24 12/29/24 19:10 06:05 WBC 24.62 H RBC 3.40 L Hgb 9.1 L Hct 27.5 L MCV 81 MCH 26.8 L MCHC 33.1 RDW 15.1 H Plt Count 330 MPV 10.6 Sodium 137 Potassium 3.3 L Chloride 99 Carbon Dioxide 28.5 Anion Gap 9.5 BUN 16 Creatinine 0.7 Est GFR (CKD-EPI 2020) 93.56 Glucose 118 H Calcium 11.2 H Random Vancomycin 42.3 Time Spent with Patient Time Spent with Patient: >50 minutes Time was spent: preparing to see the patient(eg.review tests), obtaining and/or reviewing separately otained hiistory, ordering medications,tests, procedures, referring, communicating with other health account executive healthcare, indepentently interpreting results, counseling the patient and care coordination
[2024-12-29] MEDS: Enoxaparin 40 MG/0.4 ML SYR SC (17:25)
[2024-12-29] MEDS: VANCOMYCIN/WATER (PEG) 1.25 GM/250 ML BAG IVPB (17:25)
[2024-12-29] MEDS: Atorvastatin 40 MG TAB PO (20:07)
[2024-12-29] MEDS: Mirtazapine 15 MG TAB PO (20:07)
[2024-12-30] VITALS (10 sets, daily range): BP systolic 88–121; BP diastolic 59–69; PULSE 70–114; RESP 17–24; TEMP 36.3–36.8; O2SAT 85–94
--- NOTE | 2024-12-30 | DI.CT_ITS ---
Exam(s) CT CHEST W EXAM: CT CHEST W CLINICAL HISTORY: increasing WBC, known PNA, persistant MRSA bacter TECHNIQUE: Imaging Protocol: Axial computed tomography images with coronal and sagittal reformatted images were created and reviewed. Computer aided detection (CAD) was utilized. CONTRAST MATERIAL: Intravenous: Omnipaque 350 Contrast volume:70 ml. COMPARISON: CT CT CHEST PE CTA from 12/26/2024 FINDINGS: Small left pleural effusion, mildly increased from prior. Large areas consolidation again noted in the left lower lobe which shows some improvement in aeration . Linear atelectasis noted in the right lower lobe. Underlying emphysematous changes. No evidence of pulmonary emboli. Atherosclerotic changes of the aortic arch and descending aorta. No evidence of dissection. IMPRESSION: Some in interval improvement in consolidation of the left lower lobe. No new findings. The preliminary [facility] report was reviewed. RADIATION DOSE DELIVERED: Total DLP DATA REPOSITORY: All CT scans at this facility are submitted to the National Radiology Data Registry (NRDR) Dose Index Registry (DIR) with the [employer] (ACR). RADIATION OPTIMIZATION: All CT scans at this facility use at least one of these dose optimization techniques: automated exposure control; mA and/or kV adjustment per patient size (includes targeted exams where dose is matched to clinical indication); or iterative reconstruction.
[2024-12-30] MEDS: PIPERACILLIN/TAZO 3.375 GM in Normal Saline 50 ML IVPB ×4 (01:34→21:08)
[2024-12-30] MEDS: Albuterol/Ipratropium 3 ML UPD VIAL IH ×2 (05:50→14:08)
[2024-12-30 06:31] LABS: HCT 25.9 % (36.0-46.0); MCH 27.4 pg (27.0-33.0); MCHC 33.6 % (32.0-36.0); MCV 81 fL (80-95); MPV 10.7 fL (8.0-11.0); Platelet Count 356 10^3/uL (130-400); RBC 3.18 10^6/uL (3.93-5.22); RDW 15.2 % (11.7-14.6); RDW-SD 45.3 fL
[2024-12-30 06:48] LABS: BUN 20 mg/dL (7-18); CO2 24.9 mmol/L (21.0-32.0); Calcium 10.7 mg/dL (8.5-10.1); Chloride 99 mmol/L (98-107); Estimated GFR 93.56 (mL/min/1.73m2); Glucose 114 mg/dL (74-106)
[2024-12-30 06:53] LABS: Anion Gap 8.1 mmol/L (3-11); Sodium 132 mmol/L (136-145)
[2024-12-30 06:55] LABS: Potassium 4.6 mmol/L (3.5-5.1)
[2024-12-30 06:56] LABS: WBC 28.35 10^3/uL (4.4-10.8)
[2024-12-30 06:57] LABS: HGB 8.7 g/dL (11.2-15.7)
[2024-12-30] MEDS: Budesonide/Formoterol 160/4.5 6 GM 60 PUFF INH IH ×2 (07:22→20:12)
[2024-12-30] MEDS: Tiotropium Bromide-Respimat 10 PUFF INH 2 PUFF IH (07:22)
--- NOTE | 2024-12-30 07:30 | RT.EKG_ITS ---
APPROVED REPORT Exam: Resting ECG Reason for Exam: Chest pain Patient Location: I HR:124 bpm ECG Measurements Heart Rate 124 AXIS TN 130 P 69 QRSd 80 QRS 47 QT 305 T 48 QTc 438 Conclusion Sinus tachycardia...rate> 99 Borderline low voltage, extremity leads...all extremity leads <0.6mV Otherwise normal ECG
[2024-12-30] MEDS: Aspirin E.C. 81 MG TABEC PO (07:57)
[2024-12-30] MEDS: Pantoprazole 40 MG TABCR PO (07:57)
[2024-12-30] MEDS: Potassium Chloride Liquid 20 MEQ PKT 40 MEQ PO ×3 (07:57→21:09)
[2024-12-30] MEDS: Midodrine 2.5 MG TAB 5 MG PO ×3 (07:57→21:09)
[2024-12-30] MEDS: predniSONE 20 MG TAB 40 MG PO (07:57)
[2024-12-30] MEDS: Venlafaxine 150 MG CAPCR PO (07:57)
[2024-12-30] MEDS: Normal Saline Flush 10 ML SYR IVP ×2 (07:58→21:09)
[2024-12-30] MEDS: Nystatin POWDER 60 GM JAR TP (08:02)
--- NOTE | 2024-12-30 11:36 | PGE_ITS ---
Date of Service Date of service: 12/30/24 Time of Service: 11:36 Assessment and Plan Assessment and plan (1) Septic shock: Status: Acute Assessment and plan: -patient met criteria for septic shocks with HR 124, RR 38, WBC 15, CAP as source of infection, and while initial lactic was 2.3 repeat increased to 4.3 and JOSE with Cr 2.9 (baseline 0.9) -started on cefepime and vanc which will be continued -blood cultures from 12/26, 12/28, 12/29 all growing MRSA - Preliminary blood culture from 12/29 growing GPCs in clusters - Highly concerning for ongoing bacteremia despite overall clinical improvement of patient - Additionally, white blood cell count continues to increase, up to 28 from on 12/30/2024 - Repeating chest CT to look for worsening pneumonia, parapneumonic effusion or abscess - Will discuss with [facility] infectious disease once they are available on 12/31/2024 for alternate antibiotic regimen recommendation as well as potential for there and back transesophageal echocardiogram to look for endocarditis in the setting of persistent MRSA bacteremia -f/u final blood culture results (2) Pneumonia: Status: Acute Assessment and plan: - as seen on imaging in LLL. Started on linezolid and pip/tazo in early 12/26. -Changed linezolid to vancomycin 12/26 given 2 serotinergic drugs chronically. (3) Gram-positive bacteremia: Status: Acute Assessment and plan: -likely from CAP -continue treatment as noted above (4) Acute renal failure: Status: Acute Assessment and plan: -Cr up to 2.9 (baseline 0.9) and low UOP -Initially was not improving, but resolved with more aggressive fluid resuscitation. -UOP improved and Cr down to 0.7 as of AM 12/28 (5) Heart failure: Status: Acute Assessment and plan: -history of alcoholic cardiomyopathy, but recovered LVEF last May, no ongoing EtOH. -POCUS concerning, but formal TTE with reassuring function and not c/w fluid overload. -BNP up but EKG/trops reassuring. (6) Anemia: Status: Chronic Assessment and plan: -acute on chronic, though only slightly worse as compared to baseline -Uncertain etiology. B12 okay but iron very low. -Will supplement iron once infection is better controlled. -She denies any notable bleeding. (7) Hyponatremia: Status: Acute Assessment and plan: -In setting of functional low volume status, some degress of chronic hy ponatremia. -Normalized with fluid resuscitation. (8) Acute hypoxemic respiratory failure: Status: Acute Assessment and plan: -Secondary to pneumonia, sepsis, COPD. -Off BiPAP, on 1L NC as of AM 12/29, wean as tolerated with goal O2 88-92% (9) COPD (chronic obstructive pulmonary disease): Status: Chronic Assessment and plan: -with acute exacerbation. -initially given IV methylpred, has since been transitioned to prednisone. (10) Orthostatic hypotension: Status: Chronic Assessment and plan: -on midocrine for this chornically, continue (11) DVT prophylaxis: Status: Acute Assessment and plan: enoxaparin (12) Hypomagnesemia: Status: Acute Assessment and plan: Normalized (13) Hypokalemia: Status: Acute Assessment and plan: chornic, supplement IV as very low 12/27, high dose oral for now, follow Subjective Subjective Interval history since last seen: Patient states that she is doing well and has no complaints or concerns at this time. Exam Narrative Exam Narrative: chroniclly ill appearing older female laying in bed in no acute distress, 1L NC in place, heart RRR, lungs CTAB, abdomen soft, non-tender, non-distended Objective Last Vital Signs Temp 98.2 F 12/30/24 07:31 Pulse 114 H 12/30/24 07:31 Resp 17 12/30/24 07:31 BP 88/69 L 12/30/24 07:31 Pulse Ox 90 L 12/30/24 07:36 Laboratory Results - last 24 hr 12/30/24 06:00 WBC 28.35 H* RBC 3.18 L Hgb 8.7 L Hct 25.9 L MCV 81 MCH 27.4 MCHC 33.6 RDW 15.2 H Plt Count 356 MPV 10.7 Sodium 132 L Potassium 4.6 D Chloride 99 Carbon Dioxide 24.9 Anion Gap 8.1 BUN 20 H Creatinine 0.7 Est GFR (CKD-EPI 2020) 93.56 Glucose 114 H Calcium 10.7 H Time Spent with Patient Time Spent with Patient: >50 minutes Time was spent: preparing to see the patient(eg.review tests), obtaining and/or reviewing separately otained hiistory, ordering medications,tests, procedures, referring, communicating with other health health care marketing manager, indepentently interpreting results, counseling the patient and care coordination
[2024-12-30] MEDS: Acetaminophen 325 MG TAB PO (14:47)
[2024-12-30 15:06] LABS: Vancomycin, Trough 12.1 ug/mL (10.0-20.0)
[2024-12-30] MEDS: Omnipaque 350 MG/ML 100 ML BTL IJ (15:29)
[2024-12-30] MEDS: Normal Saline - Diluent 50 ML VIAL IJ (15:31)
--- NOTE | 2024-12-30 16:17 | DI.VRAD_ITS ---
PROCEDURE INFORMATION: Exam: CT Chest With Contrast; Diagnostic Exam date and time: 12/30/2024 3:22 PM Age: 69 years old Clinical indication: Condition or disease; Lung condition and disease; Pneumonia; Increasing wbc, known pna, persistent MRSA bacter TECHNIQUE: Imaging protocol: Diagnostic computed tomography of the chest with contrast. 3D rendering (Not supervised by radiologist): MIP and/or 3D reconstructed images were created by the technologist. COMPARISON: CT CHEST PE CTA 12/26/2024 5:42 AM FINDINGS: Lungs: There is dense left lower lobe consolidation with air bronchogram formation involving the superior lung segments. There is some minimal right lower lobe and lingular atelectasis. Underlying COPD noted. There may be a small nodular opacity right upper lobe 3 mm series 2, image 13. Pleural spaces: Small left pleural effusion. Heart: Unremarkable. No cardiomegaly. No pericardial effusion. Lymph nodes: Unremarkable. No enlarged lymph nodes. Vasculature: Unremarkable. No aortic aneurysm. Bones/joints: Postsurgical change left humeral head. Soft tissues: Unremarkable. IMPRESSION: Severe pneumonia superior aspect left lower lobe with dense consolidation. Small effusion. Underlying COPD noted. Follow-up to assess clearing recommended. Follow-up right upper lobe nodule. Dictated and Authenticated by: Tram Moncada MD. Orderin Bijan Chacko MD
[2024-12-30] MEDS: VANCOMYCIN/WATER (PEG) 1.25 GM/250 ML BAG IVPB (16:21)
[2024-12-30] MEDS: Enoxaparin 40 MG/0.4 ML SYR SC (16:22)
[2024-12-30] MEDS: Atorvastatin 40 MG TAB PO (21:09)
[2024-12-30] MEDS: Mirtazapine 15 MG TAB PO (21:09)
[2024-12-31] VITALS (21 sets, daily range): BP systolic 76–144; BP diastolic 57–71; PULSE 68–120; RESP 14–22; TEMP 35.9–36.8; O2SAT 90–95
[2024-12-31] MEDS: Albuterol/Ipratropium 3 ML UPD VIAL IH ×5 (00:20→23:29)
[2024-12-31] MEDS: PIPERACILLIN/TAZO 3.375 GM in Normal Saline 50 ML IVPB ×4 (02:01→20:37)
[2024-12-31] MEDS: Normal Saline Flush 10 ML SYR IVP ×4 (02:03→20:40)
[2024-12-31 06:19] LABS: HCT 26.3 % (36.0-46.0); MCH 27.5 pg (27.0-33.0); MCHC 32.7 % (32.0-36.0); MCV 84 fL (80-95); MPV 10.3 fL (8.0-11.0); Platelet Count 431 10^3/uL (130-400); RBC 3.13 10^6/uL (3.93-5.22); RDW 15.5 % (11.7-14.6); RDW-SD 47.2 fL
[2024-12-31 06:24] LABS: WBC 32.55 10^3/uL (4.4-10.8)
[2024-12-31 06:43] LABS: HGB 8.6 g/dL (11.2-15.7)
[2024-12-31] MEDS: Budesonide/Formoterol 160/4.5 6 GM 60 PUFF INH IH ×2 (07:17→19:50)
[2024-12-31] MEDS: Tiotropium Bromide-Respimat 10 PUFF INH 2 PUFF IH (07:17)
--- NOTE | 2024-12-31 07:45 | RT.EKG_ITS ---
APPROVED REPORT Exam: Resting ECG Reason for Exam: chest pain Patient Location: I HR:117 bpm ECG Measurements Heart Rate 117 AXIS MD 140 P 74 QRSd 80 QRS 72 QT 289 T 59 QTc 403 Conclusion Sinus tachycardia...rate> 99 Borderline low voltage, extremity leads...all extremity leads <0.6mV
[2024-12-31] MEDS: Venlafaxine 150 MG CAPCR PO (08:09)
[2024-12-31] MEDS: Midodrine 2.5 MG TAB 5 MG PO ×3 (08:09→20:39)
[2024-12-31] MEDS: Pantoprazole 40 MG TABCR PO (08:09)
[2024-12-31] MEDS: Aspirin E.C. 81 MG TABEC PO (08:10)
[2024-12-31] MEDS: predniSONE 20 MG TAB 40 MG PO (08:10)
[2024-12-31] MEDS: Polyethylene Glycol 3350 17 GM PACKET PO (08:10)
[2024-12-31 08:11] LABS: Troponin I 8 ng/L (<or=51)
[2024-12-31] MEDS: Ibuprofen 600 MG TAB PO ×2 (08:19→17:51)
--- NOTE | 2024-12-31 08:37 | CMPROGNOTE_ITS ---
Date of service: 12/31/24 Time of Service: 08:37 Care Management Progress Note Progress Note Text Progress Note Text: Karla was sitting up in the bed when CM met with her today. Her friend, Jose, was visiting. Both were pleasant and easily engaged in conversation. Karla stated that she is feeling ok. She has not yet heard if she will require longterm antibiotics, and is just staying the course until she knows for sure. Jose stated that he was upset that no one from the [place] [facility] or the hospital notified him or Karla's niece of her admission. They stated that the niece, Yasmine, is Karla's power of compliance attorney, and should be the first contact. CM made a new [employer] form, adding Yasmine, at Karla's request. CM also requested the POA paperwork and any AD paperwork that [facility] may have on file. Discharge Potential Discharge Needs: PCP F/U Appt (facility provider) Anticipated Barriers to Discharge: None Identified Patient/Family Education Needs: Review discharge instructions, discuss Ask Me Three Transportation: RCT RCT Transportation: Wheel chair van Plan: Karla may need manager terminal antibiotics. The plan is unclear as of yet. If so, she will likely need to transfer to swing bed for the antibiotics as her SNF does not have capacity for IV antibiotics. Regardless, she will return to [facility] once medically stable. She will f/u with the facility provider and continue per her plan of care. CM will continue to follow. Social Determinants of Health Screening Social Determinants of health last assessed in clinic: 12/26/24 Will the Patient Participate in the Screening?: Unable to obtain Do you worry about having a steady place to live?: yes What is your living situation today?: I have housing today, but am worried about losing it Problems where you live: no known problems In the past 12 months, have you had to go without electric, gas, oil or water in your home?: no Has lack of transportation kept you from medical appointments or from doing things needed for daily living?: yes Has anyone in your life made you feel unsafe or unsupported?: choose not to answer How hard is it for you to pay for the very basics like food, housing, medical care, and heating? Would you say it is:: Not hard at all Do you want help finding or keeping work or a job?: I do not need or want help If for any reason you need help with day-to-day activities such as bathing, preparing meals, shopping, managing finances, etc., do you get the help you need?: I need a lot more help How often do you feel lonely or isolated from those around you?: Often Do you speak a language other than Kinyar[place] at home?: No Does the patient want assistance with any of the above?: No Health Related Social Needs Health related social needs: housing instability, housed, with risk of homelessness (Z59.811), transportation insecurity (Z59.82), problems with daily activities (Z73.9) and feeling lonely/isolated (Z60.8) Health related social needs details: none
--- NOTE | 2024-12-31 09:30 | W.PM.PROGNOT ---
Date of Service Date of service: 12/31/24 Time of Service: 09: Assessment and Plan Assessment and plan (1) Septic shock: Status: Acute Assessment and plan: -patient met criteria for septic shocks with HR 124, RR 38, WBC 15, CAP as source of infection, and while initial lactic was 2.3 repeat increased to 4.3 and JOSE with Cr 2.9 (baseline 0.9) -started on cefepime and vanc which will be continued -blood cultures from 12/26, 12/28, 12/29 all growing MRSA with sensitivity to vanc, linezolide, gent, and dapto - Preliminary blood culture from 12/29 growing GPCs in clusters - Highly concerning for ongoing bacteremia despite overall clinical improvement of patient - Additionally, white blood cell count continues to increase, up to 28 from , to 32 on AM 12/31 -patient also developed fever overnight 12/30 up to - Repeating chest CT did not show any parapneumonic effusion or abscess, only persistent consolidation in the upper segment of left lower lobe - Reached out [place] [facility] [place] the morning 12/31/2024, awaiting their call back (2) Pneumonia: Status: Acute Assessment and plan: - as seen on imaging in LLL. Started on linezolid and pip/tazo in early 12/26. -Changed linezolid to vancomycin 12/26 given 2 serotinergic drugs chronically. (3) Gram-positive bacteremia: Status: Acute Assessment and plan: -likely from CAP -continue treatment as noted above (4) Acute renal failure: Status: Acute Assessment and plan: -Cr up to 2.9 (baseline 0.9) and low UOP -Initially was not improving, but resolved with more aggressive fluid resuscitation. -UOP improved and Cr down to 0.7 as of AM 12/28 (5) Heart failure: Status: Acute Assessment and plan: -history of alcoholic cardiomyopathy, but recovered LVEF last May, no ongoing EtOH. -POCUS concerning, but formal TTE with reassuring function and not c/w fluid overload. -BNP up but EKG/trops reassuring. (6) Anemia: Status: Chronic Assessment and plan: -acute on chronic, though only slightly worse as compared to baseline -Uncertain etiology. B12 okay but iron very low. -Will supplement iron once infection is better controlled. -She denies any notable bleeding. (7) Hyponatremia: Status: Acute Assessment and plan: -In setting of functional low volume status, some degress of chronic hyponatremia. -Normalized with fluid resuscitation. (8) Acute hypoxemic respiratory failure: Status: Acute Assessment and plan: -Secondary to pneumonia, sepsis, COPD. -Off BiPAP -transitioned to RA as of AM 12/31 (9) COPD (chronic obstructive pulmonary disease): Status: Chronic Assessment and plan: -with acute exacerbation. -initially given IV methylpred, has since been transitioned to prednisone. (10) Orthostatic hypotension: Status: Chronic Assessment and plan: -on midocrine for this chornically, continue (11) DVT prophylaxis: Status: Acute Assessment and plan: enoxaparin (12) Hypomagnesemia: Status: Acute Assessment and plan: Normalized (13) Hypokalemia: Status: Acute Assessment and plan: chornic, supplement IV as very low 12/27, high dose oral for now, follow Subjective Subjective Interval history since last seen: Patient states that she is doing well this morning. She understands plan to consult with infectious disease for further recommendations, otherwise she has no other complaints or concerns at this time. Exam Narrative Exam Narrative: chroniclly ill appearing older female laying in bed in no acute distress, now on room air, heart RRR, lungs CTAB, abdomen soft, non-tender, non-distended Objective Last Vital Signs Temp 97.9 F 12/31/24 07:45 Pulse 120 H 12/31/24 07:48 Resp 19 12/31/24 07:45 BP 82/58 L 12/31/24 07:48 Pulse Ox 91 L 12/31/24 07:45 Laboratory Results - last 24 hr 12/30/24 12/31/24 14:27 05:40 WBC 32.55 H* RBC 3.13 L Hgb 8.6 L Hct 26.3 L MCV 84 MCH 27.5 MCHC 32.7 RDW 15.5 H Plt Count 431 H MPV 10.3 Troponin I 8 Vancomycin Trough 12.1 Time Spent with Patient Time Spent with Patient: >50 minutes Time was spent: preparing to see the patient(eg.review tests), obtaining and/or reviewing separately otained hiistory, ordering medications,tests, procedures, referring, communicating with other health summer child caregiver, indepentently interpreting results, counseling the patient and care coordination
[2024-12-31] MEDS: Potassium Chloride Liquid 20 MEQ PKT 40 MEQ PO ×3 (10:15→20:38)
[2024-12-31] MEDS: Nystatin POWDER 60 GM JAR TP (10:20)
--- NOTE | 2024-12-31 10:20 | PTTR_ITS ---
PT Notes Visit Reasons: severe sepsis, pneumonia, renal failure Inpatient Physical Therapy Treatment Note [facility] Date: 12/31/2024 PRECAUTIONS:High fall risk. Standard. Activity as tolerated. Monitor for signs of lightheadedness/dizziness/syncopal episodes SUBJECTIVE: Patient reports she feels a little dizzy when approached for session OBJECTIVE: Patient presented semireclined in bed incontinent of bowel.? PAIN: Denied VITALS: monitored by nursing throughout ? Therapeutic Activities ([id number][]): Direct one-on-one instruction in dynamic activities to improve functional performance. ? BED MOBILITY/TRANSFERS? Rolling L/R: Supervision with cues to the left; min assist with cues to the right x 3 trials bilateral direction. Patient able to assist with boosting/repositioning in bed with use of bilateral knee flexion feet on bed patient able to push with bilateral lower extremities as assisted up in bed with head of bed flat. pt unable to tolerate the following without passing out: Supine-sit: []? Sit-supine: [] ? Sit-stand: []? Stand-sit: [] ? Bed-Chair: [] ? Chair-bed: [] Provided skilled cues and instruction on performance and technique throughout. ASSESSMENT:?During a.m. session and rolling to the right on first attempt for care, patient had episode of unresponsiveness for approximately 30 seconds. Head of bed was flat at time. Patient became alert and reported pressure to bilateral hoahaoism area initially which resolved within 2 minutes. MD notified present in room to assess patient after episode. Recommendation to remain in bed at that time. Patient with no further episodes of unresponsiveness throughout remainder of session however pt remained at bed level. PLAN: Continue with plan of care TREATMENT CODE/TIME: [id number] DISCHARGE RECOMMENDATION: Return to SNF when medically appropriate
--- NOTE | 2024-12-31 12:21 | W.NUTRFU ---
Date of service: 12/31/24 Time of Service: 12:21 Nutrition Note NOTE: Karla weight hx is pretty consistent in the mid 40'skg over the last 12 months. yessy Time Spent in Nutritional Counseling and Treatment: 5 min
[2024-12-31] MEDS: Acetaminophen 325 MG TAB PO (15:57)
[2024-12-31] MEDS: VANCOMYCIN/WATER (PEG) 1.25 GM/250 ML BAG IVPB (15:57)
[2024-12-31] MEDS: Enoxaparin 40 MG/0.4 ML SYR SC (15:57)
[2024-12-31] MEDS: MORPHine 2 MG/ML SYR 1 MG IVP (18:09)
[2024-12-31] MEDS: Atorvastatin 40 MG TAB PO (20:39)
[2024-12-31] MEDS: Mirtazapine 15 MG TAB PO (20:40)
[2025-01-01] VITALS (11 sets, daily range): BP systolic 86–143; BP diastolic 61–84; PULSE 70–113; RESP 16–20; TEMP 36.2–36.9; O2SAT 91–95
[2025-01-01] MEDS: PIPERACILLIN/TAZO 3.375 GM in Normal Saline 50 ML IVPB (02:17)
[2025-01-01] MEDS: Albuterol/Ipratropium 3 ML UPD VIAL IH ×4 (05:35→23:58)
[2025-01-01 07:05] LABS: HCT 26.8 % (36.0-46.0); HGB 8.8 g/dL (11.2-15.7); MCH 27.2 pg (27.0-33.0); MCHC 32.8 % (32.0-36.0); MCV 83 fL (80-95); MPV 9.7 fL (8.0-11.0); Platelet Count 515 10^3/uL (130-400); RBC 3.24 10^6/uL (3.93-5.22); RDW 15.8 % (11.7-14.6); RDW-SD 47.8 fL
[2025-01-01 07:16] LABS: WBC 39.40 10^3/uL (4.4-10.8)
[2025-01-01] MEDS: Polyethylene Glycol 3350 17 GM PACKET PO (08:12)
[2025-01-01] MEDS: Aspirin E.C. 81 MG TABEC PO (08:12)
[2025-01-01] MEDS: Potassium Chloride Liquid 20 MEQ PKT 40 MEQ PO ×2 (08:12→13:21)
[2025-01-01] MEDS: Nystatin POWDER 60 GM JAR TP ×2 (08:13→19:31)
[2025-01-01] MEDS: Normal Saline Flush 10 ML SYR IVP ×2 (08:13→19:31)
[2025-01-01] MEDS: Venlafaxine 150 MG CAPCR PO (08:13)
[2025-01-01] MEDS: Midodrine 2.5 MG TAB 5 MG PO ×3 (08:13→19:30)
[2025-01-01] MEDS: predniSONE 20 MG TAB 40 MG PO (08:13)
[2025-01-01] MEDS: Pantoprazole 40 MG TABCR PO (08:13)
[2025-01-01] MEDS: DAPTOmycin 500 MG in Normal Saline 50 ML 100 MG IVPB (08:14)
[2025-01-01] MEDS: Budesonide/Formoterol 160/4.5 6 GM 60 PUFF INH IH ×2 (08:41→19:53)
[2025-01-01] MEDS: Tiotropium Bromide-Respimat 10 PUFF INH 2 PUFF IH (08:41)
--- NOTE | 2025-01-01 10:25 | PGE_ITS ---
Date of Service Date of service: 01/01/25 Time of Service: 10:25 Assessment and Plan Assessment and plan (1) Septic shock: Status: Acute Assessment and plan: -patient met criteria for septic shocks with HR 124, RR 38, WBC 15, CAP as source of infection, and while initial lactic was 2.3 repeat increased to 4.3 and JOSE with Cr 2.9 (baseline 0.9) -started on cefepime and vanc which will be continued -blood cultures from 12/26, 12/28, 12/29 all growing MRSA with sensitivity to vanc, linezolide, gent, and dapto - Preliminary blood culture from 12/29 growing GPCs in clusters - Highly concerning for ongoing bacteremia despite overall clinical improvement of patient - Additionally, white blood cell count continues to increase, up to 28 from 25, 32, 38 on AM 01/01 -Antibiotics changed to daptomycin on the morning of 01/01/2025 based on culture sensitivities - Repeating chest CT did not show any parapneumonic effusion or abscess, only persistent consolidation in the upper segment of left lower lobe - Reached out to [facility] [place] infectious disease on the morning 12/31/2024 and again on the morning of 01/01/2025, awaiting their call back - Discussed case with [facility] [place] cardiology who accepted patient for there and back procedure for MOLLY; there may be time slot available for tomorrow 01/02/2025, but will call transfer center back first thing tomorrow morning 01/02/2025 at 8 AM - Patient n.p.o. at midnight (2) Pneumonia: Status: Acute Assessment and plan: - as seen on imaging in LLL. Started on linezolid and pip/tazo in early 12/26. -Changed linezolid to vancomycin 12/26 given 2 serotinergic drugs chronically. (3) Gram-positive bacteremia: Status: Acute Assessment and plan: -likely from CAP -continue treatment as noted above (4) Acute renal failure: Status: Acute Assessment and plan: -Cr up to 2.9 (baseline 0.9) and low UOP -Initially was not improving, but resolved with more aggressive fluid resuscitation. -UOP improved and Cr down to 0.7 as of AM 12/28 (5) Heart failure: Status: Acute Assessment and plan: -history of alcoholic cardiomyopathy, but recovered LVEF last May, no ongoing EtOH. -POCUS concerning, but formal TTE with reassuring function and not c/w fluid overload. -BNP up but EKG/trops reassuring. (6) Anemia: Status: Chronic Assessment and plan: -acute on chronic, though only slightly worse as compared to baseline -Uncertain etiology. B12 okay but iron very low. -Will supplement iron once infection is better controlled. -She denies any notable bleeding. (7) Hyponatremia: Status: Acute Assessment and plan: -In setting of functional low volume status, some degress of chronic hyponatremia. -Normalized with fluid resuscitation. (8) Acute hypoxemic respiratory failure: Status: Acute Assessment and plan: -Secondary to pneumonia, sepsis, COPD. -Off BiPAP -transitioned to RA as of AM 12/31 (9) COPD (chronic obstructive pulmonary disease): Status: Chronic Assessment and plan: -with acute exacerbation. -initially given IV methylpred, has since been transitioned to prednisone. (10) Orthostatic hypotension: Status: Chronic Assessment and plan: -on midocrine for this chornically, continue (11) DVT prophylaxis: Status: Acute Assessment and plan: enoxaparin (12) Hypomagnesemia: Status: Acute Assessment and plan: Normalized (13) Hypokalemia: Status: Acute Assessment and plan: chornic, supplement IV as very low 12/27, high dose oral for now, follow Subjective Subjective Interval history since last seen: Patient states that she is fatigued but otherwise feeling well this morning. She understands the plan wait for infectious disease consultation for further recommendations, otherwise has no other complaints concerns at this time. Exam Narrative Exam Narrative: chroniclly ill appearing older female laying in bed in no acute distress, now on room air, heart RRR, lungs CTAB, abdomen soft, non-tender, non-distended Objective Last Vital Signs Temp 97.9 F 01/01/25 07:49 Pulse 80 01/01/25 07:49 Resp 20 01/01/25 07:49 BP 121/84 01/01/25 07:49 Pulse Ox 93 01/01/25 07:49 Laboratory Results - last 24 hr 01/01/25 06:55 WBC 39.40 H* RBC 3.24 L Hgb 8.8 L Hct 26.8 L MCV 83 MCH 27.2 MCHC 32.8 RDW 15.8 H Plt Count 515 H MPV 9.7 Time Spent with Patient Time Spent with Patient: >50 minutes Time was spent: preparing to see the patient(eg.review tests), obtaining and/or reviewing separately otained hiistory, ordering medications,tests, procedures, referring, communicating with other health eye care professional, indepentently interpreting results, counseling the patient and care coordination
--- NOTE | 2025-01-01 14:00 | DI.CT_ITS ---
Exam(s) CT ABDOMEN PELVIS W EXAM: CT ABDOMEN PELVIS W CLINICAL HISTORY: persistant bacteremia, looking for alt source. TECHNIQUE: Imaging Protocol: Axial computed tomography images with coronal and sagittal reformatted images were created and reviewed CONTRAST MATERIAL: Intravenous: Omnipaque 350 Contrast volume:85 ml Oral: no COMPARISON: CT CT ABDOMEN PELVIS W from 07/04/[address] CHEST PE CTA from 12/26/[address] CHEST W from 12/30/2024 FINDINGS: ABDOMEN and PELVIS: Lung Bases: Stable small left pleural effusion. Significant improvement previously noted right left lower lobe consolidation. Mild residual consolidation present. Stable lingular atelectasis. The right lung bases clear. Liver: Normal density. No suspicious mass. Gallbladder and biliary tract: No radiodense calculus. No wall thickening or pericholecystic fluid. No biliary dilation. Pancreas: Normal density. No abnormal calcifications or inflammatory process. No evidence of mass. Spleen: Normal. Kidneys: Normal size, contour and axis. No radiodense stones. No obstructive uropathy. No suspicious masses seen. Adrenal glands: No masses seen. Vasculature: Abdominal aorta non-dilated. Severe atherosclerotic changes. Soft tissues: Small stable bilateral fat containing inguinal hernias. Small amount of air in the anterior abdominal wall likely secondary to injections. Bladder: Decompressed by Dalton catheter. Bowel: The stomach is distended with food and fluid. There is no abnormal small bowel distension. The ascending through transverse colon shows fluid. The descending through rectum are mainly collapsed. No obstruction. No bowel wall thickening. Peritoneal cavity: No ascites. No focal collection. No mesenteric inflammatory response. No free air. Bones: Advanced degenerative changes in the spine, stable. Mild scoliosis. Reproductive organs: Stable bilateral ovarian cysts. Lymph nodes: No pathologically enlarged lymph nodes. IMPRESSION:: No acute abnormality in the abdomen or pelvis. The stomach is with fluid and food without evidence of obstruction which may be secondary to recent meal. Ascending through transverse colon contains fluid which could be secondary to a diarrheal illness. No bowel wall thickening. RADIATION DOSE DELIVERED: 329.95mGy.cm Total DLP DATA REPOSITORY: All CT scans at this facility are submitted to the National Radiology Data Registry (NRDR) Dose Index Registry (DIR) with the [employer] ([employer]). RADIATION OPTIMIZATION: All CT scans at this facility use at least one of these dose optimization techniques: automated exposure control; mA and/or kV adjustment per patient size (includes targeted exams where dose is matched to clinical indication); or iterative reconstruction.
[2025-01-01] MEDS: Normal Saline - Diluent 50 ML VIAL IJ (14:43)
[2025-01-01] MEDS: Omnipaque 350 MG/ML 100 ML BTL IJ (14:44)
--- NOTE | 2025-01-01 15:06 | CMPROGNOTE_ITS ---
Date of service: 01/01/25 Time of Service: 15:07 Care Management Progress Note Progress Note Text Progress Note Text: Karla was lying in bed, watching the [email or web address] channel, when CM met with her today. She is still not feeling great, but was pleasant with CM. We talked about our favorite sci-fi movies and shows. CM also informed Karla that her contacts were updated successfully and the CM received her medical power of business attorney paperwork from [facility]. The POA was faxed to [employer] for scanning. It is still unclear if Karla will require senior care antibiotics. Discharge Potential Discharge Needs: PCP F/U Appt Anticipated Barriers to Discharge: None Identified Patient/Family Education Needs: Review discharge instructions, discuss Ask Me Three Transportation: RCT RCT Transportation: Wheel chair van Plan: Karla may need senior care antibiotics. The plan is unclear as of yet. If so, she will likely need to transfer to swing bed for the antibiotics as her SNF does not have capacity for IV antibiotics. Regardless, she will return to [facility] once medically stable. She will f/u with the facility provider and continue per her plan of care. CM will continue to follow. Social Determinants of Health Screening Social Determinants of health last assessed in clinic: 12/26/24 Will the Patient Participate in the Screening?: Unable to obtain Do you worry about having a steady place to live?: yes What is your living situation today?: I have housing today, but am worried about losing it Problems where you live: no known problems In the past 12 months, have you had to go without electric, gas, oil or water in your home?: no Has lack of transportation kept you from medical appointments or from doing things needed for daily living?: yes Has anyone in your life made you feel unsafe or unsupported?: choose not to answer How hard is it for you to pay for the very basics like food, housing, medical care, and heating? Would you say it is:: Not hard at all Do you want help finding or keeping work or a job?: I do not need or want help If for any reason you need help with day-to-day activities such as bathing, preparing meals, shopping, managing finances, etc., do you get the help you need?: I need a lot more help How often do you feel lonely or isolated from those around you?: Often Do you speak a language other than Chilean at home?: No Does the patient want assistance with any of the above?: No Health Related Social Needs Health related social needs: housing instability, housed, with risk of homelessness (Z59.811), transportation insecurity (Z59.82), problems with daily activities (Z73.9) and feeling lonely/isolated (Z60.8) Health related social needs details: none
[2025-01-01] MEDS: Enoxaparin 40 MG/0.4 ML SYR SC (17:06)
--- NOTE | 2025-01-01 18:19 | PT.INNT ---
PT Notes Visit Reasons: severe sepsis, pneumonia, renal failure Attempted x 3 for PT treatment. Pt not available last attempt pt at imaging. Will attempt on 01/02
[2025-01-01] MEDS: Melatonin 3 MG TAB PO (19:30)
[2025-01-01] MEDS: Mirtazapine 15 MG TAB PO (19:30)
[2025-01-01] MEDS: Acetaminophen 325 MG TAB PO (19:30)
[2025-01-01] MEDS: Atorvastatin 40 MG TAB PO (19:30)
[2025-01-02] VITALS (8 sets, daily range): BP systolic 89–152; BP diastolic 59–81; PULSE 80–97; RESP 15–19; TEMP 36.2–36.8; O2SAT 91–95
[2025-01-02] MEDS: Albuterol/Ipratropium 3 ML UPD VIAL IH (06:06)
[2025-01-02 06:57] LABS: HCT 23.6 % (36.0-46.0); HGB 7.9 g/dL (11.2-15.7); MCH 27.7 pg (27.0-33.0); MCHC 33.5 % (32.0-36.0); MCV 83 fL (80-95); MPV 10.1 fL (8.0-11.0); Platelet Count 553 10^3/uL (130-400); RBC 2.85 10^6/uL (3.93-5.22); RDW 15.9 % (11.7-14.6); RDW-SD 47.3 fL
[2025-01-02 07:13] LABS: Anion Gap 6.0 mmol/L (3-11); BUN 23 mg/dL (7-18); CO2 24.0 mmol/L (21.0-32.0); Calcium 9.6 mg/dL (8.5-10.1); Chloride 100 mmol/L (98-107); Estimated GFR 79.71 (mL/min/1.73m2); Glucose 106 mg/dL (74-106); Potassium 4.9 mmol/L (3.5-5.1); Sodium 130 mmol/L (136-145)
[2025-01-02 07:45] LABS: WBC 33.29 10^3/uL (4.4-10.8)
[2025-01-02] MEDS: Budesonide/Formoterol 160/4.5 6 GM 60 PUFF INH IH ×2 (08:12→19:20)
[2025-01-02] MEDS: Tiotropium Bromide-Respimat 10 PUFF INH 2 PUFF IH (08:13)
[2025-01-02] MEDS: Aspirin E.C. 81 MG TABEC PO (09:13)
[2025-01-02] MEDS: Midodrine 2.5 MG TAB 5 MG PO ×3 (09:13→21:08)
[2025-01-02] MEDS: predniSONE 20 MG TAB 40 MG PO (09:13)
[2025-01-02] MEDS: Pantoprazole 40 MG TABCR PO (09:13)
[2025-01-02] MEDS: Venlafaxine 150 MG CAPCR PO (09:13)
[2025-01-02] MEDS: Potassium Chloride Liquid 20 MEQ PKT 40 MEQ PO (09:13)
[2025-01-02] MEDS: Nystatin POWDER 60 GM JAR TP ×2 (09:14→20:00)
[2025-01-02] MEDS: DAPTOmycin 500 MG in Normal Saline 50 ML 100 MG IVPB (09:15)
--- NOTE | 2025-01-02 11:40 | PT.INTREAT ---
PT Notes Visit Reasons: severe sepsis, pneumonia, renal failure Physical Therapy Inpatient Treatment Note Date: 01/02/2025 Precautions: High fall risk. Standard. Activity as tolerated. Subjective: Feels weak. Agreeable to transferring to wheelchair for this session. Denied headache and chest pain. Mildly lightheaded upon sitting up at edge of bed but no syncopal epsiode throughut. Objective: General Observation: Resting in bed. HOB 45 degrees elevated. Mental Status: Alert and oriented only to self, poor historian Pain: None reprorted Vital Signs: Closely monitored by nursing staff Bed Mobility/Transfers: Minimal cueing provided for use of B hands as needed for support, movement sequence, AD management, and posture to reduce fall risk and minimize pain report Rolling stand by assist Supine to sit stand by assist Sit to stand minimal assist of 2 with FWW Stand to sit minimal assist of 2 with FWW Bed to chair minimal assist of 2 with FWW Chair to bed minimal assist of 2 with FWW Gait: Patient was able to take 6-8 steps to transfer from edege of bed to bedside recliner using FWW with minimal assist of PT and BALBIR Byrnes. No syncopal episode despite report of lightheadedness upon sitting up at edge of bed. Balance: Static sitting: Fair Dynamic sitting: Fair Static Standing: Fair Dynamic Standing: Fair THERA EX: Direct one-on-one supervision for correct and safe performance of the following exervcises: Seated marches x 10 B LAQs x 10 Seated hip abduction x 10 Ankle DF/PF x 10 Assessment: With slower movement transitions and when patient is engaged in a conversation that is of great interest to her, her anxiety level is decreased and reduces risk for a syncopal episode. DISCHARGE RECOMMENDATIONS: [X] Return to SNF with subacute rehab for continued mobility progression and fall reduction strategies TREATMENT CODE/TIME: 60077 x 15 minutes for 1 unit, 39805 x 18 minutes (11:40-12:13).
--- NOTE | 2025-01-02 15:29 | CMPROGNOTE_ITS ---
Date of service: 01/02/25 Time of Service: 15:29 Care Management Progress Note Progress Note Text Progress Note Text: Karla was sitting up in the bedside chair when CM met with her today. She stated that it felt good to be out of bed. She was pleasant and stated that she is feeling pretty good. She had worked with PT just prior. Karla was made aware that her MOLLY will be scheduled for tomorrow [place] [facility] CM and she discussed how she will transport and a little bit about the testing procedure and what it is for. CM also notified Karla that she updated staff at [facility] and rehab and the staff wishes her well and misses her. Discharge Potential Discharge Needs: PCP F/U Appt Anticipated Barriers to Discharge: Medical Status (Karla will have a MOLLY tomorrow which will determine if she needs nursing home antibiotics) Patient/Family Education Needs: Review discharge instructions, discuss Ask Me Three Transportation: RCT RCT Transportation: Wheel chair van Plan: Karla will go to [facility] tomorrow for a down and back MOLLY. The results of this test will determine if she needs long term care social worker antibiotics. If so, she will likely need to transfer to swing bed for the antibiotics as her SNF does not have capacity for IV antibiotics. Regardless, she will return to [facility] once medically stable. She will f/u with the facility provider and continue per her plan of care. CM will continue to follow Social Determinants of Health Screening Social Determinants of health last assessed in clinic: 12/26/24 Will the Patient Participate in the Screening?: Unable to obtain Do you worry about having a steady place to live?: yes What is your living situation today?: I have housing today, but am worried about losing it Problems where you live: no known problems In the past 12 months, have you had to go without electric, gas, oil or water in your home?: no Has lack of transportation kept you from medical appointments or from doing things needed for daily living?: yes Has anyone in your life made you feel unsafe or unsupported?: choose not to answer How hard is it for you to pay for the very basics like food, housing, medical care, and heating? Would you say it is:: Not hard at all Do you want help finding or keeping work or a job?: I do not need or want help If for any reason you need help with day-to-day activities such as bathing, preparing meals, shopping, managing finances, etc., do you get the help you need?: I need a lot more help How often do you feel lonely or isolated from those around you?: Often Do you speak a language other than [place] Zealander at home?: No Does the patient want assistance with any of the above?: No Health Related Social Needs Health related social needs: housing instability, housed, with risk of homelessness (Z59.811), transportation insecurity (Z59.82), problems with daily activities (Z73.9) and feeling lonely/isolated (Z60.8) Health related social needs details: none
[2025-01-02] MEDS: Enoxaparin 40 MG/0.4 ML SYR SC (17:28)
--- NOTE | 2025-01-02 19:09 | PGE_ITS ---
Date of Service Date of service: 01/02/25 Time of Service: 13:09 Assessment and Plan Assessment and plan (1) Septic shock: Status: Acute Assessment and plan: -patient met criteria for septic shock with HR 124, RR 38, WBC 15, CAP as source of infection, and while initial lactic was 2.3 repeat increased to 4.3 and JOSE with Cr 2.9 (baseline 0.9) -started on cefepime and vanc -blood cultures from 12/26, 12/28, 12/29 all growing MRSA with sensitivity to vanc, linezolide, gent, and dapto - blood culture from 12/29 07/05 positive, will repeat to confirm full clearence. - WBC remained high after clinical improvement, finally trending down. -Antibiotics changed to daptomycin on the morning of 01/01/2025 based on culture sensitivities - Repeating chest CT did not show any parapneumonic effusion or abscess, only persistent consolidation in the upper segment of left lower lobe - Discussed case with [facility] cardiology who accepted patient for there and back procedure for MOLLY; call daily (2) Pneumonia: Status: Acute Assessment and plan: - as seen on imaging in L. Started on linezolid and pip/tazo in early 12/26. -Changed linezolid to vancomycin 12/26 given 2 serotinergic drugs chronically. - Presumed MRSA with positive blood culture, now daptomycin as above (3) MRSA bacteremia: Status: Acute Assessment and plan: As above. (4) Acute renal failure: Status: Acute Assessment and plan: -Cr up to 2.9 (baseline 0.9) and low UOP -Initially was not improving, but resolved with more aggressive fluid resuscitation, resolved as of 12/28 (5) Anemia: Status: Chronic Assessment and plan: -acute on chronic, though only slightly worse as compared to baseline -Uncertain etiology. B12 okay but iron very low. -Will supplement iron once infection is better controlled. -She denies any notable bleeding. -trend every other day (6) Acute hypoxemic respiratory failure: Status: Acute Assessment and plan: -Secondary to pneumonia, sepsis, COPD. -Off BiPAP -transitioned to RA as of AM 12/31 (7) COPD (chronic obstructive pulmonary disease): Status: Chronic Assessment and plan: -with acute exacerbation. -initially given IV methylpred, has since been transitioned to prednisone. -has been one week, can stop (8) Orthostatic hypotension: Status: Chronic Assessment and plan: -on midocrine for this chornically, continue (9) DVT prophylaxis: Status: Acute Assessment and plan: enoxaparin Subjective Subjective Patient reports: no new complaints, tolerating a regular diet and voiding w/o difficulty; denies diarrhea, nausea, vomiting, shortness of breath or fever Interval history since last seen: She still feels tired, but otherwise okay. Exam Narrative Exam Narrative: chroniclly ill appearing older female sittng up in bed in no acute distress, on room air, heart RRR, lungs CTAB x rales left base, abdomen soft, non-tender, non-distended. extremities no c/c/e Objective Last Vital Signs Temp 36.2 C L 01/02/25 14:56 Pulse 87 01/02/25 14:56 Resp 16 01/02/25 14:56 BP 100/72 01/02/25 14:56 Pulse Ox 91 L 01/02/25 14:56 Laboratory Results - last 24 hr 01/02/25 06:22 WBC 33.29 H* RBC 2.85 L Hgb 7.9 L Hct 23.6 L MCV 83 MCH 27.7 MCHC 33.5 RDW 15.9 H Plt Count 553 H MPV 10.1 Sodium 130 L Potassium 4.9 Chloride 100 Carbon Dioxide 24.0 Anion Gap 6.0 BUN 23 H Creatinine 0.8 Est GFR (CKD-EPI 2020) 79.71 Glucose 106 Calcium 9.6 Time Spent with Patient Time Spent with Patient: 35-49 minutes Time was spent: preparing to see the patient(eg.review tests), obtaining and/or reviewing separately otained hiistory, ordering medications,tests, procedures, referring, communicating with other health healthcare account manager, indepentently interpreting results, counseling the patient and care coordination
[2025-01-02] MEDS: Acetaminophen 325 MG TAB PO (21:08)
[2025-01-02] MEDS: Atorvastatin 40 MG TAB PO (21:08)
[2025-01-02] MEDS: Mirtazapine 15 MG TAB PO (21:09)
[2025-01-03 07:31] VITALS: BP 116/62; PULSE 114; RESP 16; TEMP 36.1; O2SAT 89
[2025-01-03] MEDS: Budesonide/Formoterol 160/4.5 6 GM 60 PUFF INH IH ×2 (08:17→20:24)
[2025-01-03] MEDS: Tiotropium Bromide-Respimat 10 PUFF INH 2 PUFF IH (08:17)
[2025-01-03] MEDS: Aspirin E.C. 81 MG TABEC PO (09:57)
[2025-01-03] MEDS: Pantoprazole 40 MG TABCR PO (09:57)
[2025-01-03] MEDS: Venlafaxine 150 MG CAPCR PO (09:57)
[2025-01-03] MEDS: Midodrine 2.5 MG TAB 5 MG PO ×3 (09:57→20:25)
[2025-01-03] MEDS: DAPTOmycin 500 MG in Normal Saline 50 ML 100 MG IVPB (09:58)
[2025-01-03] MEDS: Nystatin POWDER 60 GM JAR TP ×2 (09:58→20:24)
--- NOTE | 2025-01-03 11:05 | PT.INTREAT ---
PT Notes Visit Reasons: severe sepsis, pneumonia, renal failure Physical Therapy Inpatient Treatment Note Date: 01/03/2025 Precautions: High fall risk. Standard. Activity as tolerated. Subjective: Concerned about whether she will be transported to [facility] [place] her [place]LLY today. Agreeable to transferring to wheelchair for this session. Denied headache and chest pain. Mildly lightheaded upon sitting up at edge of bed but no syncopal epsiode throughut. Objective: General Observation: Resting in bed. HOB 45 degrees elevated. Mental Status: Alert and oriented only to self, poor historian Pain: None reprorted Vital Signs: Closely monitored by nursing staff Bed Mobility/Transfers: Minimal cueing provided for use of B hands as needed for support, movement sequence, AD management, and posture to reduce fall risk and minimize pain report Rolling stand by assist Supine to sit stand by assist Sit to stand minimal assist with FWW Stand to sit minimal assist with FWW Bed to chair minimal assist with FWW Gait: Patient was able to take 6-8 steps to transfer from edege of bed to bedside recliner using FWW with minimal assist of PT and BALBIR Byrnes. No syncopal episode despite report of lightheadedness upon sitting up at edge of bed. Balance: Static sitting: Fair Dynamic sitting: Fair Static Standing: Fair Dynamic Standing: Fair THERA EX: Direct one-on-one supervision for correct and safe performance of the following exervcises: Seated marches x 10 B LAQs x 10 Seated hip abduction x 10 Ankle DF/PF x 10 Assessment: Per medical oncology physician/BALBIR Baum, patient is scheduled to go to [facility] in the morning of Wednesday, January 08, 2025. No syncopal episode ith PT session two days in a row now.With slower movement transitions and when patient is engaged in a conversation that is of great interest to her, her anxiety level is decreased and reduces risk for a syncopal episode. DISCHARGE RECOMMENDATIONS: [X] Return to SNF with subacute rehab for continued mobility progression and fall reduction strategies TREATMENT CODE/TIME: 81238 x 12 minutes for 1 unit, 02840 x 13 minutes (11:05-11:29).
[2025-01-03] MEDS: Enoxaparin 40 MG/0.4 ML SYR SC (14:44)
[2025-01-03 15:48] VITALS: BP 84/54; PULSE 125; RESP 16; TEMP 37.4; O2SAT 91
--- NOTE | 2025-01-03 17:33 | CHAPLAIN ---
Karla was snuggled into her bed when I visited. I explained my role and offered support. She told me that her boyfriend is checking in with her. She lives at [facility]. She was interested in napping more when I left.
--- NOTE | 2025-01-03 17:48 | CMPROGNOTE_ITS ---
Date of service: 01/03/25 Time of Service: 17:48 Care Management Progress Note Progress Note Text Progress Note Text: Karla was lying in bed when CM met with her today. She was quiet today, but still pleasant and offered a smile. She stated that she was tired, and had been napping earlier. She did not go to [facility] [place] her MOLLY as there was no availability. She is now scheduled to have the test on 01/07/25. She seems to understand what the reason for the testing is. Karla stated that she is being treated well, but wishes that she could return to her home at [facility]. Discharge Potential Discharge Needs: Imaging/labs (MOLLY to be done on 01/07.) Anticipated Barriers to Discharge: None Identified Patient/Family Education Needs: Review discharge instructions, discuss Ask Me Three Transportation: RCT RCT Transportation: Wheel chair van Plan: Karla will go to [facility] 01/07/25 for a down and back MOLLY. The results of this test will determine if she needs jail antibiotics. If so, she will likely need to transfer to swing bed for the antibiotics as her SNF does not have capacity for IV antibiotics. Regardless, she will return to [facility] once medically stable. She will f/u with the facility provider and continue per her plan of care. CM will continue to follow Social Determinants of Health Screening Social Determinants of health last assessed in clinic: 12/26/24 Will the Patient Participate in the Screening?: Unable to obtain Do you worry about having a steady place to live?: yes What is your living situation today?: I have housing today, but am worried about losing it Problems where you live: no known problems In the past 12 months, have you had to go without electric, gas, oil or water in your home?: no Has lack of transportation kept you from medical appointments or from doing things needed for daily living?: yes Has anyone in your life made you feel unsafe or unsupported?: choose not to answer How hard is it for you to pay for the very basics like food, housing, medical care, and heating? Would you say it is:: Not hard at all Do you want help finding or keeping work or a job?: I do not need or want help If for any reason you need help with day-to-day activities such as bathing, preparing meals, shopping, managing finances, etc., do you get the help you need?: I need a lot more help How often do you feel lonely or isolated from those around you?: Often Do you speak a language other than Cambodian at home?: No Does the patient want assistance with any of the above?: No Health Related Social Needs Health related social needs: housing instability, housed, with risk of homelessness (Z59.811), transportation insecurity (Z59.82), problems with daily activities (Z73.9) and feeling lonely/isolated (Z60.8) Health related social needs details: none
--- NOTE | 2025-01-03 18:10 | PGE_ITS ---
Date of Service Date of service: 01/03/25 Time of Service: 18:10 Assessment and Plan Assessment and plan (1) Septic shock: Status: Acute Assessment and plan: -patient met criteria for septic shock with HR 124, RR 38, WBC 15, CAP as source of infection, and while initial lactic was 2.3 repeat increased to 4.3 and JOSE with Cr 2.9 (baseline 0.9) -started on cefepime and vanc -blood cultures from 12/26, 12/28, 12/29 all growing MRSA with sensitivity to vanc, linezolide, gent, and dapto - blood culture from 12/29 07/05 positive, repeated 01/02 once more to confirm full clearance. - WBC remained high after clinical improvement, finally trending down. -Antibiotics changed to daptomycin on the morning of 01/01/2025 based on culture sensitivities - Repeating chest CT did not show any parapneumonic effusion or abscess, only persistent consolidation in the upper segment of left lower lobe - Discussed case with [facility] [place] who accepted patient for there and back procedure for MOLLY; Couldn't do it today so we are waiting until after January 04 hol (2) Pneumonia: Status: Acute Assessment and plan: - as seen on imaging in L. Started on linezolid and pip/tazo in early 12/26. -Changed linezolid to vancomycin 12/26 given 2 serotinergic drugs chronically. - Presumed MRSA with positive blood culture, now daptomycin as above (3) MRSA bacteremia: Status: Acute Assessment and plan: As above. (4) Anemia: Status: Chronic Assessment and plan: -acute on chronic, though only slightly worse as compared to baseline -Uncertain etiology. B12 okay but iron very low. -Will supplement iron once infection is better controlled. -She denies any notable bleeding. -trend every other day (5) Acute hypoxemic respiratory failure: Status: Acute Assessment and plan: -Secondary to pneumonia, sepsis, COPD. -Off BiPAP -transitioned to RA as of AM 12/31 (6) COPD (chronic obstructive pulmonary disease): Status: Chronic Assessment and plan: -with acute exacerbation. -initially given IV methylpred, has since been transitioned to prednisone, stopped after 01/02 dose (7) Orthostatic hypotension: Status: Chronic Assessment and plan: -on midocrine for this chornically, continue -If BP low, consider resuming prednisone and taper (8) DVT prophylaxis: Status: Acute Assessment and plan: enoxaparin Subjective Subjective Patient reports: no new complaints and voiding w/o difficulty; denies diarrhea, nausea, vomiting, shortness of breath or fever Interval history since last seen: Events: stopped prednisone after 1 week therapy Still tired, but otherwise feels okay. Breathing not worse today. Exam Narrative Exam Narrative: chroniclly ill appearing older female sittng up in bed in no acute distress, on room air, heart RRR, lungs CTAB x rales left base, abdomen soft, non-tender, non -distended. extremities no c/c/e Objective Last Vital Signs Temp 37.4 C 01/03/25 15:48 Pulse 125 H 01/03/25 15:48 Resp 16 01/03/25 15:48 BP 84/54 L 01/03/25 15:48 Pulse Ox 91 L 01/03/25 15:48 Time Spent with Patient Time Spent with Patient: 35-49 minutes Time was spent: preparing to see the patient(eg.review tests), obtaining and/or reviewing separately otained hiistory, ordering medications,tests, procedures, referring, communicating with other health auto care center manager, indepentently interpreting results, counseling the patient and care coordination
[2025-01-03 20:15] VITALS: BP 96/56; PULSE 130; RESP 20; TEMP 37.1; O2SAT 94
[2025-01-03] MEDS: Atorvastatin 40 MG TAB PO (20:25)
[2025-01-03] MEDS: Mirtazapine 15 MG TAB PO (20:25)
[2025-01-03] MEDS: Normal Saline Flush 10 ML SYR IVP (20:27)
--- NOTE | 2025-01-03 21:00 | RT.EKG_ITS ---
APPROVED REPORT Exam: Resting ECG Reason for Exam: chest pain Patient Location: I HR:111 bpm ECG Measurements Heart Rate 111 AXIS MD 136 P 58 QRSd 79 QRS 61 QT 298 T 32 QTc 405 Conclusion Sinus tachycardia...rate> 99 Borderline low voltage, extremity leads...all extremity leads <0.6mV Baseline wander in lead(s) V1
[2025-01-03 22:34] LABS: Troponin I 8 ng/L (<or=51)
[2025-01-03 23:29] VITALS: BP 97/56; PULSE 121; RESP 19; TEMP 37.4; O2SAT 93
[2025-01-04] VITALS (10 sets, daily range): BP systolic 82–120; BP diastolic 52–68; PULSE 89–112; RESP 16–20; TEMP 36.6–37.3; O2SAT 86–93
[2025-01-04 01:17] LABS: Troponin I 8 ng/L (<or=51)
[2025-01-04 06:24] LABS: Abs Immature Grans 1.24 10^3/uL (0.0-0.06); HCT 23.6 % (36.0-46.0); HGB 7.7 g/dL (11.2-15.7); Immature Grans % 4.4 %; MCH 27.2 pg (27.0-33.0); MCHC 32.6 % (32.0-36.0); MCV 83 fL (80-95); MPV 9.5 fL (8.0-11.0); RBC 2.83 10^6/uL (3.93-5.22); RDW 15.9 % (11.7-14.6); RDW-SD 47.8 fL
[2025-01-04 06:34] LABS: WBC 28.49 10^3/uL (4.4-10.8)
[2025-01-04 06:37] LABS: Anion Gap 9.9 mmol/L (3-11); BUN 19 mg/dL (7-18); CO2 22.1 mmol/L (21.0-32.0); Calcium 9.4 mg/dL (8.5-10.1); Chloride 99 mmol/L (98-107); Estimated GFR 79.71 (mL/min/1.73m2); Glucose 90 mg/dL (74-106); Potassium 4.1 mmol/L (3.5-5.1); Sodium 131 mmol/L (136-145)
[2025-01-04 07:06] LABS: Hypochromasia 2+; Platelet Count 644 10^3/uL (130-400)
[2025-01-04] MEDS: Ibuprofen 600 MG TAB PO (07:46)
[2025-01-04] MEDS: Venlafaxine 150 MG CAPCR PO (07:46)
[2025-01-04] MEDS: Pantoprazole 40 MG TABCR PO (07:46)
[2025-01-04] MEDS: Midodrine 2.5 MG TAB 5 MG PO ×3 (07:46→20:10)
[2025-01-04] MEDS: Aspirin E.C. 81 MG TABEC PO (07:46)
[2025-01-04] MEDS: Acetaminophen 325 MG TAB PO ×2 (07:46→15:45)
[2025-01-04] MEDS: Normal Saline Flush 10 ML SYR IVP ×2 (07:46→20:10)
[2025-01-04] MEDS: Polyethylene Glycol 3350 17 GM PACKET PO (07:47)
[2025-01-04] MEDS: Nystatin POWDER 60 GM JAR TP ×2 (07:47→20:10)
[2025-01-04] MEDS: Tiotropium Bromide-Respimat 10 PUFF INH 2 PUFF IH (08:17)
[2025-01-04] MEDS: Budesonide/Formoterol 160/4.5 6 GM 60 PUFF INH IH ×2 (08:18→20:15)
[2025-01-04] MEDS: DAPTOmycin 500 MG in Normal Saline 50 ML 100 MG IVPB (08:48)
--- NOTE | 2025-01-04 13:01 | PT.INTREAT ---
PT Notes Visit Reasons: severe sepsis, pneumonia, renal failure Date: 01/04/2025 Precautions: High fall risk. Standard. Activity as tolerated. Subjective: Pt in bed when approached for therapy this morning, pt reports feeling exhausted but agrees she needs to move more to improve, pt agreed to participating with this morning's session. pt re-approached for therapy in the afternoon after lunch to be able to return to bed from being in recliner. Objective: General Observation: Resting in bed. HOB 45 degrees elevated. Pain: denies Vital Signs: Closely monitored by nursing staff Bed Mobility/Transfers: Rolling L/R supervision Supine to sit stand by assist Sit to stand CGA with FWW Stand to sit CGA with FWW Bed to chair CGA with FWW Gait: 20' from EOB to door and back FWW CGA (am), 20' from EOB to door and back FWW CGA (pm) Therapeutic procedures [id number] mins: Instruction in therapeutic exercises to develop strength and endurance, range of motion and flexibility. am/pm Provided skilled instruction in proper exercise performance: Provided skilled manual cues to facilitate proper muscle recruitment and/or movement pattern: Seated marches x 10 B LAQs x 10 Seated hip abduction x 10 Ankle DF/PF x 10 Assessment: Pt able to complete activity without O2 support, able to maintain low 90's for Sa02 with activity on Room air, approached seen twice am/pm for therapy. pt had episode of feeling dizzy with activity, resolves after resting for a short period of time. DISCHARGE RECOMMENDATIONS: [X] Return to SNF with subacute rehab for continued mobility progression and fall reduction strategies TREATMENT CODE/TIME: [id number] 25minutes (11:35-12:00 am). [id number] 25mins (1:00-1:25pm)
--- NOTE | 2025-01-04 13:54 | W.PM.PROGNOT ---
Date of Service Date of service: 01/04/25 Time of Service: 13:54 Assessment and Plan Assessment and plan (1) Septic shock: Status: Acute Assessment and plan: -patient met criteria for septic shock with HR 124, RR 38, WBC 15, elevated lactate and JOSE, CAP as source of infection -started on cefepime and vanc -blood cultures from 12/26, 12/28, 12/29 all growing MRSA with sensitivity to vanc, linezolide, gent, and dapto - blood culture from 12/29 07/05 positive, repeated 01/02 once more to confirm full clearance, NGTD - WBC remained high after clinical improvement, Repeating chest CT did not show any parapneumonic effusion or abscess, finally trending down. - Antibiotics changed to daptomycin on the morning of 01/01/2025 based on culture sensitivities, she continues to improve - Discussed case with [facility] [place] cardiology who accepted patient for there and back procedure for MOLLY; Couldn't do it today so we are waiting until after January 04 hol (2) Pneumonia: Status: Acute Assessment and plan: - as seen on imaging in [facility]. Started on linezolid and pip/tazo in early 12/26. - Changed linezolid to vancomycin 12/26 given 2 serotinergic drugs chronically. - Presumed MRSA pneumonia with positive blood culture, now daptomycin as above - I think this is cause of chest wall pain (3) MRSA bacteremia: Status: Acute Assessment and plan: As above. (4) Anemia: Status: Chronic Assessment and plan: -acute on chronic, though only a little worse as compared to baseline -Uncertain etiology. B12 okay but iron very low. -Will supplement iron orally at least now that infection is better controlled. -She denies any notable bleeding. -trend every other day (5) Acute hypoxemic respiratory failure: Status: Acute Assessment and plan: -Secondary to pneumonia, sepsis, COPD. -Off BiPAP -transitioned to RA as of AM 12/31 (6) COPD (chronic obstructive pulmonary disease): Status: Chronic Assessment and plan: -with acute exacerbation. -initially given IV methylpred, has since been transitioned to prednisone, stopped after 01/02 dose (7) Orthostatic hypotension: Status: Chronic Assessment and plan: -on midocrine for this chornically, continue -BP a little lower since off steroids, but no new symptoms. (8) DVT prophylaxis: Status: Acute Assessment and plan: enoxaparin Subjective Subjective Patient reports: no new complaints, tolerating a regular diet and voiding w/o difficulty; denies diarrhea, nausea, vomiting, shortness of breath or fever Interval history since last seen: 24 hr events: chest pain overnight, EKG and troponins benign, exam with chest wall tenderness She feels okay. The left sided pain in upper chest is better. No other pain. No BM today yet. Exam Narrative Exam Narrative: comfortable appearing older female sittng up in bed in no acute distress, on room air, heart RRR, lungs CTAB x rales left base, abdomen soft, non-tender, non-distended. extremities no c/c/e Objective Last Vital Signs Temp 36.6 C 01/04/25 08:39 Pulse 104 H 01/04/25 08:39 Resp 16 01/04/25 08:39 BP 84/58 L 01/04/25 08:39 Pulse Ox 90 L 01/04/25 08:39 Laboratory Results - last 24 hr 01/03/25 01/04/25 01/04/25 22:07 00:55 06:00 WBC 28.49 H* RBC 2.83 L Hgb 7.7 L Hct 23.6 L MCV 83 MCH 27.2 MCHC 32.6 RDW 15.9 H Plt Count 644 H MPV 9.5 Immature Gran % 4.4 Neutrophils % 79.6 Lymphocytes % 10.7 Monocytes % 4.9 Eosinophils % 0.3 Basophils % 0.1 Nucleated RBC % 0.0 Absolute Neutrophils 22.68 H Absolute Lymphocytes 3.05 Absolute Monocytes 1.40 H Absolute Eosinophils 0.09 Absolute Basophils 0.03 RBC Morphology See Below Hypochromasia 2+ Sodium 131 L Potassium 4.1 Chloride 99 Carbon Dioxide 22.1 Anion Gap 9.9 BUN 19 H Creatinine 0.8 Est GFR (CKD-EPI 2020) 79.71 Glucose 90 Calcium 9.4 Troponin I 8 8 Time Spent with Patient Time Spent with Patient: 35-49 minutes Time was spent: preparing to see the patient(eg.review tests), obtaining and/or reviewing separately otained hiistory, ordering medications,tests, procedures, referring, communicating with other health mall plant caretaker, indepentently interpreting results, counseling the patient and care coordination
[2025-01-04] MEDS: Enoxaparin 40 MG/0.4 ML SYR SC (15:44)
[2025-01-04] MEDS: Ferrous Sulfate 325 MG TAB PO (15:45)
[2025-01-04] MEDS: Mirtazapine 15 MG TAB PO (20:09)
[2025-01-04] MEDS: guaiFENesin 600 MG TABCR PO (20:09)
[2025-01-04] MEDS: Atorvastatin 40 MG TAB PO (20:11)
[2025-01-04] MEDS: Albuterol 2.5 MG/3 ML INH SOLN VIAL UPD (20:14)
[2025-01-05] VITALS (9 sets, daily range): BP systolic 73–152; BP diastolic 54–82; PULSE 62–129; RESP 16–24; TEMP 36.2–37.2; O2SAT 91–94
[2025-01-05] MEDS: Ibuprofen 600 MG TAB PO (03:01)
[2025-01-05] MEDS: Tiotropium Bromide-Respimat 10 PUFF INH 2 PUFF IH (07:54)
[2025-01-05] MEDS: Budesonide/Formoterol 160/4.5 6 GM 60 PUFF INH IH ×2 (07:54→19:51)
[2025-01-05] MEDS: Venlafaxine 150 MG CAPCR PO (08:20)
[2025-01-05] MEDS: Pantoprazole 40 MG TABCR PO (08:20)
[2025-01-05] MEDS: Polyethylene Glycol 3350 17 GM PACKET PO (08:20)
[2025-01-05] MEDS: Midodrine 2.5 MG TAB 5 MG PO ×3 (08:20→20:20)
[2025-01-05] MEDS: guaiFENesin 600 MG TABCR PO ×2 (08:20→20:20)
[2025-01-05] MEDS: Aspirin E.C. 81 MG TABEC PO (08:20)
[2025-01-05] MEDS: Normal Saline Flush 10 ML SYR IVP (08:21)
[2025-01-05] MEDS: DAPTOmycin 500 MG in Normal Saline 50 ML 100 MG IVPB (08:26)
--- NOTE | 2025-01-05 13:43 | PT.INTREAT ---
PT Notes Visit Reasons: severe sepsis, pneumonia, renal failure Inpatient Physical Therapy Treatment Note [facility] Date: 01/05/25 PRECAUTIONS: Contact precautions SUBJECTIVE: I just was choking - SOCIAL CONTACT WORKER states that she just had to perform the heimlich on her after choking on some meatloaf OBJECTIVE: ? PAIN: Denies pain VITALS: spO2 - 95% on RA at start of session, 94% on RA at end of session HR - 135 bpm at end of walking today Therapeutic Activities ([id number]): Direct one-on-one instruction in dynamic activities to improve functional performance. ? BED MOBILITY/TRANSFERS? Rolling L/R: SBA Supine-sit: SBA? Sit-supine: SBA ? Sit-stand: CGA? Stand-sit: CGA? AMBULATION able to ambulate 30 ft w/CGA and use of RW - normal gait speed observed ASSESSMENT:? Pt doing well with her walking but fatigues quickly. Her HR spiked to 135 bpm just after 30 ft of ambulation today. She did not show any signs of imbalance during ambulation. She did not require any assistance getting into or out of the bed. She will continue to benefit from PT services to progress her ambulation as tolerated. PLAN: Continue ambulation training while monitoring HR TREATMENT CODE/TIME: Ther Act (87517) x1 - 18 min DISCHARGE RECOMMENDATION: D/c back to SNF when medically cleared
--- NOTE | 2025-01-05 13:53 | PGE_ITS ---
Date of Service Date of service: 01/05/25 Time of Service: 13:53 Assessment and Plan Assessment and plan (1) MRSA bacteremia: Status: Acute Assessment and plan: -patient met criteria for septic shock on admission with HR 124, RR 38, WBC 15, lactate and JOSE, CAP as source of infection -started on cefepime and vanc, blood cultures MRSA, change to daptomycin 01/01. Last positive culture was /2 on 12/29. - WBC remained high after clinical improvement, Repeating chest CT did not show any parapneumonic effusion or abscess, finally trending down since 01/02 - Discussed case with [facility] cardiology who accepted patient for there and back procedure for MOLLY; awaiting availability - will likely need 6 weeks of daptomycin (2) Pneumonia: Status: Acute Assessment and plan: - as seen on imaging in [facility]. Started on linezolid and pip/tazo in early 12/26. - Changed linezolid to vancomycin 12/26 given 2 serotinergic drugs chronically. - Presumed MRSA pneumonia with positive blood culture, now daptomycin as above - A/w chest wall pain that has reosolved (3) Anemia: Status: Chronic Assessment and plan: -acute on chronic, though only a little worse as compared to baseline -Uncertain etiology. B12 okay but iron very low. -Will supplement iron orally at least now that infection is better controlled. -She denies any notable bleeding. -trend every other day (4) COPD (chronic obstructive pulmonary disease): Status: Chronic Assessment and plan: -with acute exacerbation, initial hypoxic respiratory failure -initially given IV methylpred, has since been transitioned to prednisone, stopped after 01/02 dose (7 days of therapy) (5) Orthostatic hypotension: Status: Chronic Assessment and plan: -on midocrine for this chornically, continue -BP a little lower since off steroids, but no new symptoms. (6) DVT prophylaxis: Status: Acute Assessment and plan: enoxaparin (7) Aspiration into airway: Status: Acute Assessment and plan: Was try solid food. Change diet to soft/bite sized with extra gravy/sauce. TEST FACILITY ENGINEER evaluation when available. Subjective Subjective Patient reports: tolerating a regular diet and voiding w/o difficulty; denies nausea, vomiting, shortness of breath or fever Interval history since last seen: Events: After my evaluation, patient choked on meatloaf. 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 Vitals stable and no distress after. Feels well otherwise, just tired. no chest pain. Exam Narrative Exam Narrative: comfortable appearing older female sittng up in bed in no acute distress, on room air, heart RRR, lungs CTAB x rales left base, abdomen soft, non-tender, non-distended. extremities no c/c/e Objective Last Vital Signs Temp 36.6 C 01/05/25 05:56 Pulse 62 01/05/25 08:15 Resp 18 01/05/25 05:56 BP 110/56 L 01/05/25 08:15 Pulse Ox 91 L 01/05/25 05:56 Time Spent with Patient Time Spent with Patient: 35-49 minutes Time was spent: preparing to see the patient(eg.review tests), obtaining and/or reviewing separately otained hiistory, ordering medications,tests, procedures, referring, communicating with other health human services care specialist, indepentently interpreting results, counseling the patient and care coordination
[2025-01-05] MEDS: Acetaminophen 325 MG TAB PO ×2 (16:47→21:37)
[2025-01-05] MEDS: Enoxaparin 40 MG/0.4 ML SYR SC (16:48)
[2025-01-05] MEDS: Mirtazapine 15 MG TAB PO (20:20)
[2025-01-05] MEDS: Atorvastatin 40 MG TAB PO (20:20)
[2025-01-06] VITALS (43 sets, daily range): BP systolic 81–156; BP diastolic 51–81; PULSE 107–150; RESP 14–33; TEMP 36.7–38.6; O2SAT 88–95
--- NOTE | 2025-01-06 | DI.CT_ITS ---
Exam(s) CT CHEST PE CTA EXAM: CT CHEST PE CTA CLINICAL HISTORY: chest pain, sinus tachycardia. TECHNIQUE: Imaging Protocol: CT angiography of the chest was performed using pulmonary embolus protocol. Multi planar reconstructions were performed. CONTRAST MATERIAL: Intravenous: Omnipaque 350 Contrast volume: 100 cc COMPARISON: CT CT CHEST PE CTA from 12/26/[address] CHEST W from 12/30/[address] ABDOMEN PELVIS W from 01/01/2025 FINDINGS: CHEST: PULMONARY ARTERIES: There are no intraluminal filling defects to suggest acute pulmonary emboli. LUNGS: The previously described prominent area of infiltrate in the left lower lobe is again noted and has not decreased in size but is now exhibiting multifocal cavitation, more so than previous. There is a moderate size ipsilateral left pleural effusion again noted, and similar in size to [address] scan of 01/01/2025.. There are emphysematous changes again noted in both lung ortiz. In the opposite-right lung there are again noted atelectatic findings in the right lower lobe and some scarring. In addition, there is a new nodular infiltrate in the mid right lung field measuring 1 cm, not evident on 12/30/2024 and therefore most probably infectious. There is no pleural effusion on the right side. MEDIASTINUM: There is no hilar nor anterior mediastinal adenopathy. Mild subcarinal adenopathy is noted.. CARDIAC: Heart size is upper normal. There is no pericardial effusion.The thoracic aorta is atherosclerotic but not enlarged and there is no evidence of aortic dissection. There is no significant shift of the interventricular septum. PARTIALLY VISUALIZED UPPERMOST ABDOMEN: No obvious findings OSSEOUS: No fractures nor significant osseous lesions. Schmorl's node invagination in the superior endplate of L1 vertebral body is again noted. IMPRESSION: 1. No evidence of acute pulmonary emboli. 2. The prominent area of infiltrate/pneumonia in the superior segment of the left lower lobe exhibits no evidence of improvement and indeed now exhibits areas of cavitation/necrosis. Patient is at risk for developing lung abscess. The moderate sized left pleural effusion is unchanged in size. 3. There is a new 1 cm nodule in the mid aspect of the opposite-right lung which is most probably infectious-developing infiltrate given that it was not evident on the recent CT scan 1 week ago. Preliminary virtual Radiology report was reviewed. RADIATION DOSE DELIVERED: 98.02mGy.cm Total DLP DATA REPOSITORY: All CT scans at this facility are submitted to the National Radiology Data Registry (NRDR) Dose Index Registry (DIR) with the [employer] (ACR). RADIATION OPTIMIZATION: All CT scans at this facility use at least one of these dose optimization techniques: automated exposure control; mA and/or kV adjustment per patient size (includes targeted exams where dose is matched to clinical indication); or iterative reconstruction.
[2025-01-06 06:31] LABS: HCT 21.4 % (36.0-46.0); MCH 27.2 pg (27.0-33.0); MCHC 32.2 % (32.0-36.0); MPV 9.7 fL (8.0-11.0); RBC 2.54 10^6/uL (3.93-5.22); RDW 15.8 % (11.7-14.6); RDW-SD 47.8 fL; WBC 16.99 10^3/uL (4.4-10.8)
[2025-01-06 06:51] LABS: Anion Gap 8.9 mmol/L (3-11); BUN 9 mg/dL (7-18); CO2 24.1 mmol/L (21.0-32.0); Calcium 9.5 mg/dL (8.5-10.1); Chloride 100 mmol/L (98-107); Estimated GFR 93.56 (mL/min/1.73m2); Glucose 106 mg/dL (74-106); Potassium 4.1 mmol/L (3.5-5.1); Sodium 133 mmol/L (136-145)
[2025-01-06 06:55] LABS: Magnesium 1.5 mg/dL (1.8-2.4)
[2025-01-06 07:07] LABS: HGB 6.9 g/dL (11.2-15.7); MCV 84 fL (80-95); Platelet Count 701 10^3/uL (130-400)
[2025-01-06] MEDS: Lactated Ringers 500 ML IV (07:40)
[2025-01-06] MEDS: Tiotropium Bromide-Respimat 10 PUFF INH 2 PUFF IH (07:51)
[2025-01-06] MEDS: Budesonide/Formoterol 160/4.5 6 GM 60 PUFF INH IH ×2 (07:51→19:50)
--- NOTE | 2025-01-06 08:00 | RT.EKG_ITS ---
APPROVED REPORT Exam: Resting ECG Reason for Exam: chest pain Patient Location: I HR:143 bpm ECG Measurements Heart Rate 143 AXIS ID 122 P 69 QRSd 85 QRS 66 QT 282 T 16 QTc 435 Conclusion Age not entered, assumed to be 50 years old for purpose of ECG interpretation Sinus tachycardia...rate> 99 Low voltage, extremity leads...all extremity leads <0.5mV
[2025-01-06] MEDS: Normal Saline Flush 10 ML SYR IVP ×3 (08:14→12:47)
[2025-01-06 08:42] LABS: Troponin I 5 ng/L (<or=51)
[2025-01-06] MEDS: MORPHine 2 MG/ML SYR IVP (08:44)
[2025-01-06] MEDS: Normal Saline - Diluent 50 ML VIAL IJ (08:46)
[2025-01-06] MEDS: Omnipaque 350 MG/ML 100 ML BTL 70 ML IJ (08:47)
--- NOTE | 2025-01-06 09:21 | DI.VRAD_ITS ---
PROCEDURE INFORMATION: Exam: CTA Chest With Contrast Exam date and time: 01/06/2025 8:56 AM Age: 69 years old Clinical indication: Other: Chest pain, sinus tachycardia TECHNIQUE: Imaging protocol: Computed tomographic angiography of the chest with contrast. Exam focused on the arteries. 3D rendering (Not supervised by radiologist): MIP and/or 3D reconstructed images were created by the technologist. Contrast material: OMNIPAQUE 350; Contrast volume: 60 ml; Contrast route: INTRAVENOUS (IV); COMPARISON: CT CHEST PE CTA 12/26/2024 5:42 AM FINDINGS: Pulmonary arteries: No acute pulmonary emboli. Aorta: Atherosclerotic disease of the thoracic aorta, without aneurysm or dissection. Lungs: Moderate upper lobe predominant centrilobular emphysema, with chronic obstructive pulmonary physiologic changes. 4 mm right upper lobe noncalcified pulmonary nodule (series 10, image 26), unchanged. 8 mm nodular focus within the central aspect of the right upper lobe (series 10, image 50), new from comparison study, likely infectious/inflammatory. Right basilar atelectasis and scarring. Moderate-sized consolidation within the superior segment left lower lobe, similar in size to comparison study, with new irregular lucent areas. Pleural spaces: Small-size left pleural effusion, likely parapneumonic. Heart: Unremarkable. No cardiomegaly. No pericardial effusion. Lymph nodes: Unremarkable. No enlarged lymph nodes. Bones/joints: Multilevel thoracic spine degenerative disc space narrowing and osteophyte formation. Soft tissues: Unremarkable. IMPRESSION: 1. No acute pulmonary emboli. 2. Moderate-sized consolidation within the superior segment left lower lobe, similar in size to comparison study, with new irregular lucent areas. Findings most compatible with pneumonia, with new areas of cavitation/necrosis. 3. Small-size left pleural effusion, likely parapneumonic. Dictated and Authenticated by: Kemar Martins MD. Orderin Cristhian Srivastava MD
[2025-01-06] MEDS: Pantoprazole 40 MG TABCR PO (09:42)
[2025-01-06] MEDS: guaiFENesin 600 MG TABCR PO ×2 (09:42→19:48)
[2025-01-06] MEDS: Venlafaxine 150 MG CAPCR PO (09:42)
[2025-01-06] MEDS: Polyethylene Glycol 3350 17 GM PACKET PO (09:42)
[2025-01-06] MEDS: MAGNESIUM SULFATE 4 GM/100 ML BAG IV_INF (09:43)
[2025-01-06] MEDS: DAPTOmycin 500 MG in Normal Saline 50 ML 100 MG IVPB (09:47)
[2025-01-06 11:01] LABS: Troponin I 5 ng/L (<or=51)
--- NOTE | 2025-01-06 11:24 | W.PM.PROGNOT ---
Date of Service Date of service: 01/06/25 Time of Service: 11:24 Assessment and Plan Assessment and plan (1) MRSA bacteremia: Status: Acute Assessment and plan: -patient met criteria for septic shock on admission with HR 124, RR 38, WBC 15, lactate and JOSE, CAP as source of infection -started on cefepime and vanc, blood cultures MRSA, change to daptomycin 01/01. Last positive culture was 07/05 on 12/29. - WBC remained high after clinical improvement, Repeating chest CT did not show any parapneumonic effusion or abscess, finally trending down since 01/02 - Discussed case with [facility] [place] who accepted patient for there and back procedure for MOLLY; awaiting availability - will likely need 6 weeks of daptomycin (2) Pneumonia: Status: Acute Assessment and plan: - as seen on imaging in [facility]. Started on linezolid and pip/tazo in early 12/26. - Changed linezolid to vancomycin 12/26 given 2 serotinergic drugs chronically. - Presumed MRSA pneumonia with positive blood culture, now daptomycin as above - A/w chest wall pain that has recurred worse today, see below. (3) Parapneumonic effusion: Status: Acute Assessment and plan: A/w MRSA pneumonia that has become cavitary. This may need to be drained. Consult surgery. Still small, but if empyema she will need intevention. (4) Anemia: Status: Chronic Assessment and plan: -acute on chronic, though only a little worse as compared to baseline, but now below 7 so will give one unit. -Uncertain etiology. B12 okay but iron very low. -Will supplement iron orally at least now that infection is better controlled. -She denies any notable bleeding, occult blood stool. -trend daily (5) COPD (chronic obstructive pulmonary disease): Status: Chronic Assessment and plan: -Treated for acute exacerbation, initial hypoxic respiratory failure, steroids x 1 week, stopped after 01/02 dose (6) Orthostatic hypotension: Status: Chronic Assessment and plan: -on midocrine for this chornically, continue -BP a little lower since off steroids, but no new symptoms. (7) Aspiration into airway: Status: Acute Assessment and plan: Choked on dry solid food 01/05. Change diet to soft/bite sized with extra gravy/sauce. Has not recurred. INSURANCE ADJUSTER evaluation when available. (8) DVT prophylaxis: Status: Acute Assessment and plan: enoxaparin held with drop in h/h, SCD/TEDs for now Subjective Subjective Patient reports: tolerating a regular diet, voiding w/o difficulty, bowel movement (dark, not bloody) and fever (temp 37.9 after episode of chest pain); denies nausea or vomiting Interval history since last seen: Events: presyncopal episode 01/07, known orthostatic hypotension chronically, tele resumed Worse chest pain this morning, a/w tachycardia to 150s, rapid response called. BP was stable. EKG sinus tachycardia, no ischemic changes hgb 6.9 this morning, blood ordered. Same chest pain on left side across chest, worse with cough and severe this morning. She did eat breakfast. Hasn't felt feverish. Exam Narrative Exam Narrative: uncomfortable appearing older female sittng up in bed, holding left lateral chest, winces with palpation of chest wall and cough. On room air, mildly tachypneic. heart tachycardic but regular, lungs CTAB x rales left base, abdomen soft, non-tender, non-distended. extremities no c/c/e Objective Last Vital Signs Temp 38 C H 01/06/25 10:16 Pulse 114 H 01/06/25 10:16 Resp 28 H 01/06/25 10:16 BP 137/68 01/06/25 10:16 Pulse Ox 93 01/06/25 10:16 Laboratory Results - last 24 hr 01/06/25 01/06/25 01/06/25 05:59 08:13 10:19 WBC 16.99 H RBC 2.54 L Hgb 6.9 L* Hct 21.4 L MCV 84 MCH 27.2 MCHC 32.2 RDW 15.8 H Plt Count 701 H MPV 9.7 Sodium 133 L Potassium 4.1 Chloride 100 Carbon Dioxide 24.1 Anion Gap 8.9 BUN 9 Creatinine 0.7 Est GFR (CKD-EPI 2020) 93.56 Glucose 106 Calcium 9.5 Magnesium 1.5 L Troponin I 5 5 ABO/Rh O Positive Antibody Screen NEGATIVE Crossmatch See Detail Objective Narrative Objective Narrative: CTA chest: 1. No acute pulmonary emboli. 2. Moderate-sized consolidation within the superior segment left lower lobe, similar in size to comparison study, with new irregular lucent areas. Findings most compatible with pneumonia, with new areas of cavitation/necrosis. 3. Small-size left pleural effusion, likely parapneumonic. Time Spent with Patient Time Spent with Patient: >50 minutes Time was spent: preparing to see the patient(eg.review tests), obtaining and/or reviewing separately otained hiistory, ordering medications,tests, procedures, referring, communicating with other health healthcare advisory services manager, indepentently interpreting results, counseling the patient and care coordination
[2025-01-06] MEDS: Nystatin POWDER 60 GM JAR TP (11:50)
--- NOTE | 2025-01-06 11:59 | W.PC.ACHO ---
Registration Status: ADM IN Primary Language: Preferred Language: Danish ED Information & Data Chief Complaint Chest Pain 12/26/24 03:30 Triage Note hxo hypotension / treated 12/26/24 02:52 with po fluids and midodrine . chief complaints of chest pain heavy in nature new oxygen dependency 3LNC denies fever/ chills. 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 (Last Updated 12/26/24 @ 14:14 by Atif Morrow) Status post open reduction and internal fixation (ORIF) of fracture of lateral condyle of left femur Most Recent Vital Signs Temperature 37.6 C H 01/06/25 11:53 Temperature Source Tympanic 01/06/25 11:53 Pulse 115 H 01/06/25 11:53 Pulse 111 H 01/06/25 11:41 Respiratory Rate 24 01/06/25 11:53 Respiratory Effort Normal 01/06/25 10:05 Respiratory Depth Normal 01/06/25 10:05 Respiratory Pattern Bradypnea 01/06/25 10:05 Blood Pressure 156/81 H 01/06/25 11:53 Blood Pressure Mean 106 01/06/25 11:53 Blood Pressure Position Supine 01/06/25 10:05 Pulse Oximetry 91 L 01/06/25 11:53 Oxygen Delivery Method Nasal Cannula 01/06/25 11:53 Oxygen Flow Rate 1 01/06/25 11:53 Fraction of Inspired Oxygen (FIO2) 92 12/27/24 08:15 Pain Level 6 01/06/25 10:05 Comment pt requested to be left alone for 3 AM vitals 01/03/25 03:51 Allergies No Known Allergies Allergy (Unverified 01/06/25 10:37) Precautions Isolation Standard precaution 12/26/24 03:17 Active Medications Generic Name Dose Route Start Last Admin Trade Name Freq PRN Reason Stop Dose Admin Acetaminophen 0 mg 12/26/24 10:30 01/05/25 21:37 Acetaminophen 325 Mg Tab PO 650 mg Q4H PRN PRN Administration Albuterol Sulfate 2.5 mg 12/26/24 14:22 01/04/25 20:14 Albuterol 2.5 Mg/3 Ml Inh Soln Vial UPD 2.5 mg Q2H PRN PRN Administration Aspirin 81 mg 12/27/24 08:30 01/05/25 08:20 Aspirin E.C. 81 Mg Tabec PO 81 mg On Hold: 01/06/25 07:49 DAILY DREW Administration Atorvastatin Calcium 40 mg 12/26/24 20:00 01/05/25 20:20 Atorvastatin 40 Mg Tab PO 40 mg QPM DREW Administration Budesonide/Formoterol Fumarate 2 puff 12/26/24 20:00 01/06/25 07:51 Budesonide/Formoterol 160/4.5 6 Gm 60 Puff Inh IH 2 puffs BID DREW Administration Enoxaparin Sodium 40 mg 12/27/24 16:00 01/05/25 16:48 Enoxaparin 40 Mg/0.4 Ml Syr SC 40 mg On Hold: 01/06/25 07:49 Q24H DREW Administration Ferrous Sulfate 325 mg 01/04/25 14:00 01/04/25 15:45 Ferrous Sulfate 325 Mg Tab PO 325 mg Q48H DREW Administration Guaifenesin 600 mg 01/04/25 20:00 01/06/25 09:42 Guaifenesin 600 Mg Tabcr PO 600 mg BID DREW Administration Sodium Chloride 500 mls @ 0 mls/hr 12/27/24 10:30 12/27/24 10:00 Saline 500ml Bag IV 60 mls/hr PRN PRN Administration Titrate Daptomycin 500 mg/ Sodium 50 mls @ 100 mls/hr 01/01/25 08:30 01/06/25 10:47 Chloride IVPB Infused DAILY DREW Infusion Ringer's Solution 500 mls @ 500 mls/hr 01/06/25 11:45 01/06/25 09:30 IV 01/06/25 12:44 Infused BOLUS ONE Infusion Iohexol 70 ml 01/06/25 09:00 01/06/25 08:47 Omnipaque 350 Mg/Ml 100 Ml Btl IJ 02/05/25 23:59 60 ml DIRECTED DREW Administration Melatonin 3 mg 12/26/24 20:00 01/01/25 19:30 Melatonin 3 Mg Tab PO 3 mg HS PRN PRN Administration Do not give after 2 am Midodrine 5 mg 12/27/24 14:00 01/06/25 11:09 Midodrine 2.5 Mg Tab PO Not Given TID DREW Mirtazapine 15 mg 12/26/24 20:00 01/05/25 20:20 Mirtazapine 15 Mg Tab PO 15 mg HS DREW Administration Morphine Sulfate 1 mg 12/31/24 17:49 12/31/24 18:09 Morphine 2 Mg/Ml Syr IVP 1 mg Q4H PRN PRN Administration Nystatin 0 gm 12/26/24 20:00 01/06/25 11:40 Nystatin Powder 60 Gm Jar TP Not Given BID DREW Pantoprazole Sodium 40 mg 12/28/24 07:30 01/06/25 09:42 Pantoprazole 40 Mg Tabcr PO 40 mg DAILY@0730 DREW Administration Polyethylene Glycol 17 gm 12/27/24 08:30 01/06/25 09:42 Polyethylene Glycol 3350 17 Gm Packet PO 17 gm DAILY DREW Administration Sodium Chloride 0 ml 12/26/24 05:48 01/06/25 08:14 Normal Saline Flush 10 Ml Syr IVP 10 ml PRN PRN Administration Sodium Chloride 50 ml 01/06/25 09:00 01/06/25 08:46 Normal Saline - Diluent 50 Ml Vial IJ 50 ml .FOR DI USE DREW Administration Tiotropium [place] 2 puff 12/27/24 08:30 01/06/25 07:51 Tiotropium [place]-Respimat 10 Puff Inh IH 2 inh DAILY DREW Administration Venlafaxine HCl 150 mg 12/27/24 08:30 01/06/25 09:42 Venlafaxine 150 Mg Capcr PO 150 mg DAILY DREW Administration IV IV Catheter Type [Left Forearm Saline Lock ] IV Catheter Type [Right Wrist] Saline Lock IV Catheter Type [Left Saline Lock Antecubital] IV Catheter Type [Right Saline Lock Antecubital] IV Catheter Gauge [Left 20 Forearm] IV Catheter Gauge [Right Wrist 18 ] IV Catheter Gauge [Left 20 Antecubital] IV Catheter Gauge [Right 18 Antecubital] Diagnostics 01/06/25 01/06/25 01/06/25 Range/Units 10:19 08:13 05:59 WBC 16.99 H (4.4-10.8) 10^3/uL RBC 2.54 L (3.93-5.22) 10^6/uL Hgb 6.9 L* (11.2-15.7) g/dL Hct 21.4 L (36.0-46.0) % MCV 84 (80-95) fL MCH 27.2 (27.0-33.0) pg MCHC 32.2 (32.0-36.0) % RDW 15.8 H (11.7-14.6) % Plt Count 701 H (130-400) 10^3/uL MPV 9.7 (8.0-11.0) fL Sodium 133 L (136-145) mmol/L Potassium 4.1 (3.5-5.1) mmol/L Chloride 100 (98-107) mmol/L Carbon Dioxide 24.1 (21.0-32.0) mmol/L Anion Gap 8.9 (3-11) mmol/L BUN 9 (7-18) mg/dL Creatinine 0.7 (0.55-1.02) mg/dL Est GFR (CKD-EPI 2020) 93.56 (mL/min/1.73m2) Glucose 106 (74-106) mg/dL Calcium 9.5 (8.5-10.1) mg/dL Magnesium 1.5 L (1.8-2.4) mg/dL Troponin I 5 5 (<or=51) ng/L ABO/Rh O Positive Antibody Screen NEGATIVE Crossmatch See Detail 01/06/25 08:06 Stool Occult Blood (JO) - Pending Stool 01/02/25 19:35 Blood Culture - Preliminary Blood NO GROWTH 72 HOURS 01/02/25 19:25 Blood Culture - Preliminary Blood NO GROWTH 72 HOURS [id number] Documentation Fingerstick Glucose Start: 12/26/24 03:07 Freq: Status: Complete Protocol: Activity Type Activity Date Activity User E-sign Co-sign Detail Recorded Client Recorded Date Recorded By Document 12/26/24 03:06 BKG DAEMON(5) NVT-BG05 12/26/24 03:07 BKG DAEMON(6) Fingerstick Glucose Start: 01/06/25 08:03 Freq: Status: Active Protocol: Activity Type Activity Date Activity User E-sign Co-sign Detail Recorded Client Recorded Date Recorded By Document 01/06/25 08:02 BKG DAEMON(7) NVT-BG05 01/06/25 08:03 BKG DAEMON(8) Intake and Output - 24 Hour Total 12/26/24 02:51 thru 01/06/25 10:47 Intake Total 90353.334 Output Total 71258 Balance -3406.666 Weight 50 kg Intake: IV 7523.334 Oral 4920 Output: Urine 15244 Other: Urine Color Yellow Urine Appearance Clear Urine Odor Normal Comment copious Stool Size Small Stool Characteristics Black Green Urinary Catheter Urinary Catheter Date of 12/26/24 Insertion [Urethral ([place])] Time of insertion [Urethral ( 06:45 [place])] Falls Risk Assessment History of Falls Previous History 01/06/25 10:05 Contributing Factors Confusion,Unstable, 01/06/25 10:05 Impairments,Incontinence Ambulatory Aids Uses ambulatory device 01/06/25 10:05 Tubes/Lines W/no contributing factors 01/06/25 10:05 Gait Evaluation W/no contributing factors 01/06/25 10:05 Cognition Cognitive impairment 01/06/25 10:05 Fall Total Score 77 01/06/25 10:05 Level of Risk Maximum Risk 01/06/25 10:05 Problems (Last Reviewed 12/26/24 @ 14:13 by Atif Morrow) Parapneumonic effusion (Acute) Aspiration into airway (Acute) MRSA bacteremia (Acute) Gram-positive bacteremia (Acute) Septic shock (Acute) Hypokalemia (Acute) DVT prophylaxis (Acute) Severe sepsis (Acute) Acute renal failure (Acute) Hypomagnesemia (Acute) Pneumonia (Acute) Hyponatremia (Acute) Heart failure (Acute) Acute hypoxemic respiratory failure (Acute) Orthostatic hypotension (Chronic) Anemia (Chronic) Depression (Chronic) COPD (chronic obstructive pulmonary disease) (Chronic) Notes 12/26/24 18:58 Nursing Notes by Payal Jasmine Nurses attempted to gain consent to speak with Elizabeth Granados to give a medical update. Patient was unable to consent. Elizabeth Granados will need to send over the legal documents stating that she is the POA, inorder to give her a medical update on the patient. Initialized on 12/26/24 18:58 - END OF NOTE 12/26/24 09:51 Nursing Notes by Martine Waite Spoke with Salma, nursing medical office supervisor; [facility] and notified her that the request for a bed has been cancelled. Nursing Note: Initialized on 12/26/24 09:51 - END OF NOTE 12/26/24 04:23 Respiratory by Tracy Kidd Called to pt's room to initiate cpap/bipap for fluid overload and o2 needs. Upon arrival to room pt has moderate wob and is on a nrb. Bipap initiated 10/5 35%, with pt tolerating but rr high, pt seemed slightly uncomforable with settings. Changes to cpap +6, 40% and pt nodded that this mode felt easier to breathe. Pt did not tolerate cpap being increased to 8 and seemed to fight against the cpap. Returned to cpap of 6 for pt comfort. Pt able to fall asleep and tolerate current settings. MD and RN aware of settings. Initialized on 12/26/24 04:23 - END OF NOTE v v v v v v v v v Sending and/or Receiving Nurses: Please use comment section below to note any information pertinent to the patient hand-off not included above. Information / Comments: Report received from: Zuleima Willis LPN All questions answered
--- NOTE | 2025-01-06 12:49 | SCONE_ITS ---
Date of service: 01/06/25 Time of Service: 12:49 Assessment and Plan Assessment and plan (1) Parapneumonic effusion: Status: Acute Assessment and plan: 69-year-old woman with ongoing pneumonia. She is chronically ill from multiple comorbidities as well. The parapneumonic effusion she has is really unchanged in size from what it was a couple of weeks ago. Based off of the radiologic appearance of it, I am suspicious it represents an empyema. I do not think there is much role for thoracentesis at this point and recommend consultation with thoracic surgery at [facility]. I suspect a decortication is going to be necessary. I relayed this recommendation to the hospitalist directly. History of Present Illness Narrative: The patient is a 69-year-old woman who has been here in the hospital for some time with ongoing respiratory illness/pneumonia. She continues to have ongoing chest discomfort. A repeat CT scan of her chest has shown a persistent parapneumonic effusion next to atelectatic lung and cavitary lesions. Consultation was requested in regards to her effusion and whether or not a thoracentesis is indicated. PFSH All Active Problems (Updated 01/06/25 @ 16:43 by Atif Morrow) Parapneumonic effusion (Acute) Aspiration into airway (Acute) MRSA bacteremia (Acute) Gram-positive bacteremia (Acute) Septic shock (Acute) Hypokalemia (Acute) DVT prophylaxis (Acute) Severe sepsis (Acute) Acute renal failure (Acute) Hypomagnesemia (Acute) Sepsis (Acute) Pneumonia (Acute) Cardiorenal syndrome (Acute) Anemia (Chronic) Abnormal kidney function (Acute) Hyponatremia (Acute) Heart failure (Acute) Acute hypoxemic respiratory failure (Acute) Orthostatic hypotension (Chronic) Repeated falls (Acute) Osteoporosis (Chronic) Alcoholic cardiomyopathy (Acute) Alcohol abuse (Chronic) Dementia (Chronic) Right-sided lacunar infarction (Acute) Anemia (Chronic) Acute UTI (Acute) Hyperlipidemia (Chronic) Depression (Chronic) COPD (chronic obstructive pulmonary disease) (Chronic) HTN (hypertension) (Chronic) TIA (transient ischemic attack) (Acute) COVID-19 (Acute) Surgical History (Updated 12/26/24 @ 14:14 by Atif Morrow) Status post open reduction and internal fixation (ORIF) of fracture of lateral condyle of left femur Family History (Updated 12/26/24 @ 14:15 by Atif Morrow) Mother Breast cancer Stroke Asthma Heart disease Sister Breast cancer Social History (Updated 12/26/24 @ 14:16 by Atif Morrow) Smoking/Tobacco Use Status: Former Tobacco Use Smoking risk assessment performed?: Yes Alcohol Intake: former Drug use: Never Substance use type: marijuana Housing: half-way Do you feel safe at home: Yes Do you feel safe in your relationship?: Yes Additional Social history: [employer] since 2023. Previously lived in [place]. Exam Narrative Exam Narrative: Gen: Non-toxic and interactive, but overall sickly and weak. Neuro: Alert and oriented x3 Psych: Her insight and understanding into conditions and history seem somewhat limited. Otherwise cooperative mood and affect. Chest: Non-labored breathing, no visible shortness of breath. Heart: Regular Results Last Vital Signs Temp 99.7 F H 01/06/25 12:19 Pulse 111 H 01/06/25 12:19 Resp 21 01/06/25 12:19 BP 152/80 H 01/06/25 12:19 Pulse Ox 91 L 01/06/25 12:19 Labs 01/06/25 17:00 01/06/25 05:59 Labs: Laboratory Results - last 24 hr 01/06/25 01/06/25 01/06/25 05:59 08:13 10:19 WBC 16.99 H RBC 2.54 L Hgb 6.9 L* Hct 21.4 L MCV 84 MCH 27.2 MCHC 32.2 RDW 15.8 H Plt Count 701 H MPV 9.7 Sodium 133 L Potassium 4.1 Chloride 100 Carbon Dioxide 24.1 Anion Gap 8.9 BUN 9 Creatinine 0.7 Est GFR (CKD-EPI 2020) 93.56 Glucose 106 Calcium 9.5 Magnesium 1.5 L Troponin I 5 5 ABO/Rh O Positive Antibody Screen NEGATIVE Crossmatch See Detail
[2025-01-06] MEDS: Midodrine 2.5 MG TAB 5 MG PO ×2 (14:13→19:48)
[2025-01-06] MEDS: Ferrous Sulfate 325 MG TAB PO (14:13)
[2025-01-06] MEDS: Normal Saline 500 ML IV (16:55)
[2025-01-06] MEDS: POTASSIUM CHLORIDE/D5-0.9%NACL 1,000 ML 100 MEQ IV (16:58)
[2025-01-06 17:07] LABS: HCT 25.9 % (36.0-46.0); HGB 8.7 g/dL (11.2-15.7)
[2025-01-06] MEDS: Acetaminophen 325 MG TAB PO (17:14)
[2025-01-06] MEDS: Mirtazapine 15 MG TAB PO (19:48)
[2025-01-06] MEDS: Atorvastatin 40 MG TAB PO (19:48)
--- NOTE | 2025-01-06 20:00 | DSE_ITS ---
Date of service: 01/06/25 Time of Service: 20:00 DS: Diagnosis Discharge Diagnosis (1) MRSA bacteremia: Status: Acute (2) Pneumonia: Status: Acute (3) Parapneumonic effusion: Status: Acute (4) Anemia: Status: Chronic (5) COPD (chronic obstructive pulmonary disease): Status: Chronic (6) Orthostatic hypotension: Status: Chronic (7) Aspiration into airway: Status: Acute (8) DVT prophylaxis: Status: Acute Discharge Plan Disposition Patient Disposition: Transfer-Acute Inpatient Care Specific Acute Inpt Facility: [facility] Condition: Fair Discharge Details Reason For Visit: severe sepsis, pneumonia, renal failure Admit Date/Time: 12/26/24 13:00 Admit Provider: Ricco Thakkar Attending Provider: Ricco Thakkar Primary Care Provider: Unknown,Unknown Hospital Course Hospital Course: 69 yo F with history of alcoholic cardiomyopathy with normalized LVEF on 05/2024, h/o CVA, dementia, chronc orthostatic hypotension on midodrine, and COPD who is resident of [facility] who was sent to the with chest pain, SOB, and hypoxia. CT showed large LLL consolidation. Initial fluid resuscitation was conservative due to concern for fluid overload, and her lactate increased, but after more aggressive fluid her acidosis resolved and her blood pressure stabilized. She was treated with cefepime and She was on BiPAP for respiratory failure through the first two nights. Echocardiogram showed normal LVEF of 65% and no focal abnormalities. Her acute renal failure resolved with fluids. Her creatinine was 0.7 on the day of transfer. Her blood cultures grew MRSA. They remained positive through 12/28 and 1/2 on 12/29. They were not repeated until 01/02 with 2/2 negative. Her fever on admission resolved, but despite treatment with cefepime and vancomycin her WBC increased up to from 15 on admission to 39 on 01/01. Repeat CT scan 12/30 showed no new findings. Based on her sensitivities her antibiotics were changed to daptomycin on 01/01. Plans were may with cardiology 01/01 for a down/back for MOLLY given MRSA bacteremia, but this was pending due to capacity. She had anemia of 8.3 hemoglobin on admission. Her hgb gradually decreased to 6.9 on 01/06 and she was transfused one unit. Her B12 was normal, her iron was low with a transferrin saturation of 3%. When her infection was improving, oral iron was started 01/04, but IV iron deferred due to concern for promotion of the infection. Magnesium was low at 1.5 on 01/06, she was given 4grams IV. She choked on meatloaf 01/05. Her diet was changed to small bites with extra gravy/sauce. OUTSIDE REPAIRER SPECIAL evaluation was ordered for 01/07 but she was transferred prior. She had ongoing pleuritic chest pain on her left side, presumed secondary to her infection. The pain was acutely worse 01/06 associated with tachycardia. EKG showed sinus tachycardia without ischemic changes and troponins were negative x 2. A third CT was ordered (CTA) and showed developing cavitary lesions as well parapneumonic effusion. There was also a new infiltration on the right side. General Surgery was consulted who recommended evaluation by CT surgery for possible decortication. She was given 500ml of LR and 500ml of NS due to tachycardia despite the unit of blood. At that point transfer was requested to and the patient was accepted by Dr. Chauhan from the hospitalist service with plan for CT surgery and cardiology consultation. Home Meds and New Rx's Prescriptions: No Action atorvastatin 40 MG tablet 40 mg PO QPM acetaminophen [Pain Relief (acetaminophen)] 325 mg tablet 650 mg PO TID PRN famotidine [Acid Controller] 20 mg tablet 20 mg PO QHS ipratropium-albuterol 0.5 mg-3 mg(2.5 mg base)/3 mL solution for nebulization 3 ml inhalation Q3H PRN PRN loperamide 2 mg capsule 2 mg PO DAILY PRN Fleet Bisacodyl 10 mg/30 mL enema 5 mg CO DAILY PRN cholecalciferol (vitamin D3) 25 mcg (1,000 unit) capsule 50 mcg PO DAILY Trelegy Ellipta 200-62.5-25 mcg blister with device 1 inh inhalation DAILY melatonin 3 mg 3 mg PO .Q24 HS PRN (Reason: Do not give after 2 am) proventil hfa 108 mcg 1 puff inhalation Q8H aspirin [Enteric Coated Aspirin] 81 mg tablet,delayed release (DR/EC) 81 mg PO DAILY clopidogrel 75 mg tablet 75 mg PO DAILY pantoprazole 40 mg Tablet,Delayed Release (Dr/Ec) 40 mg PO DAILY@0730 Qty: 90 0RF midodrine 5 mg tablet 5 mg PO TID venlafaxine 150 mg tablet extended release 24hr 150 mg PO DAILY bisacodyl [Dulcolax (bisacodyl)] 10 mg suppository 10 mg CO DAILY PRN Patient Comments: for constipation if no result from MOM and/or by next shift Enema 19-7 gram/118 mL enema 118 ml CO DAILY PRN Patient Comments: for constipation if no result from Dulcolax within 2 hours. If no results from fleet enema, call MD/advanced practice provider ([facility]) for further orders polyethylene glycol 3350 [Miralax] 17 gram/dose powder 17 g PO DAILY mirtazapine 15 mg tablet 15 mg PO HS magnesium hydroxide [Milk of Magnesia] 400 mg/5 mL suspension 2,400 mg PO ONCE PRN Discharge Instructions Activity:: bed to chair with assist Equipment/Supplies:: No Equipment Needed Diet:: As Tolerated DS: Summary Time Spent with Patient providing and/or coordinating discharge services: Less than 30 minutes Status at Discharge Functional status at discharge: bed bound Overall status at discharge: patient is not back to baseline Mental Status: mental status grossly normal Speech and Movement: speech and movement normal Mood: congruent mood Affect: normal affect Quality:SDOH Health Related Social Needs: Health related social needs risk of homeless transpo i nsecurity daily activities lonely/isolated Health related social needs details none Health related social needs details: none Exam Narrative Exam Narrative: uncomfortable appearing older female sittng up in bed, holding left lateral chest, winces with palpation of chest wall and cough. On room air, mildly tachypneic. heart tachycardic but regular, lungs CTAB x rales left base, abdom en soft, non-tender, non-distended. extremities no c/c/e Psych Mental Status: mental status grossly normal Speech and Movement: speech and movement normal Mood: congruent mood Affect: normal affect DS: Data Vitals/I&O Vitals and I&O: Vital Signs Temperature 38.6 C H 01/06/25 18:14 Temperature Source Tympanic 01/06/25 17:35 Pulse 124 H 01/06/25 17:12 Pulse 124 H 01/06/25 17:12 Respiratory Rate 22 01/06/25 17:12 Respiratory Effort Normal 01/06/25 14:52 Respiratory Depth Normal 01/06/25 10:05 Respiratory Pattern Bradypnea 01/06/25 10:05 Blood Pressure 134/68 01/06/25 17:12 Blood Pressure Mean 87 01/06/25 17:12 Blood Pressure Position Supine 01/06/25 10:05 Pulse Oximetry 92 01/06/25 17:12 Oxygen Delivery Method Nasal Cannula 01/06/25 17:35 Oxygen Flow Rate 1 01/06/25 17:35 Fraction of Inspired Oxygen (FIO2) 92 12/27/24 08:15 Pain Level 7 01/06/25 17:35 Comment pt requested to be left alone for 3 AM vitals 01/03/25 03:51 Intake & Output 01/05/25 01/06/25 01/06/25 23:59 11:59 23:59 Intake Total 350 / 450 / 2009 1159 / 2009 Output Total 600 / 1200 525 / 1275 750 / 1275 Balance -250 / -750 325 / 735 410 / 735 Weight 50 kg Intake: IV 50 / 50 550 / 660 110 / 660 Oral 300 / 400 300 / 1000 700 / 1000 Blood Product 350 / 350 Rbc Leuko Reduced Unit 350 / 350 [id number] Output: Urine 600 / 1200 525 / 1275 750 / 1275 Other: Urine Color Yellow Yellow Urine Appearance Clear Clear Urine Odor Normal Comment incontinent in brief mixed w/ small amount of stool Stool Size Small Smear Small Stool Characteristics Soft Brown Brown Data Completed and Pending Labs on day of discharge: Labs from last 24 hours 01/06/25 01/06/25 01/06/25 17:00 10:19 08:13 WBC RBC Hgb 8.7 L Hct 25.9 L MCV MCH MCHC RDW Plt Count MPV Sodium Potassium Chloride Carbon Dioxide Anion Gap BUN Creatinine Est GFR (CKD-EPI 2020) Glucose Calcium Magnesium Troponin I 5 5 ABO/Rh O Positive Antibody Screen NEGATIVE Crossmatch See Detail 01/06/25 05:59 WBC 16.99 H RBC 2.54 L Hgb 6.9 L* Hct 21.4 L MCV 84 MCH 27.2 MCHC 32.2 RDW 15.8 H Plt Count 701 H MPV 9.7 Sodium 133 L Potassium 4.1 Chloride 100 Carbon Dioxide 24.1 Anion Gap 8.9 BUN 9 Creatinine 0.7 Est GFR (CKD-EPI 2020) 93.56 Glucose 106 Calcium 9.5 Magnesium 1.5 L Troponin I ABO/Rh Antibody Screen Crossmatch Preliminary micro results at discharge 01/02/25 19:35 Blood Blood Culture - Preliminary NO GROWTH 72 HOURS 01/02/25 19:25 Blood Blood Culture - Preliminary NO GROWTH 72 HOURS PFSH All Active Problems (Updated 01/06/25 @ 16:43 by Atif Morrow) Parapneumonic effusion (Acute) Aspiration into airway (Acute) MRSA bacteremia (Acute) Gram-positive bacteremia (Acute) Septic shock (Acute) Hypokalemia (Acute) DVT prophylaxis (Acute) Severe sepsis (Acute) Acute renal failure (Acute) Hypomagnesemia (Acute) Sepsis (Acute) Pneumonia (Acute) Cardiorenal syndrome (Acute) Anemia (Chronic) Abnormal kidney function (Acute) Hyponatremia (Acute) Heart failure (Acute) Acute hypoxemic respiratory failure (Acute) Orthostatic hypotension (Chronic) Repeated falls (Acute) Osteoporosis (Chronic) Alcoholic cardiomyopathy (Acute) Alcohol abuse (Chronic) Dementia (Chronic) Right-sided lacunar infarction (Acute) Anemia (Chronic) Acute UTI (Acute) Hyperlipidemia (Chronic) Depression (Chronic) COPD (chronic obstructive pulmonary disease) (Chronic) HTN (hypertension) (Chronic) TIA (transient ischemic attack) (Acute) COVID-19 (Acute) Surgical History (Updated 12/26/24 @ 14:14 by Atif Morrow) Status post open reduction and internal fixation (ORIF) of fracture of lateral condyle of left femur Family History (Updated 12/26/24 @ 14:15 by Atif Morrow) Mother Breast cancer Stroke Asthma Heart disease Sister Breast cancer Social History (Updated 12/26/24 @ 14:16 by Atif Morrow) Smoking/Tobacco Use Status: Former Tobacco Use Smoking risk assessment performed?: Yes Alcohol Intake: former Drug use: Never Substance use type: marijuana Housing: long-term Do you feel safe at home: Yes Do you feel safe in your relationship?: Yes Additional Social history: [employer] since 2023. Previously lived in [place]. Time Spent with Patient Time Spent with Patient: <45 minutes Time was spent: preparing to see the patient(eg.review tests), obtaining and/or reviewing separately otained hiistory, ordering medications,tests, procedures, referring, communicating with other health clinical care coordinator, indepentently interpreting results, counseling the patient and care coordination
== END 2025-01-06 20:05 | disposition short-term general hospital (02) | DRG 871 ==
LOC: ER 11:34 → ICU 13:02 → MS 12-28 15:15 → ICU 01-06 09:25
PROVIDERS: Hospitalist; Student in an Organized Health Care Education/Training Program; Admitting Provider Family Medicine; Emergency Provider Emergency Medicine; Responsible Provider Family Medicine; Visit Provider Family Medicine
DX: N17.9 Acute kidney failure, unspecified; R65.21 Severe sepsis with septic shock; E87.1 Hypo-osmolality and hyponatremia; D50.0 Iron deficiency anemia secondary to blood loss (chronic); J96.01 Acute respiratory failure with hypoxia; E83.42 Hypomagnesemia; F34.1 Dysthymic disorder; I95.1 Orthostatic hypotension; E87.6 Hypokalemia; B95.62 Methicillin resistant Staphylococcus aureus infection as the cause of diseases classified elsewhere; A41.02 Sepsis due to Methicillin resistant Staphylococcus aureus; I42.6 Alcoholic cardiomyopathy; J44.0 Chronic obstructive pulmonary disease with (acute) lower respiratory infection; E87.20 Acidosis, unspecified; J44.1 Chronic obstructive pulmonary disease with (acute) exacerbation; I50.30 Unspecified diastolic (congestive) heart failure; J91.8 Pleural effusion in other conditions classified elsewhere; I11.0 Hypertensive heart disease with heart failure; M81.0 Age-related osteoporosis without current pathological fracture; R29.6 Repeated falls; Z86.73 Personal history of transient ischemic attack (TIA), and cerebral infarction without residual deficits; F03.90 Unspecified dementia, unspecified severity, without behavioral disturbance, psychotic disturbance, mood disturbance, and anxiety; E78.5 Hyperlipidemia, unspecified; Z79.899 Other long term (current) drug therapy; F10.11 Alcohol abuse, in remission; F32.A Depression, unspecified; R07.89 Other chest pain; T17.928A Food in respiratory tract, part unspecified causing other injury, initial encounter; W44.F3XA Food entering into or through a natural orifice, initial encounter
CPT/HCPCS: 00123; 36415; 36416; 36430; 51702; 71275; 80048; 80053; 82805; 82962; 83690; 85027; 86850; 86900; 86901; 86920; 87040; 87077; 87637; 87641; 93005; 93308; 94640; 94761; 96361; 96365; 96366; 96367; 96368; 96375; 97110; 97162; 97530; 99222; 99291; 99292; J1650; 71045; 71260; 74177; 80202; 81003; 81015; 82270; 82272; 82565; 82607; 83540; 83550; 83605; 83735; 83880; 84300; 84484; 85014; 85018; 85025; 85379; 85610; 85730; 87186; 93010; 93306; 94660; 94664; 94760; 99223; 99232; 99233; 99238; J0878; J2020; J2060; J2270; J2470; J2543; J2919; J3372; J3470; J3475; J3480; J3490; J7060; J7512; J7613; J7620; P9016

== ENCOUNTER → 2024-12-27 07:50 | Outpatient (BNVA) | payer MEDICARE, SELFPAY | PROVIDERS: Visit Provider Internal Medicine Cardiovascular Disease ==